=== PATIENT | female | born 1935 | race Caucasian/White ===

== ENCOUNTER 2017-11-05 21:13 | Inpatient (IN) | payer MEDICARE, OTHER, SELFPAY ==
[2017-11-05 21:14] VITALS: BP 149/66; PULSE 103; RESP 16; TEMP 36.7; O2SAT 96; BMI 30.1
--- NOTE | 2017-11-05 21:45 | EKG12_ITS ---
Test Reason : CONFUSION Blood Pressure : / mmHG Vent. Rate : 089 BPM Atrial Rate : 089 BPM P-R Int : 144 ms QRS Dur : 076 ms QT Int : 358 ms P-R-T Axes : 054 014 057 degrees QTc Int : 435 ms Normal sinus rhythm Normal ECG Confirmed by LYNETTE MURRAY, JACQUELINE ([id number]), book editor LISE SHIPLEY ([id number]) on 11/07/2017 3:42:24 PM Referred By: SIVAN Confirmed By:JACQUELINE OJEDA MD
--- NOTE | 2017-11-05 21:45 | CT_ITS ---
STUDY: CT BRAIN WITHOUT CONTRAST REASON FOR EXAM: Female, 81 years old. Confusion RADIATION DOSAGE (If Supplied By Facility): CTDIvol = ( 44.99 ) mGy, DLP = ( 745.49 ) mGycm TECHNIQUE: Transaxial CT imaging of the brain was performed without administration of intravenous contrast material. Individualized dose optimization techniques were used for this CT. COMPARISON: June 15, 2017. FINDINGS: Normal soft tissue structures. Normal calvarium. Normal size ventricles and extra-axial spaces for the patient's age. Bilateral white matter microangiopathic ischemic of the cerebral hemispheres. Normal basal ganglia and thalami. Normal brainstem. Normal cerebellum. There is no intracranial hemorrhage. There are no findings of an acute ischemic infarction. Normal visualized paranasal sinuses. CT/Brain/Head without Contrast IMPRESSION: Stable age-related changes of the brain. Electronically Signed: Narendra Guadalupe DO at 22:42 EDT Tel [phone], Service support ,
--- NOTE | 2017-11-05 21:52 | ED.VISSUMM ---
- ER Visit Summary Date of Service: 11/05/17 Chief Complaint: Nausea, vomiting, diarrhea; confusion History of Present Illness: The patient is a 81 F presenting with nausea, vomiting, diarrhea. Daughter states that she was at a restaurant with her son. She was supposed to go to the bathroom and ended up driving home. When they found her she had soiled herself. She has had nausea, vomiting and diarrhea today. No blood in her stool. Daughter states she has been confused today and has been generally weak. She states when she talked to her on the phone she seemed confused throughout the day. She has had previous urinary tract infections with confusion. She denies chest pain or shortness of breath. Denies abdominal pain. Denies other complaints. Physical Examination: Vitals are stable. Patient is afebrile. Alert no acute distress. HEENT exam is unremarkable. Neck is supple. Lungs are clear and equal bilaterally. Erythema under right breast Heart is regular and tachycardic Abdomen is soft nontender nondistended. No guarding or rebound Extremities are unremarkable. Skin is warm and dry. No focal neurologic deficit. Alert and oriented ?3. NIH 0 Remainder of exam is unremarkable. Emergency Department Course and Treatment: Patient given IV fluids, Zofran. EKG is sinus rate of 89 with no acute ischemic changes. Chest x-ray shows no acute process. CT head shows chronic changes. CBC shows a white count of 15.9. Chemistries show glucose 186, BUN 20. Liver lipase are normal. Urinalysis shows over 100 white blood cells. Troponin is negative. Lactic acid is normal. Urine culture was sent. She is given Rocephin IV. Will discuss the hospitalist for admission. Disposition: Admission Impression: Change in mental status, UTI, nausea, vomiting, diarrhea; generalized weakness This note was generated with [employer] dictation software. It may contain incorrect words, spelling, and punctuation that were not noted in review of the chart prior to signing ED Disposition - Plan for ED Patient: Chief Complaint: Confusion Referrals: Cecy Trivedi MD [Primary Care Provider] -
[2017-11-05 21:54] LABS: Mucous, Urine 0 SEEN /hpf (<or=2+)
--- NOTE | 2017-11-05 22:00 | RAD_ITS ---
STUDY: X-RAY CHEST REASON FOR EXAM: Female, 81 years old. Confusion TECHNIQUE: Single frontal view COMPARISON: None. FINDINGS: The lungs are clear and expanded. There is no demonstrated pleural abnormality. Normal size heart. Normal mediastinum and len. Normal visualized pulmonary arteries. Calcified aortic arch and descending thoracic aorta. Normal visualized thoracic spine. Normal visualized ribs, clavicles, and shoulders. There is no demonstrated abnormality of the visualized soft tissue structures of the upper abdomen. RAD/Chest 1 View (Portable) IMPRESSION: Normal x-ray examination of the chest. Electronically Signed: Narendra Guadalupe DO at 22:50 EDT Tel [phone], Service support ,
[2017-11-05 22:01] LABS: Color, Urine Yellow (Yellow); Glucose, Dipstick 50 mg/dl (Normal); Ketone-Dipstick 5 mg/dl (Negative); Leukocyte Esterase-Dipstick 500 /ul (Negative); Nitrite-Dipstick Positive (Negative); Occult Blood-Urine 250 /ul (Negative); Protein-Dipstick 100 mg/dl (Negative); Urine Bilirubin Dipstick Negative (Negative); Urine Clarity Cloudy (Clear); Urine Urobilinogen Normal (Normal)
[2017-11-05 22:06] LABS: Absolute Lymphocyte Count 1.45 X10^3/ul (0.83-4.51); Absolute Neutrophil Count 12.9 X10^3/uL (2.0-7.7); Basophil# 0.03 X10^3/uL; Basophil% 0.2 % (0-1); Eosinophil# 0.15 X10^3/uL; Eosinophils% 0.9 % (0-5); Hematocrit 38.2 % (37-47); Hemoglobin 12.6 g/dl (12.0-15.0); Lymphocyte # 1.45 X10^3/ul (4.0); Lymphocyte % 9.1 % (19-41); Mean Corpuscular Hgb 29.5 pg (27.0-32.0); Mean Corpuscular Volume 89.5 fL (81-99); Mean Platelet Vol. 10.6 fl (6.2-12.0); Monocyte# 1.33 X10^3/uL; Monocyte% 8.3 % (0-10); Neutrophil # 12.94 X10^3/uL (2.7-7.7); Neutrophil % 81.2 % (47-70); POSITIVE COUNT NO; POSITIVE DIFFERENTIAL NO; POSITIVE MORPHOLOGY NO; Platelet Count 205 K/mm3 (150-450); RBC Distribution Width CV 14.1 % (11.6-14.6); RBC Distribution Width SD 46.1 fl (35.1-43.9); Red Blood Count 4.27 M/mm3 (4.2-5.4); White Blood Count 15.9 K/mm3 (4.4-11.0)
[2017-11-05] MEDS: Ondansetron 4 MG/2 ML Vial IV (22:07)
[2017-11-05 22:12] LABS: Bacteria 1+ /hpf (None Seen); Red Blood Cells-Urine 5-10 SEEN /hpf (0-5); Squamous Epithelial Cells - UA 0-5 SEEN /hpf (5-10); White Blood Cells >100 SEEN /hpf (0-5)
[2017-11-05 22:19] VITALS: BP 137/84; PULSE 103; RESP 18; O2SAT 98
[2017-11-05 22:33] LABS: Lactic Acid 1.2 mmol/L (0.4-2.0)
[2017-11-05 22:35] LABS: ALB/GLOB Ratio 0.9 RATIO (0.9-2.4); AST(SGOT) 12 U/L (15-37); Alanine Aminotransfer ALT/SGPT 17 U/L (13-56); Albumin, Serum 3.4 g/dL (3.2-5.0); Alkaline Phosphatase 63 U/L (45-117); Anion Gap 9 (5-15); BUN 20 mg/dL (7-18); BUN/Creat Ratio 20.3 RATIO (10-20); Calcium,Total 8.6 mg/dL (8.5-10.1); Chloride 108 mmol/L (98-107); Creatinine, Serum 0.98 mg/dL (0.55-1.02); EST Glomerular Filtration Rate 58 mL/min (>60); Est Glom Filt Rate - Afr Amer 70 mL/min (>60); Estimated Creatinine Clearance 40.51 ml/min; Globulin 3.9 g/dL (2.2-4.2); Glucose 186 mg/dL (74-106); Lipase 184 U/L (73-393); Potassium 3.9 mmol/L (3.5-5.1); Protein, Total 7.3 g/dL (6.4-8.2); Sodium Level 141 mmol/L (136-145)
[2017-11-05 23:03] VITALS: BP 140/60; PULSE 83; RESP 16; O2SAT 95
[2017-11-05] MEDS: Ceftriaxone 1 GM/50 ML BAG IV (23:10)
[2017-11-05 23:12] VITALS: BP 140/60; PULSE 83; RESP 16; O2SAT 98
--- NOTE | 2017-11-05 23:25 | PCM.HP.STD ---
Problem List (1) GERD (gastroesophageal reflux disease) Status: Chronic Qualifiers: (2) Hyperlipidemia Status: Chronic Qualifiers: (3) Obstructive sleep apnea Status: Chronic (4) Type II diabetes mellitus Status: Chronic Qualifiers: History of Present Illness Date of Admission: 11/05/17 Chief Complaint: Weakness, confusion, diarrhea. The patient is a 81 year old F with past medical history as mentioned above presented to the emergency room because of confusion, weakness as well as diarrhea. At this time, the patient is alert and oriented ?3. According to her daughter who was at the bedside, the patient was with her son at a restaurant and she is supposed to go to the bathroom and she ended up driving back home. When the found him at home, she soiled herself. She had couple episodes of diarrhea as well as nausea and vomiting. Patient denies any abdominal pain, fever or chills. She denies urinary symptoms. She denies chest pain or shortness of breath. She has history of type 2 diabetes mellitus and she has been on oral hypoglycemic drugs, most recent hemoglobin A1c was 6.8 on June,. She has history of GERD and she has been on PPI. She has a history of recurrent urinary tract infections with previous frequent admissions. She has a history of hyperlipidemia and she has been on statins. In the emergency room, patient was tachycardic, blood pressure was stable, was afebrile and pulse ox maintained on room air. Routine blood work was remarkable for leukocytosis, otherwise normal. Lactic acid was normal. LFT and lipase were normal. Troponin was normal. EKG revealed normal sinus rhythm, normal intervals, no acute ischemic changes. CT scan brain showed no acute findings. Chest x-ray showed no infiltrate, consolidation or effusion. She is being admitted for acute cystitis with sepsis as well as transient metabolic encephalopathy. Past Medical History Past Medical History (Chronic Problems): Chronic Problems GERD (gastroesophageal reflux disease) (Chronic) Hyperlipidemia (Chronic) Obstructive sleep apnea (Chronic) Type II diabetes mellitus (Chronic) Allergies sulfamethoxazole [From Septra] Allergy (Verified 11/05/17 21:19) Hives trimethoprim [From Septra] Allergy (Verified 11/05/17 21:19) Hives adhesive tape Adverse Reaction (Verified 11/05/17 21:19) Rash Home Medications: Ambulatory Orders Medication Instructions Recorded Aspirin [Aspirin, Baby] 81 mg PO DAILY@0800 #30 tab.chew 09/21/15 Atorvastatin Calcium [Lipitor] 20 mg PO QHS #30 tablet 09/21/15 Bimatoprost 0.01% [Lumigan 0.01%] 1 drop EACH EYE QHS #1 bottle 09/21/15 Metformin HCl [Glucophage] 1,000 mg PO QHS #30 tablet 09/21/15 Omeprazole [Prilosec] 40 mg PO DAILY #30 capsule 09/21/15 Glimepiride [Amaryl] 4 mg PO BID 11/05/17 Ramipril [Altace] 2.5 mg PO DAILY 11/05/17 Surgical History: appendectomy, cholecystectomy, hysterectomy, tonsillectomy Psychiatric History: No pertinent psych hx CAN CRIMPER History: No pertinent CAN CRIMPER history Smoking Status: Never smoker Alcohol: None Drugs: None - *Family History Maternal History Items: Diabetes, Heart Disease - age 59 Paternal History Items: Cancer - in 80's, Diabetes Review of Systems Constitutional: Reports: Weakness. Denies: Anorexia, Chills, Fever Eyes: Denies: Blurred vision, Double vision, Drainage, Redness HEENT: Denies: Difficulty Hearing, Ear Pain, Eye Pain, Nasal Congestion, Sore Throat Cardiovascular: Denies: Chest Pain, Chest Pressure, Chest Tightness, Light Headedness, Palpitations, Syncope Respiratory: Denies: Cough, Pleuritic Pain, Shortness of Breath, Sputum production, Wheezing Gastrointestinal: Reports: Diarrhea, Nausea, Vomiting. Denies: Abdominal Pain, Constipation Genitourinary: Denies: Dysuria, Frequency, Hematuria Musculoskeletal: Denies: Arm Pain, Back Pain, Foot Pain Skin: Denies: Dryness, Rash Neurological: Reports: Confusion. Denies: Balance problems, Double vision, Change in Speech, Slurred speech, Headaches, Incoordination, Numbness Psychiatric: Denies: Anxiety, Depression Endocrine: Denies: Change in Body Habitus, Polydipsia VTE Information - Inpt Only VTE Present on Admission: No VTE Mechan Device Prophylaxis: None VTE Pharm Prophylaxis ordered?: Yes - Physical Exam General: Alert, Oriented x3, Cooperative, No apparent distress HEENT: Atraumatic, PERRLA, EOMI Oral: Moist Mucosa, No Gingival or Mucosal Lesions/ Ulcerations Neck: Supple, No JVD, Negative Carotid Bruits, Trachea Midline, Thyroid Normal Size and Texture Lungs: Clear to auscultation, No rhonchi, No wheeze, No rales, Diminished Cardiovascular: Regular rate, Regular Rhythm, Normal S1, Normal S2, No murmurs, PMI Normal Abdomen: Bowel Sounds Present, Soft, Non Tender, Non-Distended, No Hepato-splenomegaly, Obese Extremities: No clubbing, No cyanosis, No edema Skin: No rashes, No breakdown Lymphatic: No Cervical, Supraclavicular, or Inguinal Adenopathy Neurological: Cranial nerves II-XII grossly intact, Motor Exam 5/5 strength throughout Psych/Mental Status: Normal Affect, Appropriate, Alert and oriented to time, place, person, mood and affect Vital Signs Temp Pulse Resp BP Pulse Ox 98.0 F 83 16 140/60 H 98 11/05/17 21:14 11/05/17 23:12 11/05/17 23:12 11/05/17 23:12 11/05/17 23:12 Oxygen Delivery Method Room Air Weight: 181 lb 3.52 oz Body Mass Index (BMI) 30.1 Finger Stick Blood Glucose 166 Laboratory Tests Past 24 Hrs 11/05/17 11/05/17 11/05/17 21:33 22:00 22:00 WBC 15.9 H RBC 4.27 Hgb 12.6 Hct 38.2 MCV 89.5 MCH 29.5 MCHC 33.0 RDW 14.1 RDW Differential 46.1 H Plt Count 205 MPV 10.6 Immature Gran % (Auto) 0.300 Neut % (Auto) 81.2 H Lymph % (Auto) 9.1 L [place] % (Auto) 8.3 Eos % (Auto) 0.9 Baso % (Auto) 0.2 Absolute Neuts (auto) 12.9 H Absolute Lymphs (auto) 1.45 Total Counted Not Reportable Sodium 141 Potassium 3.9 Chloride 108 H Carbon Dioxide 24.0 Anion Gap 9 BUN 20 H Creatinine 0.98 Estim Creat Clear Calc 40.51 Est GFR (MDRD) Af Amer 70 Est GFR (MDRD) Non-Af 58 L BUN/Creatinine Ratio 20.3 H Glucose 186 H Lactic Acid Calcium 8.6 Total Bilirubin 0.80 AST 12 L ALT 17 Alkaline Phosphatase 63 Troponin I < 0.02 Total Protein 7.3 Albumin 3.4 Globulin 3.9 Albumin/Globulin Ratio 0.9 Lipase 184 Urine Color Yellow Urine Clarity Cloudy Urine pH 5.0 Ur Specific [place] 1.020 Urine Protein 100 H Urine Glucose (UA) 50 H Urine Ketones 5 H Urine Occult Blood 250 H Urine Nitrite Positive H Urine Bilirubin Negative Urine Urobilinogen Normal Ur Leukocyte Esterase 500 H Urine RBC 5-10 SEEN Urine WBC >100 SEEN Ur Squamous Epith Cells 0-5 SEEN Urine Bacteria 1+ Urine Mucus 0 SEEN 11/05/17 22:00 WBC RBC Hgb Hct MCV MCH MCHC RDW RDW Differential Plt Count MPV Immature Gran % (Auto) Neut % (Auto) Lymph % (Auto) [place] % (Auto) Eos % (Auto) Baso % (Auto) Absolute Neuts (auto) Absolute Lymphs (auto) Total Counted Sodium Potassium Chloride Carbon Dioxide Anion Gap BUN Creatinine Estim Creat Clear Calc Est GFR (MDRD) Af Amer Est GFR (MDRD) Non-Af BUN/Creatinine Ratio Glucose Lactic Acid 1.2 Calcium Total Bilirubin AST ALT Alkaline Phosphatase Troponin I Total Protein Albumin Globulin Albumin/Globulin Ratio Lipase Urine Color Urine Clarity Urine pH Ur Specific [place] Urine Protein Urine Glucose (UA) Urine Ketones Urine Occult Blood Urine Nitrite Urine Bilirubin Urine Urobilinogen Ur Leukocyte Esterase Urine RBC Urine WBC Ur Squamous Epith Cells Urine Bacteria Urine Mucus Clinical Impression(s) from Imaging Studies Brain CT 11/05/17 21:45 IMPRESSION: Stable age-related changes of the brain. Electronically Signed: Narendra Guadalupe DO at 22:42 EDT Tel [phone], Service support , Chest X-Ray 11/05/17 22:00 IMPRESSION: Normal x-ray examination of the chest. Electronically Signed: Narendra Guadalupe DO at 22:50 EDT Tel [phone], Service support , Assessment/Plan This is an 81 years old female patient presented to emergency department because of confusion, weakness and diarrhea and she was found to have acute cystitis with sepsis as well as transient metabolic encephalopathy. #1 acute cystitis/sepsis: In context of history of recurrent acute cystitis/UTI. She is afebrile, slightly tachycardic, blood pressure stable. Lactic acid is normal. Plan: Admit to [facility] floor, cardiac monitoring, continue IV fluids, IV Rocephin, urine culture, repeat CBC and BMP tomorrow morning, PT OT evaluation and treatment. #2 confusion/delirium: Secondary to metabolic encephalopathy, transient. At this time, patient is alert and oriented ?3. CT scan brain without acute findings. Plan to treat underlying cause which is the acute cystitis. #3 type 2 diabetes mellitus: ADA diet, Accu-Cheks, insulin sliding scale, continue glimepiride and metformin. #4 hyperlipidemia: Continue statins. #5 GERD: Continue PPI. #6 DVT prophylaxis: Subcu Lovenox. This note was generated with [employer] dictation software. It may contain incorrect words, spelling, and punctuation that were not noted in checking the note before signing. Code Visit Inpatient E&M: 89744 Init Hosp L2
--- NOTE | 2017-11-05 23:31 | HP.PCM_ITS ---
Problem List (1) GERD (gastroesophageal reflux disease) Status: Chronic Qualifiers: (2) Hyperlipidemia Status: Chronic Qualifiers: (3) Obstructive sleep apnea Status: Chronic (4) Type II diabetes mellitus Status: Chronic Qualifiers: History of Present Illness Date of Admission: 11/05/17 Chief Complaint: Weakness, confusion, diarrhea. The patient is a 81 year old F with past medical history as mentioned above presented to the emergency room because of confusion, weakness as well as diarrhea. At this time, the patient is alert and oriented ?3. According to her daughter who was at the bedside, the patient was with her son at a restaurant and she is supposed to go to the bathroom and she ended up driving back home. When the found him at home, she soiled herself. She had couple episodes of diarrhea as well as nausea and vomiting. Patient denies any abdominal pain, fever or chills. She denies urinary symptoms. She denies chest pain or shortness of breath. She has history of type 2 diabetes mellitus and she has been on oral hypoglycemic drugs, most recent hemoglobin A1c was 6.8 on June,. She has history of GERD and she has been on PPI. She has a history of recurrent urinary tract infections with previous frequent admissions. She has a history of hyperlipidemia and she has been on statins. In the emergency room, patient was tachycardic, blood pressure was stable, was afebrile and pulse ox maintained on room air. Routine blood work was remarkable for leukocytosis, otherwise normal. Lactic acid was normal. LFT and lipase were normal. Troponin was normal. EKG revealed normal sinus rhythm , normal intervals, no acute ischemic changes. CT scan brain showed no acute findings. Chest x-ray showed no infiltrate, consolidation or effusion. She is being admitted for acute cystitis with sepsis as well as transient metabolic encephalopathy. Past Medical History Past Medical History (Chronic Problems): Chronic Problems GERD (gastroesophageal reflux disease) (Chronic) Hyperlipidemia (Chronic) Obstructive sleep apnea (Chronic) Type II diabetes mellitus (Chronic) Allergies sulfamethoxazole [From Septra] Allergy (Verified 11/05/17 21:19) Hives trimethoprim [From Septra] Allergy (Verified 11/05/17 21:19) Hives adhesive tape Adverse Reaction (Verified 11/05/17 21:19) Rash Home Medications: Ambulatory Orders Medication Instructions Recorded Aspirin [Aspirin, Baby] 81 mg PO DAILY@0800 #30 tab.chew 09/21/15 Atorvastatin Calcium [Lipitor] 20 mg PO QHS #30 tablet 09/21/15 Bimatoprost 0.01% [Lumigan 0.01%] 1 drop EACH EYE QHS #1 bottle 09/21/15 Metformin HCl [Glucophage] 1,000 mg PO QHS #30 tablet 09/21/15 Omeprazole [Prilosec] 40 mg PO DAILY #30 capsule 09/21/15 Glimepiride [Amaryl] 4 mg PO BID 11/05/17 Ramipril [Altace] 2.5 mg PO DAILY 11/05/17 Surgical History: appendectomy, cholecystectomy, hysterectomy, tonsillectomy Psychiatric History: No pertinent psych hx PET SITTER History: No pertinent PET SITTER history Smoking Status: Never smoker Alcohol: None Drugs: None - *Family History Maternal History Items: Diabetes, Heart Disease - age 59 Paternal History Items: Cancer - in 80's, Diabetes Review of Systems Constitutional: Reports: Weakness. Denies: Anorexia, Chills, Fever Eyes: Denies: Blurred vision, Double vision, Drainage, Redness HEENT: Denies: Difficulty Hearing, Ear Pain, Eye Pain, Nasal Congestion, Sore Throat Cardiovascular: Denies: Chest Pain, Chest Pressure, Chest Tightness, Light Headedness, Palpitations, Syncope Respiratory: Denies: Cough, Pleuritic Pain, Shortness of Breath, Sputum production, Wheezing Gastrointestinal: Reports: Diarrhea, Nausea, Vomiting. Denies: Abdominal Pain, Constipation Genitourinary: Denies: Dysuria, Frequency, Hematuria Musculoskeletal: Denies: Arm Pain, Back Pain, Foot Pain Skin: Denies: Dryness, Rash Neurological: Reports: Confusion. Denies: Balance problems, Double vision, Change in Speech, Slurred speech, Headaches, Incoordination, Numbness Psychiatric: Denies: Anxiety, Depression Endocrine: Denies: Change in Body Habitus, Polydipsia VTE Information - Inpt Only VTE Present on Admission: No VTE Mechan Device Prophylaxis: None VTE Pharm Prophylaxis ordered?: Yes - Physical Exam General: Alert, Oriented x3, Cooperative, No apparent distress HEENT: Atraumatic, PERRLA, EOMI Oral: Moist Mucosa, No Gingival or Mucosal Lesions/ Ulcerations Neck: Supple, No JVD, Negative Carotid Bruits, Trachea Midline, Thyroid Normal Size and Texture Lungs: Clear to auscultation, No rhonchi, No wheeze, No rales, Diminished Cardiovascular: Regular rate, Regular Rhythm, Normal S1, Normal S2, No murmurs, PMI Normal Abdomen: Bowel Sounds Present, Soft, Non Tender, Non-Distended, No Hepato- splenomegaly, Obese Extremities: No clubbing, No cyanosis, No edema Skin: No rashes, No breakdown Lymphatic: No Cervical, Supraclavicular, or Inguinal Adenopathy Neurological: Cranial nerves II-XII grossly intact, Motor Exam 5/5 strength throughout Psych/Mental Status: Normal Affect, Appropriate, Alert and oriented to time, place, person, mood and affect Vital Signs Temp Pulse Resp BP Pulse Ox 98.0 F 83 16 140/60 H 98 11/05/17 21:14 11/05/17 23:12 11/05/17 23:12 11/05/17 23:12 11/05/17 23:12 Oxygen Delivery Method Room Air Weight: 181 lb 3.52 oz Body Mass Index (BMI) 30.1 Finger Stick Blood Glucose 166 Laboratory Tests Past 24 Hrs 11/05/17 11/05/17 11/05/17 21:33 22:00 22:00 WBC 15.9 H RBC 4.27 Hgb 12.6 Hct 38.2 MCV 89.5 MCH 29.5 MCHC 33.0 RDW 14.1 RDW Differential 46.1 H Plt Count 205 MPV 10.6 Immature Gran % (Auto) 0.300 Neut % (Auto) 81.2 H Lymph % (Auto) 9.1 L [place] % (Auto) 8.3 Eos % (Auto) 0.9 Baso % (Auto) 0.2 Absolute Neuts (auto) 12.9 H Absolute Lymphs (auto) 1.45 Total Counted Not Reportable Sodium 141 Potassium 3.9 Chloride 108 H Carbon Dioxide 24.0 Anion Gap 9 BUN 20 H Creatinine 0.98 Estim Creat Clear Calc 40.51 Est GFR (MDRD) Af Amer 70 Est GFR (MDRD) Non-Af 58 L BUN/Creatinine Ratio 20.3 H Glucose 186 H Lactic Acid Calcium 8.6 Total Bilirubin 0.80 AST 12 L ALT 17 Alkaline Phosphatase 63 Troponin I < 0.02 Total Protein 7.3 Albumin 3.4 Globulin 3.9 Albumin/Globulin Ratio 0.9 Lipase 184 Urine Color Yellow Urine Clarity Cloudy Urine pH 5.0 Ur Specific [place] 1.020 Urine Protein 100 H Urine Glucose (UA) 50 H Urine Ketones 5 H Urine Occult Blood 250 H Urine Nitrite Positive H Urine Bilirubin Negative Urine Urobilinogen Normal Ur Leukocyte Esterase 500 H Urine RBC 5-10 SEEN Urine WBC >100 SEEN Ur Squamous Epith Cells 0-5 SEEN Urine Bacteria 1+ Urine Mucus 0 SEEN 11/05/17 22:00 WBC RBC Hgb Hct MCV MCH MCHC RDW RDW Differential Plt Count MPV Immature Gran % (Auto) Neut % (Auto) Lymph % (Auto) [place] % (Auto) Eos % (Auto) Baso % (Auto) Absolute Neuts (auto) Absolute Lymphs (auto) Total Counted Sodium Potassium Chloride Carbon Dioxide Anion Gap BUN Creatinine Estim Creat Clear Calc Est GFR (MDRD) Af Amer Est GFR (MDRD) Non-Af BUN/Creatinine Ratio Glucose Lactic Acid 1.2 Calcium Total Bilirubin AST ALT Alkaline Phosphatase Troponin I Total Protein Albumin Globulin Albumin/Globulin Ratio Lipase Urine Color Urine Clarity Urine pH Ur Specific [place] Urine Protein Urine Glucose (UA) Urine Ketones Urine Occult Blood Urine Nitrite Urine Bilirubin Urine Urobilinogen Ur Leukocyte Esterase Urine RBC Urine WBC Ur Squamous Epith Cells Urine Bacteria Urine Mucus Clinical Impression(s) from Imaging Studies Brain CT 11/05/17 21:45 IMPRESSION: Stable age-related changes of the brain. Electronically Signed: Narendra Guadalupe DO at 22:42 EDT Tel [phone], Service support , Chest X-Ray 11/05/17 22:00 IMPRESSION: Normal x-ray examination of the chest. Electronically Signed: Narendra Guadalupe DO at 22:50 EDT Tel [phone], Service support , Assessment/Plan This is an 81 years old female patient presented to emergency department because of confusion, weakness and diarrhea and she was found to have acute cystitis with sepsis as well as transient metabolic encephalopathy. #1 acute cystitis/sepsis: In context of history of recurrent acute cystitis/ UTI. She is afebrile, slightly tachycardic, blood pressure stable. Lactic acid is normal. Plan: Admit to [facility] floor, cardiac monitoring, continue IV fluids, IV Rocephin, urine culture, repeat CBC and BMP tomorrow morning, PT OT evaluation and treatment. #2 confusion/delirium: Secondary to metabolic encephalopathy, transient. At this time, patient is alert and oriented ?3. CT scan brain without acute findings. Plan to treat underlying cause which is the acute cystitis. #3 type 2 diabetes mellitus: ADA diet, Accu-Cheks, insulin sliding scale, continue glimepiride and metformin. #4 hyperlipidemia: Continue statins. #5 GERD: Continue PPI. #6 DVT prophylaxis: Subcu Lovenox. This note was generated with [employer] dictation software. It may contain incorrect words, spelling, and punctuation that were not noted in checking the note before signing. Code Visit Inpatient E&M: 11325 Init Hosp L2
[2017-11-05 23:44] VITALS: BMI 34.0
[2017-11-05 23:59] VITALS: BMI 34.0
[2017-11-06] VITALS (9 sets, daily range): BP systolic 135–143; BP diastolic 51–70; PULSE 66–83; RESP 16–18; TEMP 36.6–37.2; O2SAT 94–100
[2017-11-06 00:31] LABS: Bedside Glucose 145 mg/dL (70-110)
[2017-11-06] MEDS: 0.9% Normal Saline 1,000 ML 100 ML IV ×2 (04:15→12:56)
[2017-11-06 06:36] LABS: Absolute Neutrophil Count 10.2 X10^3/uL (2.0-7.7); Basophil# 0.03 X10^3/uL; Basophil% 0.2 % (0-1); Eosinophil# 0.25 X10^3/uL; Eosinophils% 1.7 % (0-5); Hematocrit 38.4 % (37-47); Hemoglobin 12.3 g/dl (12.0-15.0); Lymphocyte % 17.1 % (19-41); Mean Corpuscular Hgb 28.5 pg (27.0-32.0); Mean Corpuscular Volume 88.9 fL (81-99); Monocyte# 1.64 X10^3/uL; Monocyte% 11.2 % (0-10); Neutrophil % 69.6 % (47-70); Platelet Count 136 K/mm3 (150-450); RBC Distribution Width SD 45.8 fl (35.1-43.9); Red Blood Count 4.32 M/mm3 (4.2-5.4); White Blood Count 14.7 K/mm3 (4.4-11.0)
[2017-11-06 06:37] LABS: Differential Indicated SCAN CRITERIA MET; POSITIVE COUNT NO; POSITIVE DIFFERENTIAL YES; POSITIVE MORPHOLOGY NO
[2017-11-06 06:39] LABS: Anion Gap 10 (5-15); BUN 16 mg/dL (7-18); BUN/Creat Ratio 19.6 RATIO (10-20); Calcium,Total 8.5 mg/dL (8.5-10.1); Chloride 110 mmol/L (98-107); Creatinine, Serum 0.82 mg/dL (0.55-1.02); EST Glomerular Filtration Rate 71 mL/min (>60); Est Glom Filt Rate - Afr Amer 86 mL/min (>60); Estimated Creatinine Clearance 38.65 ml/min; Glucose 108 mg/dL (74-106); Potassium 3.9 mmol/L (3.5-5.1); Sodium Level 143 mmol/L (136-145)
[2017-11-06 06:46] LABS: Bedside Glucose 110 mg/dL (70-110)
[2017-11-06] MEDS: Ramipril 2.5 MG Capsule PO (09:11)
[2017-11-06] MEDS: Aspirin 81 MG TAB.CHEW PO (09:11)
[2017-11-06] MEDS: Enoxaparin 40 MG/0.4 ML Syringe SC (09:11)
[2017-11-06] MEDS: Pantoprazole Sodium 40 MG Tablet PO (09:11)
[2017-11-06] MEDS: Glimepiride 4 MG Tablet PO (09:11)
[2017-11-06] MEDS: Glucerna Shake 120 ML LIQUID PO (09:12)
[2017-11-06] MEDS: Ceftriaxone 1 GM/50 ML BAG IV (09:12)
[2017-11-06] MEDS: metFORMIN HCl 1,000 MG Tablet 1000 MG PO (09:13)
--- NOTE | 2017-11-06 10:29 | PCM.DC ---
You will use the following diet at home:: Regular Discharge Activity: Return to Normal Activity Allergies/Adverse Reactions: Allergies sulfamethoxazole [From ] Allergy (Verified 11/05/17 21:19) Hives trimethoprim [From ] Allergy (Verified 11/05/17 21:19) Hives adhesive tape Adverse Reaction (Verified 11/05/17 21:19) Rash Medications to take at Discharge Aspirin [Aspirin, Baby] 81 mg PO DAILY@0800 #30 tab.chew 09/21/15 Atorvastatin Calcium [Lipitor] 20 mg PO QHS #30 tablet 09/21/15 Bimatoprost 0.01% [Lumigan 0.01%] 1 drop EACH EYE QHS #1 bottle 09/21/15 Metformin HCl [Glucophage] 1,000 mg PO QHS #30 tablet 09/21/15 Omeprazole [Prilosec] 40 mg PO DAILY #30 capsule 09/21/15 Glimepiride [Amaryl] 4 mg PO BID 11/05/17 Ramipril [Altace] 2.5 mg PO DAILY 11/05/17 Acetaminophen [Tylenol Tablet] 650 mg PO Q6H PRN PRN tablet 11/06/17 Ciprofloxacin [Cipro] 250 mg PO BID 3 Days #6 tablet 11/06/17 Nystatin Powder [Mycostatin Powder] 1 applic TOPICAL BID #1 bottle 11/06/17 Ondansetron [Zofran] 4 mg IV Q8H PRN PRN vial 11/06/17 The following prescriptions were given: Ciprofloxacin [Cipro] 250 mg PO BID 3 Days #6 tablet Nystatin Powder [Mycostatin Powder] 1 applic TOPICAL BID #1 bottle Primary Care Physician: Cecy Trivedi MD [Primary Care Provider] - In 1 Week
--- NOTE | 2017-11-06 10:30 | PCM.DC.SUM ---
Discharge Date and Diagnosis Date of Admission: 11/05/17 Date of Discharge: 11/06/17 - Secondary Discharge Diagnosis Chronic Problems GERD (gastroesophageal reflux disease) (Chronic) Hyperlipidemia (Chronic) Obstructive sleep apnea (Chronic) Type II diabetes mellitus (Chronic) Hospital Course and Treatment Operations: None Summary of Care Provided: The patient is a 81 F who presented with nausea, vomiting, diarrhea. She was at a local restaurant with her son, she needed to use the bathroom and ended up driving home. When they found her she had soiled herself. She has had nausea, vomiting and diarrhea. Taken to the emergency room where she had a CT scan of the brain and that was nonacute. She was noted to have pyuria consistent with urinary tract infection but she denied any dysuria. Was treated with IV Rocephin for acute cystitis, urine culture is growing gram-negative rods with final cultures pending. The patient elected to be discharged home as she was alert and oriented to time place and person and feeling much improved. She was discharged on Cipro but recommended to follow-up with her primary care doctor. If final cultures shows sensitivity pattern Cipro is not effective a new prescription will be called in. She was discharged home in stable condition. Physical exam at a time of discharge; vital signs were stable. He was alert and oriented to time place and person. He did not appear to be any form of distress. S1 and S2 heard no murmur or gallop Lung exam was clear to auscultation with no adventitious sounds. Abdomen was soft nontender with normal bowel sounds. extremity exam did not reveal any edema, palpable pulses bilaterally. Neurologic exam was grossly intact. Discharge Diet: No Restrictions Discharge Activity: Return to Normal Activity Home Medications: Medications to take at Discharge Aspirin [Aspirin, Baby] 81 mg PO DAILY@0800 #30 tab.chew 09/21/15 Atorvastatin Calcium [Lipitor] 20 mg PO QHS #30 tablet 09/21/15 Bimatoprost 0.01% [Lumigan 0.01%] 1 drop EACH EYE QHS #1 bottle 09/21/15 Metformin HCl [Glucophage] 1,000 mg PO QHS #30 tablet 09/21/15 Omeprazole [Prilosec] 40 mg PO DAILY #30 capsule 09/21/15 Glimepiride [Amaryl] 4 mg PO BID 11/05/17 Ramipril [Altace] 2.5 mg PO DAILY 11/05/17 Acetaminophen [Tylenol Tablet] 650 mg PO Q6H PRN PRN tablet 11/06/17 Ciprofloxacin [Cipro] 250 mg PO BID 3 Days #6 tab 11/06/17 Nystatin Powder [Mycostatin Powder] 1 applic TOPICAL BID #1 bottle 11/06/17 Ondansetron [Zofran] 4 mg IV Q8H PRN PRN vial 11/06/17 Following Prescrptions Were Given to Patient: Ciprofloxacin [Cipro] 250 mg PO BID 3 Days #6 tab Nystatin Powder [Mycostatin Powder] 1 applic TOPICAL BID #1 bottle Primary Care Physician: Cecy Trivedi MD [Primary Care Provider] - In 1 Week Medical Necessity - Tobacco Use Smoking Status: Never smoker Meaningful Use Info Meaningful Use Diagnoses (Choose all that apply): None applicable Code Visit OBSV E&M: 71263 Observation care discharge
[2017-11-06 12:00] LABS: Bedside Glucose 241 mg/dL (70-110)
[2017-11-07 09:30] LABS: Pathologist Review Reviewed
== END 2017-11-06 14:14 | disposition home or self-care (01) | DRG 689 ==
LOC: ED 22:04 → MS2 23:20
PROVIDERS: Admitting Provider Hospitalist; Emergency Provider Emergency Medicine; Family Provider Family Medicine; PCP Family Medicine; Visit Provider Internal Medicine
DX: N30.00 Acute cystitis without hematuria (principal); G93.41 Metabolic encephalopathy; K21.9 Gastro-esophageal reflux disease without esophagitis; E78.5 Hyperlipidemia, unspecified; G47.33 Obstructive sleep apnea (adult) (pediatric); E11.9 Type 2 diabetes mellitus without complications
CPT/HCPCS: 36415; 70450; 71045; 80048; 80053; 81001; 82962; 83605; 83690; 84484; 85025; 87086; 87088; 87186; 93005; 97162; 97166; 97802; 99285; J7030; J7040; P9612; A4216; J2405

== ENCOUNTER 2017-11-08 06:21 | Observation (INO) | payer MEDICARE, OTHER, SELFPAY ==
[2017-11-08] VITALS (13 sets, daily range): BP systolic 129–210; BP diastolic 46–92; PULSE 67–99; RESP 15–24; TEMP 36.3–36.8; O2SAT 95–100; BMI 34.3; BMI 36.7
--- NOTE | 2017-11-08 06:52 | RAD_ITS ---
STUDY: X-RAY - LEFT RADIUS AND ULNA REASON FOR EXAM: Female, 81 years old. Documentation of closed reduction of acute fracture of the distal radius and ulna. TECHNIQUE: AP and lateral view(s) of the forearm. COMPARISON: Prior comparable comparison studies are not available for review at this time. FINDINGS: Patient has a cast. There is soft tissue swelling. There is diffuse demineralization of the osseous structures. There is a acute fracture of the distal radial diaphysis. There is acute comminuted fracture of the distal ulna. There are degenerative changes of the wrist and elbow. RAD/Forearm 2 Views IMPRESSION: Cast is present apparently secondary to closed reduction of fractures of the distal radius and ulnar Electronically Signed: Sandy Louise MD at 8:17 EDT , Service support ,
--- NOTE | 2017-11-08 06:59 | ED.VIS.GEN ---
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 No other injuries. Right-hand dominant. Quality: ache Location: left forearm Current Severity: Moderate Maximum Severity: Severe Worsened by: moving LUE Relieved by: splint placed by EMS Prior similar symptoms: Yes - Past Medical History (1) GERD (gastroesophageal reflux disease) Status: Chronic (2) Hyperlipidemia Status: Chronic (3) Obstructive sleep apnea Status: Chronic (4) Type II diabetes mellitus Status: Chronic Past Medical History - Allergies and Home Meds Allergies/Adverse Reactions: Allergies sulfamethoxazole [From ] Allergy (Verified 11/08/17 06:24) Hives trimethoprim [From ] Allergy (Verified 11/08/17 06:24) Hives adhesive tape Adverse Reaction (Verified 11/08/17 06:24) Rash Home Medications: Home Medications Medication Instructions Recorded Aspirin [Aspirin, Baby] 81 mg PO DAILY@0800 #30 tab.chew 09/21/15 Atorvastatin Calcium [Lipitor] 20 mg PO QHS #30 tablet 09/21/15 Bimatoprost 0.01% [Lumigan 0.01%] 1 drop EACH EYE QHS #1 bottle 09/21/15 Metformin HCl [Glucophage] 1,000 mg PO QHS #30 tablet 09/21/15 Omeprazole [Prilosec] 40 mg PO DAILY #30 capsule 09/21/15 Glimepiride [Amaryl] 4 mg PO BID 11/05/17 Ramipril [Altace] 2.5 mg PO DAILY 11/05/17 Acetaminophen [Tylenol Tablet] 650 mg PO Q6H PRN PRN tablet 11/06/17 Ciprofloxacin [Cipro] 250 mg PO BID 3 Days #6 tab 11/06/17 Nystatin Powder [Mycostatin Powder] 1 applic TOPICAL BID #1 bottle 11/06/17 Ondansetron [Zofran] 4 mg IV Q8H PRN PRN vial 11/06/17 Primary Care Physician: Cecy Trivedi MD [Primary Care Provider] - Surgical History: appendectomy, cholecystectomy, hysterectomy, tonsillectomy Smoking Status: Former smoker - Family History Maternal Family History: Reports: Diabetes, Heart Disease - age 59 Paternal Family History: Reports: Cancer - in 80's, Diabetes Review of Systems All systems negative except as indicated Musculoskeletal: Reports: Extremity Pain Physical Exam Vital Signs/Narrative: Vital Signs Temp Pulse Resp BP Pulse Ox 11/08/17 06:23 98.3 F 99 24 H 169/79 H 97 Inital Vital Signs reviewed: Yes General: Well nourished, Well developed, Obese Head: Normocephalic, Atraumatic Eyes: Perrl, EOMI ENT: Moist mucous membranes, No rhinorrhea Neck: Supple, Nontender Cardiovascular: Regular rate, Regular rhythm, No murmurs, - - pelvis stable APC Respiratory: No distress, CTA bilaterally, Chest nontender Abdomen: Soft, Nontender, Nondistended, Normal bowel sounds Back: Nontender, Normal Inspection Extremities: No edema, Tenderness - left mid-forearm. obvious unstable deformity. minor superficial abrasions dorsal and volar left forearm. Forearm is very floppy and causes pt to transiently lose radial pulse. Skin: Normal color, No rash Neurological: Alert, Oriented x3, Cranial nerves II-XII grossly intact, Normal Strength - can wiggle left fingers, Normal Sensation Psychological: Normal affect Diagnostic/Tx/Re-eval Clinical Impression(s) from Imaging Studies Forearm X-Ray 11/08/17 06:52 IMPRESSION: Cast is present apparently secondary to closed reduction of fractures of the distal radius and ulnar Electronically Signed: Sandy Louise MD at 8:17 EDT , Service support , - Medical Decision Making Initially upon evaluating the patient's wounds, I had to remove her forearm from the EMS vacuum splint, and the fractures were so unstable that she was intermittently losing a radial pulse. Therefore, I reduced it and held traction, and with nursing assistance, splinted the patient there, she is neurovascularly intact distally after placement. X-rays obtained afterwards show reasonable alignment, with some angulation and mild displacement. Discussed with Dr. Jimenez, on-call for orthopedics, who requests that the patient be maintained n.p.o., for further evaluation and possible open reduction internal fixation today, followed by possible discharge home, which is what the patient wants. Procedures - Upper Extremity Splints Upper Extremity Splint: Orthoglass, Long arm - sugartong forearm/wrist/elbow, Sling Splint Fabrication: Fabricated Location: Left - NVID after placement Procedure(s): Closed reduction left forearm fracture by manual manipulation and traction while splinting. ED Disposition - Plan for ED Patient: Chief Complaint: Fall Diagnosis: Traumatic closed displaced fracture of shafts of left ulna and radius Referrals: William Jimenez MD [STAFF PHYSICIAN] -
[2017-11-08] MEDS: Morphine 2 MG/ML Syringe IV (07:15)
[2017-11-08] MEDS: Ondansetron 4 MG/2 ML Vial IV (07:16)
[2017-11-08 09:40] LABS: Bedside Glucose 131 mg/dL (70-110)
--- NOTE | 2017-11-08 10:24 | ED.RN ---
REPORT CALLED TO MARLON WALSH IN OR. OK TO SEND PT TO SURGERY AT THIS TIME.
--- NOTE | 2017-11-08 11:38 | HP.PCM_ITS ---
History of Present Illness Date of Admission: 11/08/17 Chief Complaint: Left forearm fracture The patient is a 81 year old F with history of diabetes and hypertension presents today with left arm pain. She is right-hand dominant. Patient states she was walking around her house which was dimly lit when she went to sit in her chair she missed the chair and fell onto the table. When she fell on the table she hit her left arm sustaining an injury to her left arm. She was brought in by squad with a vacuum splint which was removed showing an unstable forearm. Per report from the emergency department patient had variable palpable pulses based on position of the fracture. He attempted a reduction and splinted her to stabilize it. Currently patient reports 7 out of 10 pain in the left forearm worse with motion better with immobilization. She denies any numbness and tingling in digits. Patient denies any previous orthopedic injuries. She was in the emergency department a couple days ago and diagnosed with a UTI and urosepsis. She has been on antibiotic over the last 2 days and without symptoms. Medication list was reviewed with the patient. Past Medical History Past Medical History (Chronic Problems): Chronic Problems GERD (gastroesophageal reflux disease) (Chronic) Hyperlipidemia (Chronic) Obstructive sleep apnea (Chronic) Type II diabetes mellitus (Chronic) Allergies sulfamethoxazole [From ] Allergy (Verified 11/08/17 06:24) Hives trimethoprim [From ] Allergy (Verified 11/08/17 06:24) Hives adhesive tape Adverse Reaction (Verified 11/08/17 06:24) Rash Home Medications: Ambulatory Orders Medication Instructions Recorded Aspirin [Aspirin, Baby] 81 mg PO DAILY@0800 #30 tab.chew 09/21/15 Atorvastatin Calcium [Lipitor] 20 mg PO QHS #30 tablet 09/21/15 Bimatoprost 0.01% [Lumigan 0.01%] 1 drop EACH EYE QHS #1 bottle 09/21/15 Metformin HCl [Glucophage] 1,000 mg PO QHS #30 tablet 09/21/15 Omeprazole [Prilosec] 40 mg PO DAILY #30 capsule 09/21/15 Glimepiride [Amaryl] 4 mg PO BID 11/05/17 Ramipril [Altace] 2.5 mg PO DAILY 11/05/17 Acetaminophen [Tylenol Tablet] 650 mg PO Q6H PRN PRN tablet 11/06/17 Ciprofloxacin [Cipro] 250 mg PO BID 3 Days #6 tab 11/06/17 Nystatin Powder [Mycostatin Powder] 1 applic TOPICAL BID #1 bottle 11/06/17 Ondansetron [Zofran] 4 mg IV Q8H PRN PRN vial 11/06/17 Surgical History: appendectomy, cholecystectomy, hysterectomy, tonsillectomy Psychiatric History: No pertinent psych hx [employer] History: No pertinent [employer] history Lives: With Family - Patient son lives downstairs Smoking Status: Former smoker Tobacco Use: Non-smoker Alcohol: None Drugs: None - *Family History Maternal History Items: Diabetes, Heart Disease - age 59 Paternal History Items: Cancer - in 80's, Diabetes Review of Systems Constitutional: Denies: Chills, Fever, Weight Change HEENT: Denies: Head Aches, Sinus Congestion, Sinus Drainage Cardiovascular: Denies: Chest Pain, Palpitations Respiratory: Denies: Cough, Shortness of breath at rest, Sputum production Gastrointestinal: Denies: Abdominal Pain, Nausea, Vomiting Genitourinary: Denies: Dysuria Musculoskeletal: Reports: - - Forearm pain left, see HPI. Denies: Joint Pain, Joint Tenderness Skin: Reports: - - Per ER report patient has abrasions on the forearm early splinted Neurological: Denies: Numbness, Tingling, Focal weakness Psychiatric: Denies: Anxiety, Depression, Homicidal Ideations, Suicidal Ideations Hematologic/ Lymphatic: Denies: Easy Bruising, Easy Bleeding VTE Information - Inpt Only VTE Present on Admission: No VTE Mechan Device Prophylaxis: SCD's VTE Pharm Prophylaxis ordered?: No Reason prophylaxis not ordered:: Treatment Not Indicated Patient Problems: Active and Suspected Problems Traumatic closed displaced fracture of shafts of left ulna and radius (Acute) Objective: Left forearm x-rays were reviewed showing a short oblique midshaft radius fracture and a distal comminuted ulnar shaft fracture - Physical Exam General: Alert, Oriented x3, Cooperative HEENT: Atraumatic, Normocephalic Oral: Moist Mucosa Neck: No JVD Lungs: - - Nonlabored breathing Cardiovascular: - - Regular pulse rate Abdomen: Non-Distended Extremities: - - Left upper extremity is splinted. Patient has brisk cap refill and warm pink digits. She can wiggle all digits. Sensations intact light touch R/M/U. Motor is intact AIN/PIN/ulnar nerve distribution. Based on patient's comfort splint was left intact Skin: - - abrasions Musculoskeletal: No Tenderness to Palpation of Joints or Extremities - Other than left forearm Neurological: Cranial nerves II-XII grossly intact Psych/Mental Status: Normal Affect Vital Signs Temp Pulse Resp BP Pulse Ox 97.3 F L 67 16 210/72 H 98 11/08/17 09:02 11/08/17 10:14 11/08/17 10:14 11/08/17 09:02 11/08/17 10:14 Oxygen Delivery Method Room Air Weight: 176 lb Body Mass Index (BMI) 34.3 Finger Stick Blood Glucose 166 POC Glucose 11/08/17 09:36 POC Glucose 131 H Assessment/Plan Active and Suspected Problems Traumatic closed displaced fracture of shafts of left ulna and radius (Acute) Left grossly unstable both bone forearm fracture. 1. Based on the ER report of gross instability and tenuous radial pulse as well as fracture pattern I recommended open reduction internal fixation in the operating room this afternoon. Risks and benefits of the procedure were discussed the patient including but not limited to blood loss, DVTs, PEs, neurovascular damage, infection, general risk of anesthesia including loss of life, nonunion, malunion and hardware failure. Patient demonstrated understanding wishes to proceed. We did discuss nonoperative treatment and general poor outcomes with this fracture pattern. Patient wishes to proceed with the operative plan. 2. Patient is n.p.o. 3. 2 g Ancef on-call to the operating room 4. We will proceed to the surgical suite today and discharge the patient postoperatively if she fairs well. [facility] Office:
--- NOTE | 2017-11-08 11:44 | PCM.DC.ORTHO ---
Discharge Diet: No Restrictions Discharge Activity: May Not Drive, May Shower - keep splint clean and dry, May Take a Tub Bath - keep splint clean and dry May shower in (days): 1 - keep splint clean and dry May resume sexual activity in: 4-6 weeks Ice area for (Minutes): 20 Weight Bearing Status: No weight bearing - Left arm Lifting Restrictions: no lifting with left arm Keep extremity elevated above heart level: Operative Extremity Call your doctor if your incision/area has: Continuous Slow Oozing, Sudden Increased Bleeding, Increased Pain/ Swelling, Increased Redness, Foul Smelling Discharge Call your doctor if you observe: Fever of 101 or Higher, Coldness, Increased Pain, Numbness or Tingling, Change in Color Remove Dressing in (days):: 14 - in office at first post op visit Allergies/Adverse Reactions: Allergies sulfamethoxazole [From ] Allergy (Verified 11/08/17 06:24) Hives trimethoprim [From ] Allergy (Verified 11/08/17 06:24) Hives adhesive tape Adverse Reaction (Verified 11/08/17 06:24) Rash Medications to take at Discharge Aspirin [Aspirin, Baby] 81 mg PO DAILY@0800 #30 tab.chew 09/21/15 Atorvastatin Calcium [Lipitor] 20 mg PO QHS #30 tablet 09/21/15 Bimatoprost 0.01% [Lumigan 0.01%] 1 drop EACH EYE QHS #1 bottle 09/21/15 Metformin HCl [Glucophage] 1,000 mg PO QHS #30 tablet 09/21/15 Omeprazole [Prilosec] 40 mg PO DAILY #30 capsule 09/21/15 Glimepiride [Amaryl] 4 mg PO BID 11/05/17 Ramipril [Altace] 2.5 mg PO DAILY 11/05/17 Ciprofloxacin [Cipro] 250 mg PO BID 3 Days #6 tab 11/06/17 Nystatin Powder [Mycostatin Powder] 1 applic TOPICAL BID #1 bottle 11/06/17 Ondansetron [Zofran] 4 mg IV Q8H PRN PRN vial 11/06/17 Acetaminophen [Tylenol] 1,000 mg PO Q8 tablet 11/08/17 Glucerna Shake 120 ml PO BID liquid 11/08/17 Oxycodone [Oxyir] 5 - 10 mg PO Q4H PRN PRN 5 Days #45 tablet 11/08/17 The following prescriptions were given: Oxycodone [Oxyir] 5 - 10 mg PO Q4H PRN PRN 5 Days #45 tablet PRN Reason: Pain Primary Care Physician: William Jimenez MD [STAFF PHYSICIAN] - Please Follow Up With: William Jimenez MD - [phone] When: 2 weeks post op
--- NOTE | 2017-11-08 12:25 | RAD_ITS ---
STUDY: X-RAY - LEFT RADIUS AND ULNA REASON FOR EXAM: Female, 81 years old. Documentation of fluoroscopic radiation use during open reduction internal fixation of fractures of the radius and ulna. TECHNIQUE: 7 view(s) of the forearm. COMPARISON: Preoperative radiographs of left forearm dated November 08, 2017. FINDINGS: 12.4 seconds fluoroscopic radiation was used during the procedure. Normal visualized radius. Multiple images document plate and screws traversing the fractures of distal ulna and radius. Please see operative report for additional details. RAD/Forearm 2 Views IMPRESSION: Documentation of fluoroscopic radiation use during orthopedic surgery. Electronically Signed: Sandy Louise MD at 15:32 EDT , Service support ,
--- NOTE | 2017-11-08 14:20 | OP.PCM_ITS ---
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 She had significant instability there were concerns for her pulse in the emergency department. She also had superficial abrasions. Based on this we elected to proceed with open reduction internal fixation today. Risks and benefits of the procedure were discussed with patient including but not limited to blood loss, DVTs, PEs, neurovascular damage section, general risk of anesthesia including loss of life. We also discussed nonunion, malunion and hardware failure. Patient demonstrated understanding was able to sign informed consent. Patient and family were worried about her falls at home and her instability. I talked to the medicine service she will be admitted for admission to transitional care unit for a short period of time after the surgery. Procedure: On the date of the procedure patient's left arm was marked in the preoperative area. Patient was brought back to the operating room where there transferred to the table in the supine position. In the preoperative area they did receive there block for postoperative pain control. The operating room all bony prominences were identified and well-padded tourniquet was placed in left upper extremity and the left upper extremity was placed on a radial lucent or more. Anesthesia assumed control the C-spine airway and administered the anesthetic. They remained controlled C-spine airway throughout the remainder the procedure. Left upper extremity was prepped in a sterile fashion while the surgeon scrubbed. Upon reentering the room left upper extremity was draped in a standard orthopedic fashion and both incisions were marked out 1 along the volar wrist, and one along the ulnar border. Esmarch bandage was used to exsanguinate the extremity after timeout was called. During the time when agreed upon the side, the site, and the procedure to be performed, patient identity and antibiotics given. After the tourniquet was placed up to 250 mmHg the volar incision was taken at the skin subtenons tissue fat down to fascia. Once we identified the fascia on the volar wrist over the FCR the superficial fascia was incised and the FCR was retracted ulnarly. Deep fascia was retracted. We then retracted the FPL ulnarly the brachial radialis radially with the neurovascular bundle. Upon doing so we were able to identify the fracture. There was a small butterfly fragment that was provisionally fixed. In order to fix this we used a point reduction clamp to reduce the fracture and provisionally fixed it with a 2.7 mm lag screw. This was a tenuous piece of bone we do not feel he can of the lag screw through this. Fracture was then reduced and a 3.5 mm LCDCP plate was placed on the volar aspect of the wrist. This was provisionally fixed into place with a clamp and live x-ray was used to verify the fracture reduction. Once we were happy with the fracture reduction and the plate placement to initial screws were placed one proximally in a compression screw distally. After compressing through the plate live x-ray was again used to verify fracture reduction and plate placement. Once we are happy with this we turned our attention to the ulna. Elbow was flexed up and the incision was previously marked out over the ulnar border was incised. Skin was incised blunt action was taken down through subcutaneous tissues so as to protect the cutaneous branch of the ulnar nerve. Once we identified the fracture it was significantly comminuted. Fortunately was out the length based on our previous reduction of the radius. We provisionally fixed things into place using K wires and bone clamps and verified her fracture reduction under live fluoroscopy. Once we are happy with our reduction a T plate was chosen to allow adequate fixation distally where most of the comminution was. Unfortunately this only left us with 2 screws in the proximal bone when using her longest T plate. The arms of the T plate were then bent to wrap around the distal ulna and K wires were used to fix the ulna and placed distally and live fluoroscopy was used to verify appropriate distal fixation. Once we are happy with the positioning of the plate and the fracture reduction the plate was fixed into place proximally and distally and fracture reduction was verified under live fluoroscopy. At this point we had adequate scientology of the radial bow scientology of the ulnar length and rotation. An appropriate placement of the plate with good fixation proximally and distally. Attention was then turned back towards the radial plate where additional screws were placed proximally and distally for a total of 6 cortices proximally and distally. Laparoscopy was once again taken to verify position of the screws and fracture reduction as well as plate placement. Once we were happy with all this wound was copiously reviewed out normal saline. Skin was closed using 2-0 Vicryl followed by 4-0 Monocryl and Steri-Strips. After both incisions were closed Xeroform dressing was placed, compressive dressing was placed in a volar splint was placed. Tourniquet was let down the patient was awakened by anesthesia and transferred to PACU for recovery in her sling. Operative plan for this patient: Patient will be nonweightbearing for a total of 6 weeks. She will follow-up in the office in 2 weeks for suture removal and removal of the splint. We will begin range of motion therapy at 2 weeks postop. Per preoperative discussions there is some concern for the patient's safety at home she will be admitted to the hospital to the medicine service to be transitioned to a appropriate rehabilitation facility. Grafts/Implants Used: synthes 7 hole 3.5 mm, and 2.7 mm t-plate - Complications none - Admit VTE Documentation VTE Present on Admission: No VTE Mechan Device Prophylaxis: SCD's VTE Pharm Prophylaxis ordered?: No Reason prophylaxis not ordered:: Treatment Not Indicated
[2017-11-08 14:56] LABS: Bedside Glucose 74 mg/dL (70-110)
[2017-11-08] MEDS: Lactated Ringers 1,000 ML 90 ML IV (15:11)
--- NOTE | 2017-11-08 15:13 | US_ITS ---
STUDY: RENAL ULTRASOUND - COMPLETE REASON FOR EXAM: Female, 81 years old. Recurrent urinary tract infection. TECHNIQUE: Ultrasound evaluation of the kidneys was performed with real-time and static dye-scale imaging. Study is technically limited by obesity, bowel gas and patient condition. COMPARISON: Prior comparable comparison studies are not available for review at this time. FINDINGS: RIGHT KIDNEY: Normal location of the right kidney, which is small in size. The right kidney measures 8.8 x 5.2 x 4.4 cm. There is diffuse thinning of the renal cortex. The renal cortex measures 1.3 cm. There is no right renal mass or cyst. There are no right renal calculi. There is no right hydronephrosis. DISTAL RIGHT URETER: There is non-visualization of the distal right ureter. There is no demonstrated right ureterovesical junction calculus. There is a visualized right ureteral jet. LEFT KIDNEY: Normal location of the left kidney, which is normal in size. The left kidney measures 9.8 x 5.9 x 4.7 cm. There is diffuse thinning of the renal cortex. The renal cortex measures 1.3 cm. There is a hypoechoic lesion within the upper pole of the left kidney measuring 1.9 x 1.4 x 2.7 cm There are no left renal calculi. There is no left hydronephrosis. DISTAL LEFT URETER: There is non-visualization of the distal left ureter. There is no demonstrated left ureterovesical junction calculus. There is a visualized left ureteral jet. AORTA: There is obscuration of the abdominal aorta by overlying bowel gas I.V.C.: The IVC is obscured. BLADDER: The distended urinary bladder has a volume of 137.2 ml. The empty urinary bladder has a volume of 136 ml. There is a normal wall thickness of the distended urinary bladder. There is no demonstrated mass within the urinary bladder. There are no demonstrated bladder calculi. US/Kidney and Bladder IMPRESSION: 1. Sequela of chronic renal insufficiency. 2. Small left-sided renal cystic lesion. Electronically Signed: Sandy Louise MD at 20:00 EDT , Service support ,
--- NOTE | 2017-11-08 15:34 | HP.PCM_ITS ---
<Freddie Lehman - Last Filed: 11/08/17 16:15> Problem List (1) Traumatic closed displaced fracture of shafts of left ulna and radius Status: Acute (2) UTI (urinary tract infection) Status: Acute (3) GERD (gastroesophageal reflux disease) Status: Chronic (4) Hyperlipidemia Status: Chronic (5) Obstructive sleep apnea Status: Chronic (6) Type II diabetes mellitus Status: Chronic History of Present Illness Date of Admission: 11/08/17 Chief Complaint: fall, arm fracture The patient is a 81 year old F with a history of GERD, hyperlipidemia, obstructive sleep apnea, type 2 diabetes, recurrent UTIs, who was just admitted to the hospital last week and discharged 2 days ago after being treated for UTI , who was at home and had experienced a fall and an arm fracture. She reported that she went to sit down and missed the chair falling onto her left forearm. In the ER x-rays were done demonstrating fractures of the distal radius and ulna. She was taken to surgery by Dr. Jimenez on the same day. She is being admitted to the hospital after the surgery to have PT OT evaluations as she is functioning poorly at home and falling and will likely need outpatient physical therapy in order to be safely discharged home eventually. She also has increased leukocytosis again. It was noted on her discharge summary on 2017 that she would need follow-up with her final cultures possibly need to change her antibiotics depending on what the resistances were to the E. coli that was growing. Unfortunately the cultures demonstrated that the Rocephin and Cipro that she was treated with are both ineffective against the E. coli that she is growing. She did have significant leukocytosis on her prior admission, confusion, was found incontinent of stool. The culture that was taken was from a catheter so is likely quality sample, she is likely self inoculated from the diarrhea. It is susceptible to Zosyn, tobramycin, Bactrim, nitrofurantoin. She is allergic to bactrim. Her primary symptoms at that time were confusion and weakness, and she admits she may have gone home with some continued confusion and weakness, and also reports urgency but without being able to void, but no bi dysuria. At this point she is still groggy from surgery. She has no SOB, nausea, vomiting, cough, and no pain in her left arm. She is resting comfortably in bed recovering from surgery. [] Past Medical History Past Medical History (Chronic Problems): Chronic Problems GERD (gastroesophageal reflux disease) (Chronic) Hyperlipidemia (Chronic) Obstructive sleep apnea (Chronic) Type II diabetes mellitus (Chronic) Allergies sulfamethoxazole [From ] Allergy (Verified 11/08/17 06:24) Hives trimethoprim [From ] Allergy (Verified 11/08/17 06:24) Hives adhesive tape Adverse Reaction (Verified 11/08/17 06:24) Rash Home Medications: Ambulatory Orders Medication Instructions Recorded Aspirin [Aspirin, Baby] 81 mg PO DAILY@0800 #30 tab.chew 09/21/15 Atorvastatin Calcium [Lipitor] 20 mg PO QHS #30 tablet 09/21/15 Bimatoprost 0.01% [Lumigan 0.01%] 1 drop EACH EYE QHS #1 bottle 09/21/15 Metformin HCl [Glucophage] 1,000 mg PO QHS #30 tablet 09/21/15 Omeprazole [Prilosec] 40 mg PO DAILY #30 capsule 09/21/15 Glimepiride [Amaryl] 4 mg PO BID 11/05/17 Ramipril [Altace] 2.5 mg PO DAILY 11/05/17 Ciprofloxacin [Cipro] 250 mg PO BID 3 Days #6 tab 11/06/17 Nystatin Powder [Mycostatin Powder] 1 applic TOPICAL BID #1 bottle 11/06/17 Ondansetron [Zofran] 4 mg IV Q8H PRN PRN vial 11/06/17 Acetaminophen [Tylenol] 1,000 mg PO Q8 tablet 11/08/17 Glucerna Shake 120 ml PO BID liquid 11/08/17 Oxycodone [Oxyir] 5 - 10 mg PO Q4H PRN PRN 5 Days 11/08/17 #45 tablet Surgical History: appendectomy, cholecystectomy, hysterectomy, tonsillectomy Psychiatric History: No pertinent psych hx 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 pertinent 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 Lives: With Family - Patient son lives downstairs Smoking Status: Former smoker Tobacco Use: Non-smoker Alcohol: None Drugs: None - *Family History Maternal History Items: Diabetes, Heart Disease - age 59 Paternal History Items: Cancer - in 80's, Diabetes Review of Systems Constitutional: Denies: Chills, Fever, Weight Change HEENT: Denies: Head Aches, Sinus Congestion, Sinus Drainage Cardiovascular: Denies: Chest Pain, Palpitations Respiratory: Denies: Cough, Shortness of breath at rest, Sputum production Gastrointestinal: Denies: Abdominal Pain, Nausea, Vomiting Genitourinary: Denies: Dysuria Musculoskeletal: Denies: Joint Pain, Joint Tenderness Skin: Denies: Rash, Wounds Neurological: Denies: Numbness, Tingling, Focal weakness Psychiatric: Denies: Anxiety, Depression, Homicidal Ideations, Suicidal Ideations Hematologic/ Lymphatic: Denies: Easy Bruising, Easy Bleeding VTE Information - Inpt Only VTE Present on Admission: No VTE Mechan Device Prophylaxis: SCD's VTE Pharm Prophylaxis ordered?: No Patient Problems: Active and Suspected Problems Traumatic closed displaced fracture of shafts of left ulna and radius (Acute) UTI (urinary tract infection) (Acute) - Physical Exam General: Alert, Oriented x3, Cooperative HEENT: Atraumatic, PERRLA, EOMI, Normocephalic Neck: Supple, No JVD, Negative Carotid Bruits Lungs: Clear to auscultation, Normal air movement Cardiovascular: Regular rate, No murmurs Abdomen: Bowel Sounds Present, Soft, Non Tender Extremities: No edema, Capillary Refill Less than 3 Seconds, Edema - 1+ pitting edema BLE. Skin: No rashes, No breakdown Musculoskeletal: No Tenderness to Palpation of Joints or Extremities, - - post op left upper extremity. sensation intact. Neurological: Cranial nerves II-XII grossly intact Psych/Mental Status: Normal Affect, Appropriate Vital Signs Temp Pulse Resp BP Pulse Ox 97.9 F 96 16 175/72 H 96 11/08/17 14:32 11/08/17 15:05 11/08/17 15:05 11/08/17 15:05 11/08/17 15:05 Oxygen Flow Rate (L/min) 2 Oxygen Delivery Method Nasal Cannula Weight: 79.832 kg Body Mass Index (BMI) 34.3 Finger Stick Blood Glucose 74 Intake and Output for Last 24 Hours 11/06/17 11/07/17 11/08/17 23:59 23:59 23:59 Intake Total 1000 / 1000 Balance 1000 / 1000 POC Glucose 11/08/17 11/08/17 14:50 09:36 POC Glucose 74 131 H Assessment/Plan Active and Suspected Problems Traumatic closed displaced fracture of shafts of left ulna and radius (Acute) UTI (urinary tract infection) (Acute) 1. Acute left ulna/radium fracture post op D#0 - per Dr. Jimenez. S/p mechanical fall at home. 2. Acute cytitis on Recurrent UTIs - leukocytosis, weakness, confusion, urgency. Obtain AM labs. Afebrile. Pt was just admitted here for this and discharged on cipro with plans to call in Abx for her depending on final C&S. Her cultures now show E coli Resistant to what she was just treated with as an inpatient : rocephin and cipro, as well as multiple other agents, and she is allergic to bactrim which it is susceptible to. D/w pharmacist [place]. Will treat with PO fosfomycin 3g q2 days x 3 doses to ensure eradication. Repeat UA. Renal/ Bladder US today with post void to look for anatomical variation contributing to recurrent UTIs. This recent episode and admission occurred after she was found incontinent of stool likely contaminating her bladder. The culture was from a cath, so it is likely valid. 3. Debility with mechanical fall and fracture as above - PTOT, may need placed. 4. HTN - still elevated post op. Continue home meds. Add prn hydralazine. Adjust home meds if needed after acute phase. 5. WILLIAM - does not use CPAP at home. too expensive. NC at night while here. Encourage IS. 6. GERD - protonix 7. T2DM with obesity - resume home meds with SSI coverage. Dietary consult. 8. HLD - statin DVT ppx: SCDs, begin chemoppx tomorrow. DC planning: placement for debility This patient was seen by Freddie Lehman PA-C under the supervision of Dr. De. <Deepa De - Last Filed: 11/08/17 16:57> History of Present Illness The patient is a 81 year old F [] Past Medical History Allergies sulfamethoxazole [From Septra] Allergy (Verified 11/08/17 06:24) Hives trimethoprim [From Marra] Allergy (Verified 11/08/17 06:24) Hives adhesive tape Adverse Reaction (Verified 11/08/17 06:24) Rash - Physical Exam Vital Signs Temp Pulse Resp BP Pulse Ox 97.4 F L 88 20 H 161/64 H 100 05/05/18 15:34 11/08/17 15:34 11/08/17 15:34 11/08/17 15:34 11/08/17 15:34 Oxygen Flow Rate (L/min) 2 Oxygen Delivery Method Nasal Cannula Weight: 85.275 kg Body Mass Index (BMI) 36.7 Finger Stick Blood Glucose 74 Intake and Output for Last 24 Hours 11/06/17 11/07/17 11/08/17 23:59 23:59 23:59 Intake Total 1000 / 1000 Balance 1000 / 1000 Laboratory Tests Past 24 Hrs 11/08/17 16:30 Hemoglobin A1c Pending POC Glucose 11/08/17 11/08/17 16:11 14:50 POC Glucose 99 74 Assessment/Plan Patient was seen and examined independently of PAFreddie. I agree with his above history and physical. Patient was seen and examined. Groggy after surgery. Vitals were noted - stable. History of fall in her kitchen. Recently admitted with UTI, ESBL, resistant to rocephin and ciprofloxacin. Patient is lethargic from pain meds, does not answer questions appropriately. Physical exam: GEN: Lethargic, obese, not pale or jaundiced EXT: Left UE on pillows, Dressing over forearm, swelling of arm, good capillary refill CVS: HS I +II, Regular, no murmurs heard RESP: Adequate AE bilaterally, Decreased at lung bases, no wheezes or rales heard ABD: Full abdomen, soft,nontender, BS present and normal. A/P: 1. POD #0, s/p repair left radius and ulnar, pain is fairly controlled, adjustments made to pain meds 2. Debility, recurrent falls, will check orthostatics, PT/OT, family requesting TCU rehab 3. HTN, controlled, continue home meds 4. WILLIAM not on CPAP 5. GERD 6. Type 2 DM, last HbA1c 6.8, recheck HgbA1c, continue on metformin and glipizide, may need to dc glipizide if HgbA1c remain controlled 7. Hyperlipidemia, on statin. Code Visit Inpatient E&M: 76197 Init Hosp L3
[2017-11-08 16:30] LABS: Bedside Glucose 99 mg/dL (70-110)
[2017-11-08] MEDS: Glucerna Shake 120 ML LIQUID PO (17:05)
[2017-11-08] MEDS: Nystatin Powder 15gm Bottle 1 APPLIC TOPICAL (17:06)
[2017-11-08] MEDS: Acetaminophen 500 MG Tablet 1000 MG PO ×2 (17:06→22:35)
[2017-11-08] MEDS: hydrALAZINE 20 MG/ML Vial 5 MG IV (17:21)
[2017-11-08] MEDS: 0.9% NaCl Peripheral Flush Adult/Peds IV (17:22)
--- NOTE | 2017-11-08 17:37 | NURSING ---
Up to BSC and voided 200ml and then this nurse bladder scanned her for 99ml. Maria Ines RN aware of this. She will be taking over care for this patient for me.
[2017-11-08] MEDS: Glimepiride 4 MG Tablet PO (18:13)
[2017-11-08] MEDS: Piperacil/Tazobactam 3.375 GM/50 ML ML IV (19:30)
[2017-11-08 20:21] LABS: Hemoglobin A1c 6.7 % (4.2-6.3)
[2017-11-08] MEDS: metFORMIN HCl 1,000 MG Tablet 1000 MG PO (22:35)
[2017-11-08] MEDS: Atorvastatin Calcium 20 MG Tablet PO (22:35)
[2017-11-08] MEDS: Latanoprost 0.005% 1 Bottle 1 DRP EACH EYE (22:36)
[2017-11-08 22:45] LABS: Bedside Glucose 160 mg/dL (70-110)
[2017-11-09 02:24] VITALS: BP 159/39; PULSE 81; RESP 16; TEMP 37.2; O2SAT 95
[2017-11-09] MEDS: Lactated Ringers 1,000 ML 90 ML IV (03:46)
[2017-11-09] MEDS: Acetaminophen 500 MG Tablet 1000 MG PO ×2 (05:09→23:12)
[2017-11-09] MEDS: Piperacil/Tazobactam 3.375 GM/50 ML ML IV ×3 (05:09→23:11)
--- NOTE | 2017-11-09 06:23 | PCM.PN.ORT ---
Patient Problems: Active and Suspected Problems Traumatic closed displaced fracture of shafts of left ulna and radius (Acute) UTI (urinary tract infection) (Acute) Subjective: Patient is doing well this morning. Some mild confusion. No acute events overnight. Pain appears well-controlled. Has some continued swelling of the hand and left upper extremity. Denies any numbness and tingling. No chest pain or shortness of breath. - Physical Exam General: Alert, Cooperative, No apparent distress Extremities: - - Left upper extremity: Splint in place, dressing clean dry and intact. Moderate swelling of the hand. Patient demonstrates active motor thumbs up, okay sign, crossing fingers. Sensations intact light touch R/M/U. Digits have brisk cap refill. Vital Signs Temp Pulse Resp BP Pulse Ox 98.9 F 81 16 159/39 H 95 11/09/17 02:24 11/09/17 02:24 11/09/17 02:24 11/09/17 02:24 11/09/17 02:24 Oxygen Flow Rate (L/min) 2 Oxygen Delivery Method Room Air Weight: 188 lb Body Mass Index (BMI) 36.7 Finger Stick Blood Glucose 74 Intake and Output for Last 24 Hours 11/07/17 11/08/17 11/09/17 23:59 23:59 23:59 Intake Total 1000 / 1000 1938 / 1938 Output Total 400 / 400 Balance 1000 / 1000 1538 / 1538 Laboratory Tests Past 24 Hrs 11/08/17 11/08/17 16:30 19:50 Hemoglobin A1c Cancelled 6.7 H POC Glucose 11/08/17 11/08/17 11/08/17 22:31 16:11 14:50 POC Glucose 160 H 99 74 Medical Necessity - Tobacco Use Smoking Status: Former smoker Tobacco Use: Non-smoker Assessment/Plan Active and Suspected Problems Traumatic closed displaced fracture of shafts of left ulna and radius (Acute) UTI (urinary tract infection) (Acute) Postop day 1 open reduction internal fixation left both bone forearm fracture 1. Pain control: Pain currently controlled continue current regimen 2. Swelling of left upper extremity: Continue with elevation above level of heart, additional pillows were placed today. We discussed continued icing patient feels ice increases her pain due to the weight will use it as tolerated. 3. Physical therapy: Nonweightbearing left upper extremity. Patient should continue with digit range of motion to help with swelling. 4. Disposition: From an orthopedic standpoint patient stable for discharge when medically appropriate. [facility] Office:
[2017-11-09 07:01] LABS: Bedside Glucose 113 mg/dL (70-110)
[2017-11-09 07:19] LABS: Anion Gap 6 (5-15); BUN 11 mg/dL (7-18); BUN/Creat Ratio 13.4 RATIO (10-20); Calcium,Total 8.5 mg/dL (8.5-10.1); Chloride 110 mmol/L (98-107); Creatinine, Serum 0.82 mg/dL (0.55-1.02); EST Glomerular Filtration Rate 71 mL/min (>60); Est Glom Filt Rate - Afr Amer 86 mL/min (>60); Estimated Creatinine Clearance 38.65 ml/min; Glucose 109 mg/dL (74-106); Sodium Level 143 mmol/L (136-145)
[2017-11-09 07:23] LABS: Absolute Lymphocyte Count 1.19 X10^3/ul (0.83-4.51); Absolute Neutrophil Count 7.2 X10^3/uL (2.0-7.7); Basophil# 0.04 X10^3/uL; Basophil% 0.4 % (0-1); Eosinophil# 0.29 X10^3/uL; Eosinophils% 2.9 % (0-5); Hematocrit 35.5 % (37-47); Hemoglobin 11.5 g/dl (12.0-15.0); Lymphocyte # 1.19 X10^3/ul (4.0); Lymphocyte % 12.1 % (19-41); Mean Corp Hgb Conc 32.4 g/gl (32-36); Mean Corpuscular Hgb 28.7 pg (27.0-32.0); Mean Corpuscular Volume 88.5 fL (81-99); Mean Platelet Vol. 12.1 fl (6.2-12.0); Monocyte# 1.12 X10^3/uL; Monocyte% 11.3 % (0-10); Platelet Count 127 K/mm3 (150-450); RBC Distribution Width CV 13.7 % (11.6-14.6); RBC Distribution Width SD 44.6 fl (35.1-43.9); Red Blood Count 4.01 M/mm3 (4.2-5.4); White Blood Count 9.9 K/mm3 (4.4-11.0)
[2017-11-09 07:49] LABS: Differential Indicated SCAN CRITERIA MET; POSITIVE COUNT YES; POSITIVE DIFFERENTIAL NO; POSITIVE MORPHOLOGY NO
[2017-11-09] MEDS: Glimepiride 4 MG Tablet PO (08:02)
[2017-11-09] MEDS: Pantoprazole Sodium 40 MG Tablet PO (08:03)
[2017-11-09] MEDS: Nystatin Powder 15gm Bottle 1 APPLIC TOPICAL ×2 (08:03→23:12)
[2017-11-09] MEDS: Aspirin 81 MG TAB.CHEW PO (08:04)
[2017-11-09] MEDS: Ramipril 2.5 MG Capsule PO (08:04)
[2017-11-09] MEDS: Glucerna Shake 120 ML LIQUID PO (08:08)
[2017-11-09 08:23] VITALS: BP 152/96; PULSE 88; RESP 18; TEMP 36.4; O2SAT 98
--- NOTE | 2017-11-09 10:11 | PCM.PN.HOSP ---
Patient Problems: Active and Suspected Problems Traumatic closed displaced fracture of shafts of left ulna and radius (Acute) UTI (urinary tract infection) (Acute) Subjective: Patient was seen and examined. Reportedly confused last night he did not sleep much. Complains of pain in the left upper extremity. Denies any fever or chills or shortness of breath. She was seen sitting up in her chair. Objective: Physical Exam General: Alert, Oriented x3, Cooperative HEENT: Atraumatic, PERRLA, EOMI, Normocephalic Neck: Supple, No JVD, Negative Carotid Bruits Lungs: Clear to auscultation, Normal air movement Cardiovascular: Regular rate, No murmurs Abdomen: Bowel Sounds Present, Soft, Non Tender Extremities: Left upper extremity in LOLI wrap dressings, swollen, tender, good capillary refill, in a sling Skin: No rashes, No breakdown Musculoskeletal: No Tenderness to Palpation of Joints or Extremities, - - post op left upper extremity. sensation intact. Neurological: Cranial nerves II-XII grossly intact Psych/Mental Status: Normal Affect, Appropriate Vitals/I&O's: Vital Signs Temp Pulse Resp BP Pulse Ox 97.5 F L 88 18 152/96 H 98 11/09/17 08:23 11/09/17 08:23 11/09/17 08:23 11/09/17 08:23 11/09/17 08:23 Oxygen Flow Rate (L/min) 2 Oxygen Delivery Method Room Air Weight: 85.275 kg Body Mass Index (BMI) 36.7 Finger Stick Blood Glucose 74 Intake and Output for Last 24 Hours 11/07/17 11/08/17 11/09/17 23:59 23:59 23:59 Intake Total 1000 / 1000 1938 / 1938 Output Total 400 / 400 Balance 1000 / 1000 1538 / 1538 Laboratory Results 11/08/17 14:50: POC Glucose 74 11/08/17 16:11: POC Glucose 99 11/08/17 16:30: Hemoglobin A1c Cancelled 11/08/17 19:50: Hemoglobin A1c 6.7 H 11/08/17 22:31: POC Glucose 160 H 11/09/17 06:06: WBC 9.9, RBC 4.01 L, Hgb 11.5 L, Hct 35.5 L, MCV 88.5, MCH 28.7, MCHC 32.4, RDW 13.7, RDW Differential 44.6 H, Plt Count 127 L, MPV 12.1 H, Immature Gran % (Auto) 0.300, Neut % (Auto) 73.0 H, Lymph % (Auto) 12.1 L, [place] % (Auto) 11.3 H, Eos % (Auto) 2.9, Baso % (Auto) 0.4, Absolute Neuts (auto) 7.2, Absolute Lymphs (auto) 1.19, Total Counted Not Reportable, Differential Comment 11/09/17 06:06: Sodium 143, Potassium 4.0, Chloride 110 H, Carbon Dioxide 27.0, Anion Gap 6, BUN 11, Creatinine 0.82, Estim Creat Clear Calc 38.65, Est GFR (MDRD) Af Amer 86, Est GFR (MDRD) Non-Af 71, BUN/Creatinine Ratio 13.4, Glucose 109 H, Calcium 8.5 11/09/17 06:54: POC Glucose 113 H Current Medications Acetaminophen (Tylenol) 1,000 mg PO Q8 [facility] Last Admin: 11/09/17 05:09 Dose: 1,000 mg Aspirin (Aspirin, Baby) 81 mg PO DAILY@0800 [facility] Last Admin: 11/09/17 08:04 Dose: 81 mg Atorvastatin Calcium (Lipitor) 20 mg PO QHS [facility] Last Admin: 11/08/17 22:35 Dose: 20 mg Dextrose (D50w Syringe) 0 gm IV X1 PRN; Protocol PRN Reason: Hypoglycemia Glimepiride (Amaryl) 4 mg PO BIDCM [facility] Last Admin: 11/09/17 08:02 Dose: 4 mg Glucagon () 1 mg IM .X1 PRN PRN Reason: Hypoglycemia Hydralazine HCl (Apresoline Iv) 5 mg IV Q4H PRN PRN PRN Reason: BLOOD PRESSURE Last Admin: 11/08/17 17:21 Dose: 5 mg Piperacillin Sod/Tazobactam Sod (Zosyn) 3.375 gm in 50 mls @ 12.5 mls/hr IV Q8 [facility] Last Admin: 11/09/17 05:09 Dose: 12.5 mls/hr Lactated Ringer's () 1,000 mls @ 50 mls/hr IV .Q20H [facility] Insulin Aspart (Novolog Flexpen (Bkc)) 0 units SC ACHS [facility] PRN Reason: Protocol Last Admin: 11/09/17 06:57 Dose: Not Given Latanoprost (Xalatan Opthalmic) 1 drop EACH EYE QHS [facility] Last Admin: 11/08/17 22:36 Dose: 1 drop Melatonin (Melatonin) 3 mg PO QHS PRN PRN Reason: INSOMNIA Metformin HCl (Glucophage) 1,000 mg PO QHS [facility] Last Admin: 11/08/17 22:35 Dose: 1,000 mg Morphine Sulfate () 1 mg IV Q4H PRN PRN PRN Reason: Severe pain (6-10) Nutritional Formula (Lactose Free) (Glucerna Shake) [facility] Last Admin: 11/09/17 08:08 Dose: 120 ml Nystatin (Mycostatin Powder) 1 applic TOPICAL BID [facility] PRN Reason: Protocol Last Admin: 11/09/17 08:03 Dose: 1 applicatio Ondansetron HCl (Zofran) 4 mg IV Q8H PRN PRN PRN Reason: NAUSEA/VOMITING Oxycodone HCl (Oxyir) 5 - 10 mg PO Q4H PRN PRN PRN Reason: PAIN Pantoprazole Sodium (Protonix) 40 mg PO DAILY [facility] Last Admin: 11/09/17 08:03 Dose: 40 mg Ramipril (Altace) 2.5 mg PO DAILY [facility] Last Admin: 11/09/17 08:04 Dose: 2.5 mg Sodium Chloride () 5 - 30 ml IV UD PRN PRN Reason: SALINE FLUSH Last Admin: 11/08/17 17:22 Dose: 10 ml Medical Necessity - Tobacco Use Smoking Status: Former smoker Tobacco Use: Non-smoker Assessment/Plan Active and Suspected Problems Traumatic closed displaced fracture of shafts of left ulna and radius (Acute) UTI (urinary tract infection) (Acute) 81-year-old female with past medical history of hypertension and diabetes, recently admitted with UTI in after a fall. 1. POD#1, S/P ORIF left ulnar and radial fracture repair, pain is fairly controlled, left upper extremity is in a sling, will continue on pain regimen. 2. Acute ESBL cystitis on Recurrent UTIs, recent urine cultures show ESBL, susceptible to Zosyn, started on Zosyn yesterday, renal ultrasound does not show any structural abnormalities except for evidence of chronic disease. Would get repeat cultures. 3. Debility with mechanical fall/fracture as above in #1, patient is reported to be very unsteady at home, history of recurrent falls, will get PT and OT involved, will check orthostatic vitals, her family is looking into short-term rehab. 4. Hypertension, elevated secondary to pain, will continue to monitor, continue home medications with as needed hydralazine 5. WILLIAM, not on CPAP, on nocturnal oxygen 6. GERD, on PPI 7. Type II DM, HbA1c 6.7, on metformin and glimepiride, blood sugars are stable, continue to monitor 8. Hyperlipidemia on statin 9. DVT ppx -aspirin 81 mg p.o. twice daily per Orthopedic recommendation 10. Disposition: Possible SNF; awaiting on social science analyst/case management to assist with discharge planning. Code Visit Inpatient E&M: 54921 Subs Hosp L2
--- NOTE | 2017-11-09 10:14 | PN_ITS ---
Patient Problems: Active and Suspected Problems Traumatic closed displaced fracture of shafts of left ulna and radius (Acute) UTI (urinary tract infection) (Acute) Subjective: Patient was seen and examined. Reportedly confused last night he did not sleep much. Complains of pain in the left upper extremity. Denies any fever or chills or shortness of breath. She was seen sitting up in her chair. Objective: Physical Exam General: Alert, Oriented x3, Cooperative HEENT: Atraumatic, PERRLA, EOMI, Normocephalic Neck: Supple, No JVD, Negative Carotid Bruits Lungs: Clear to auscultation, Normal air movement Cardiovascular: Regular rate, No murmurs Abdomen: Bowel Sounds Present, Soft, Non Tender Extremities: Left upper extremity in LOLI wrap dressings, swollen, tender, good capillary refill, in a sling Skin: No rashes, No breakdown Musculoskeletal: No Tenderness to Palpation of Joints or Extremities, - - post op left upper extremity. sensation intact. Neurological: Cranial nerves II-XII grossly intact Psych/Mental Status: Normal Affect, Appropriate Vitals/I&O's: Vital Signs Temp Pulse Resp BP Pulse Ox 97.5 F L 88 18 152/96 H 98 11/09/17 08:23 11/09/17 08:23 11/09/17 08:23 11/09/17 08:23 11/09/17 08:23 Oxygen Flow Rate (L/min) 2 Oxygen Delivery Method Room Air Weight: 85.275 kg Body Mass Index (BMI) 36.7 Finger Stick Blood Glucose 74 Intake and Output for Last 24 Hours 11/07/17 11/08/17 11/09/17 23:59 23:59 23:59 Intake Total 1000 / 1000 1938 / 1938 Output Total 400 / 400 Balance 1000 / 1000 1538 / 1538 Laboratory Results 11/08/17 14:50: POC Glucose 74 11/08/17 16:11: POC Glucose 99 11/08/17 16:30: Hemoglobin A1c Cancelled 11/08/17 19:50: Hemoglobin A1c 6.7 H 11/08/17 22:31: POC Glucose 160 H 11/09/17 06:06: WBC 9.9, RBC 4.01 L, Hgb 11.5 L, Hct 35.5 L, MCV 88.5, MCH 28.7 , MCHC 32.4, RDW 13.7, RDW Differential 44.6 H, Plt Count 127 L, MPV 12.1 H, Immature Gran % (Auto) 0.300, Neut % (Auto) 73.0 H, Lymph % (Auto) 12.1 L, [place] % (Auto) 11.3 H, Eos % (Auto) 2.9, Baso % (Auto) 0.4, Absolute Neuts (auto) 7.2 , Absolute Lymphs (auto) 1.19, Total Counted Not Reportable, Differential Comment 11/09/17 06:06: Sodium 143, Potassium 4.0, Chloride 110 H, Carbon Dioxide 27.0, Anion Gap 6, BUN 11, Creatinine 0.82, Estim Creat Clear Calc 38.65, Est GFR ( MDRD) Af Amer 86, Est GFR (MDRD) Non-Af 71, BUN/Creatinine Ratio 13.4, Glucose 109 H, Calcium 8.5 11/09/17 06:54: POC Glucose 113 H Current Medications Acetaminophen (Tylenol) 1,000 mg PO Q8 [facility] Last Admin: 11/09/17 05:09 Dose: 1,000 mg Aspirin (Aspirin, Baby) 81 mg PO DAILY@0800 [facility] Last Admin: 11/09/17 08:04 Dose: 81 mg Atorvastatin Calcium (Lipitor) 20 mg PO QHS [facility] Last Admin: 11/08/17 22:35 Dose: 20 mg Dextrose (D50w Syringe) 0 gm IV X1 PRN; Protocol PRN Reason: Hypoglycemia Glimepiride (Amaryl) 4 mg PO BIDCM [facility] Last Admin: 11/09/17 08:02 Dose: 4 mg Glucagon () 1 mg IM .X1 PRN PRN Reason: Hypoglycemia Hydralazine HCl (Apresoline Iv) 5 mg IV Q4H PRN PRN PRN Reason: BLOOD PRESSURE Last Admin: 11/08/17 17:21 Dose: 5 mg Piperacillin Sod/Tazobactam Sod (Zosyn) 3.375 gm in 50 mls @ 12.5 mls/hr IV Q8 [facility] Last Admin: 11/09/17 05:09 Dose: 12.5 mls/hr Lactated Ringer's () 1,000 mls @ 50 mls/hr IV .Q20H [facility] Insulin Aspart (Novolog Flexpen (Bkc)) 0 units SC ACHS [facility] PRN Reason: Protocol Last Admin: 11/09/17 06:57 Dose: Not Given Latanoprost (Xalatan Opthalmic) 1 drop EACH EYE QHS [facility] Last Admin: 11/08/17 22:36 Dose: 1 drop Melatonin (Melatonin) 3 mg PO QHS PRN PRN Reason: INSOMNIA Metformin HCl (Glucophage) 1,000 mg PO QHS [facility] Last Admin: 11/08/17 22:35 Dose: 1,000 mg Morphine Sulfate () 1 mg IV Q4H PRN PRN PRN Reason: Severe pain (6-10) Nutritional Formula (Lactose Free) ([facility] Shake) [facility] Last Admin: 11/09/17 08:08 Dose: 120 ml Nystatin (Mycostatin Powder) 1 applic TOPICAL BID [facility] PRN Reason: Protocol Last Admin: 11/09/17 08:03 Dose: 1 applicatio Ondansetron HCl (Zofran) 4 mg IV Q8H PRN PRN PRN Reason: NAUSEA/VOMITING Oxycodone HCl (Oxyir) 5 - 10 mg PO Q4H PRN PRN PRN Reason: PAIN Pantoprazole Sodium (Protonix) 40 mg PO DAILY [facility] Last Admin: 11/09/17 08:03 Dose: 40 mg Ramipril (Altace) 2.5 mg PO DAILY [facility] Last Admin: 11/09/17 08:04 Dose: 2.5 mg Sodium Chloride () 5 - 30 ml IV UD PRN PRN Reason: SALINE FLUSH Last Admin: 11/08/17 17:22 Dose: 10 ml Medical Necessity - Tobacco Use Smoking Status: Former smoker Tobacco Use: Non-smoker Assessment/Plan Active and Suspected Problems Traumatic closed displaced fracture of shafts of left ulna and radius (Acute) UTI (urinary tract infection) (Acute) 81-year-old female with past medical history of hypertension and diabetes, recently admitted with UTI in after a fall. 1. POD#1, S/P ORIF left ulnar and radial fracture repair, pain is fairly controlled, left upper extremity is in a sling, will continue on pain regimen. 2. Acute ESBL cystitis on Recurrent UTIs, recent urine cultures show ESBL, susceptible to Zosyn, started on Zosyn yesterday, renal ultrasound does not show any structural abnormalities except for evidence of chronic disease. Would get repeat cultures. 3. Debility with mechanical fall/fracture as above in #1, patient is reported to be very unsteady at home, history of recurrent falls, will get PT and OT involved, will check orthostatic vitals, her family is looking into short-term rehab. 4. Hypertension, elevated secondary to pain, will continue to monitor, continue home medications with as needed hydralazine 5. WILLIAM, not on CPAP, on nocturnal oxygen 6. GERD, on PPI 7. Type II DM, HbA1c 6.7, on metformin and glimepiride, blood sugars are stable , continue to monitor 8. Hyperlipidemia on statin 9. DVT ppx -aspirin 81 mg p.o. twice daily per Orthopedic recommendation 10. Disposition: Possible SNF; awaiting on social media sr strategy manager/case management to assist with discharge planning. Code Visit Inpatient E&M: 07326 Subs Hosp L2
[2017-11-09 11:50] VITALS: O2SAT 93
[2017-11-09 12:25] LABS: Bedside Glucose 146 mg/dL (70-110)
[2017-11-09] MEDS: Lactated Ringers 1,000 ML 50 ML IV (12:25)
--- NOTE | 2017-11-09 16:16 | NURSING ---
Pt been acting in-appropriate all day. Daughter here and states she gets like this when she has a UTI. was here recently for uti.
[2017-11-09 16:45] LABS: Bedside Glucose 177 mg/dL (70-110)
[2017-11-09 23:00] VITALS: BP 154/75; PULSE 103; RESP 16; TEMP 37.2; O2SAT 93
[2017-11-09] MEDS: metFORMIN HCl 1,000 MG Tablet 1000 MG PO (23:12)
[2017-11-09] MEDS: Atorvastatin Calcium 20 MG Tablet PO (23:12)
[2017-11-09] MEDS: Latanoprost 0.005% 1 Bottle 1 DRP EACH EYE (23:12)
[2017-11-09 23:25] LABS: Bedside Glucose 111 mg/dL (70-110)
--- NOTE | 2017-11-10 01:21 | NURSING ---
at 2300 11/09/17 attempted to obtain orthostatic vital signs per order. Pt. drowsy and not following directions very well. This nurse did not feel comfortable standing pt. at bedside even with the assist of another staff member. Pt. had recent fall at home. This nurse will reevalute patient's physical abilities and attempted to obtain orthostatic vitals again before this shift is over.
[2017-11-10 03:30] VITALS: BP 147/72; PULSE 90; RESP 16; TEMP 36.8; O2SAT 96
[2017-11-10] MEDS: Piperacil/Tazobactam 3.375 GM/50 ML ML IV (06:49)
[2017-11-10] MEDS: Acetaminophen 500 MG Tablet 1000 MG PO ×2 (06:55→15:10)
[2017-11-10 06:56] LABS: Bedside Glucose 55 mg/dL (70-110)
[2017-11-10 07:26] LABS: Bedside Glucose 90 mg/dL (70-110)
[2017-11-10] MEDS: Lactated Ringers 1,000 ML 50 ML IV (10:07)
[2017-11-10 10:14] VITALS: BP 149/68; PULSE 78; RESP 16; TEMP 36.9; O2SAT 96
[2017-11-10] MEDS: Ramipril 2.5 MG Capsule PO (10:24)
[2017-11-10] MEDS: Pantoprazole Sodium 40 MG Tablet PO (10:24)
[2017-11-10] MEDS: Glimepiride 4 MG Tablet PO ×2 (10:25→16:22)
[2017-11-10] MEDS: Aspirin 81 MG TAB.CHEW PO (10:25)
--- NOTE | 2017-11-10 10:30 | CASEMGMT ---
RN ARLENE Face to Face with patient for initial transition planning/care coordination assessment. RN CM introduced self and role at [facility]. Patient sitting in chair, alert and oriented, daughter at bedside. Patient willing to participate in assessment and is able to answer all questions appropriately. Care providers, pharmacy, and demographics verified. Patient lives in home with son. Patient has a cane, walker, and shower chair at home. Pt wishes to discharge home denies need for SNF. Patient states she is agreeable to C. Patient agreeable to [facility] and referral sent. [facility] is able to accept the patient. Patient and daughter updated regarding [facility]. Patient states she has no further needs or concerns at this time. CM to follow for discharge planning needs that may arise. Disposition Plan: Patient to discharge home with HHC, family support, and follow-up needs in place.
[2017-11-10 12:10] LABS: Bedside Glucose 57 mg/dL (70-110)
[2017-11-10 12:10] LABS: Bedside Glucose 146 mg/dL (70-110)
--- NOTE | 2017-11-10 12:23 | PCM.PN.BLA ---
Progress Note Patient is doing well today. Mental status is improved. Daughter is at bedside and states she feels her mental status is improved as well. Plan is to go home with home health care. I agree home health care will be very beneficial for this patient including occupational therapy, physical therapy and some nursing home. She does live at home with her son who is concerned about care for his mother. She seems to be more appropriate for discharge today than she was yesterday. She has some continued swelling she was instructed to continue icing and elevating. She will follow-up in the office in 2 weeks for wound check and x-rays.
--- NOTE | 2017-11-10 13:30 | CASEMGMT ---
Medicare Outpatient Observation Notice completed with patient. Patient voiced understanding and no questions at this time. Patient signed notice and original filed in chart. RN ARLENE provided patient with copy of signed notice.
--- NOTE | 2017-11-10 14:12 | PCM.PN.HOSP ---
Patient Problems: Active and Suspected Problems Traumatic closed displaced fracture of shafts of left ulna and radius (Acute) UTI (urinary tract infection) (Acute) Subjective: Seen and examined. Patient is awake but is slow to respond. Left forearm and wrist is on crib bandage. Swelling of dorsum of left hand and fingers. Patient has chronic urinary incontinence but denies burning micturition or acute change in lower urinary tract symptoms Urine culture shows 1000-10,000 gram-negative rods. Last urine culture on 11/05/2017 shows ESBL E. coli. Vitals/I&O's: Vital Signs Temp Pulse Resp BP Pulse Ox 98.4 F 78 16 149/68 H 96 11/10/17 10:14 11/10/17 10:14 11/10/17 10:14 11/10/17 10:14 11/10/17 10:14 Oxygen Flow Rate (L/min) 2 Oxygen Delivery Method Room Air Weight: 188 lb 0.869 oz Body Mass Index (BMI) 36.7 Finger Stick Blood Glucose 74 Intake and Output for Last 24 Hours 11/08/17 11/09/17 11/10/17 23:59 23:59 23:59 Intake Total 1000 / 1000 2306 / 2306 1089 / 1089 Output Total 400 / 400 Balance 1000 / 1000 1906 / 1906 1089 / 1089 General: Lethargic HEENT: Atraumatic, PERRLA, EOMI, Normocephalic Neck: Supple, No JVD, Negative Carotid Bruits Lungs: Clear to auscultation, No rhonchi, No wheeze, No rales, Diminished Cardiovascular: Regular rate, Regular Rhythm, Normal S1, Normal S2, No murmurs Abdomen: Bowel Sounds Present, Soft, Non Tender, Non-Distended Extremities: Capillary Refill Less than 3 Seconds, Edema - Left hand and finger Skin: No rashes, No breakdown Musculoskeletal: Arthritic Changes, Tenderness Neurological: Cranial nerves II-XII grossly intact Psych/Mental Status: Normal Affect, Appropriate Microbiology Past 72 Hours 11/08/17 20:30 Urine, Clean Catch Urine Culture - Final Presumptive E. coli Laboratory Results 11/09/17 16:27: POC Glucose 177 H 11/09/17 23:10: POC Glucose 111 H 11/10/17 06:51: POC Glucose 55 L 11/10/17 07:19: POC Glucose 90 11/10/17 10:58: POC Glucose 57 L 11/10/17 12:01: POC Glucose 146 H Current Medications Acetaminophen (Tylenol) 1,000 mg PO Q8 [facility] Last Admin: 11/10/17 06:55 Dose: 1,000 mg Aspirin (Aspirin, Baby) 81 mg PO DAILY@0800 [facility] Last Admin: 11/10/17 10:25 Dose: 81 mg Atorvastatin Calcium (Lipitor) 20 mg PO QHS [facility] Last Admin: 11/09/17 23:12 Dose: 20 mg Dextrose (D50w Syringe) 0 gm IV X1 PRN; Protocol PRN Reason: Hypoglycemia Glimepiride (Amaryl) 4 mg PO BIDCM [facility] Last Admin: 11/10/17 10:25 Dose: 4 mg Glucagon () 1 mg IM .X1 PRN PRN Reason: Hypoglycemia Hydralazine HCl (Apresoline Iv) 5 mg IV Q4H PRN PRN PRN Reason: BLOOD PRESSURE Last Admin: 11/08/17 17:21 Dose: 5 mg Piperacillin Sod/Tazobactam Sod (Zosyn) 3.375 gm in 50 mls @ 12.5 mls/hr IV Q8 [facility] Last Admin: 11/10/17 06:49 Dose: 12.5 mls/hr Lactated Ringer's () 1,000 mls @ 50 mls/hr IV .Q20H [facility] Last Admin: 11/10/17 10:07 Dose: 50 mls/hr Insulin Aspart (Novolog Flexpen (Bkc)) 0 units SC ACHS [facility] PRN Reason: Protocol Last Admin: 11/10/17 11:00 Dose: Not Given Latanoprost (Xalatan Opthalmic) 1 drop EACH EYE QHS [facility] Last Admin: 11/09/17 23:12 Dose: 1 drop Melatonin (Melatonin) 3 mg PO QHS PRN PRN Reason: INSOMNIA Metformin HCl (Glucophage) 1,000 mg PO QHS [facility] Last Admin: 11/09/17 23:12 Dose: 1,000 mg Morphine Sulfate () 1 mg IV Q4H PRN PRN PRN Reason: Severe pain (6-10) Nutritional Formula (Lactose Free) (Glucerna Shake) 120 ml PO BIDCM [facility] Last Admin: 11/10/17 10:23 Dose: Not Given Nystatin (Mycostatin Powder) 1 applic TOPICAL BID [facility] PRN Reason: Protocol Last Admin: 11/10/17 10:25 Dose: Not Given Ondansetron HCl (Zofran) 4 mg IV Q8H PRN PRN PRN Reason: NAUSEA/VOMITING Oxycodone HCl (Oxyir) 5 - 10 mg PO Q4H PRN PRN PRN Reason: PAIN Pantoprazole Sodium (Protonix) 40 mg PO DAILY [facility] Last Admin: 11/10/17 10:24 Dose: 40 mg Ramipril (Altace) 2.5 mg PO DAILY [facility] Last Admin: 11/10/17 10:24 Dose: 2.5 mg Sodium Chloride () 5 - 30 ml IV UD PRN PRN Reason: SALINE FLUSH Last Admin: 11/08/17 17:22 Dose: 10 ml Medical Necessity - Tobacco Use Smoking Status: Former smoker Tobacco Use: Non-smoker Assessment/Plan Active and Suspected Problems Traumatic closed displaced fracture of shafts of left ulna and radius (Acute) UTI (urinary tract infection) (Acute) 81-year-old female with past medical history of hypertension and diabetes, recently admitted with UTI in after a fall. 1. POD#2, S/P ORIF left ulnar and radial fracture repair, pain is fairly controlled, left upper extremity is in a sling, on pain regimen. The patient is stable to be discharged on pain medication as per orthopedic surgeon. 2. Acute ESBL cystitis on Recurrent UTIs, recent urine cultures show ESBL, susceptible to Zosyn, started on Zosyn yesterday, renal ultrasound does not show any structural abnormalities except for evidence of chronic disease. Repeat urine culture shows 1000-10,000 gram-negative rods most rapidly ESBL E. coli. Discussed with the pharmacist. One dose of Invanz 1 g ordered. Currently we do not have fosfomycin but patient agreed that her son will come and collect fosfomycin tomorrow from [facility] pharmacy. 3. Debility with mechanical fall/fracture as above in #1, patient is reported to be very unsteady at home, history of recurrent falls, PT and OT assessment were done. PT recommended home health therapy. OT recommended ADL training. 4. Hypertension, elevated secondary to pain, will continue to monitor, continue home medications with as needed hydralazine 5. WILLIAM, not on CPAP, on nocturnal oxygen 6. GERD, on PPI 7. Type II DM, HbA1c 6.7, on metformin and glimepiride, blood sugars are stable, continue to monitor 8. Hyperlipidemia on statin 9. DVT ppx -aspirin 81 mg p.o. twice daily per Orthopedic recommendation 10. The patient is being discharged with home health therapy. Follow-up with Dr. Jimenez in 2 weeks. Code Visit Inpatient E&M: 20585 Subs Hosp L2
--- NOTE | 2017-11-10 14:20 | PN_ITS ---
Patient Problems: Active and Suspected Problems Traumatic closed displaced fracture of shafts of left ulna and radius (Acute) UTI (urinary tract infection) (Acute) Subjective: Seen and examined. Patient is awake but is slow to respond. Left forearm and wrist is on crib bandage. Swelling of dorsum of left hand and fingers. Patient has chronic urinary incontinence but denies burning micturition or acute change in lower urinary tract symptoms Urine culture shows 1000-10,000 gram-negative rods. Last urine culture on 2017 shows ESBL E. coli. Vitals/I&O's: Vital Signs Temp Pulse Resp BP Pulse Ox 98.4 F 78 16 149/68 H 96 11/10/17 10:14 11/10/17 10:14 11/10/17 10:14 11/10/17 10:14 11/10/17 10:14 Oxygen Flow Rate (L/min) 2 Oxygen Delivery Method Room Air Weight: 188 lb 0.869 oz Body Mass Index (BMI) 36.7 Finger Stick Blood Glucose 74 Intake and Output for Last 24 Hours 11/08/17 11/09/17 11/10/17 23:59 23:59 23:59 Intake Total 1000 / 1000 2306 / 2306 1089 / 1089 Output Total 400 / 400 Balance 1000 / 1000 1906 / 1906 1089 / 1089 General: Lethargic HEENT: Atraumatic, PERRLA, EOMI, Normocephalic Neck: Supple, No JVD, Negative Carotid Bruits Lungs: Clear to auscultation, No rhonchi, No wheeze, No rales, Diminished Cardiovascular: Regular rate, Regular Rhythm, Normal S1, Normal S2, No murmurs Abdomen: Bowel Sounds Present, Soft, Non Tender, Non-Distended Extremities: Capillary Refill Less than 3 Seconds, Edema - Left hand and finger Skin: No rashes, No breakdown Musculoskeletal: Arthritic Changes, Tenderness Neurological: Cranial nerves II-XII grossly intact Psych/Mental Status: Normal Affect, Appropriate Microbiology Past 72 Hours 11/08/17 20:30 Urine, Clean Catch Urine Culture - Final Presumptive E. coli Laboratory Results 11/09/17 16:27: POC Glucose 177 H 11/09/17 23:10: POC Glucose 111 H 11/10/17 06:51: POC Glucose 55 L 11/10/17 07:19: POC Glucose 90 11/10/17 10:58: POC Glucose 57 L 11/10/17 12:01: POC Glucose 146 H Current Medications Acetaminophen (Tylenol) 1,000 mg PO Q8 [facility] Last Admin: 11/10/17 06:55 Dose: 1,000 mg Aspirin (Aspirin, Baby) 81 mg PO DAILY@0800 [facility] Last Admin: 11/10/17 10:25 Dose: 81 mg Atorvastatin Calcium (Lipitor) 20 mg PO QHS [facility] Last Admin: 11/09/17 23:12 Dose: 20 mg Dextrose (D50w Syringe) 0 gm IV X1 PRN; Protocol PRN Reason: Hypoglycemia Glimepiride (Amaryl) 4 mg PO BIDCM [facility] Last Admin: 11/10/17 10:25 Dose: 4 mg Glucagon () 1 mg IM .X1 PRN PRN Reason: Hypoglycemia Hydralazine HCl (Apresoline Iv) 5 mg IV Q4H PRN PRN PRN Reason: BLOOD PRESSURE Last Admin: 11/08/17 17:21 Dose: 5 mg Piperacillin Sod/Tazobactam Sod (Zosyn) 3.375 gm in 50 mls @ 12.5 mls/hr IV Q8 [facility] Last Admin: 11/10/17 06:49 Dose: 12.5 mls/hr Lactated Ringer's () 1,000 mls @ 50 mls/hr IV .Q20H [facility] Last Admin: 11/10/17 10:07 Dose: 50 mls/hr Insulin Aspart (Novolog Flexpen (Bkc)) 0 units SC ACHS [facility] PRN Reason: Protocol Last Admin: 11/10/17 11:00 Dose: Not Given Latanoprost (Xalatan Opthalmic) 1 drop EACH EYE QHS [facility] Last Admin: 11/09/17 23:12 Dose: 1 drop Melatonin (Melatonin) 3 mg PO QHS PRN PRN Reason: INSOMNIA Metformin HCl (Glucophage) 1,000 mg PO QHS [facility] Last Admin: 11/09/17 23:12 Dose: 1,000 mg Morphine Sulfate () 1 mg IV Q4H PRN PRN PRN Reason: Severe pain (6-10) Nutritional Formula (Lactose Free) (Glucerna Shake) 120 ml PO BIDCM [facility] Last Admin: 11/10/17 10:23 Dose: Not Given Nystatin (Mycostatin Powder) 1 applic TOPICAL BID [facility] PRN Reason: Protocol Last Admin: 11/10/17 10:25 Dose: Not Given Ondansetron HCl (Zofran) 4 mg IV Q8H PRN PRN PRN Reason: NAUSEA/VOMITING Oxycodone HCl (Oxyir) 5 - 10 mg PO Q4H PRN PRN PRN Reason: PAIN Pantoprazole Sodium (Protonix) 40 mg PO DAILY [facility] Last Admin: 11/10/17 10:24 Dose: 40 mg Ramipril (Altace) 2.5 mg PO DAILY [facility] Last Admin: 11/10/17 10:24 Dose: 2.5 mg Sodium Chloride () 5 - 30 ml IV UD PRN PRN Reason: SALINE FLUSH Last Admin: 11/08/17 17:22 Dose: 10 ml Medical Necessity - Tobacco Use Smoking Status: Former smoker Tobacco Use: Non-smoker Assessment/Plan Active and Suspected Problems Traumatic closed displaced fracture of shafts of left ulna and radius (Acute) UTI (urinary tract infection) (Acute) 81-year-old female with past medical history of hypertension and diabetes, recently admitted with UTI in after a fall. 1. POD#2, S/P ORIF left ulnar and radial fracture repair, pain is fairly controlled, left upper extremity is in a sling, on pain regimen. The patient is stable to be discharged on pain medication as per orthopedic surgeon. 2. Acute ESBL cystitis on Recurrent UTIs, recent urine cultures show ESBL, susceptible to Zosyn, started on Zosyn yesterday, renal ultrasound does not show any structural abnormalities except for evidence of chronic disease. Repeat urine culture shows 1000-10,000 gram-negative rods most rapidly ESBL E. coli. Discussed with the pharmacist. One dose of Invanz 1 g ordered. Currently we do not have fosfomycin but patient agreed that her son will come and collect fosfomycin tomorrow from [facility] pharmacy. 3. Debility with mechanical fall/fracture as above in #1, patient is reported to be very unsteady at home, history of recurrent falls, PT and OT assessment were done. PT recommended home health therapy. OT recommended ADL training. 4. Hypertension, elevated secondary to pain, will continue to monitor, continue home medications with as needed hydralazine 5. WILLIAM, not on CPAP, on nocturnal oxygen 6. GERD, on PPI 7. Type II DM, HbA1c 6.7, on metformin and glimepiride, blood sugars are stable , continue to monitor 8. Hyperlipidemia on statin 9. DVT ppx -aspirin 81 mg p.o. twice daily per Orthopedic recommendation 10. The patient is being discharged with home health therapy. Follow-up with Dr. Jimenez in 2 weeks. Code Visit Inpatient E&M: 41590 Subs Hosp L2
[2017-11-10 15:17] VITALS: BP 165/63; PULSE 74; RESP 16; TEMP 37.2; O2SAT 97
[2017-11-10] MEDS: Glucerna Shake 120 ML LIQUID PO (16:22)
[2017-11-10 16:45] LABS: Bedside Glucose 109 mg/dL (70-110)
== END 2017-11-10 18:06 | disposition home health service (06) ==
LOC: ED 07:09 → SDC 10:21 → MS3 15:21 → SDC 11-10 15:04
PROVIDERS: Physician Assistant; Admitting Provider Specialist; Emergency Provider Emergency Medicine; Family Provider Family Medicine; PCP Family Medicine; Visit Provider Specialist
PROC: (CPT 25575; principal; 2017-11-08 12:00)
DX: S52.202A Unspecified fracture of shaft of left ulna, initial encounter for closed fracture (principal); S52.302A Unspecified fracture of shaft of left radius, initial encounter for closed fracture; W07.XXXA Fall from chair, initial encounter; Y93.89 Activity, other specified; Y92.009 Unspecified place in unspecified non-institutional (private) residence as the place of occurrence of the external cause; K21.9 Gastro-esophageal reflux disease without esophagitis; E78.5 Hyperlipidemia, unspecified; G47.33 Obstructive sleep apnea (adult) (pediatric); S50.812A Abrasion of left forearm, initial encounter; E11.9 Type 2 diabetes mellitus without complications; Z87.891 Personal history of nicotine dependence; Z79.899 Other long term (current) drug therapy; Z79.84 Long term (current) use of oral hypoglycemic drugs; Z79.82 Long term (current) use of aspirin; I10 Essential (primary) hypertension; R32 Unspecified urinary incontinence; N30.00 Acute cystitis without hematuria; Z16.12 Extended spectrum beta lactamase (ESBL) resistance; F03.90 Unspecified dementia, unspecified severity, without behavioral disturbance, psychotic disturbance, mood disturbance, and anxiety
CPT/HCPCS: 25565; 25575; 64417; 73090; 76000; 76770; 80048; 82962; 83036; 85025; 87086; 87088; 96361; 96365; 96366; 96367; 96375; 97116; 97162; 97166; 97530; 97535; 97802; 99218; 99285; C1713; J7030; J7120; A4216; G0378; J2405

== ENCOUNTER 2018-04-15 09:03 | Emergency (ER) | payer MEDICARE, OTHER, SELFPAY ==
[2018-04-15 09:06] VITALS: BP 144/70; PULSE 93; RESP 21; TEMP 36.2; O2SAT 100; BMI 28.2
[2018-04-15 09:16] LABS: Bedside Glucose 66 mg/dL (70-110)
[2018-04-15 09:53] VITALS: BP 146/61; PULSE 78; RESP 21; O2SAT 98
[2018-04-15 09:59] LABS: Absolute Lymphocyte Count 1.72 X10^3/ul (0.83-4.51); Basophil# 0.05 X10^3/uL; Basophil% 0.6 % (0-1); Eosinophil# 0.32 X10^3/uL; Eosinophils% 3.7 % (0-5); Hematocrit 40.6 % (37-47); Hemoglobin 12.9 g/dl (12.0-15.0); Lymphocyte # 1.72 X10^3/ul (4.0); Lymphocyte % 19.6 % (19-41); Mean Corp Hgb Conc 31.8 g/gl (32-36); Mean Corpuscular Hgb 28.9 pg (27.0-32.0); Mean Corpuscular Volume 90.8 fL (81-99); Mean Platelet Vol. 11.2 fl (6.2-12.0); Monocyte# 0.68 X10^3/uL; Monocyte% 7.8 % (0-10); Neutrophil # 5.97 X10^3/uL (2.7-7.7); Neutrophil % 68.1 % (47-70); Platelet Count 227 K/mm3 (150-450); RBC Distribution Width CV 14.3 % (11.6-14.6); RBC Distribution Width SD 46.9 fl (35.1-43.9); Red Blood Count 4.47 M/mm3 (4.2-5.4); White Blood Count 8.8 K/mm3 (4.4-11.0)
[2018-04-15 10:00] LABS: POSITIVE COUNT NO; POSITIVE DIFFERENTIAL NO; POSITIVE MORPHOLOGY NO
[2018-04-15 10:17] LABS: AST(SGOT) 14 U/L (15-37); Alanine Aminotransfer ALT/SGPT 18 U/L (13-56); Albumin, Serum 3.7 g/dL (3.2-5.0); Alkaline Phosphatase 69 U/L (45-117); Anion Gap 8 (5-15); BUN 19 mg/dL (7-18); Calcium,Total 9.1 mg/dL (8.5-10.1); Chloride 105 mmol/L (98-107); EST Glomerular Filtration Rate 63 mL/min (>60); Est Glom Filt Rate - Afr Amer 77 mL/min (>60); Estimated Creatinine Clearance 43.37 ml/min; Globulin 3.6 g/dL (2.2-4.2); Glucose 110 mg/dL (74-106); Potassium 4.5 mmol/L (3.5-5.1); Protein, Total 7.3 g/dL (6.4-8.2); Sodium Level 138 mmol/L (136-145)
[2018-04-15 10:35] LABS: Bedside Glucose 172 mg/dL (70-110)
[2018-04-15 10:35] LABS: Bedside Glucose 177 mg/dL (70-110)
[2018-04-15 10:41] LABS: Mucous, Urine 0 SEEN /hpf (<or=2+); Red Blood Cells-Urine 0 SEEN /hpf (0-5)
[2018-04-15 10:50] LABS: Color, Urine Yellow (Yellow); Glucose, Dipstick Normal (Normal); Ketone-Dipstick Negative (Negative); Leukocyte Esterase-Dipstick 500 /ul (Negative); Nitrite-Dipstick Positive (Negative); Occult Blood-Urine 25 /ul (Negative); Protein-Dipstick 15 mg/dl (Negative); Specific Gravity, Urine 1.015 (1.002-1.030); Urine Bilirubin Dipstick Negative (Negative); Urine Clarity Sl. Cloudy (Clear); Urine Urobilinogen Normal (Normal)
[2018-04-15 10:57] LABS: Bacteria 2+ /hpf (None Seen); Squamous Epithelial Cells - UA 0-5 SEEN /hpf (5-10); White Blood Cells 25-50 SEEN /hpf (0-5)
[2018-04-15 11:20] LABS: Bedside Glucose 232 mg/dL (70-110)
--- NOTE | 2018-04-15 11:42 | ED.DCSUM_ITS ---
- ER Visit Summary Date of Service: 04/15/18 Chief Complaint: Hypoglycemia History of Present Illness: The patient is a 82 F who states that she got up around 130 last night to urinate and was feeling okay. By this morning she felt sweaty and weak and was unable to get out of bed. Eventually her son came down the stairs to let the dogs out and she called out to him and he called EMS. EMS notes her blood sugar was low and she received oral glucose in route to the hospital. Patient upon initial evaluation by this physician is sitting in bed drinking milk and eat cookies and states that she feels pretty good. She does not have any current complaints other than she is sad that she may have ruined h er daughter's vacation. Physical Examination: Afebrile vital signs are stable Gen: Well-nourished well-developed obese Head: Normocephalic atraumatic Eyes: Perrl EOMI ENT: TMs clear no rhinorrhea moist mucous membranes Neck: Supple no lymphadenopathy no JVD nontender CVS: Regular rate rhythm no murmurs normal S1-S2 Respiratory: No distress clear to auscultation bilaterally chest nontender Abdomen: Soft nontender nondistended normal bowel sounds no masses Back: Nontender Extremity: Nontender no edema Skin: Normal color no rash Neuro: alert orientated ?3 CN II-XII intact normal strength sensation reflexes gait cerebellar Psych: Normal affect normal mood Test Results: CBC BMP essentially normal. Urinalysis 25-50 white cells 2+ bacteria. Urine culture was ordered. Blood sugars have been monitored and have stayed elevated for a couple hours. Emergency Department Course and Treatment: Patient will be discharged home to monitor her blood sugars and continue eating. I will place her on Macrobid based on prior E. coli sensitivities of her urine cultures this year. Impression: 1. Diabetic hypoglycemia 2. Acute cystitis This note was generated with [employer] dictation software. It may contain incorrect words, spelling, and punctuation that were not noted in review of the chart prior to signing ED Disposition - Plan for ED Patient: Disposition: Home or Assisted Living Chief Complaint: Hypoglycemia Instructions: ED Diabetes Hypoglycemia Oral Agent, ED UTI Cystitis Female Prescriptions: Nitrofurantoin Macrocrystals [Macrobid] 100 mg PO Q12 #14 cap Referrals: Cecy Trivedi MD [Primary Care Provider] - 5-7 Days
[2018-04-15 12:03] VITALS: BP 134/77; PULSE 81; RESP 16; O2SAT 96
[2018-04-15 12:06] LABS: Bedside Glucose 226 mg/dL (70-110)
== END 2018-04-15 12:04 | disposition home or self-care (01) ==
PROVIDERS: Emergency Provider Emergency Medicine; Family Provider Family Medicine; PCP Family Medicine
DX: E11.649 Type 2 diabetes mellitus with hypoglycemia without coma (principal); N30.00 Acute cystitis without hematuria; I10 Essential (primary) hypertension; K21.9 Gastro-esophageal reflux disease without esophagitis; E78.00 Pure hypercholesterolemia, unspecified; Z87.891 Personal history of nicotine dependence; E66.9 Obesity, unspecified
CPT/HCPCS: 80053; 81001; 82962; 85025; 87086; 87088; 87186; 99285; A4216

== ENCOUNTER → 2018-06-09 15:08 | Outpatient (CLI) | payer MEDICARE, OTHER, SELFPAY ==
[2018-06-09 18:04] LABS: AST(SGOT) 10 U/L (15-37); Alanine Aminotransfer ALT/SGPT 18 U/L (13-56); Albumin, Serum 3.6 g/dL (3.2-5.0); Alkaline Phosphatase 74 U/L (45-117); Bilirubin, Direct 0.09 mg/dL (0.00-0.30); Cholesterol 129 mg/dL (200); Globulin 3.3 g/dL (2.2-4.2); High Density Lipoprotein 41 mg/dL; Protein, Total 6.9 g/dL (6.4-8.2); Triglycerides 234 mg/dL; Very Low Density Lipoprotein 47 mg/dL (5-40)
[2018-06-09 18:19] LABS: Microalbumin:Creatinine Ratio 77.6 mg/g CRE (<30 mg/g CRE)
== END ==
PROVIDERS: Family Provider Family Medicine; PCP Family Medicine; Visit Provider Family Medicine
DX: E11.9 Type 2 diabetes mellitus without complications (principal)
CPT/HCPCS: 36415; 80061; 80076; 82043; 82570

== ENCOUNTER → 2018-10-29 | Outpatient (CLI) | payer MEDICARE, OTHER, SELFPAY ==
--- NOTE | 2018-10-29 14:37 | RAD_ITS ---
STUDY: X-RAY - RIGHT SHOULDER REASON FOR EXAM: Female, 82 years old. Injury several weeks ago TECHNIQUE: 4 view(s) of the shoulder. COMPARISON: None. FINDINGS: Normal glenohumeral articulation. There is degenerative arthrosis of the acromioclavicular joint without inferior osseous spur formation. Normal acromion. Normal humeral head and visualized proximal humerus. The soft tissue structures are unremarkable. Normal visualized pulmonary apex. RAD/Shoulder min 2 Views IMPRESSION: Mild degenerative changes of the right AC joint. There is no evidence of fracture or dislocation. Electronically Signed: Nitin Ford MD at 19:56 EDT , Service support ,
--- NOTE | 2018-10-29 14:37 | RAD_ITS ---
STUDY: X-RAY - RIGHT ELBOW REASON FOR EXAM: Female, 82 years old. Injury several weeks ago TECHNIQUE: 3 view(s) of the elbow. COMPARISON: None. FINDINGS: Normal visualized humerus, radius and ulna. Normal radiocapitellar and ulnotrochlear articulations. Phleboliths are seen in the soft tissues of the dorsum of the forearm. RAD/Elbow min 3 Views IMPRESSION: Normal x-ray examination of the elbow. Electronically Signed: Nitin Ford MD at 19:59 EDT , Service support ,
--- NOTE | 2018-10-29 14:37 | RAD_ITS ---
STUDY: X-RAY - RIGHT HUMERUS REASON FOR EXAM: Female, 82 years old. Fall several weeks ago TECHNIQUE: 2 view(s) of the humerus. COMPARISON: None. FINDINGS: Normal visualized humerus. There is no demonstrated fracture or osseous destructive process. There is no demonstrated soft tissue abnormality. RAD/Humerus min 2 Views IMPRESSION: Normal x-ray examination of the humerus. Electronically Signed: Nitin Ford MD at 19:53 EDT , Service support ,
== END | disposition home or self-care (01) ==
LOC: MTRAD 14:35
PROVIDERS: Family Provider Family Medicine; PCP Family Medicine; Referring Provider Nurse Practitioner Family; Visit Provider Nurse Practitioner Family
DX: S49.91XA Unspecified injury of right shoulder and upper arm, initial encounter (principal); M79.601 Pain in right arm
CPT/HCPCS: 73030; 73060; 73080

== ENCOUNTER → 2019-01-22 | Outpatient (CLI) | payer MEDICARE, OTHER, SELFPAY ==
[2019-01-22 17:26] LABS: Anion Gap 9 (5-15); BUN 22 mg/dL (7-18); BUN/Creat Ratio 22.4 RATIO (10-20); Calcium,Total 8.7 mg/dL (8.5-10.1); Chloride 113 mmol/L (98-107); Creatinine, Serum 0.98 mg/dL (0.55-1.02); EST Glomerular Filtration Rate 58 mL/min (>60); Est Glom Filt Rate - Afr Amer 70 mL/min (>60); Glucose 155 mg/dL (74-106); Potassium 4.2 mmol/L (3.5-5.1); Sodium Level 146 mmol/L (136-145)
== END | disposition home or self-care (01) ==
LOC: MFPLAB 15:02
PROVIDERS: Family Provider Family Medicine; PCP Family Medicine; Referring Provider Family Medicine; Visit Provider Family Medicine
DX: E11.9 Type 2 diabetes mellitus without complications (principal)
CPT/HCPCS: 36415; 80048

== ENCOUNTER 2019-02-01 21:17 | Inpatient (IN) | payer MEDICARE, OTHER, SELFPAY ==
[2019-02-01 21:20] VITALS: BMI 32.3
[2019-02-01 21:23] VITALS: BP 149/50; PULSE 67; RESP 18; TEMP 36.7; O2SAT 100
[2019-02-01 21:40] VITALS: BMI 32.3
[2019-02-01 21:41] LABS: Bedside Glucose 125 mg/dL (70-110)
--- NOTE | 2019-02-01 21:57 | HP.PCM_ITS ---
Problem List (1) Hypoglycemia associated with diabetes Status: Acute (2) GERD (gastroesophageal reflux disease) Status: Chronic Qualifiers: (3) Hyperlipidemia Status: Chronic Qualifiers: (4) Obstructive sleep apnea Status: Chronic (5) Type II diabetes mellitus Status: Chronic History of Present Illness Date of Admission: 02/01/19 Chief Complaint: hypoglycemia The patient is a 83 year old female patient with a past medical history of type 2 diabetes who presented to the [place] emergency room after having taking glimepiride of unknown dose and had a blood sugar of 57. The emergency room physician from [place] stated she had an altered sensorium and she received D50 and subsequently had a blood sugar in the 170s. Since the emergency room physician was unclear as to how much of the sulfonylurea drugs she took he requested her to be transferred to [facility] for admission and observation. The patient arrived in good health with no new complaints no chest pain shortness of breath or fevers or chills. She will be placed on observation and Accu-Cheks will be done every 6 hours. Routine lab work including A1c will be ordered for the morning. Case management will be consulted for discharge planning.] Past Medical History Past Medical History (Chronic Problems): Chronic Problems GERD (gastroesophageal reflux disease) (Chronic) Hyperlipidemia (Chronic) Obstructive sleep apnea (Chronic) Type II diabetes mellitus (Chronic) Allergies sulfamethoxazole [From Marra] Allergy (Verified 02/01/19 21:27) Hives trimethoprim [From Marra] Allergy (Verified 02/01/19 21:27) Hives adhesive tape Adverse Reaction (Verified 02/01/19 21:27) Rash Home Medications: Ambulatory Orders Medication Instructions Recorded Glimepiride [Amaryl] 4 mg PO BREAKFAST 11/05/17 Ramipril [Altace] 5 mg PO DAILY 11/05/17 Aspirin [Aspirin, Baby] 81 mg PO DAILY@0800 02/01/19 Atorvastatin Calcium [Lipitor] 20 mg PO QHS 02/01/19 Bimatoprost 0.01% [Lumigan 0.01%] 1 drp EACH EYE QHS 02/01/19 Exenatide Microspheres [Bydureon 2 mg SQ TU 02/01/19 Pen] Omeprazole [Prilosec] 40 mg PO DAILY 02/01/19 Surgical History: appendectomy, cholecystectomy, hysterectomy, tonsillectomy Psychiatric History: No pertinent psych hx 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 Denies: Chills, Fever, Weight Change HEENT: Denies: Head Aches, Sinus Congestion, Sinus Drainage Cardiovascular: Denies: Chest Pain, Palpitations Respiratory: Denies: Cough, Shortness of breath at rest, Sputum production Gastrointestinal: Denies: Abdominal Pain, Nausea, Vomiting Genitourinary: Denies: Dysuria Musculoskeletal: Denies: Joint Pain, Joint Tenderness Skin: Denies: Rash, Wounds Neurological: Reports: Confusion. Denies: Focal weakness, Numbness, Tingling Psychiatric: Reports: Anxiety. Denies: Depression, Homicidal Ideations, Suicidal Ideations Hematologic/ Lymphatic: Denies: Easy Bruising, Easy Bleeding VTE Information - Inpt Only VTE Present on Admission: No VTE Mechan Device Prophylaxis: None VTE Pharm Prophylaxis ordered?: Yes Patient Problems: Active and Suspected Problems Hypoglycemia associated with diabetes (Acute) - Physical Exam General: Alert, Oriented x3, Cooperative HEENT: Atraumatic, Normocephalic Neck: Supple Lungs: Clear to auscultation, Normal air movement Cardiovascular: Regular rate, Normal S1, Normal S2, No murmurs Abdomen: Bowel Sounds Present, Soft, Non Tender Extremities: No edema Skin: No rashes Musculoskeletal: No Tenderness to Palpation of Joints or Extremities Neurological: Neuro grossly intact, - Psych/Mental Status: Anxious, - - odd affect but not depressed Vital Signs Temp Pulse Resp BP Pulse Ox 98.0 F 67 18 149/50 H 100 02/01/19 21:23 02/01/19 21:23 02/01/19 21:23 02/01/19 21:23 02/01/19 21:23 Oxygen Delivery Method Room Air Weight: 165 lb 5.547 oz Body Mass Index (BMI) 32.3 Finger Stick Blood Glucose 226 POC Glucose 02/01/19 21:34 POC Glucose 125 H Assessment/Plan All Active Problems Traumatic closed displaced fracture of shafts of left ulna and radius (Acute) UTI (urinary tract infection) (Acute) Hypoglycemia associated with diabetes (Acute) Chronic Problems GERD (gastroesophageal reflux disease) (Chronic) Hyperlipidemia (Chronic) Obstructive sleep apnea (Chronic) Type II diabetes mellitus (Chronic) Plan 1. Hypoglycemia?Accu-Chek every 6 hours, hold diabetic medication. Regular diet, CBC BMP in the a.m. 2. GERD?continue routine medication 3. Hyperlipidemia?continue statin 4. Diabetes?hold medication 5. DVT prophylaxis?low molecular weight heparin Code Visit OBSV E&M: 50414 Initial observation care L2
[2019-02-02 03:50] VITALS: BP 152/63; PULSE 61; RESP 16; TEMP 36.5; O2SAT 99
[2019-02-02 04:06] LABS: Bedside Glucose 75 mg/dL (70-110)
[2019-02-02 05:50] LABS: Absolute Lymphocyte Count 2.39 X10^3/uL (0.83-4.51); Absolute Neutrophil Count 4.7 X10^3/uL (2.0-7.7); Basophil# 0.06 X10^3/uL; Basophil% 0.7 % (0-1); Eosinophil# 0.66 X10^3/uL; Eosinophils% 7.6 % (0-5); Hematocrit 38.5 % (37-47); Hemoglobin 12.4 g/dL (12.0-15.0); Lymphocyte # 2.39 X10^3/ul (4.0); Lymphocyte % 27.7 % (19-41); Mean Corp Hgb Conc 32.2 g/dL (32-36); Mean Corpuscular Hgb 29.7 pg (27.0-32.0); Mean Corpuscular Volume 92.1 fL (81-99); Mean Platelet Vol. 11.2 fl (6.2-12.0); Monocyte# 0.83 X10^3/uL; Monocyte% 9.6 % (0-10); NRBC Flagged by Analyzer 0 % (0-5); Neutrophil # 4.68 X10^3/uL (2.7-7.7); Neutrophil % 54.2 % (47-70); Platelet Count 191 K/mm3 (150-450); RBC Distribution Width CV 13.4 % (11.6-14.6); RBC Distribution Width SD 45.5 fl (35.1-43.9); Red Blood Count 4.18 M/mm3 (4.2-5.4); White Blood Count 8.6 K/mm3 (4.4-11.0)
[2019-02-02 06:00] LABS: Anion Gap 8 (5-15); BUN 17 mg/dL (7-18); BUN/Creat Ratio 20.7 RATIO (10-20); Calcium,Total 8.6 mg/dL (8.5-10.1); Chloride 112 mmol/L (98-107); Creatinine, Serum 0.82 mg/dL (0.55-1.02); EST Glomerular Filtration Rate 71 mL/min (>60); Est Glom Filt Rate - Afr Amer 85 mL/min (>60); Estimated Creatinine Clearance 37.34 ml/min; Glucose 101 mg/dL (74-106); Potassium 3.8 mmol/L (3.5-5.1); Sodium Level 143 mmol/L (136-145)
[2019-02-02 07:00] LABS: Bedside Glucose 87 mg/dL (70-110)
--- NOTE | 2019-02-02 07:09 | PN_ITS ---
Patient Problems: Active and Suspected Problems Hypoglycemia associated with diabetes (Acute) Subjective: Patient is an 83-year-old lady with history of diabetes mellitus type 2 on glimepiride admitted with hypoglycemia Objective: GENERAL: No apparent distress however appears confused HEENT: Atraumatic; EYES; Anicteric, Normal Conjunctiva NECK; supple, normal thyroid, RESPIRATORY: Diminished to auscultation bilaterally, CARDIOVASCULAR: Regular S1 S2, GI: soft, non-tender, normoactive bowel sounds, : No Renal angle tenderness; EXTREMITIES: No edema, no clubbing, MUSCULOSKELETAL: No Joint Tenderness; NEURO: Awake; no lateralizing signs. SKIN: No Rash PSYCH; Inappropriate affect Vitals/I&O's: Vital Signs Temp Pulse Resp BP Pulse Ox 97.7 F L 61 16 152/63 H 99 02/02/19 03:50 02/02/19 03:50 02/02/19 03:50 02/02/19 03:50 02/02/19 03:50 Oxygen Delivery Method Room Air Weight: 75 kg Body Mass Index (BMI) 32.3 Finger Stick Blood Glucose 226 Intake and Output for Last 24 Hours 01/31/19 02/01/19 02/02/19 23:59 23:59 23:59 Intake Total 120 / 120 Balance 120 / 120 Laboratory Results 02/01/19 21:34: POC Glucose 125 H 02/02/19 03:50: POC Glucose 75 02/02/19 05:16: WBC 8.6, RBC 4.18 L, Hgb 12.4, Hct 38.5, MCV 92.1, MCH 29.7, MCHC 32.2, RDW Std Deviation 45.5 H, RDW Coeff of Wesley 13.4, Plt Count 191, MPV 11.2, Immature Gran % (Auto) 0.200, Neut % (Auto) 54.2, Lymph % (Auto) 27.7, Traill % (Auto) 9.6, Eos % (Auto) 7.6 H, Baso % (Auto) 0.7, Absolute Neuts (auto) 4.7, Absolute Lymphs (auto) 2.39, Nucleated RBC % 0 02/02/19 05:16: Sodium 143, Potassium 3.8, Chloride 112 H, Carbon Dioxide 23.0, Anion Gap 8, BUN 17, Creatinine 0.82, Estim Creat Clear Calc 37.34, Est GFR (MDRD) Af Amer 85, Est GFR (MDRD) Non-Af 71, BUN/Creatinine Ratio 20.7 H, Glucose 101, Calcium 8.6 02/02/19 06:38: POC Glucose 87 Current Medications Aspirin (Aspirin, Baby) 81 mg PO DAILY@0800 [facility] Atorvastatin Calcium (Lipitor) 20 mg PO QHS [facility] Dextrose (D50w Syringe) 0 gm IV X1 PRN; Protocol PRN Reason: Hypoglycemia Enoxaparin Sodium (Lovenox) 40 mg SC DAILY@1000 [facility] Glucagon () 1 mg IM .X1 PRN PRN Reason: Hypoglycemia Latanoprost (Xalatan Opthalmic) 1 drop EACH EYE QHS [facility] Nutritional Formula (Lactose Free) (Glucerna Shake) 120 ml PO 4X/DAY [facility] Last Admin: 02/01/19 23:06 Dose: Not Given Documented by: Pantoprazole Sodium (Protonix) 40 mg PO DAILY [facility] Ramipril (Altace) 5 mg PO DAILY [facility] Sodium Chloride () 10 - 40 ml IV UD PRN PRN Reason: SALINE FLUSH Medical Necessity - Tobacco Use Smoking Status: Never smoker Assessment/Plan All Active Problems Traumatic closed displaced fracture of shafts of left ulna and radius (Acute) UTI (urinary tract infection) (Acute) Hypoglycemia associated with diabetes (Acute) Patient is an 83-year-old lady with history of diabetes mellitus type 2 on glimepiride admitted with hypoglycemia 1. Hypoglycemia secondary to sulfonylurea use: Suspecting offending medication held admitted to regular nursing floor where patient blood glucose is being monitored 2. Diabetes mellitus type 2 cases including hypoglycemia as stated above patient sulfonylurea held currently monitoring glucose levels 3. Dyslipidemia-patient is on statin therapy, continued at home dose 4. Hypertension-blood pressure controlled, home medications continued with dose adjustment as needed 5. GERD on PPI 6. Suspected dementia consult placed to healthcare social worker regarding disposition 7. DVT prophylaxis on Lovenox Active Medications Aspirin (Aspirin, Baby) 81 mg PO DAILY@0800 [facility] Atorvastatin Calcium (Lipitor) 20 mg PO QHS [facility] Dextrose (D50w Syringe) 0 gm IV X1 PRN; Protocol PRN Reason: Hypoglycemia Enoxaparin Sodium (Lovenox) 40 mg SC DAILY@1000 [facility] Glucagon () 1 mg IM .X1 PRN PRN Reason: Hypoglycemia Latanoprost (Xalatan Opthalmic) 1 drop EACH EYE QHS [facility] Nutritional Formula (Lactose Free) (Glucerna Shake) 120 ml PO 4X/DAY [facility] Last Admin: 02/01/19 23:06 Dose: Not Given Documented by: Pantoprazole Sodium (Protonix) 40 mg PO DAILY [facility] Ramipril (Altace) 5 mg PO DAILY [facility] Sodium Chloride () 10 - 40 ml IV UD PRN PRN Reason: SALINE FLUSH Code Visit OBSV E&M: 40898 Subsequent observation care L3
[2019-02-02 08:46] VITALS: BP 149/59; PULSE 67; RESP 16; TEMP 36.4; O2SAT 98
[2019-02-02 08:50] VITALS: PULSE 70
[2019-02-02] MEDS: Glucerna Shake 120 ML LIQUID PO (09:05)
[2019-02-02] MEDS: Ramipril 5 MG Capsule PO (09:06)
[2019-02-02] MEDS: Pantoprazole Sodium 40 MG Tablet PO (09:06)
[2019-02-02] MEDS: Aspirin 81 MG TAB.CHEW PO (09:07)
[2019-02-02] MEDS: Enoxaparin 40 MG/0.4 ML Syringe SC (09:08)
--- NOTE | 2019-02-02 11:10 | CASEMGMT ---
MARLON JACOBS Face to Face with patient for initial transition planning/care coordination assessment. MARLON JACOBS introduced self and role at [facility]. Patient lying in bed, alert and oriented. Patient willing to participate in assessment and is able to answer all questions appropriately. Care providers, pharmacy, and demographics verified. [facility] Patient states she has no further needs or concerns at this time. CM to follow for discharge planning needs that may arise. PCP: Farooq Specialists: None Preferred Pharmacy: [facility] Insurance: [facility], [facility] Prescription Benefit: yes Living Will/HPOA: yes, daughter Kriss Mireles LNOK: daughter, sons Living Arrangements: Patient lives in single story home, son lives in the basement, but is not much help around the house per patient and daughter. Patient states she is independent at home. Daughter states that the patient hasn't been checking blood sugar at home and cannot find glucometer. Transportation: Daughter DME/HHC: Patient states she has shower chair, raised toilet, grab bars, walker, medical alert. Patient has had [facility] HHC in the past. Patient is agreeable to HHC with [facility] for nursing only. Patient has aide services through [facility] 3x/week. MARLON JACOBS called Gabby at [facility] and asked if aides could encourage patient to check blood sugar while there, Gabby stated they could and help keep a log. Gabby would also talk to patient and family about increasing to 5x/week. MARLON JACOBS requested nursing obtain script for glucometer. Disposition Plan: Patient to discharge home with family support, HHC, aide services, and follow-up plans inplace. Tiffanie GALLEGOS, RN, CM
[2019-02-02] MEDS: Nystatin Powder 15gm Bottle 1 APPLIC TOPICAL ×2 (11:28→21:58)
[2019-02-02 12:35] LABS: Bedside Glucose 191 mg/dL (70-110)
[2019-02-02 13:49] VITALS: BP 124/56; PULSE 64; RESP 18; TEMP 37.1; O2SAT 98
[2019-02-02 13:51] VITALS: PULSE 70
[2019-02-02 16:41] LABS: Bedside Glucose 170 mg/dL (70-110)
[2019-02-02 19:55] VITALS: BP 141/51; PULSE 86; RESP 18; TEMP 36.4; O2SAT 96
[2019-02-02] MEDS: Atorvastatin Calcium 20 MG Tablet PO (21:59)
[2019-02-02 22:11] LABS: Bedside Glucose 130 mg/dL (70-110)
[2019-02-02] MEDS: Latanoprost 0.005% 1 Bottle 1 DRP EACH EYE (22:26)
[2019-02-03 02:27] VITALS: BP 151/59; PULSE 70; RESP 18; TEMP 36.4; O2SAT 96
[2019-02-03 05:38] LABS: Absolute Lymphocyte Count 2.52 X10^3/uL (0.83-4.51); Absolute Neutrophil Count 4.3 X10^3/uL (2.0-7.7); Basophil# 0.05 X10^3/uL; Basophil% 0.6 % (0-1); Eosinophil# 0.59 X10^3/uL; Eosinophils% 7.2 % (0-5); Hematocrit 35.8 % (37-47); Hemoglobin 11.8 g/dL (12.0-15.0); Lymphocyte # 2.52 X10^3/ul (4.0); Lymphocyte % 30.8 % (19-41); Mean Corpuscular Volume 91.1 fL (81-99); Mean Platelet Vol. 11.1 fl (6.2-12.0); Monocyte# 0.74 X10^3/uL; NRBC Flagged by Analyzer 0 % (0-5); Neutrophil # 4.26 X10^3/uL (2.7-7.7); Platelet Count 187 K/mm3 (150-450); RBC Distribution Width CV 13.2 % (11.6-14.6); RBC Distribution Width SD 44.4 fl (35.1-43.9); Red Blood Count 3.93 M/mm3 (4.2-5.4); White Blood Count 8.2 K/mm3 (4.4-11.0)
[2019-02-03 05:49] LABS: Anion Gap 6 (5-15); BUN 22 mg/dL (7-18); BUN/Creat Ratio 22.2 RATIO (10-20); Calcium,Total 8.4 mg/dL (8.5-10.1); Chloride 112 mmol/L (98-107); Creatinine, Serum 0.99 mg/dL (0.55-1.02); EST Glomerular Filtration Rate 57 mL/min (>60); Est Glom Filt Rate - Afr Amer 69 mL/min (>60); Estimated Creatinine Clearance 30.93 ml/min; Glucose 127 mg/dL (74-106); Magnesium 1.5 mg/dL (1.6-2.6); Potassium 3.9 mmol/L (3.5-5.1); Sodium Level 144 mmol/L (136-145)
[2019-02-03 06:40] LABS: Bedside Glucose 120 mg/dL (70-110)
--- NOTE | 2019-02-03 08:24 | PCM.DC ---
- Discharge Diagnoses Current Active Problems: Current Active and Chronic Problems Hypoglycemia associated with diabetes (Acute) You will use the following diet at home:: Calorie/Carbohydrate Controlled (specify 1200, 1400, etc) - 1800 Your food should be the consistency of: Regular Discharge Activity: Return to Normal Activity Allergies/Adverse Reactions: Allergies sulfamethoxazole [From ] Allergy (Verified 02/01/19 21:27) Hives trimethoprim [From ] Allergy (Verified 02/01/19 21:27) Hives adhesive tape Adverse Reaction (Verified 02/01/19 21:27) Rash Medications to take at Discharge Ramipril [Altace] 5 mg PO DAILY 11/05/17 Aspirin [Aspirin, Baby] 81 mg PO DAILY@0800 02/01/19 Atorvastatin Calcium [Lipitor] 20 mg PO QHS 02/01/19 Bimatoprost 0.01% [Lumigan 0.01%] 1 drp EACH EYE QHS 02/01/19 Exenatide Microspheres [Bydureon Pen] 2 mg SQ TU 02/01/19 Omeprazole [Prilosec] 40 mg PO DAILY 02/01/19 Glimepiride [Amaryl] 1 mg PO BREAKFAST #0 02/03/19 Magnesium Oxide [Mag-Ox 400] 400 mg PO BIDCM #20 tab 02/03/19 The following prescriptions were given: Magnesium Oxide [Mag-Ox 400] 400 mg PO BIDCM #20 tab Transmission Status: Pending to [facility] Primary Care Physician: Cecy Trivedi MD [Primary Care Provider] - Please follow up with your Primary Care Physician in: in 5-7 days Test Results: Test results from this visit will be discussed in further detail at your follow-up appointment, if applicable. Proposed Discharge Date: 02/03/19
--- NOTE | 2019-02-03 08:27 | DS.PCM_ITS ---
Discharge Date and Diagnosis - Problem List Patient Problems: Active and Suspected Problems Hypoglycemia associated with diabetes (Acute) Date of Admission: 02/01/19 Date of Discharge: 02/03/19 - Primary Discharge Diagnosis Active and Suspected Problems Hypoglycemia associated with diabetes (Acute) - Secondary Discharge Diagnosis Chronic Problems GERD (gastroesophageal reflux disease) (Chronic) Hyperlipidemia (Chronic) Obstructive sleep apnea (Chronic) Type II diabetes mellitus (Chronic) Hospital Course and Treatment Operations: None Summary of Care Provided: Patient is an 83-year-old lady with history of diabetes mellitus type 2 on glimepiride admitted with hypoglycemia 1. Hypoglycemia secondary to sulfonylurea use: Suspecting offending medication held admitted to regular nursing floor where patient blood glucose is being monitored 2. Diabetes mellitus type 2 cases including hypoglycemia as stated above patient sulfonylurea held currently monitoring glucose levels patient was on Amaryl 4 mg p.o. daily this was decreased to 1 mg daily on discharge. 3. Dyslipidemia-patient is on statin therapy, continued at home dose 4. Hypertension-blood pressure controlled, home medications continued with dose adjustment as needed 5. GERD on PPI 6. Suspected dementia consult placed to marriage and family social worker regarding disposition plan is for patient to be discharged home with home health 7. DVT prophylaxis on Lovenox Patient Problems: Active and Suspected Problems Hypoglycemia associated with diabetes (Acute) Objective: GENERAL: No apparent distress HEENT: Atraumatic; EYES; Anicteric, Normal Conjunctiva NECK; supple, normal thyroid, RESPIRATORY: Diminished to auscultation CARDIOVASCULAR: Regular S1 S2, GI: soft, non-tender, normoactive bowel sounds, : No Renal angle tenderness; EXTREMITIES: No edema, no clubbing, MUSCULOSKELETAL: No Joint Tenderness; NEURO: Awake; no lateralizing signs. SKIN: No Rash - Physical Exam Vital Signs Temp Pulse Resp BP Pulse Ox 97.5 F L 70 18 151/59 H 96 02/03/19 02:27 02/03/19 02:27 02/03/19 02:27 02/03/19 02:27 02/03/19 02:27 Oxygen Delivery Method Room Air Weight: 75 kg Body Mass Index (BMI) 32.3 Finger Stick Blood Glucose 226 Intake and Output for Last 24 Hours 02/01/19 02/02/19 02/03/19 23:59 23:59 23:59 Intake Total 120 / 120 Balance 120 / 120 Laboratory Tests Past 24 Hrs 02/03/19 02/03/19 05:08 05:08 WBC 8.2 RBC 3.93 L Hgb 11.8 L Hct 35.8 L MCV 91.1 MCH 30.0 MCHC 33.0 RDW Std Deviation 44.4 H RDW Coeff of Wesley 13.2 Plt Count 187 MPV 11.1 Immature Gran % (Auto) 0.400 Neut % (Auto) 52.0 Lymph % (Auto) 30.8 [place] % (Auto) 9.0 Eos % (Auto) 7.2 H Baso % (Auto) 0.6 Absolute Neuts (auto) 4.3 Absolute Lymphs (auto) 2.52 Nucleated RBC % 0 Sodium 144 Potassium 3.9 Chloride 112 H Carbon Dioxide 26.0 Anion Gap 6 BUN 22 H Creatinine 0.99 Estim Creat Clear Calc 30.93 Est GFR (MDRD) Af Amer 69 Est GFR (MDRD) Non-Af 57 L BUN/Creatinine Ratio 22.2 H Glucose 127 H Calcium 8.4 L Magnesium 1.5 L POC Glucose 02/03/19 02/02/19 02/02/19 06:33 21:55 16:32 POC Glucose 120 H 130 H 170 H 02/02/19 12:31 POC Glucose 191 H Discharge Diet: 1800 Calorie Control Diet Discharge Activity: Return to Normal Activity Home Medications: Medications to take at Discharge Ramipril [Altace] 5 mg PO DAILY 11/05/17 Aspirin [Aspirin, Baby] 81 mg PO DAILY@0800 02/01/19 Atorvastatin Calcium [Lipitor] 20 mg PO QHS 02/01/19 Bimatoprost 0.01% [Lumigan 0.01%] 1 drp EACH EYE QHS 02/01/19 Exenatide Microspheres [Bydureon Pen] 2 mg SQ TU 02/01/19 Omeprazole [Prilosec] 40 mg PO DAILY 02/01/19 Glimepiride [Amaryl] 1 mg PO BREAKFAST #0 02/03/19 Magnesium Oxide [Mag-Ox 400] 400 mg PO BIDCM #20 tab 02/03/19 Following Prescrptions Were Given to Patient: Magnesium Oxide [Mag-Ox 400] 400 mg PO BIDCM #20 tab Transmission Status: Received by [facility] Primary Care Physician: Cecy Trivedi MD [Primary Care Provider] - Please follow up with your Primary Care Physician in: in 5-7 days Disposition: Home with Home Health Minutes spent on discharge:: 35 Patient Condition:: Stable Medical Necessity - Tobacco Use Smoking Status: Never smoker Meaningful Use Info Meaningful Use Diagnoses (Choose all that apply): None applicable Code Visit OBSV E&M: 42722 Observation care discharge
[2019-02-03] MEDS: Nystatin Powder 15gm Bottle 1 APPLIC TOPICAL (08:30)
[2019-02-03] MEDS: Ramipril 5 MG Capsule PO (08:30)
[2019-02-03] MEDS: Pantoprazole Sodium 40 MG Tablet PO (08:30)
[2019-02-03] MEDS: Aspirin 81 MG TAB.CHEW PO (08:30)
[2019-02-03] MEDS: Enoxaparin 40 MG/0.4 ML Syringe SC (08:35)
[2019-02-03 08:42] VITALS: BP 150/48; PULSE 65; RESP 16; TEMP 36.6; O2SAT 100
[2019-02-03] MEDS: 0.9% NaCl Peripheral Flush Adult/Peds IV (09:09)
[2019-02-03 11:15] LABS: Bedside Glucose 117 mg/dL (70-110)
[2019-02-03 11:18] VITALS: BP 129/43; PULSE 60; RESP 16; TEMP 36.5; O2SAT 100
--- NOTE | 2019-02-03 12:54 | NURSING ---
notified daughter that pt has been discharged.
== END 2019-02-03 13:46 | disposition home or self-care (01) | DRG 639 ==
PROVIDERS: Admitting Provider Family Medicine; Family Provider Family Medicine; PCP Family Medicine; Visit Provider Internal Medicine
DX: E11.649 Type 2 diabetes mellitus with hypoglycemia without coma (principal); Z79.84 Long term (current) use of oral hypoglycemic drugs; K21.9 Gastro-esophageal reflux disease without esophagitis; E78.5 Hyperlipidemia, unspecified; G47.33 Obstructive sleep apnea (adult) (pediatric); I10 Essential (primary) hypertension
CPT/HCPCS: 36415; 80048; 82962; 83735; 85025; 97802; A4216

== ENCOUNTER → 2019-05-12 16:36 | Outpatient (CLI) | payer MEDICARE, OTHER, SELFPAY | PROVIDERS: Family Provider Family Medicine; PCP Family Medicine; Referring Provider Family Medicine; Visit Provider Nurse Practitioner Adult Health | DX: R30.0 Dysuria (principal) | CPT/HCPCS: 87086; 87088; 87186 ==

== ENCOUNTER → 2019-07-30 11:13 | Outpatient (CLI) | payer MEDICARE, OTHER, SELFPAY ==
[2019-07-30 12:56] LABS: Hemoglobin A1c 8.3 % (4.2-6.3)
[2019-07-30 13:16] LABS: AST(SGOT) 7 U/L (15-37); Alanine Aminotransfer ALT/SGPT 20 U/L (13-56); Albumin, Serum 3.1 g/dL (3.2-5.0); Alkaline Phosphatase 74 U/L (45-117); Anion Gap 6 (5-15); BUN 28 mg/dL (7-18); Bilirubin, Direct 0.11 mg/dL (0.00-0.30); Calcium,Total 9.9 mg/dL (8.5-10.1); Chloride 109 mmol/L (98-107); Cholesterol 165 mg/dL (200); Creatinine, Serum 0.93 mg/dL (0.55-1.02); EST Glomerular Filtration Rate 61 mL/min (>60); Est Glom Filt Rate - Afr Amer 74 mL/min (>60); Globulin 3.8 g/dL (2.2-4.2); Glucose 245 mg/dL (74-106); High Density Lipoprotein 41 mg/dL; Potassium 4.6 mmol/L (3.5-5.1); Protein, Total 6.9 g/dL (6.4-8.2); Sodium Level 142 mmol/L (136-145); Triglycerides 290 mg/dL; Very Low Density Lipoprotein 58 mg/dL (5-40)
== END ==
PROVIDERS: PCP Family Medicine; Referring Provider Family Medicine; Visit Provider Family Medicine
DX: E11.8 Type 2 diabetes mellitus with unspecified complications (principal); E11.65 Type 2 diabetes mellitus with hyperglycemia
CPT/HCPCS: 36415; 80048; 80061; 80076; 83036

== ENCOUNTER 2019-08-16 15:03 | Inpatient (IN) | payer MEDICARE, OTHER, SELFPAY ==
[2019-08-16] VITALS (9 sets, daily range): BP systolic 109–161; BP diastolic 40–100; PULSE 88–116; RESP 16–24; TEMP 36.7–38.5; O2SAT 94–100; BMI 32.3; BMI 32.8
--- NOTE | 2019-08-16 15:49 | CT_ITS ---
STUDY: CT BRAIN WITHOUT CONTRAST REASON FOR EXAM: Female, 83 years old. Back pain. Constipation and confusion. RADIATION DOSAGE (If Supplied By Facility): CTDIvol = ( 60.81 ) mGy, DLP = ( 1044.28 ) mGycm TECHNIQUE: Transaxial CT imaging of the brain was performed without administration of intravenous contrast material. Individualized dose optimization techniques were used for this CT. COMPARISON: November 05, 2017. FINDINGS: Normal soft tissue structures. Normal calvarium. There is mild cerebral atrophy with widening of the extra-axial spaces and ventricular dilatation. There are areas of decreased attenuation within the white matter tracts of the supratentorial brain, consistent with microvascular disease changes. Remote lacunar infarct left basal ganglia. Normal right basal ganglia and bilateral thalami. Normal brainstem. Normal cerebellum. There is no intracranial hemorrhage. There are no findings of an acute ischemic infarction. Normal visualized paranasal sinuses. CT/Brain/Head without Contrast IMPRESSION: Chronic involutional changes without evidence of acute intracranial or calvarial abnormality. There is no major interval change. Electronically Signed: Sami Hyatt DO at 18:36 EST Tel [phone], Service support ,
--- NOTE | 2019-08-16 15:49 | EKG12_ITS ---
Test Reason : BACK PAIN Blood Pressure : / mmHG Vent. Rate : 087 BPM Atrial Rate : 087 BPM P-R Int : 104 ms QRS Dur : 068 ms QT Int : 360 ms P-R-T Axes : 021 016 041 degrees QTc Int : 433 ms Sinus rhythm with short WA Otherwise normal ECG Confirmed by LYNETTE MURRAY, JACQUELINE ([id number]), image editor MARJ WU ([id number]) on 08/18/2019 9:52:21 AM Referred By: ADRIENNE Confirmed By:JACQUELINE OJEDA MD
--- NOTE | 2019-08-16 15:49 | RAD_ITS ---
STUDY: X-RAY CHEST REASON FOR EXAM: Female, 83 years old. Shortness of breath, low back pain. TECHNIQUE: AP COMPARISON: November 05, 2017 FINDINGS: Less than optimal inspiratory effort is seen however the lungs are clear.. There is no demonstrated pleural abnormality. Normal size heart. Normal mediastinum and len. Normal visualized pulmonary arteries. Mildly calcified aortic arch and descending thoracic aorta. Dorsal spine demonstrates degenerative changes Normal visualized ribs, clavicles, and shoulders. There is no demonstrated abnormality of the visualized soft tissue structures of the upper abdomen. RAD/Chest 1 View (Portable) IMPRESSION: No acute cardiopulmonary pathology Electronically Signed: Carloz Dodd MD at 16:12 EST , Service support ,
--- NOTE | 2019-08-16 15:50 | CT_ITS ---
STUDY: CT ABDOMEN AND PELVIS WITHOUT CONTRAST REASON FOR EXAM: Female, 83 years old. BACK PAIN, CONSTIPATION, CONFUSION-PT WOULD NOT FOLLOW BREATHING COMMANDS, HTN, DB, APPY, LEOBARDO RADIATION DOSAGE (If Supplied By Facility): CTDIvol = ( 14.8 ) mGy, DLP = ( 681.64 ) mGycm TECHNIQUE: Transaxial images were obtained from the dome of the diaphragm to the symphysis pubis without oral contrast, and without intravenous contrast. Sagittal and coronal images were reconstructed. Individualized dose optimization techniques were used for this CT. COMPARISON: None. FINDINGS: There is mild interstitial thickening at both lung bases.. The visualized portions of the heart are within normal limits. Small hiatal hernia is present. Normal liver. Gallbladder not visualized consistent with cholecystectomy.. Multiple calcifications within normal size spleen. Normal pancreas. Normal bilateral adrenal glands. There is a tiny nonobstructing right renal calculus. There appears to be very mild pelvocaliectasis and hydroureter in association with a calculus in the bladder possibly within the intramural portion of the right ureter or due to recently passed stone.. There is a small right renal cyst. There is mild prominence of the renal collecting system on the left possibly representing parapelvic cysts. There is no gross hydronephrosis or ureteral dilatation. Normal visualized stomach. Normal small intestine. Minor diverticular disease of colon without evidence for acute diverticulitis. Appendix not visualized consistent with appendectomy. Atherosclerotic changes of the aorta without evidence for aneurysm. Normal inferior vena cava. Normal retroperitoneum. Incompletely distended thick-walled bladder likely of no significance Tiny fat-containing umbilical hernia and small fat-containing right inguinal hernia. Lumbar spine demonstrates mild spondylosis. CT/Abdomen/Pelvis without Cont IMPRESSION: Mild right hydroureteronephrosis association with tiny calculus possibly within the distal intramural portion of the ureter in the bladder or recently passed stone. 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 Electronically Signed: Carloz Dodd MD at 18:23 EST , Service support ,
--- NOTE | 2019-08-16 15:53 | ED.VIS.GEN ---
History of Present Illness Chief Complaint: Back Informant: Patient Narrative: Presents from PCPs office with primary complaint of back pain that she states started yesterday. It is worse with movement. She describes having difficulty with bowel movements over the past week, but nursing staff notes that she had incontinence of soft stool in her pants when they changed her on arrival to the ED. Daughter states the patient is more confused than baseline. Patient states she did not go to [employer] yesterday or even get up to make her meals. Blood sugar was reportedly 303 at the PCPs office. - Past Medical History (1) GERD (gastroesophageal reflux disease) Status: Chronic (2) Hyperlipidemia Status: Chronic (3) Obstructive sleep apnea Status: Chronic (4) Type II diabetes mellitus Status: Chronic Past Medical History - Allergies and Home Meds Allergies/Adverse Reactions: Allergies sulfamethoxazole [From Marra] Allergy (Verified 08/16/19 15:09) Hives trimethoprim [From [facility]] Allergy (Verified 08/16/19 15:09) Hives adhesive tape Adverse Reaction (Verified 08/16/19 15:09) Rash Primary Care Physician: Cecy Trivedi MD [Primary Care Provider] - Prior records reviewed: Yes Surgical History: appendectomy, cholecystectomy, hysterectomy, tonsillectomy Lives: Alone Smoking Status: Never smoker - Family History Maternal Family History: Reports: Diabetes, Heart Disease - age 59 Paternal Family History: Reports: Cancer - in 80's, Diabetes Review of Systems General: Denies: Chills, Fever Eyes: Denies: Visual changes - bilaterally ENT: Denies: Bilateral ear pain Cardiovascular: Denies: Chest pain, Palpitations Respiratory: Denies: Dyspnea, Cough Gastrointestinal: Reports: Constipation. Denies: Abdominal pain Genitourinary: Denies: Dysuria Musculoskeletal: Reports: Back pain Skin: Denies: Rash Neurological: Denies: Headache Allergy: Denies: Uticaria Physical Exam Vital Signs/Narrative: Vital Signs Temp Pulse Resp BP Pulse Ox 08/16/19 15:04 98.7 F 96 17 109/49 L 100 Inital Vital Signs reviewed: Yes General: Well nourished, Well developed Head: Normocephalic ENT: Moist mucous membranes Neck: Supple Cardiovascular: Regular rate, Regular rhythm Respiratory: No distress, CTA bilaterally Abdomen: Soft, Nontender, Hypoactive bowel sounds Skin: - - Skin excoriation in the skin folds. Neurological: Alert Psychological: - - Pleasantly confused Diagnostic/Tx/Re-eval Impressions Brain CT 08/16/19 15:49 IMPRESSION: Chronic involutional changes without evidence of acute intracranial or calvarial abnormality. There is no major interval change. Electronically Signed: Sami HoltonDO at 18:36 EST Tel [phone], Service support , Chest X-Ray 08/16/19 15:49 IMPRESSION: No acute cardiopulmonary pathology Electronically Signed: Carloz Dodd MD at 16:12 EST , Service support , Abdomen/Pelvis CT 08/16/19 15:50 IMPRESSION: Mild right hydroureteronephrosis association with tiny calculus possibly within the distal intramural portion of the ureter in the bladder or recently passed stone. 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 Electronically Signed: Carloz Dodd MD at 18:23 EST , Service support , 08/16/19 15:49 Brain/Head without Contrast [CT] Stat Chest 1 View (Portable) [RAD] Stat 08/16/19 15:50 Abdomen/Pelvis without Cont [CT] Stat Laboratory Results 08/16/19 08/16/19 08/16/19 17:15 17:15 17:15 WBC 21.7 H RBC 4.42 Hgb 13.1 Hct 40.2 MCV 91.0 MCH 29.6 MCHC 32.6 RDW Std Deviation 46.9 H RDW Coeff of Wesley 14.2 Plt Count 180 MPV 10.8 Immature Gran % (Auto) 1.000 H Neut % (Auto) 86.8 H Lymph % (Auto) 4.0 L [place] % (Auto) 7.6 Eos % (Auto) 0.4 Baso % (Auto) 0.2 Absolute Neuts (auto) 18.9 H Absolute Lymphs (auto) 0.86 Nucleated RBC % 0 Differential Comment SCANNED Diff Path Review May foll Sodium 139 Potassium 5.5 H Chloride 107 Carbon Dioxide 27.0 Anion Gap 5 BUN 28 H Creatinine 1.29 H Estim Creat Clear Calc 26.13 Est GFR (MDRD) Af Amer 51 L Est GFR (MDRD) Non-Af 42 L BUN/Creatinine Ratio 21.7 H Glucose 299 H Lactic Acid 2.7 H* Calcium 9.5 Urine Color Urine Clarity Urine pH Ur Specific [place] Urine Protein Urine Glucose (UA) Urine Ketones Urine Occult Blood Urine Nitrite Urine Bilirubin Urine Urobilinogen Ur Leukocyte Esterase Urine RBC Urine WBC Ur Squamous Epith Cells Urine Bacteria Urine Mucus POC Glucose 08/16/19 08/16/19 17:20 17:24 WBC RBC Hgb Hct MCV MCH MCHC RDW Std Deviation RDW Coeff of Wesley Plt Count MPV Immature Gran % (Auto) Neut % (Auto) Lymph % (Auto) [place] % (Auto) Eos % (Auto) Baso % (Auto) Absolute Neuts (auto) Absolute Lymphs (auto) Nucleated RBC % Differential Comment Diff Path Review Sodium Potassium Chloride Carbon Dioxide Anion Gap BUN Creatinine Estim Creat Clear Calc Est GFR (MDRD) Af Amer Est GFR (MDRD) Non-Af BUN/Creatinine Ratio Glucose Lactic Acid Calcium Urine Color Yellow Urine Clarity Cloudy Urine pH 8.0 Ur Specific [place] 1.010 Urine Protein 30 H Urine Glucose (UA) 1000 H Urine Ketones 5 H Urine Occult Blood 250 H Urine Nitrite Positive H Urine Bilirubin Negative Urine Urobilinogen Normal Ur Leukocyte Esterase 500 H Urine RBC 0-5 SEEN Urine WBC >100 SEEN Ur Squamous Epith Cells 0 SEEN Urine Bacteria 2+ Urine Mucus 0 SEEN POC Glucose 274 H - EKG Initial EKG Interpretation: Sinus Rhythm - Sinus 87 with no acute ischemia. - Medical Decision Making Patient had delay in blood work secondary to her being difficult IV access. IV fluids were started. Patient's blood pressure has remained stable and on last check was in the 130s systolic. She is remained afebrile. Test results are discussed with patient and family at bedside. I believe the renal changes noted on her CT scan are likely secondary to pyelonephritis as she does have significant UTI on her urinalysis. On review of patient's prior urine cultures she has had E. coli that is resistant to Rocephin. She will be given a dose of Zosyn and urine culture is sent. Patient be admitted for further treatment. ED Disposition - Plan for ED Patient: Disposition: Acute Care Hospital [facility] Diagnosis: Pyelonephritis, Severe sepsis Referrals: Cecy Trivedi MD [Primary Care Provider] -
[2019-08-16 17:24] LABS: Absolute Lymphocyte Count 0.86 X10^3/uL (0.83-4.51); Absolute Neutrophil Count 18.9 X10^3/uL (2.0-7.7); Basophil# 0.05 X10^3/uL; Basophil% 0.2 % (0-1); Eosinophil# 0.08 X10^3/uL; Eosinophils% 0.4 % (0-5); Hematocrit 40.2 % (37-47); Hemoglobin 13.1 g/dL (12.0-15.0); Lymphocyte # 0.86 X10^3/ul (4.0); Mean Corp Hgb Conc 32.6 g/dL (32-36); Mean Corpuscular Hgb 29.6 pg (27.0-32.0); Mean Platelet Vol. 10.8 fl (6.2-12.0); Monocyte# 1.66 X10^3/uL; Monocyte% 7.6 % (0-10); NRBC Flagged by Analyzer 0 % (0-5); Neutrophil # 18.85 X10^3/uL (2.7-7.7); Neutrophil % 86.8 % (47-70); POSITIVE DIFFERENTIAL YES; POSITIVE MORPHOLOGY YES; Platelet Count 180 K/mm3 (150-450); RBC Distribution Width CV 14.2 % (11.6-14.6); RBC Distribution Width SD 46.9 fl (35.1-43.9); Red Blood Count 4.42 M/mm3 (4.2-5.4); White Blood Count 21.7 K/mm3 (4.4-11.0)
[2019-08-16 17:25] LABS: Differential Indicated SCAN CRITERIA MET
[2019-08-16 17:27] LABS: Mucous, Urine 0 SEEN /hpf (<or=2+); Squamous Epithelial Cells - UA 0 SEEN /hpf (5-10)
[2019-08-16 17:30] LABS: Bedside Glucose 274 mg/dL (70-110)
[2019-08-16 17:43] LABS: Anion Gap 5 (5-15); BUN 28 mg/dL (7-18); BUN/Creat Ratio 21.7 RATIO (10-20); Calcium,Total 9.5 mg/dL (8.5-10.1); Chloride 107 mmol/L (98-107); Creatinine, Serum 1.29 mg/dL (0.55-1.02); EST Glomerular Filtration Rate 42 mL/min (>60); Est Glom Filt Rate - Afr Amer 51 mL/min (>60); Estimated Creatinine Clearance 26.13 ml/min; Glucose 299 mg/dL (74-106); Potassium 5.5 mmol/L (3.5-5.1); Sodium Level 139 mmol/L (136-145)
[2019-08-16 17:45] LABS: Color, Urine Yellow (Yellow); Glucose, Dipstick 1000 mg/dl (Normal); Ketone-Dipstick 5 mg/dl (Negative); Leukocyte Esterase-Dipstick 500 /ul (Negative); Nitrite-Dipstick Positive (Negative); Occult Blood-Urine 250 /ul (Negative); Protein-Dipstick 30 mg/dl (Negative); Urine Bilirubin Dipstick Negative (Negative); Urine Clarity Cloudy (Clear); Urine Urobilinogen Normal (Normal)
[2019-08-16 17:49] LABS: Differential Comment SCANNED
[2019-08-16 18:04] LABS: Bacteria 2+ /hpf (None Seen); Red Blood Cells-Urine 0-5 SEEN /hpf (0-5); White Blood Cells >100 SEEN /hpf (0-5)
[2019-08-16 18:11] LABS: Lactic Acid 2.7 mmol/L (0.4-1.9)
[2019-08-16] MEDS: 0.9% Normal Saline 1,000 ML 150 ML IV ×2 (19:10→23:07)
--- NOTE | 2019-08-16 19:15 | ED.RN ---
called lab at 1830 to draw 2nd blood cultures, another call placed to lab at this time
--- NOTE | 2019-08-16 19:43 | HP.PCM_ITS ---
History of Present Illness Date of Admission: 08/16/19 Chief Complaint: altered mental status The patient is a 83 year old F with a past medical history as outlined. She was admitted through the ED on 08/16/2019 with a complaint of altered mental status. History was mainly taken from her daughter as patient was very confused. Daughter states that her mother has been getting more confused and had not been eating and drinking well. She also stated that her mother had been complaining of right flank pain which started 1 day ago and was worse with movement. She did not notice any fever and did not notice any shortness of breath, nausea vomiting or diarrhea. Per ED note, patient did not go to jain yesterday and didnt even get up to make her meals. On admission in the ED, vitals were significant for pulse rate of 111 and respiratory rate of 22 with blood pressure of 132/1 170/98.1. She was saturating 95% on room air. Chemistry was significant for potassium of 5.5 and creatinine of 1.29. Lactic acid was 2.7 and WBC was 21.7. EKG showed sinus tachycardia and CT of the abdomen and pelvis showed tiny nonobstructing right renal calculus with very mild hydroureter in association with a calculus in the bladder, and possible tiny calculus in the distal intramural portion of the ureter as well as diverticular disease. CT of the brain showed chronic involutional changes without evidence of acute intracranial calvarial abnormality. Chest x-ray showed no acute cardiopulmonary process. UA showed 2+ bacteria with more than 500 leukocyte esterase and positive nitrites. He has been admitted to be managed for severe sepsis due to UTI and infected kidney stone. [] Past Medical History Past Medical History (Chronic Problems): Chronic Problems GERD (gastroesophageal reflux disease) (Chronic) Hyperlipidemia (Chronic) Obstructive sleep apnea (Chronic) Type II diabetes mellitus (Chronic) Allergies sulfamethoxazole [From Marra] Allergy (Verified 08/16/19 15:09) Hives trimethoprim [From Marra] Allergy (Verified 08/16/19 15:09) Hives adhesive tape Adverse Reaction (Verified 08/16/19 15:09) Rash Home Medications: Ambulatory Orders Medication Instructions Recorded Ramipril [Altace] 5 mg PO DAILY 11/05/17 Aspirin [Aspirin, Baby] 81 mg PO DAILY@0800 02/01/19 Atorvastatin Calcium [Lipitor] 20 mg PO QHS 02/01/19 Bimatoprost 0.01% [Lumigan 0.01%] 1 drp EACH EYE QHS 02/01/19 Exenatide Microspheres [Bydureon 2 mg SQ TU 02/01/19 Pen] Omeprazole [Prilosec] 40 mg PO DAILY 02/01/19 Magnesium Oxide [Mag-Ox 400] 400 mg PO BIDCM #20 tab 02/03/19 Glipizide [Glipizide ER] 2.5 mg PO DAILY 08/16/19 Lecithin, Soy [Lecithin] 400 mg PO BID 08/16/19 Surgical History: appendectomy, cholecystectomy, hysterectomy, tonsillectomy Psychiatric History: No pertinent psych hx FLEET ADMINISTRATIVE ASSISTANT History: No pertinent FLEET ADMINISTRATIVE ASSISTANT history Lives: Alone Smoking Status: Never smoker - *Family History Maternal History Items: Diabetes, Heart Disease - age 59 Paternal History Items: Cancer - in 80's, Diabetes Review of Systems Constitutional: Reports: Anorexia, Malaise, Weakness, Fatigue. Denies: Chills, Fever Eyes: Denies: Blurred vision HEENT: Denies: Head Aches, Sinus Congestion, Sinus Drainage Cardiovascular: Denies: Chest Pain, Palpitations Respiratory: Denies: Cough, Shortness of Breath, Shortness of breath at rest, Shortness of breath upon exertion, Sputum production Gastrointestinal: Denies: Abdominal Pain, Nausea, Vomiting Genitourinary: Denies: Dysuria, Frequency, Hesitancy, Incontinence Musculoskeletal: Denies: Joint Pain, Joint Tenderness Skin: Denies: Rash, Wounds Neurological: Reports: Confusion. Denies: Focal weakness, Numbness, Tingling Psychiatric: Denies: Anxiety, Depression, Homicidal Ideations, Suicidal Ideations Hematologic/ Lymphatic: Denies: Easy Bruising, Easy Bleeding VTE Information - Inpt Only VTE Present on Admission: No VTE Pharm Prophylaxis ordered?: Yes Patient Problems: Active and Suspected Problems Pyelonephritis (Acute) Severe sepsis (Acute) - Physical Exam Vitals/I&O's: Vital Signs Temp Pulse Resp BP Pulse Ox 98.1 F 111 H 22 H 132/100 H 95 08/16/19 18:29 08/16/19 19:29 08/16/19 19:29 08/16/19 19:29 08/16/19 19:29 Oxygen Delivery Method Room Air Weight: 177 lb Body Mass Index (BMI) 32.3 Finger Stick Blood Glucose 274 Intake and Output for Last 24 Hours 08/14/19 08/15/19 08/16/19 23:59 23:59 23:59 Intake Total 500 / 500 Balance 500 / 500 General: Confused, Disoriented, Lethargic HEENT: Atraumatic, PERRLA, EOMI, Normocephalic Oral: Dry Mucosa Neck: Supple, No JVD, Negative Carotid Bruits Lungs: Clear to auscultation, Normal air movement Cardiovascular: Regular rate, Regular Rhythm, Normal S1, Normal S2, No murmurs Abdomen: Bowel Sounds Present, Soft, Non Tender, Non-Distended, No Hepato- splenomegaly, - - no costovertebral angle tenderness Extremities: No clubbing, No cyanosis, No edema, Capillary Refill Less than 3 Seconds Skin: No rashes, No breakdown Musculoskeletal: No Tenderness to Palpation of Joints or Extremities Lymphatic: No Cervical, Supraclavicular, or Inguinal Adenopathy Neurological: - - confused, lethargic, moving all limbs spontaneously Laboratory Results 08/16/19 17:15: WBC 21.7 H, RBC 4.42, Hgb 13.1, Hct 40.2, MCV 91.0, MCH 29.6, MCHC 32.6, RDW Std Deviation 46.9 H, RDW Coeff of [place] 14.2, Plt Count 180, MPV 10.8, Immature Gran % (Auto) 1.000 H, Neut % (Auto) 86.8 H, Lymph % (Auto) 4.0 L , [place] % (Auto) 7.6, Eos % (Auto) 0.4, Baso % (Auto) 0.2, Absolute Neuts (auto) 18.9 H, Absolute Lymphs (auto) 0.86, Nucleated RBC % 0, Differential Comment SCANNED, Diff Path Review November foll 08/16/19 17:15: Sodium 139, Potassium 5.5 H, Chloride 107, Carbon Dioxide 27.0, Anion Gap 5, BUN 28 H, Creatinine 1.29 H, Estim Creat Clear Calc 26.13, Est GFR (MDRD) Af Amer 51 L, Est GFR (MDRD) Non-Af 42 L, BUN/Creatinine Ratio 21.7 H, Gl ucose 299 H, Calcium 9.5 08/16/19 17:15: Lactic Acid 2.7 H* 08/16/19 17:20: Urine Color Yellow, Urine Clarity Cloudy, Urine pH 8.0, Ur Specific [place] 1.010, Urine Protein 30 H, Urine Glucose (UA) 1000 H, Urine Ketones 5 H, Urine Occult Blood 250 H, Urine Nitrite Positive H, Urine Bilirubin Negative, Urine Urobilinogen Normal, Ur Leukocyte Esterase 500 H, Urine RBC 0-5 SEEN, Urine WBC >100 SEEN, Ur Squamous Epith Cells 0 SEEN, Urine Bacteria 2+, Urine Mucus 0 SEEN 08/16/19 17:24: POC Glucose 274 H Diagnostic Data Brain CT 08/16/19 15:49 IMPRESSION: Chronic involutional changes without evidence of acute intracranial or calvarial abnormality. There is no major interval change. Electronically Signed: Sami Hyatt DO at 18:36 EST Tel [phone], Service support , Chest X-Ray 08/16/19 15:49 IMPRESSION: No acute cardiopulmonary pathology Electronically Signed: Carloz Dodd MD at 16:12 EST , Service support , Abdomen/Pelvis CT 08/16/19 15:50 IMPRESSION: Mild right hydroureteronephrosis association with tiny calculus possibly within the distal intramural portion of the ureter in the bladder or recently passed stone. 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 Electronically Signed: Carloz Dodd MD at 18:23 EST , Service support , Current Medications Sodium Chloride () 1,000 mls @ 150 mls/hr IV .[id number] DIANA Last Admin: 08/16/19 19:10 Dose: 150 mls/hr Documented by: Assessment/Plan All Active Problems Traumatic closed displaced fracture of shafts of left ulna and radius (Acute) UTI (urinary tract infection) (Acute) Hypoglycemia associated with diabetes (Acute) Pyelonephritis (Acute) Severe sepsis (Acute) 83-year-old female admitted with a complaint of altered mental status 1. Severe sepsis due to UTI and infected kidney stone * Mid to PCU with telemetry * SIRS criteria is 3/4-tachypnea, tachycardia and leukocytosis * CT of the abdomen and pelvis showed mild right hydroureteronephrosis associated with tiny calculus possibly within the distal intramural portion of the ureter in the bladder or recently passed stone. * Lactic acid is 2.7. * Hydrate with IV fluid normal saline at 150 cc/h. Start on IV Zosyn-previous urine cultures grew E. coli which was resistant to ceftriaxone and fluoroquinolones * Get blood cultures and urine cultures. * Tylenol as needed for pain and fever. * Consider urology consult if patient's symptoms do not improve with antibiotics. * Repeat lactic acid per sepsis protocol. * 2. Acute metabolic encephalopathy due to UTI and infected kidney stone: As under 1 3. Hyperkalemia: Potassium is 5.5. We will give sodium Kayexalate and trend creatinine. 4. JANIE: Creatinine is 1.29 with a baseline of 0.93. Will hydrate with IV fluids and monitor. 5. Type 2 diabetes mellitus: Patient has not been eating and drinking well. Hold glipizide. Insulin sliding scale. Accu-Cheks AC at bedtime. 6. Hypertension: Hold ramipril on account of hyperkalemia. IV hydralazine PRN for now. 7. Hyperlipidemia: On statin DVT prophylaxis: Lovenox CODE STATUS: Undecided * Discussed CODE STATUS with patient's daughter as patient is confused and cannot partake in the decision making. Daughter stated that she had asked her mother several times about DNR and her mother would initially say that she did not want to be resuscitated but would subsequently state that she wanted everything done. She knows that her mother has a living will signed at home but she is not sure what it says. Daughter does not feel that she can make a decision right now and would want to go home and come back tomorrow and see how her mother is doing and bring along her copy of the living will and also speak to her siblings to see what decision they would make. Daughter counseled that if no CODE STATUS put in the system, her mother would be considered full code in the event anything happened and daughter is agreeable to that. * Total dxgr-cf-spxg time 18 minutes. Code Visit Inpatient E&M: 34345 Init Hosp L3 Procedures: 69293 Advncd Care Plan 30 Min
[2019-08-16 21:20] LABS: Reflex Lactate? Y
[2019-08-16] MEDS: 0.9% Saline Lock 10 ML Syringe IV (21:28)
[2019-08-16] MEDS: Acetaminophen 325 MG Tablet 650 MG PO (21:28)
[2019-08-16] MEDS: Sodium Polystyrene Sulfonate 15 GM/60 ML UDC 30 GM PO (21:30)
[2019-08-16] MEDS: Atorvastatin Calcium 20 MG Tablet PO (21:30)
[2019-08-16] MEDS: Nystatin Powder 15gm Bottle 1 APPLIC TOPICAL (21:31)
[2019-08-16] MEDS: Heparin Injection (Vial) 5,000 UNIT/ML VIAL 5000 UNIT SC (21:31)
[2019-08-16] MEDS: Insulin Lispro 100 UNIT/ML INSULN.PEN SC (21:36)
[2019-08-16 22:55] LABS: Lactic Acid 2.4 mmol/L (0.4-1.9)
[2019-08-16 23:11] LABS: Bedside Glucose 270 mg/dL (70-110)
[2019-08-17] VITALS (10 sets, daily range): BP systolic 114–125; BP diastolic 49–88; PULSE 96–101; RESP 16–20; TEMP 36.4–37.5; O2SAT 94–99
[2019-08-17] MEDS: 0.9% Normal Saline 1,000 ML 150 ML IV ×3 (05:13→18:25)
[2019-08-17] MEDS: Insulin Lispro 100 UNIT/ML INSULN.PEN SC ×2 (06:33→11:51)
[2019-08-17 06:50] LABS: Bedside Glucose 232 mg/dL (70-110)
[2019-08-17 06:58] LABS: Absolute Lymphocyte Count 0.95 X10^3/uL (0.83-4.51); Absolute Neutrophil Count 16.2 X10^3/uL (2.0-7.7); Basophil# 0.06 X10^3/uL; Basophil% 0.3 % (0-1); Eosinophil# 0.04 X10^3/uL; Eosinophils% 0.2 % (0-5); Hematocrit 34.6 % (37-47); Hemoglobin 11.3 g/dL (12.0-15.0); Lymphocyte # 0.95 X10^3/ul (4.0); Mean Corp Hgb Conc 32.7 g/dL (32-36); Mean Corpuscular Hgb 29.3 pg (27.0-32.0); Mean Corpuscular Volume 89.6 fL (81-99); Mean Platelet Vol. 10.8 fl (6.2-12.0); Monocyte# 1.69 X10^3/uL; Monocyte% 8.8 % (0-10); NRBC Flagged by Analyzer 0 % (0-5); Neutrophil # 16.23 X10^3/uL (2.7-7.7); Neutrophil % 84.8 % (47-70); POSITIVE DIFFERENTIAL YES; POSITIVE MORPHOLOGY YES; Platelet Count 147 K/mm3 (150-450); RBC Distribution Width CV 14.3 % (11.6-14.6); RBC Distribution Width SD 46.8 fl (35.1-43.9); Red Blood Count 3.86 M/mm3 (4.2-5.4); White Blood Count 19.2 K/mm3 (4.4-11.0)
[2019-08-17 07:00] LABS: Differential Indicated SCAN CRITERIA MET
[2019-08-17 07:17] LABS: Platelet Estimate ADEQUATE (ADEQ); Red Cell Morphology NORM C+C NORMAL (NORM C&C)
[2019-08-17 07:22] LABS: BUN 23 mg/dL (7-18); BUN/Creat Ratio 21.5 RATIO (10-20); Calcium,Total 8.1 mg/dL (8.5-10.1); Chloride 112 mmol/L (98-107); Creatinine, Serum 1.07 mg/dL (0.55-1.02); EST Glomerular Filtration Rate 52 mL/min (>60); Est Glom Filt Rate - Afr Amer 63 mL/min (>60); Estimated Creatinine Clearance 30.06 ml/min; Glucose 263 mg/dL (74-106); Potassium 3.6 mmol/L (3.5-5.1); Sodium Level 144 mmol/L (136-145)
[2019-08-17 07:23] LABS: Anion Gap 6 (5-15)
[2019-08-17] MEDS: Heparin Injection (Vial) 5,000 UNIT/ML VIAL 5000 UNIT SC ×2 (09:09→21:20)
[2019-08-17] MEDS: Magnesium Oxide 400 MG Tablet PO (09:10)
[2019-08-17] MEDS: Nystatin Powder 15gm Bottle 1 APPLIC TOPICAL ×2 (09:10→21:25)
[2019-08-17] MEDS: Aspirin 81 MG TAB.CHEW PO (09:10)
[2019-08-17] MEDS: Pantoprazole Sodium 40 MG Tablet PO (09:10)
--- NOTE | 2019-08-17 11:46 | CASEMGMT ---
Addendum entered by Thai Fernandez 08/17/19 13:32: Per daughter, pt has Blood Glucose monitoring machine and supplies at home, however does not check her blood sugars regularly. Daughter has requested HH aides assist with this, but they are not permitted to. Original Note: RN CM Assessment Note Presentation: UTI, infected kidney stone, altered mental status Intro role of CM and purpose of RN CM assessment to patient's daughter via phone. Pt is asleep in room, disoriented when awake. Called to daughter who was able to assist with assessment. Pt lives independently, has aide through [facility] 3x week to assist. Per daughter, pt is managing at home, with current assist. Daughter helps pt with medications and dr appointments, but pt drives self short distances around town. PCP: Dr. Cecy Clarke Preferred Pharmacy: [facility] Retail Insurance: [employer] Prescription Benefit: yes LNOK: DaughterKriss Living Arrangements: Lives in one story home independently. Able to complete ADL's. Has assist during week with homecare, personal needs. Transportation: pt drives, or daughter helps with transportation DME: grab bars, bathroom, raised toilet seat, rollator, medical alert HHC/SNF: [facility] HHS past, TCU in 2016 Patient DC goals: Per daughter, goal is for pt to return home DC PLAN: anticipate return home on dc. PT/OT evaluations pending. RN CM let daughter know if dc needs arise, will speak with her and pt prior to discharge. Sondra GALLEGOS RN ACM
[2019-08-17 12:06] LABS: Bedside Glucose 293 mg/dL (70-110)
--- NOTE | 2019-08-17 12:56 | PN_ITS ---
Patient Problems: Active and Suspected Problems Pyelonephritis (Acute) Severe sepsis (Acute) Reason for Visit: pyelo Subjective: confused, unable to provide any history. Vitals/I&O's: Vital Signs Temp Pulse Resp BP Pulse Ox 36.4 C L 100 20 H 115/49 L 96 08/17/19 09:00 08/17/19 09:00 08/17/19 09:00 08/17/19 09:00 08/17/19 09:00 Oxygen Delivery Method Room Air Weight: 80.9 kg Body Mass Index (BMI) 32.8 Finger Stick Blood Glucose 274 Intake and Output for Last 24 Hours 08/15/19 08/16/19 08/17/19 23:59 23:59 23:59 Intake Total 1252.5 / 1252.5 2437.75 / 2437.75 Balance 1252.5 / 1252.5 2437.75 / 2437.75 General: Confused, - - speaking incohernently. HEENT: Atraumatic, Normocephalic Oral: Moist Mucosa, No Gingival or Mucosal Lesions/ Ulcerations Neck: No Nodes, Trachea Midline Lungs: Clear to auscultation, Normal air movement, No rhonchi, No wheeze, No rales Cardiovascular: Regular rate, Regular Rhythm, Normal S1, Normal S2, No murmurs Abdomen: Bowel Sounds Present, Soft, Non Tender, Non-Distended Extremities: No edema, No Calf Tenderness Skin: No rashes, No breakdown Musculoskeletal: No Tenderness to Palpation of Joints or Extremities, Muscle Wasting Neurological: Muscle tone normal, - - no clonus Psych/Mental Status: Agitated, Anxious Microbiology Past 72 Hours 08/16/19 17:20 Urine Catheter - Catheter Urine Culture - Preliminary Presumptive E. coli 08/16/19 17:15 Blood Culture (Wb) - Anticubital Right Blood Culture - Preliminary 08/16/19 19:48 Blood Culture (Wb) - Left Forearm Blood Culture - Preliminary Laboratory Results 08/16/19 17:15: WBC 21.7 H, RBC 4.42, Hgb 13.1, Hct 40.2, MCV 91.0, MCH 29.6, MCHC 32.6, RDW Std Deviation 46.9 H, RDW Coeff of [place] 14.2, Plt Count 180, MPV 10.8, Immature Gran % (Auto) 1.000 H, Neut % (Auto) 86.8 H, Lymph % (Auto) 4.0 L , [place] % (Auto) 7.6, Eos % (Auto) 0.4, Baso % (Auto) 0.2, Absolute Neuts (auto) 18.9 H, Absolute Lymphs (auto) 0.86, Nucleated RBC % 0, Differential Comment SCANNED, Diff Path Review November08/16/19 17:15: Sodium 139, Potassium 5.5 H, Chloride 107, Carbon Dioxide 27.0, Anion Gap 5, BUN 28 H, Creatinine 1.29 H, Estim Creat Clear Calc 26.13, Est GFR (MDRD) Af Amer 51 L, Est GFR (MDRD) Non-Af 42 L, BUN/Creatinine Ratio 21.7 H, Glucose 299 H, Calcium 9.5 08/16/19 17:15: Lactic Acid 2.7 H* 08/16/19 17:20: Urine Color Yellow, Urine Clarity Cloudy, Urine pH 8.0, Ur Specific [place] 1.010, Urine Protein 30 H, Urine Glucose (UA) 1000 H, Urine Ketones 5 H, Urine Occult Blood 250 H, Urine Nitrite Positive H, Urine Bilirubin Negative, Urine Urobilinogen Normal, Ur Leukocyte Esterase 500 H, Urine RBC 0-5 SEEN, Urine WBC >100 SEEN, Ur Squamous Epith Cells 0 SEEN, Urine Bacteria 2+, Urine Mucus 0 SEEN 08/16/19 17:24: POC Glucose 274 H 08/16/19 21:02: POC Glucose 270 H 08/16/19 22:13: Lactic Acid 2.4 H* 08/17/19 06:30: POC Glucose 232 H 08/17/19 06:45: WBC 19.2 H, RBC 3.86 L, Hgb 11.3 L, Hct 34.6 L, MCV 89.6, MCH 29.3, MCHC 32.7, RDW Std Deviation 46.8 H, RDW Coeff of [place] 14.3, Plt Count 147 L, MPV 10.8, Immature Gran % (Auto) 0.900, Neut % (Auto) 84.8 H, Lymph % (Auto) 5.0 L, [place] % (Auto) 8.8, Eos % (Auto) 0.2, Baso % (Auto) 0.3, Absolute Neuts (auto) 16.2 H, Absolute Lymphs (auto) 0.95, Nucleated RBC % 0, Differential Comment COMMENT, Diff Path Review May foll, Platelet Estimate ADEQUATE, RBC Morphology NORM C+C 08/17/19 06:45: Sodium 144, Potassium 3.6, Chloride 112 H, Carbon Dioxide 26.0, Anion Gap 6, BUN 23 H, Creatinine 1.07 H, Estim Creat Clear Calc 30.06, Est GFR (MDRD) Af Amer 63, Est GFR (MDRD) Non-Af 52 L, BUN/Creatinine Ratio 21.5 H, Glucose 263 H, Calcium 8.1 L 08/17/19 11:49: POC Glucose 293 H Current Medications Acetaminophen (Tylenol) 650 mg PO Q6H PRN PRN PRN Reason: FEVER Last Admin: 08/16/19 21:28 Dose: 650 mg Documented by: Aspirin (Aspirin, Baby) 81 mg PO DAILY@0800 [facility] Last Admin: 08/17/19 09:10 Dose: 81 mg Documented by: Atorvastatin Calcium (Lipitor) 20 mg PO QHS [facility] Last Admin: 08/16/19 21:30 Dose: 20 mg Documented by: Dextrose (D50w Syringe) 0 gm IV X1 PRN; Protocol PRN Reason: Hypoglycemia Glucagon () 1 mg IM .X1 PRN PRN Reason: Hypoglycemia Heparin Sodium (Porcine) (Heparin Na) 5,000 unit SC Q12 [facility] Last Admin: 08/17/19 09:09 Dose: 5,000 unit Documented by: Sodium Chloride () 1,000 mls @ 150 mls/hr IV .Q6H40M [facility] Last Admin: 08/17/19 11:50 Dose: 150 mls/hr Documented by: Piperacillin Sod/Tazobactam (Sod 3.375 gm/ Sodium Chloride) 50 mls @ 12.5 mls/hr IV Q8 [facility] Last Infusion: 08/17/19 09:12 Dose: Infused Documented by: Sodium Chloride () 250 mls @ 15 mls/hr IV .[id number] PRN PRN Reason: Saline Flush Last Infusion: 08/17/19 09:12 Dose: 15 mls/hr Documented by: Sodium Chloride () 250 mls @ 15 mls/hr IV .[id number] PRN PRN Reason: Additional IVPB Infusion Insulin Human Lispro (Humalog Kwikpen (Bkc)) 0 unit SC ACHS [facility]; Protocol Last Admin: 08/17/19 11:51 Dose: 4 u Documented by: Latanoprost (Xalatan Opthalmic) 1 drop OPHTHALMIC QHS [facility] Magnesium Oxide (Mag-Ox 400) 400 mg PO BIDCM [facility] Last Admin: 08/17/19 09:10 Dose: 400 mg Documented by: Nystatin (Mycostatin Powder) 1 applic TOPICAL BID [facility]; Protocol Last Admin: 08/17/19 09:10 Dose: 1 applicatio Documented by: Ondansetron HCl (Zofran) 4 mg IV Q8H PRN PRN PRN Reason: NAUSEA/VOMITING Pantoprazole Sodium (Protonix) 40 mg PO DAILY [facility] Last Admin: 08/17/19 09:10 Dose: 40 mg Documented by: Sodium Chloride () 10 - 40 ml IV UD PRN PRN Reason: SALINE FLUSH Last Admin: 08/16/19 21:28 Dose: 10 ml Documented by: STROKE Vital Signs/Narrative: Vital Signs Temp Pulse Resp BP Pulse Ox 08/17/19 09:00 36.4 C L 100 20 H 115/49 L 96 Medical Necessity - Tobacco Use Smoking Status: Never smoker Assessment/Plan All Active Problems Traumatic closed displaced fracture of shafts of left ulna and radius (Acute) UTI (urinary tract infection) (Acute) Hypoglycemia associated with diabetes (Acute) Pyelonephritis (Acute) Severe sepsis (Acute) 1. Severe sepsis * 2/2 UTI +/- infected right renal calculus * supportive mgmt * follow up cultures 2. UTI * +/- right renal calculus * on pip/tazo * Cx >100k E. coli * adjust abx accordingly 3. right hydroureteronephrosis * non-obstructive right calculus * check US, if still present , consider consult 4. Acute metabolic encephalopathy * patient profoundly confused at this time. * likely 2/2 above. * head CT negative * avoid sedating medications and narcotics at this time. * anecdotally, when I cared for her son, Roshan Milligan, she was lucid at that time. She would openly chastise him about his dementia. 5. DM2 * high and uncontrolled * likely aggravated by above * A1c 8.3 07/30/2019 * glipizide held * start Basal * continue SSI 6. JANIE * likely prerenal * improving * continue IVF 7. VTE prophylaxis: SQ heparin. Code Visit Inpatient E&M: 35141 Subs Hosp L3
--- NOTE | 2019-08-17 13:20 | US_ITS ---
STUDY: RENAL ULTRASOUND - COMPLETE REASON FOR EXAM: Female, 83 years old. Right hydronephrosis/ureterectasis. TECHNIQUE: Ultrasound evaluation of the kidneys was performed with real-time and static dye-scale imaging. COMPARISON: CT of the abdomen and pelvis, August 16, 2019. FINDINGS: RIGHT KIDNEY: Normal location of the right kidney, which is normal in size. The right kidney measures 10.5 cm. There is a normal cortex of the right kidney. The renal cortex measures 1.2 cm. There is no right renal mass or cyst. There are no right renal calculi. There is no right hydronephrosis. DISTAL RIGHT URETER: There is non-visualization of the distal right ureter. There is no demonstrated right ureterovesical junction calculus. There is no demonstrated right ureteral jet. LEFT KIDNEY: Normal location of the left kidney, which is normal in size. The left kidney measures 11.3 cm. There is a normal cortex of the left kidney. The renal cortex measures 0.9 cm. There is no left renal mass or cyst. There are no left renal calculi. There is no left hydronephrosis. DISTAL LEFT URETER: There is non-visualization of the distal left ureter. There is no demonstrated left ureterovesical junction calculus. There is no demonstrated left ureteral jet. AORTA: There is no elongation or tortuosity of the abdominal aorta. BLADDER: The distended urinary bladder has a volume of 43 ml. . There is a normal wall thickness of the distended urinary bladder. There is no demonstrated mass within the urinary bladder. There are no demonstrated bladder calculi. US/Kidney and Bladder IMPRESSION: Normal ultrasound of the kidneys and urinary bladder. There is no visualized hydronephrosis or renal ureterectasis as noted on the CT. Electronically Signed: Sami Hyatt DO at 17:53 EST Tel [phone], Service support ,
[2019-08-17 13:24] LABS: Pathologist Review Reviewed
[2019-08-17 13:25] LABS: Pathologist Review Reviewed
--- NOTE | 2019-08-17 13:42 | NURSING ---
Pulse ox 99% on room air.
--- NOTE | 2019-08-17 15:10 | NURSING ---
This RN taking over care for pt at this time.
[2019-08-17 17:26] LABS: Bedside Glucose 184 mg/dL (70-110)
[2019-08-17] MEDS: Latanoprost 0.005% 1 Bottle 1 DRP OPHTHALMIC (21:18)
[2019-08-17] MEDS: Atorvastatin Calcium 20 MG Tablet PO (21:18)
[2019-08-17 22:06] LABS: Bedside Glucose 129 mg/dL (70-110)
[2019-08-18] VITALS (9 sets, daily range): BP systolic 112–149; BP diastolic 45–93; PULSE 68–96; RESP 16–18; TEMP 36.6–37.2; O2SAT 93–97
[2019-08-18] MEDS: 0.9% Normal Saline 1,000 ML 150 ML IV ×4 (01:06→22:27)
[2019-08-18 06:41] LABS: Bedside Glucose 138 mg/dL (70-110)
[2019-08-18 09:44] LABS: Absolute Lymphocyte Count 1.66 X10^3/uL (0.83-4.51); Absolute Neutrophil Count 9.3 X10^3/uL (2.0-7.7); Basophil# 0.04 X10^3/uL; Basophil% 0.3 % (0-1); Eosinophil# 0.36 X10^3/uL; Eosinophils% 2.9 % (0-5); Hematocrit 32.1 % (37-47); Lymphocyte # 1.66 X10^3/ul (4.0); Lymphocyte % 13.4 % (19-41); Mean Corp Hgb Conc 31.2 g/dL (32-36); Mean Corpuscular Hgb 28.4 pg (27.0-32.0); Mean Corpuscular Volume 91.2 fL (81-99); Mean Platelet Vol. 11.3 fl (6.2-12.0); Monocyte# 0.88 X10^3/uL; Monocyte% 7.1 % (0-10); NRBC Flagged by Analyzer 0 % (0-5); Neutrophil # 9.34 X10^3/uL (2.7-7.7); Neutrophil % 75.7 % (47-70); Platelet Count 137 K/mm3 (150-450); RBC Distribution Width CV 14.3 % (11.6-14.6); RBC Distribution Width SD 47.5 fl (35.1-43.9); Red Blood Count 3.52 M/mm3 (4.2-5.4); White Blood Count 12.4 K/mm3 (4.4-11.0)
[2019-08-18 10:11] LABS: Anion Gap 5 (5-15); BUN 15 mg/dL (7-18); Calcium,Total 7.8 mg/dL (8.5-10.1); Chloride 117 mmol/L (98-107); Creatinine, Serum 0.88 mg/dL (0.55-1.02); EST Glomerular Filtration Rate 65 mL/min (>60); Est Glom Filt Rate - Afr Amer 78 mL/min (>60); Estimated Creatinine Clearance 36.55 ml/min; Glucose 122 mg/dL (74-106); Potassium 3.1 mmol/L (3.5-5.1); Sodium Level 147 mmol/L (136-145)
[2019-08-18] MEDS: Aspirin 81 MG TAB.CHEW PO (10:18)
[2019-08-18] MEDS: Nystatin Powder 15gm Bottle 1 APPLIC TOPICAL ×2 (10:18→22:08)
[2019-08-18] MEDS: Pantoprazole Sodium 40 MG Tablet PO (10:18)
[2019-08-18] MEDS: Magnesium Oxide 400 MG Tablet PO ×2 (10:18→17:36)
[2019-08-18 12:01] LABS: Bedside Glucose 112 mg/dL (70-110)
--- NOTE | 2019-08-18 14:35 | CASEMGMT ---
This RN CM to room to discuss discharge plan with pt/daughter at this time as pt most likely will be sent home on iv antibx. Pt is somewhat confused and this RN CM is unsure how much she understands after explanation at this time. Daughter states she will think about it and then Dr. Niño entered room to discuss iv antibbx with pt at this time. This RN CM to check back tomorrow with pt/daughter regarding plan. Pt/daughter voice no further questions/concerns/needs at this time. [place] RN CM
--- NOTE | 2019-08-18 15:04 | CON.PCM_ITS ---
Problem List (1) Pyelonephritis Status: Acute Reason for Consult: bacteremia Consulted by: Dr. Tan History of Present Illness: The patient is a 83 year old F presented 08/16 with acute onset of confusion, increased urinary frequency, and flank pain. No fever at home. Had progressive symptoms over 1-2 days. Had been treated for uti about a month ago with po abx. No prior h/o kidney stones. Taken to ED, started on zosyn, feeling better, flank pain improved, mental status close to baseline per her daughter. Had some n/v at home before coming in. Full ROS performed and neg except as noted above. - Medical History Past Medical History (Chronic Problems): Chronic Problems GERD (gastroesophageal reflux disease) (Chronic) Hyperlipidemia (Chronic) Obstructive sleep apnea (Chronic) Type II diabetes mellitus (Chronic) Allergies/Adverse Reactions: Allergies sulfamethoxazole [From ] Allergy (Verified 08/16/19 15:09) Hives trimethoprim [From ] Allergy (Verified 08/16/19 15:09) Hives adhesive tape Adverse Reaction (Verified 08/16/19 15:09) Rash Home Medications: Ambulatory Orders Medication Instructions Recorded Ramipril [Altace] 5 mg PO DAILY 11/05/17 Aspirin [Aspirin, Baby] 81 mg PO DAILY@0800 02/01/19 Atorvastatin Calcium [Lipitor] 20 mg PO QHS 02/01/19 Bimatoprost 0.01% [Lumigan 0.01%] 1 drp EACH EYE QHS 02/01/19 Exenatide Microspheres [Bydureon 2 mg SQ TU 02/01/19 Pen] Omeprazole [Prilosec] 40 mg PO DAILY 02/01/19 Magnesium Oxide [Mag-Ox 400] 400 mg PO BIDCM #20 tab 02/03/19 Glipizide [Glipizide ER] 2.5 mg PO DAILY 08/16/19 Lecithin, Soy [Lecithin] 400 mg PO BID 08/16/19 - Social History Tobacco Use: non-smoker Vital Signs Temp Pulse Resp BP Pulse Ox 98.9 F 92 16 145/50 H 97 08/18/19 13:55 08/18/19 13:55 08/18/19 13:55 08/18/19 13:55 08/18/19 13:55 Oxygen Delivery Method Room Air Weight: 80.9 kg Body Mass Index (BMI) 32.8 Finger Stick Blood Glucose 274 Microbiology Past 72 Hours 08/16/19 19:48 Blood Culture - Preliminary Blood Culture (Wb) - Left Forearm GNR lactose trade economist 08/16/19 17:15 Blood Culture - Preliminary Blood Culture (Wb) - Anticubital Right GNR lactose trade economist 08/16/19 17:20 Urine Culture - Preliminary Urine Catheter - Catheter Presumptive E. coli Laboratory Tests Past 24 Hrs 08/18/19 08/18/19 09:20 09:20 WBC 12.4 H RBC 3.52 L Hgb 10.0 L Hct 32.1 L MCV 91.2 MCH 28.4 MCHC 31.2 L RDW Std Deviation 47.5 H RDW Coeff of Wesley 14.3 Plt Count 137 L MPV 11.3 Immature Gran % (Auto) 0.600 Neut % (Auto) 75.7 H Lymph % (Auto) 13.4 L [place] % (Auto) 7.1 Eos % (Auto) 2.9 Baso % (Auto) 0.3 Absolute Neuts (auto) 9.3 H Absolute Lymphs (auto) 1.66 Nucleated RBC % 0 Sodium 147 H Potassium 3.1 L Chloride 117 H Carbon Dioxide 25.0 Anion Gap 5 BUN 15 Creatinine 0.88 Estim Creat Clear Calc 36.55 Est GFR (MDRD) Af Amer 78 Est GFR (MDRD) Non-Af 65 BUN/Creatinine Ratio 17.0 Glucose 122 H Calcium 7.8 L - Other Studies Radiology: [] reviewed Other Studies: [] Route of nutrition/ use of supplements: [] Nutritional Intake: [] IV Site: [] Rocha Catheter: [] - Physical Exam General: Alert, Oriented x3, Cooperative, No apparent distress HEENT: Atraumatic, PERRLA, EOMI Neck: Supple, No Nodes Lungs: Clear to auscultation, Normal air movement Cardiovascular: Regular rate, Regular Rhythm Abdomen: Soft, Non Tender, Non-Distended Extremities: Edema Skin: No rashes IV Site: PICC, without redness Musculoskeletal: No Tenderness to Palpation of Joints or Extremities Neurological: Cranial nerves II-XII grossly intact - Assessment/Plan Antibiotics: [] Assessment/Plan: [] Active and Suspected Problems Pyelonephritis (Acute) Severe sepsis (Acute) severe sepsis due to ESBL ecoli bacteremia from source with associated stone - urology has been consulted. Repeat bcx sent today. Picc in place. Wbc and fever much improved. Will change zosyn to meropenem for more consistent ESBL coverage given severity of infection. Plan on iv ertapenem at discharge. Will follow, thank you, d/w rn field case manager.
--- NOTE | 2019-08-18 15:34 | PN_ITS ---
Patient Problems: Active and Suspected Problems Pyelonephritis (Acute) Severe sepsis (Acute) Reason for Visit: Patient is unable to provide any history. She denies any fever or chills at home. No fever after hospital admission She is confused, disoriented to time place and person. Concern of dysphagia therefore feeding under supervision. At most, she can tell me that she did not had a history of kidney stone. Denies burning micturition but has increased frequency and right flank pain about 1 day prior to admission. Patient was treated with p.o. antibiotic about a month ago for UTI Objective: Urine and blood cultures x2 shows ESBL, MDR E. coli Vitals/I&O's: Vital Signs Temp Pulse Resp BP Pulse Ox 98.9 F 92 16 145/50 H 97 08/18/19 13:55 08/18/19 13:55 08/18/19 13:55 08/18/19 13:55 08/18/19 13:55 Oxygen Delivery Method Room Air Weight: 178 lb 5.663 oz Body Mass Index (BMI) 32.8 Finger Stick Blood Glucose 274 Intake and Output for Last 24 Hours 08/16/19 08/17/19 08/18/19 23:59 23:59 23:59 Intake Total 1252.5 / 1252.5 3553.25 / 3553.25 2767.75 / 2767.75 Balance 1252.5 / 1252.5 3553.25 / 3553.25 2767.75 / 2767.75 General: Confused, Disoriented HEENT: Atraumatic, PERRLA, EOMI, Normocephalic Neck: Supple, No JVD, Negative Carotid Bruits Lungs: Clear to auscultation, Diminished - Entry diminished in bilateral lung bases. Cardiovascular: Regular rate, Regular Rhythm, Normal S1, Normal S2, No murmurs Abdomen: Bowel Sounds Present, Soft, Non Tender, Non-Distended Extremities: Capillary Refill Less than 3 Seconds, Edema Skin: No rashes, No breakdown Musculoskeletal: No Tenderness to Palpation of Joints or Extremities, Arthritic Changes Neurological: Deep Tendon Reflexes 2+/4 and Symmetrical, - - Does not follow command. Possible dementia Psych/Mental Status: Normal Affect, Appropriate Microbiology Past 72 Hours 08/16/19 19:48 Blood Culture (Wb) - Left Forearm Blood Culture - Preliminary GNR lactose director of midwifery/staff midwife 08/16/19 17:15 Blood Culture (Wb) - Anticubital Right Blood Culture - Preliminary GNR lactose director of midwifery/staff midwife 08/16/19 17:20 Urine Catheter - Catheter Urine Culture - Preliminary Presumptive E. coli Laboratory Results 08/17/19 17:14: POC Glucose 184 H 08/17/19 21:16: POC Glucose 129 H 08/18/19 06:08: POC Glucose 138 H 08/18/19 09:20: WBC 12.4 H, RBC 3.52 L, Hgb 10.0 L, Hct 32.1 L, MCV 91.2, MCH 28.4, MCHC 31.2 L, RDW Std Deviation 47.5 H, RDW Coeff of Wesley 14.3, Plt Count 137 L, MPV 11.3, Immature Gran % (Auto) 0.600, Neut % (Auto) 75.7 H, Lymph % (Auto) 13.4 L, [place] % (Auto) 7.1, Eos % (Auto) 2.9, Baso % (Auto) 0.3, Absolute Neuts (auto) 9.3 H, Absolute Lymphs (auto) 1.66, Nucleated RBC % 0 08/18/19 09:20: Sodium 147 H, Potassium 3.1 L, Chloride 117 H, Carbon Dioxide 25.0, Anion Gap 5, BUN 15, Creatinine 0.88, Estim Creat Clear Calc 36.55, Est GFR (MDRD) Af Amer 78, Est GFR (MDRD) Non-Af 65, BUN/Creatinine Ratio 17.0, Glucose 122 H, Calcium 7.8 L 08/18/19 11:18: POC Glucose 112 H Current Medications Acetaminophen (Tylenol) 650 mg PO Q6H PRN PRN PRN Reason: FEVER Last Admin: 08/16/19 21:28 Dose: 650 mg Documented by: Aspirin (Aspirin, Baby) 81 mg PO DAILY@0800 COUNTS INCLUDE 234 BEDS AT THE [facility] Last Admin: 08/18/19 10:18 Dose: 81 mg Documented by: Atorvastatin Calcium (Lipitor) 20 mg PO QHS COUNTS INCLUDE 234 BEDS AT THE [facility] Last Admin: 08/17/19 21:18 Dose: 20 mg Documented by: Dextrose (D50w Syringe) 0 gm IV X1 PRN; Protocol PRN Reason: Hypoglycemia Glucagon () 1 mg IM .X1 PRN PRN Reason: Hypoglycemia Heparin Sodium (Porcine) (Heparin Na) 5,000 unit SC Q12 COUNTS INCLUDE 234 BEDS AT THE [facility] Last Admin: 08/18/19 10:19 Dose: Not Given Documented by: Sodium Chloride () 1,000 mls @ 150 mls/hr IV .[id number] DIANA Last Infusion: 08/18/19 10:20 Dose: Infused Documented by: Sodium Chloride () 250 mls @ 15 mls/hr IV .[id number] PRN PRN Reason: Saline Flush Last Infusion: 08/18/19 10:20 Dose: Infused Documented by: Sodium Chloride () 250 mls @ 15 mls/hr IV .[id number] PRN PRN Reason: Additional IVPB Infusion Meropenem 1 gm/ Sodium (Chloride) 120 mls @ 33 mls/hr IV Q12 DIANA Insulin Glargine (Lantus ([facility])) 8 units SC QHS COUNTS INCLUDE 234 BEDS AT THE [facility] Last Admin: 08/17/19 21:19 Dose: 8 units Documented by: Insulin Human Lispro (Humalog Kwikpen ([facility])) 0 unit SC ACHS COUNTS INCLUDE 234 BEDS AT THE [facility]; Protocol Last Admin: 08/18/19 11:29 Dose: Not Given Documented by: Latanoprost (Xalatan Opthalmic) 1 drop OPHTHALMIC QHS COUNTS INCLUDE 234 BEDS AT THE [facility] Last Admin: 08/17/19 21:18 Dose: 1 drop Documented by: [facility] 400) [facility] Last Admin: 08/18/19 10:18 Dose: 400 mg Documented by: Nystatin (Mycostatin Powder) 1 applic TOPICAL BID COUNTS INCLUDE 234 BEDS AT THE [facility]; Protocol Last Admin: 08/18/19 10:18 Dose: 1 applicatio Documented by: Ondansetron HCl (Zofran) 4 mg IV Q8H PRN PRN PRN Reason: NAUSEA/VOMITING Pantoprazole Sodium (Protonix) 40 mg PO DAILY COUNTS INCLUDE 234 BEDS AT THE [facility] Last Admin: 08/18/19 10:18 Dose: 40 mg Documented by: Potassium Chloride (K-Dur) 40 meq PO DAILYCM COUNTS INCLUDE 234 BEDS AT THE [facility] Stop: 08/19/19 08:01 Last Admin: 08/18/19 12:13 Dose: 40 meq Documented by: Sodium Chloride () 10 - 40 ml IV UD PRN PRN Reason: SALINE FLUSH Last Admin: 08/16/19 21:28 Dose: 10 ml Documented by: STROKE Vital Signs/Narrative: Vital Signs Temp Pulse Resp BP Pulse Ox 08/18/19 13:55 98.9 F 92 16 145/50 H 97 Medical Necessity - Tobacco Use Smoking Status: Never smoker Assessment/Plan All Active Problems Traumatic closed displaced fracture of shafts of left ulna and radius (Acute) UTI (urinary tract infection) (Acute) Hypoglycemia associated with diabetes (Acute) Pyelonephritis (Acute) Severe sepsis (Acute) This 83-year-old female is being admitted for pyelonephritis with a small calculus over right intramural ureter with very mild pelvocaliectasis and hydroureter. 1. Severe sepsis, lactic acidosis and bacteremia, E. coli MDR found in urine culture and blood cultures x2: Most likely from infected right intramural ureteric calculus associated with mild right hydroureter and pelviectasis which patient might have passed. Urologist is been consulted. ID consult reviewed, discussed and appreciated. Patient IV antibiotic Zosyn was changed to meropenem for more consistent AISHA level. Repeat blood cultures ordered. 2. E. coli MDR pyelonephritis and bacteremia secondary to infected right ureteric calculus: As mentioned above. Renal ultrasound was done but is not reported 3. right hydroureteronephrosis secondary to right infected ureteric calculus: As mentioned above 4. Acute metabolic encephalopathy, infectious encephalopathy * head CT negative. * avoid sedating medications and narcotics at this time. 5. DM2 * high and uncontrolled * likely aggravated by above * A1c 8.3 07/30/2019 * glipizide held * On basal and short-acting sliding scale insulin. 6. JANIE * likely prerenal. Improved and resolved. BUN/creatinine 28/1.29 to 15/0.88. * improving * continue IVF 7. VTE prophylaxis: SQ heparin. Total time of the visit including total time spent in counseling or coordination of care, (more than 50% of the total time, spent in obtaining medical information from nurses and other ancillary care providers), succussion with consultants, ID and urologist, review of labs and imaging is 35 minutes Clinical Impression(s) from Imaging Studies Brain CT 08/16/19 15:49 IMPRESSION: Chronic involutional changes without evidence of acute intracranial or calvarial abnormality. There is no major interval change. Chest X-Ray 08/16/19 15:49 IMPRESSION: No acute cardiopulmonary pathology [phone], Service support , Abdomen/Pelvis CT 08/16/19 15:50 IMPRESSION: Mild right hydroureteronephrosis association with tiny calculus possibly within the distal intramural portion of the ureter in the bladder or recently passed stone. 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 Code Visit Inpatient E&M: 42880 Subs Hosp L3
[2019-08-18] MEDS: 0.9% Saline Lock 10 ML Syringe IV (16:15)
[2019-08-18] MEDS: Insulin Lispro 100 UNIT/ML INSULN.PEN SC ×2 (16:55→22:07)
[2019-08-18 17:21] LABS: Bedside Glucose 174 mg/dL (70-110)
[2019-08-18] MEDS: Atorvastatin Calcium 20 MG Tablet PO (22:04)
[2019-08-18] MEDS: Heparin Injection (Vial) 5,000 UNIT/ML VIAL 5000 UNIT SC (22:05)
[2019-08-18] MEDS: Latanoprost 0.005% 1 Bottle 1 DRP OPHTHALMIC (22:09)
[2019-08-18 22:41] LABS: Bedside Glucose 240 mg/dL (70-110)
[2019-08-19] VITALS (7 sets, daily range): BP systolic 142–155; BP diastolic 55–83; PULSE 70–89; RESP 18; TEMP 36.2–36.8; O2SAT 94–100
[2019-08-19] MEDS: 0.9% Saline Lock 10 ML Syringe IV ×2 (04:11→04:19)
[2019-08-19 04:30] LABS: Absolute Lymphocyte Count 1.56 X10^3/uL (0.83-4.51); Absolute Neutrophil Count 7.6 X10^3/uL (2.0-7.7); Basophil# 0.04 X10^3/uL; Basophil% 0.4 % (0-1); Eosinophil# 0.49 X10^3/uL; Eosinophils% 4.6 % (0-5); Hematocrit 32.7 % (37-47); Hemoglobin 10.6 g/dL (12.0-15.0); Lymphocyte # 1.56 X10^3/ul (4.0); Lymphocyte % 14.5 % (19-41); Mean Corp Hgb Conc 32.4 g/dL (32-36); Mean Corpuscular Volume 89.3 fL (81-99); Mean Platelet Vol. 10.9 fl (6.2-12.0); Monocyte# 0.98 X10^3/uL; Monocyte% 9.1 % (0-10); NRBC Flagged by Analyzer 0 % (0-5); Neutrophil # 7.61 X10^3/uL (2.7-7.7); Neutrophil % 70.9 % (47-70); Platelet Count 137 K/mm3 (150-450); RBC Distribution Width CV 13.5 % (11.6-14.6); RBC Distribution Width SD 44.2 fl (35.1-43.9); Red Blood Count 3.66 M/mm3 (4.2-5.4); White Blood Count 10.7 K/mm3 (4.4-11.0)
[2019-08-19 04:49] LABS: Anion Gap 5 (5-15); BUN 17 mg/dL (7-18); BUN/Creat Ratio 23.5 RATIO (10-20); Calcium,Total 7.9 mg/dL (8.5-10.1); Chloride 114 mmol/L (98-107); Creatinine, Serum 0.72 mg/dL (0.55-1.02); EST Glomerular Filtration Rate 82 mL/min (>60); Est Glom Filt Rate - Afr Amer 99 mL/min (>60); Estimated Creatinine Clearance 32.17 ml/min; Glucose 139 mg/dL (74-106); Potassium 3.6 mmol/L (3.5-5.1); Sodium Level 144 mmol/L (136-145)
[2019-08-19] MEDS: 0.9% Normal Saline 1,000 ML 150 ML IV ×2 (05:25→10:04)
[2019-08-19 06:45] LABS: Bedside Glucose 131 mg/dL (70-110)
--- NOTE | 2019-08-19 09:54 | PCM.PN.ID ---
Patient Problems: Active and Suspected Problems Pyelonephritis (Acute) Severe sepsis (Acute) Subjective: Feeling ok, no pain, no fever, no n/v/d. - Physical Exam Vitals/I&O's: Vital Signs Temp Pulse Resp BP Pulse Ox 98.0 F 70 18 155/69 H 94 08/19/19 04:00 08/19/19 07:00 08/19/19 04:00 08/19/19 04:00 08/19/19 07:32 Oxygen Delivery Method Room Air Weight: 80.9 kg Body Mass Index (BMI) 32.8 Finger Stick Blood Glucose 274 Intake and Output for Last 24 Hours 08/17/19 08/18/19 08/19/19 23:59 23:59 23:59 Intake Total 3553.25 / 3553.25 5344.45 / 5344.45 937.55 / 937.55 Output Total Balance 3553.25 / 3553.25 5343.45 / 5343.45 937.55 / 937.55 General: Alert, Cooperative, No apparent distress Lungs: Clear to auscultation, Normal air movement Cardiovascular: Regular rate, Regular Rhythm Abdomen: Soft, Non Tender, Non-Distended Skin: No rashes Microbiology Past 72 Hours 08/16/19 17:20 Urine Catheter - Catheter Urine Culture - Final Presumptive E. 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 08/16/19 19:48 Blood Culture (Wb) - Left Forearm Blood Culture - Final Escherichia coli Laboratory Results 08/18/19 09:20: Sodium 147 H, Potassium 3.1 L, Chloride 117 H, Carbon Dioxide 25.0, Anion Gap 5, BUN 15, Creatinine 0.88, Estim Creat Clear Calc 36.55, Est GFR (MDRD) Af Amer 78, Est GFR (MDRD) Non-Af 65, BUN/Creatinine Ratio 17.0, Glucose 122 H, Calcium 7.8 L 08/18/19 11:18: POC Glucose 112 H 08/18/19 16:49: POC Glucose 174 H 08/18/19 22:01: POC Glucose 240 H 08/19/19 04:13: WBC 10.7, RBC 3.66 L, Hgb 10.6 L, Hct 32.7 L, MCV 89.3, MCH 29.0, MCHC 32.4, RDW Std Deviation 44.2 H, RDW Coeff of Wesley 13.5, Plt Count 137 L, MPV 10.9, Immature Gran % (Auto) 0.500, Neut % (Auto) 70.9 H, Lymph % (Auto) 14.5 L, [place] % (Auto) 9.1, Eos % (Auto) 4.6, Baso % (Auto) 0.4, Absolute Neuts (auto) 7.6, Absolute Lymphs (auto) 1.56, Nucleated RBC % 0 08/19/19 04:13: Sodium 144, Potassium 3.6, Chloride 114 H, Carbon Dioxide 25.0, Anion Gap 5, BUN 17, Creatinine 0.72, Estim Creat Clear Calc 32.17, Est GFR (MDRD) Af Amer 99, Est GFR (MDRD) Non-Af 82, BUN/Creatinine Ratio 23.5 H, Glucose 139 H, Calcium 7.9 L 08/19/19 06:42: POC Glucose 131 H Current Medications Acetaminophen (Tylenol) 650 mg PO Q6H PRN PRN PRN Reason: FEVER Last Admin: 08/16/19 21:28 Dose: 650 mg Documented by: Aspirin (Aspirin, Baby) 81 mg PO DAILY@0800 [facility] Last Admin: 08/18/19 10:18 Dose: 81 mg Documented by: Atorvastatin Calcium (Lipitor) 20 mg PO QHS [facility] Last Admin: 08/18/19 22:04 Dose: 20 mg Documented by: Dextrose (D50w Syringe) 0 gm IV X1 PRN; Protocol PRN Reason: Hypoglycemia Glucagon () 1 mg IM .X1 PRN PRN Reason: Hypoglycemia Heparin Sodium (Porcine) (Heparin Na) 5,000 unit SC Q12 [facility] Last Admin: 08/18/19 22:05 Dose: 5,000 unit Documented by: Sodium Chloride () 1,000 mls @ 150 mls/hr IV .[id number] [facility] Last Infusion: 08/19/19 06:03 Dose: 150 mls/hr Documented by: Sodium Chloride () 250 mls @ 15 mls/hr IV .[id number] PRN PRN Reason: Saline Flush Last Infusion: 08/18/19 22:05 Dose: 0 mls/hr Documented by: Sodium Chloride () 250 mls @ 15 mls/hr IV .[id number] PRN PRN Reason: Additional IVPB Infusion Meropenem 1 gm/ Sodium (Chloride) 120 mls @ 33 mls/hr IV Q12 [facility] Last Infusion: 08/19/19 01:44 Dose: Infused Documented by: Insulin Glargine (Lantus (Bk)) 8 units SC QHS [facility] Last Admin: 08/18/19 22:07 Dose: 8 units Documented by: Insulin Human Lispro (Humalog Kwikpen ([facility])) 0 unit SC ACHS [facility]; Protocol Last Admin: 08/19/19 06:44 Dose: Not Given Documented by: Latanoprost (Xalatan Opthalmic) 1 drop OPHTHALMIC QHS [facility] Last Admin: 08/18/19 22:09 Dose: 1 drop Documented by: Magnesium Oxide (Mag-Ox 400) [facility] Last Admin: 08/18/19 17:36 Dose: 400 mg Documented by: Nystatin (Mycostatin Powder) 1 applic TOPICAL BID [facility]; Protocol Last Admin: 08/18/19 22:08 Dose: 1 applicatio Documented by: Ondansetron HCl (Zofran) 4 mg IV Q8H PRN PRN PRN Reason: NAUSEA/VOMITING Pantoprazole Sodium (Protonix) 40 mg PO DAILY [facility] Last Admin: 08/18/19 10:18 Dose: 40 mg Documented by: Sodium Chloride () 10 - 40 ml IV UD PRN PRN Reason: SALINE FLUSH Last Admin: 08/19/19 04:19 Dose: 10 ml Documented by: Medical Necessity - Tobacco Use Smoking Status: Never smoker Route of nutrition/ use of supplements: [] Nutritional Intake: [] IV Site: [] Rocha Catheter: [] - Assessment/Plan Antibiotics: [] Assessment/Plan: [] Active and Suspected Problems Pyelonephritis (Acute) Severe sepsis (Acute) severe sepsis due to ESBL ecoli bacteremia from source with associated stone - urology has been consulted. Repeat bcx neg so far. Picc in place. Wbc and fever much improved. On meropenem. Ok for d/c on ertapenem 1gm iv q24h for 7 more days. Will need dose of ertapenem 1gm once on day of discharge prior to her leaving. Will follow, d/w caser.
[2019-08-19] MEDS: Aspirin 81 MG TAB.CHEW PO (10:06)
[2019-08-19] MEDS: Magnesium Oxide 400 MG Tablet PO ×2 (10:06→17:11)
[2019-08-19] MEDS: Heparin Injection (Vial) 5,000 UNIT/ML VIAL 5000 UNIT SC (10:06)
[2019-08-19] MEDS: Pantoprazole Sodium 40 MG Tablet PO (10:06)
[2019-08-19] MEDS: Nystatin Powder 15gm Bottle 1 APPLIC TOPICAL (10:11)
--- NOTE | 2019-08-19 12:23 | PCM.PN.HOSP ---
Patient Problems: Active and Suspected Problems Pyelonephritis (Acute) Severe sepsis (Acute) Reason for Visit: Pyelonephritis with bacteremia. On IV antibiotic. ESBL MDR E. coli. Objective: Seen and examined. No fever or chills in 48 hours. Repeat blood culture is negative so far. Vitals/I&O's: Vital Signs Temp Pulse Resp BP Pulse Ox 98.3 F 81 18 155/55 H 98 08/19/19 09:59 08/19/19 09:59 08/19/19 09:59 08/19/19 09:59 08/19/19 09:59 Oxygen Delivery Method Room Air Weight: 178 lb 5.663 oz Body Mass Index (BMI) 32.8 Finger Stick Blood Glucose 274 Intake and Output for Last 24 Hours 08/17/19 08/18/19 08/19/19 23:59 23:59 23:59 Intake Total 3553.25 / 3553.25 5344.45 / 5344.45 1540.05 / 1540.05 Output Total Balance 3553.25 / 3553.25 5343.45 / 5343.45 1540.05 / 1540.05 General: Alert, Oriented x3, Cooperative HEENT: Atraumatic, PERRLA, EOMI, Normocephalic Neck: Supple, No JVD, Negative Carotid Bruits Lungs: No rhonchi, No wheeze, Diminished Cardiovascular: Regular rate, Regular Rhythm, Normal S1, Normal S2, No murmurs Abdomen: Bowel Sounds Present, Soft, Non Tender, Non-Distended Extremities: No edema, Capillary Refill Less than 3 Seconds Skin: No rashes, No breakdown Musculoskeletal: No Tenderness to Palpation of Joints or Extremities, Arthritic Changes Neurological: Cranial nerves II-XII grossly intact, Deep Tendon Reflexes 2+/4 and Symmetrical, Neuro grossly intact Psych/Mental Status: Normal Affect, Appropriate Microbiology Past 72 Hours 08/16/19 17:20 Urine Catheter - Catheter Urine Culture - Final Presumptive E. 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 lactose [employer] 08/16/19 19:48 Blood Culture (Wb) - Left Forearm Blood Culture - Final Escherichia coli Laboratory Results 08/18/19 16:49: POC Glucose 174 H 08/18/19 22:01: POC Glucose 240 H 08/19/19 04:13: WBC 10.7, RBC 3.66 L, Hgb 10.6 L, Hct 32.7 L, MCV 89.3, MCH 29.0, MCHC 32.4, RDW Std Deviation 44.2 H, RDW Coeff of Wesley 13.5, Plt Count 137 L, MPV 10.9, Immature Gran % (Auto) 0.500, Neut % (Auto) 70.9 H, Lymph % (Auto) 14.5 L, Rogers % (Auto) 9.1, Eos % (Auto) 4.6, Baso % (Auto) 0.4, Absolute Neuts (auto) 7.6, Absolute Lymphs (auto) 1.56, Nucleated RBC % 0 08/19/19 04:13: Sodium 144, Potassium 3.6, Chloride 114 H, Carbon Dioxide 25.0, Anion Gap 5, BUN 17, Creatinine 0.72, Estim Creat Clear Calc 32.17, Est GFR (MDRD) Af Amer 99, Est GFR (MDRD) Non-Af 82, BUN/Creatinine Ratio 23.5 H, Glucose 139 H, Calcium 7.9 L 08/19/19 06:42: POC Glucose 131 H Current Medications Acetaminophen (Tylenol) 650 mg PO Q6H PRN PRN PRN Reason: FEVER Last Admin: 08/16/19 21:28 Dose: 650 mg Documented by: Aspirin (Aspirin, Baby) 81 mg PO DAILY@0800 [facility] Last Admin: 08/19/19 10:06 Dose: 81 mg Documented by: Atorvastatin Calcium (Lipitor) 20 mg PO QHS [facility] Last Admin: 08/18/19 22:04 Dose: 20 mg Documented by: Dextrose (D50w Syringe) 0 gm IV X1 PRN; Protocol PRN Reason: Hypoglycemia Glucagon () 1 mg IM .X1 PRN PRN Reason: Hypoglycemia Heparin Sodium (Porcine) (Heparin Na) 5,000 unit SC Q12 [facility] Last Admin: 08/19/19 10:06 Dose: 5,000 unit Documented by: Sodium Chloride () 250 mls @ 15 mls/hr IV .[id number] PRN PRN Reason: Saline Flush Last Infusion: 08/18/19 22:05 Dose: 0 mls/hr Documented by: Sodium Chloride () 250 mls @ 15 mls/hr IV .[id number] PRN PRN Reason: Additional IVPB Infusion Meropenem 1 gm/ Sodium (Chloride) 120 mls @ 33 mls/hr IV Q12 [facility] Last Admin: 08/19/19 10:05 Dose: 33 mls/hr Documented by: Insulin Glargine (Lantus ([facility])) 8 units SC QHS [facility] Last Admin: 08/18/19 22:07 Dose: 8 units Documented by: Insulin Human Lispro (Humalog Kwikpen ([facility])) 0 unit SC ACHS [facility]; Protocol Last Admin: 08/19/19 06:44 Dose: Not Given Documented by: Latanoprost (Xalatan Opthalmic) 1 drop OPHTHALMIC QHS [facility] Last Admin: 08/18/19 22:09 Dose: 1 drop Documented by: Magnesium Oxide (Mag-Ox 400) 400 mg PO BIDCM [facility] Last Admin: 08/19/19 10:06 Dose: 400 mg Documented by: Nystatin (Mycostatin Powder) 1 applic TOPICAL BID [facility]; Protocol Last Admin: 08/19/19 10:11 Dose: 1 applicatio Documented by: Ondansetron HCl (Zofran) 4 mg IV Q8H PRN PRN PRN Reason: NAUSEA/VOMITING Pantoprazole Sodium (Protonix) 40 mg PO DAILY [facility] Last Admin: 08/19/19 10:06 Dose: 40 mg Documented by: Sodium Chloride () 10 - 40 ml IV UD PRN PRN Reason: SALINE FLUSH Last Admin: 08/19/19 04:19 Dose: 10 ml Documented by: STROKE Vital Signs/Narrative: Vital Signs Temp Pulse Resp BP Pulse Ox 08/19/19 09:59 98.3 F 81 18 155/55 H 98 Medical Necessity - Tobacco Use Smoking Status: Never smoker Assessment/Plan All Active Problems Traumatic closed displaced fracture of shafts of left ulna and radius (Acute) UTI (urinary tract infection) (Acute) Hypoglycemia associated with diabetes (Acute) Pyelonephritis (Acute) Severe sepsis (Acute) This 83-year-old female is being admitted for pyelonephritis with a small calculus over right intramural ureter with very mild pelvocaliectasis and hydroureter. 1. Severe sepsis, lactic acidosis and bacteremia, E. coli MDR found in urine culture and blood cultures x2: Most likely from infected right intramural ureteric calculus associated with mild right hydroureter and pelviectasis which patient might have passed. Urologist is been consulted. ID consult reviewed, discussed and appreciated. Patient IV antibiotic Zosyn was changed to meropenem for more consistent AISHA level. Repeat blood cultures ordered. 08/19/2019: Repeat blood culture from 08/18 is negative for 24 hours. Right upper arm PICC line. On IV meropenem. Plan for 1 week of IV ertapenem. Leukocytosis resolved. Hemodynamically stable. 2. E. coli MDR pyelonephritis and bacteremia secondary to infected right ureteric calculus: As mentioned above. 3. right hydroureteronephrosis secondary to right infected ureteric calculus: As mentioned above 08/19/2019: Discussed with urologist Dr. Caba. Renal ultrasound is done but not reported. He thinks patient has passed ureteric stone. Advised to follow-up in office. 4. Acute metabolic encephalopathy, infectious encephalopathy head CT negative. avoid sedating medications and narcotics at this time. 08/19 2019: On baseline. Acute encephalopathy resolved 5. DM2 high and uncontrolled likely aggravated by above A1c 8.3 07/30/2019 glipizide held On basal and short-acting sliding scale insulin. 6. JANIE likely prerenal. Improved and resolved. BUN/creatinine 28/1.29 to 15/0.88. improving continue IVF 7. VTE prophylaxis: SQ heparin. Total time of the visit including total time spent in counseling or coordination of care, (more than 50% of the total time, spent in obtaining medical information from nurses and other ancillary care providers), succussion with consultants, ID and urologist, review of labs and imaging is 35 minutes Patient is pending pre-CERT for transfer to SNF to complete IV antibiotic and PT and OT. Clinical Impression(s) from Imaging Studies Brain CT 08/16/19 15:49 IMPRESSION: Chronic involutional changes without evidence of acute intracranial or calvarial abnormality. There is no major interval change. Chest X-Ray 08/16/19 15:49 IMPRESSION: No acute cardiopulmonary pathology [phone], Service support , Abdomen/Pelvis CT 08/16/19 15:50 IMPRESSION: Mild right hydroureteronephrosis association with tiny calculus possibly within the distal intramural portion of the ureter in the bladder or recently passed stone. 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 Code Visit Inpatient E&M: 17499 Subs Hosp L2
[2019-08-19] MEDS: Insulin Lispro 100 UNIT/ML INSULN.PEN SC (12:32)
[2019-08-19 12:40] LABS: Bedside Glucose 195 mg/dL (70-110)
--- NOTE | 2019-08-19 13:00 | CASEMGMT ---
Pt's daughter has not been in yet and call placed to her at this time. Pt is still somewhat confused at times and just giggles when you talk to her about anything. Daughter is updated on need for iv antibx, Ertapenem 1gm iv every 24 hours for 7 more days, and states that she is concerned about pt going home at discharge with iv antibx and picc line in place. Daughter does not feel that pt is comprehending the significance of her infection at this time. Daughter states that she would like pt to go to [facility] at discharge for further therapy and iv antibx. Sg bolden at this time, voices understanding. This MARLON JACOBS did discuss with pt and she giggled and states is agreeable to daughters plan at this time. SStnathalia MASON CM
--- NOTE | 2019-08-19 13:16 | CASEMGMT ---
MARLON JACOBS spoke with patient's daughter and she would prefer patient go to [facility] to get her IV antibiotics and get stronger. MARLON JACOBS spoke with patient and she agreed with plan. SW called [facility] and left a message with referral as well as faxed information. Await response. Samantha NOLAN MSW
--- NOTE | 2019-08-19 13:54 | PCM.TXEXTCAR ---
- Diet 08/16/19 20:51 Diet: Cardiac: Calorie-Controlled Food consistency:: Regular Liquid Consistency:: Regular/Thin Type of Dietary Supplement:: Glucerna Shake Is pt able to select menu?: No How many daily calories?: 1800 calorie - Routine Orders/Code Status Suppository Type: Dulcolax 10mg Suppository Frequency: Daily PRN Routine Lab Work: CBC - 1 week, BMP - Therapies Weight Bearing: Weight bearing as tolerated Extremity Affected:: Bilateral Lower Physical Therapy: Eval and Treat Occupational Therapy: Eval and Treat Speech Therapy: Eval and Treat - Allergies/Procedures Done in Hospital Allergies/Adverse Reactions: Allergies sulfamethoxazole [From ] Allergy (Verified 08/16/19 15:09) Hives trimethoprim [From ] Allergy (Verified 08/16/19 15:09) Hives adhesive tape Adverse Reaction (Verified 08/16/19 15:09) Rash - Type of Care/Length of Stay Estimated LOS: Convalescent Care Less Than 30 days Type of Care Needed: Skilled Rehab Potential: Fair Prognosis: Fair - Additional Orders/Day of Discharge Day of Discharge: 08/19/19 - Dietary and Speech Recommendations Dietitian Recommendations/Changes: Has Glucerna TID ordered on MAR and w/ meals. Since pt is a supervised feed, will d/c Glucerna on MAR and provide w/ meals until adequate PO intake is established. Will continue current diet as ordered- cardiac/1800 calorie controlled and adjust as needed pending PO intake at meals. - Follow Up Care Primary Care Physician: Cecy Trivedi MD [Primary Care Provider] - Please follow up with your Primary Care Physician in: in 2 weeks Please Follow Up With: Cecy Trivedi MD Please Follow Up With: Angelito Niño MD When: in 2 weeks Please Follow Up With: Danny Caba MD When: in 2 weeks for right ureter stone, passed
--- NOTE | 2019-08-19 14:01 | DS.PCM_ITS ---
Discharge Date and Diagnosis - Problem List Patient Problems: Active and Suspected Problems Pyelonephritis (Acute) Severe sepsis (Acute) Date of Admission: 08/16/19 Date of Discharge: 08/19/19 - Primary Discharge Diagnosis Active and Suspected Problems Pyelonephritis (Acute) Severe sepsis (Acute) - Secondary Discharge Diagnosis Chronic Problems GERD (gastroesophageal reflux disease) (Chronic) Hyperlipidemia (Chronic) Obstructive sleep apnea (Chronic) Type II diabetes mellitus (Chronic) Hospital Course and Treatment Operations: None Summary of Care Provided: [] This 83-year-old female is being admitted for pyelonephritis with a small calculus over right intramural ureter with very mild pelvocaliectasis and hydroureter. Patient was admitted severe sepsis with lactic acidosis and bacteremia, E. coli MDR found in urine culture and blood cultures x2. Initially, started on IV Zosyn empirically but was changed to meropenem as per ID recommendation although it was sensitive to both Zosyn and meropenem. Repeat blood cultures x2 are negative for more than 24 hours. It seems patient had E. coli MDR from pyelonephritis secondary to infected right ureteric calculus. Urologist was consulted. Abdominal CT was done suspicion of right intramural calculus with right hydroureter and mild right pelvic stasis. Urologist Dr. Caba was consulted and renal ultrasound was done. Renal ultrasound not done. Urologist 1 follow-up in the office. Acute metabolic encephalopathy, infectious encephalopathy: Acute encephalopathy resolved. * head CT negative. * avoid sedating medications and narcotics at this time. DM2 * high and uncontrolled * likely aggravated by above * A1c 8.3 07/30/2019 * glipizide held * On basal and short-acting sliding scale insulin. JANIE * likely prerenal. Improved and resolved. BUN/creatinine 28/1.29 to 15/0.88. * improving * IV fluid stopped. JANIE resolved VTE prophylaxis: SQ heparin. Discharge medication reconciliation done. Discharge follow-up instructions completed. Discharge process discussed with the patient and all questions were answered to patient's satisfaction. Prescription for meropenem 1 g daily was given by ID with weekly follow-up with CBC and BMP. Total time spent, exact 35 minutes on discharge meds reconciliation, examination, coordination of care with nurses and ancillary staff, review of imaging and blood test and discussion with the patient on follow-up instructions Patient Problems: Active and Suspected Problems Pyelonephritis (Acute) Severe sepsis (Acute) Subjective: Please see progress note of today. - Physical Exam Vitals/I&O's: Vital Signs Temp Pulse Resp BP Pulse Ox 98.3 F 81 18 155/55 H 98 08/19/19 09:59 08/19/19 09:59 08/19/19 09:59 08/19/19 09:59 08/19/19 09:59 Oxygen Delivery Method Room Air Weight: 178 lb 5.663 oz Body Mass Index (BMI) 32.8 Finger Stick Blood Glucose 274 Intake and Output for Last 24 Hours 08/17/19 08/18/19 08/19/19 23:59 23:59 23:59 Intake Total 3553.25 / 3553.25 5344.45 / 5344.45 2267.55 / 2267.55 Output Total Balance 3553.25 / 3553.25 5343.45 / 5343.45 2267.55 / 2267.55 Microbiology Past 72 Hours 08/16/19 17:20 Urine Catheter - Catheter Urine Culture - Final Presumptive E. 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 08/16/19 19:48 Blood Culture (Wb) - Left Forearm Blood Culture - Final Escherichia coli Laboratory Results 08/18/19 16:49: POC Glucose 174 H 08/18/19 22:01: POC Glucose 240 H 08/19/19 04:13: WBC 10.7, RBC 3.66 L, Hgb 10.6 L, Hct 32.7 L, MCV 89.3, MCH 29.0, MCHC 32.4, RDW Std Deviation 44.2 H, RDW Coeff of Wesley 13.5, Plt Count 137 L, MPV 10.9, Immature Gran % (Auto) 0.500, Neut % (Auto) 70.9 H, Lymph % (Auto) 14.5 L, [place] % (Auto) 9.1, Eos % (Auto) 4.6, Baso % (Auto) 0.4, Absolute Neuts (auto) 7.6, Absolute Lymphs (auto) 1.56, Nucleated RBC % 0 08/19/19 04:13: Sodium 144, Potassium 3.6, Chloride 114 H, Carbon Dioxide 25.0, Anion Gap 5, BUN 17, Creatinine 0.72, Estim Creat Clear Calc 32.17, Est GFR (MDRD) Af Amer 99, Est GFR (MDRD) Non-Af 82, BUN/Creatinine Ratio 23.5 H, Glucose 139 H, Calcium 7.9 L 08/19/19 06:42: POC Glucose 131 H 08/19/19 12:30: POC Glucose 195 H Current Medications Acetaminophen (Tylenol) 650 mg PO Q6H PRN PRN PRN Reason: FEVER Last Admin: 08/16/19 21:28 Dose: 650 mg Documented by: Aspirin (Aspirin, Baby) 81 mg PO DAILY@0800 [facility] Last Admin: 08/19/19 10:06 Dose: 81 mg Documented by: Atorvastatin Calcium (Lipitor) 20 mg PO QHS [facility] Last Admin: 08/18/19 22:04 Dose: 20 mg Documented by: Dextrose (D50w Syringe) 0 gm IV X1 PRN; Protocol PRN Reason: Hypoglycemia Glucagon () 1 mg IM .X1 PRN PRN Reason: Hypoglycemia Heparin Sodium (Porcine) (Heparin Na) 5,000 unit SC Q12 [facility] Last Admin: 08/19/19 10:06 Dose: 5,000 unit Documented by: Sodium Chloride () 250 mls @ 15 mls/hr IV .[id number] PRN PRN Reason: Saline Flush Last Infusion: 08/18/19 22:05 Dose: 0 mls/hr Documented by: Sodium Chloride () 250 mls @ 15 mls/hr IV .[id number] PRN PRN Reason: Additional IVPB Infusion Meropenem 1 gm/ Sodium (Chloride) 120 mls @ 33 mls/hr IV Q12 [facility] Last Admin: 08/19/19 10:05 Dose: 33 mls/hr Documented by: Insulin Glargine (Lantus (Bk)) 8 units SC QHS [facility] Last Admin: 08/18/19 22:07 Dose: 8 units Documented by: Insulin Human Lispro (Humalog Kwikpen ([facility]k)) 0 unit SC ACHS [facility]; Protocol Last Admin: 08/19/19 12:32 Dose: 2 u Documented by: Latanoprost (Xalatan Opthalmic) 1 drop OPHTHALMIC QHS [facility] Last Admin: 08/18/19 22:09 Dose: 1 drop Documented by: Magnesium Oxide (Mag-Ox 400) 400 mg PO BIDCM [facility] Last Admin: 08/19/19 10:06 Dose: 400 mg Documented by: Nystatin (Mycostatin Powder) 1 applic TOPICAL BID [facility]; Protocol Last Admin: 08/19/19 10:11 Dose: 1 applicatio Documented by: Ondansetron HCl (Zofran) 4 mg IV Q8H PRN PRN PRN Reason: NAUSEA/VOMITING Pantoprazole Sodium (Protonix) 40 mg PO DAILY [facility] Last Admin: 08/19/19 10:06 Dose: 40 mg Documented by: Sodium Chloride () 10 - 40 ml IV UD PRN PRN Reason: SALINE FLUSH Last Admin: 08/19/19 04:19 Dose: 10 ml Documented by: Home Medications: Medications to take at Discharge Aspirin [Aspirin, Baby] 81 mg PO DAILY@0800 02/01/19 Atorvastatin Calcium [Lipitor] 20 mg PO QHS 02/01/19 Bimatoprost 0.01% [Lumigan 0.01%] 1 drp EACH EYE QHS 02/01/19 Omeprazole [Prilosec] 40 mg PO DAILY 02/01/19 Magnesium Oxide [Mag-Ox 400] 400 mg PO BIDCM #20 tab 02/03/19 Glipizide [Glipizide ER] 2.5 mg PO DAILY 08/16/19 Lecithin, Soy [Lecithin] 400 mg PO BID 08/16/19 Ertapenem Sodium [Ertapenem] 1 gm IV DAILY 7 Days #7 vial 08/19/19 Insulin Glargine [Lantus SoloStar Pen] 8 units SUBCUT QHS #0 pen 08/19/19 Insulin Lispro [Humalog KwikPen] See Protocol SUBCUT ACHS insuln.pen 08/19/19 Nystatin Powder [Mycostatin Powder] 1 applic TOPICAL BID bottle 08/19/19 Ramipril [Altace] 5 mg PO DAILY #0 08/19/19 Following Prescrptions Were Given to Patient: Ertapenem Sodium [Ertapenem] 1 gm IV DAILY 7 Days #7 vial Prescription Printed Primary Care Physician: Cecy Trivedi MD [Primary Care Provider] - Please follow up with your Primary Care Physician in: in 2 weeks Please Follow Up With: Cecy Trivedi MD Please Follow Up With: Angelito Niño MD When: in 2 weeks Please Follow Up With: Danny Caba MD When: in 2 weeks for right ureter stone, passed Medical Necessity - Tobacco Use Smoking Status: Never smoker Meaningful Use Info Meaningful Use Diagnoses (Choose all that apply): None applicable Code Visit Please disregard billing charge of today's progress note Inpatient E&M: 59913 Disch Hosp
--- NOTE | 2019-08-19 14:13 | CASEMGMT ---
Physician decided to discharge patient today. BLAYNE has not yet heard back from [facility]. BLAYNE called Fior at [facility] and she said she just got back from a meeting and they are looking at the referral now. She will get back with BLAYNE. Samanhta NOLAN MSW
--- NOTE | 2019-08-19 15:15 | CASEMGMT ---
[facility] can take patient. BLAYNE faxed orders to [facility]. BLAYNE called [facility] and arranged for patient to get picked up at via cot. BLAYNE notified Fior at [facility], patient's daughter via phone, discharge rn who notified RN, and tool grinder operator surface. Convalescent was completed on HENS. Plan: d/c to [facility] under skilled level of care on a convalescent stay. [facility] Care transported via cot. Samantha NOLAN SIZING MACHINE TENDER
[2019-08-19 16:21] LABS: Bedside Glucose 150 mg/dL (70-110)
== END 2019-08-19 17:33 | disposition skilled nursing facility (03) | DRG 871 ==
LOC: ED 18:47 → PCU 19:47
PROVIDERS: Admitting Provider Student in an Organized Health Care Education/Training Program; Emergency Provider Emergency Medicine; PCP Family Medicine; Visit Provider Internal Medicine
DX: A41.51 Sepsis due to Escherichia coli [E. coli] (principal); G93.41 Metabolic encephalopathy; N12 Tubulo-interstitial nephritis, not specified as acute or chronic; N13.6 Pyonephrosis; N17.9 Acute kidney failure, unspecified; Z16.342 Resistance to multiple antimycobacterial drugs; R65.20 Severe sepsis without septic shock; E87.5 Hyperkalemia; I10 Essential (primary) hypertension; E78.5 Hyperlipidemia, unspecified; N20.0 Calculus of kidney
CPT/HCPCS: 36415; 36569; 70450; 71045; 74176; 76770; 80048; 81001; 82962; 83605; 85025; 87040; 87077; 87086; 87088; 87186; 93005; 94762; 97110; 97116; 97163; 97166; 97530; 97535; 99285; J2185; J7030; J7050; A4216

== ENCOUNTER → 2019-09-23 13:51 | Outpatient (CLI) | payer MEDICARE, OTHER, SELFPAY ==
[2019-08-16 20:40] VITALS: BMI 32.8
--- NOTE | 2019-09-23 13:54 | CT_ITS ---
STUDY: CT ABDOMEN AND PELVIS WITHOUT CONTRAST REASON FOR EXAM: Female, 83 years old. FLANK PAIN, APPENDECTOMY, CHOLECYSTECTOMY RADIATION DOSAGE (If Supplied By Facility): CTDIvol = ( 22.38 ) mGy, DLP = ( 1006.37 ) mGycm TECHNIQUE: Transaxial images were obtained from the dome of the diaphragm to the symphysis pubis without oral contrast, and without intravenous contrast. Sagittal and coronal images were reconstructed. Individualized dose optimization techniques were used for this CT. COMPARISON: Comparison is made with prior examination dated August 16, 2019. FINDINGS: Stable minimal increased markings at the lung bases. Coronary artery calcification. Normal liver. Normal gallbladder and extrahepatic biliary system. There are multiple benign calcified granulomata of the spleen. Normal pancreas. Normal bilateral adrenal glands. Stable 3.5 mm nonobstructive calculus in the mid posterior aspect of the right kidney. Stable left parapelvic renal cysts. Punctate calcification in the midportion of the left kidney. Normal visualized stomach. Normal small intestine. Normal colon. The patient is status post appendectomy. There is diffuse atherosclerotic calcification of the abdominal aorta and its major visceral branches, without a demonstrated aneurysm. Normal inferior vena cava. Normal retroperitoneum. A minimal amount of air is seen in the anterior aspect of the urinary bladder. This may represent changes secondary to Rocha catheter manipulation. If no catheterization has been performed recently, a fistulous communication should be ruled out. Normal abdominal wall. There are mild degenerative changes of the visualized lumbar spine. CT/Abdomen/Pelvis without Cont IMPRESSION: Stable examination except for a tiny amount of air along the anterior wall of the urinary bladder as described. Electronically Signed: Mickey Malik, at 15:13 EDT , Service support ,
== END ==
PROVIDERS: PCP Family Medicine; Referring Provider Urology; Visit Provider Urology
DX: N20.9 Urinary calculus, unspecified (principal)
CPT/HCPCS: 74176

== ENCOUNTER 2019-12-08 15:15 | Emergency (ER) | payer MEDICARE, OTHER, SELFPAY ==
[2019-08-16 20:40] VITALS: BMI 32.8
[2019-12-08 15:19] VITALS: BP 143/56; PULSE 72; RESP 18; TEMP 36.7; O2SAT 97; BMI 35.3
--- NOTE | 2019-12-08 16:05 | ED.VIS.FALL ---
History of Present Illness Chief Complaint: Fall Informant: Patient Occurred: Today Mechanism/Context: Same level fall, Trip - over dog's leash Usually ambulates: Without assistance Location: head Quality of Pain: Aching Current Severity: Mild Maximum Severity: Moderate Worsened by: palpation Relieved by: leaving alone Associated Symptoms: Negative for: Parasthesias, Weakness, Loss of function, Inability to ambulate, Loss of consciousness, Amnesia Narrative: Patient states she tripped over her dog's leash today and fell, hitting the back of her head on the pavement and scraping her right elbow. She denies any significant extremity pain. She has been able to stand and weight-bear since the injury. There was no loss of consciousness. She does not think she has a headache, she denies any nausea or vomiting. Tetanus Immunization: 5-10 years - Past Medical History (1) GERD (gastroesophageal reflux disease) Status: Chronic (2) Hyperlipidemia Status: Chronic (3) Obstructive sleep apnea Status: Chronic (4) Type II diabetes mellitus Status: Chronic Past Medical History - Allergies and Home Meds Allergies/Adverse Reactions: Allergies sulfamethoxazole [From Septra] Allergy (Verified 08/16/19 15:09) Hives trimethoprim [From Septra] Allergy (Verified 08/16/19 15:09) Hives adhesive tape Adverse Reaction (Verified 08/16/19 15:09) Rash Primary Care Physician: Cecy Trivedi MD [Primary Care Provider] - Surgical History: appendectomy, cholecystectomy, hysterectomy, tonsillectomy Smoking Status: Never smoker - Family History Maternal Family History: Reports: Diabetes, Heart Disease - age 59 Paternal Family History: Reports: Cancer - in 80's, Diabetes Review of Systems General: Denies: Chills, Fever, Sweats Eyes: Denies: Visual changes - bilaterally, Diplopia ENT: Denies: Bilateral ear pain, Rhinorrhea, Sore throat Cardiovascular: Denies: Chest pain, Palpitations Respiratory: Denies: Dyspnea, Cough, Dyspnea on exertion Gastrointestinal: Denies: Abdominal pain, Nausea, Vomiting, Diarrhea, Melena, Hematochezia Genitourinary: Denies: Dysuria, Hematuria, Frequency Musculoskeletal: Denies: Neck pain, Back pain, Extremity Pain Skin: Reports: Abrasions, Wounds. Denies: Rash Neurological: Denies: Headache, Weakness, Numbness Physical Exam Vital Signs/Narrative: Vital Signs Temp Pulse Resp BP Pulse Ox 12/08/19 15:19 98.1 F 72 18 143/56 H 97 Inital Vital Signs reviewed: Yes General: Well nourished, Well developed, Obese, - - Keenly alert, no acute distress. GCS 15. Head: Normocephalic, Trauma - Occiput with hematoma and abrasion, no repairable laceration. No crepitance or depression., Tenderness - Occiput only Eyes: Perrl, EOMI ENT: TM's clear, No hemotympanum or drainage, No trauma. Negative for: Hemotympanum, Otorrhea, Nasal trauma Neck: Nontender, Full ROM. Negative for: Spinal Tenderness Cardiovascular: Regular rate, Regular rhythm, No murmurs Respiratory: No distress, CTA bilaterally, Chest nontender Abdomen: Soft, Nontender, Nondistended, Normal bowel sounds Back: Nontender Extremeties: Full range of motion throughout all 4 extremities without difficulty or pain. Skin: Normal color, No rash, Trauma - Abrasion right elbow olecranon process, no bony tenderness or deformity or swelling. Neurological: Alert, Oriented x3, Cranial nerves II-XII grossly intact, Normal Strength, Normal Sensation Psychological: Normal affect, Normal Mood Diagnostic/Tx/Re-eval Impressions Brain CT 12/08/19 16:15 IMPRESSION: 1. Superolateral left parietal and midline parieto-occipital cephalhematomas, as noted. No acute intracranial injury. 2. Stable chronic involutional and microvascular ischemic changes of the brain. Electronically Signed: Inderjit Pizano MD at 16:38 EDT , Service support , 12/08/19 16:15 Brain/Head without Contrast [CT] Stat Laboratory Results 12/08/19 17:53 POC Glucose 108 - Medical Decision Making CT unremarkable except for cephalohematoma, which was noted clinically. After we cleansed the scalp abrasion/wound, and to get a better look at it, it is evident that there is really no laceration there, just an abrasion in the center of the hematoma, nothing to repair. She was reassured. We discussed signs and symptoms of head injury and reasons to return but I suspect that she will be okay. She is okay being discharged home. Her elbow abrasion was cleansed and dressed. No concern for fracture there. She also has some pain in her pannus on the right side. There is no evidence of injury there. She is minimally tender. I discussed that if she started vomiting or having blood in her stool that she should come back to the ER for imaging, but I think the chances of an internal injury here are extremely low, it appears likely that her head and elbow took the majority of the forces here. They agree and are fine with that. ED Disposition - Plan for ED Patient: Disposition: Home or Assisted Living Diagnosis: Traumatic injury of head with hematoma of scalp, Closed head injury without loss of consciousness, Abrasion of right elbow, Contusion of abdominal wall Instructions: ED Head Injury Adult Referrals: Cecy Trivedi MD [Primary Care Provider] - As Needed
--- NOTE | 2019-12-08 16:15 | CT_ITS ---
STUDY: CT BRAIN WITHOUT CONTRAST REASON FOR EXAM: Female, 84 years old. FALL, LAC TO BACK OF HEAD, NO LOC RADIATION DOSAGE (If Supplied By Facility): CTDIvol = ( 60.81 ) mGy, DLP = ( 1044.28 ) mGycm TECHNIQUE: Transaxial CT imaging of the brain was performed without administration of intravenous contrast material. Individualized dose optimization techniques were used for this CT. COMPARISON: Noncontrast CT brain August 16, 2019. FINDINGS: 4.15 cm diameter, 6 mm thick soft tissue density in the left parietal scalp consistent with a cephalhematoma. There is also minor swelling admixed with a few gas bubbles in the midline parieto-occipital scalp, presumably due to laceration or other site of penetrating injury. Normal calvarium. Again seen are atherosclerotic calcifications of the distal internal carotid and vertebral arteries. There is stable mild cerebral atrophy with widening of the extra-axial spaces and ventricular dilatation. There are stable areas of decreased attenuation within the white matter tracts of the supratentorial brain, consistent with microvascular disease changes. Normal basal ganglia. Possible lacunar infarct in the posterior left thalamus on series 1002 image 21. Normal brainstem. There is stable mild cerebellar atrophy. There is no intracranial hemorrhage. There are no findings of an acute ischemic infarction. Normal visualized paranasal sinuses. CT/Brain/Head without Contrast IMPRESSION: 1. Superolateral left parietal and midline parieto-occipital cephalhematomas, as noted. No acute intracranial injury. 2. Stable chronic involutional and microvascular ischemic changes of the brain. Electronically Signed: Inderjit Pizano MD at 16:38 EDT , Service support ,
[2019-12-08 18:04] VITALS: PULSE 73; RESP 18; O2SAT 100
[2019-12-08 18:10] LABS: Bedside Glucose 108 mg/dL (70-110)
[2019-12-08 19:00] VITALS: BP 138/78; PULSE 72; RESP 16; O2SAT 97
== END 2019-12-08 19:01 | disposition home or self-care (01) ==
PROVIDERS: Emergency Provider Emergency Medicine; PCP Family Medicine
DX: S01.01XA Laceration without foreign body of scalp, initial encounter (principal); S30.1XXA Contusion of abdominal wall, initial encounter; S50.311A Abrasion of right elbow, initial encounter; W01.0XXA Fall on same level from slipping, tripping and stumbling without subsequent striking against object, initial encounter; Y93.9 Activity, unspecified; Y92.9 Unspecified place or not applicable; K21.9 Gastro-esophageal reflux disease without esophagitis; E78.5 Hyperlipidemia, unspecified; E11.9 Type 2 diabetes mellitus without complications; G47.33 Obstructive sleep apnea (adult) (pediatric); Z79.4 Long term (current) use of insulin; Z79.82 Long term (current) use of aspirin; Z79.84 Long term (current) use of oral hypoglycemic drugs; Z79.899 Other long term (current) drug therapy
CPT/HCPCS: 70450; 82962; 99284

== ENCOUNTER 2020-02-14 12:57 | Emergency (ER) | payer MEDICARE, OTHER, SELFPAY ==
[2020-02-14 12:58] VITALS: BP 108/44; PULSE 86; RESP 18; TEMP 36.7; O2SAT 96; BMI 35.2
--- NOTE | 2020-02-14 14:01 | EKG12_ITS ---
Test Reason : WEAKNESS Blood Pressure : / mmHG Vent. Rate : 063 BPM Atrial Rate : 063 BPM P-R Int : 148 ms QRS Dur : 076 ms QT Int : 400 ms P-R-T Axes : 047 007 059 degrees QTc Int : 409 ms Normal sinus rhythm Normal ECG Confirmed by CAROLYNN MURRAY, JUNG ([id number]), purchasing expeditor MARÍA JEAN ([id number]) on 02/16/2020 1:29:27 PM Referred By: VAISHALI Confirmed By:JUNG PRADHAN MD
--- NOTE | 2020-02-14 14:23 | ED.VIS.GEN ---
History of Present Illness Chief Complaint: Weakness Informant: Patient, Family Narrative: Patient is an 84-year-old female who presents to the emergency department for weakness/possible confusion and had a subjective fever. Her initial symptoms started 2 days ago whenever she had some facial flushing. They did not take her temperature but that she might of had a fever. She had a few episodes of diarrhea and one episode of vomiting that day. Since then all of the symptoms have resolved. She denies any significant cough though she has had allergies over the past couple months. No known sick contacts. Yesterday she sat her life alert down to hard which prompted a visit from the fire department. They thought she might be slightly confused. The daughter spoke to her on the phone and did not think so. Her caregiver saw her today. They thought that she might be a little bit off. Patient denies falling or hitting her head. She denies any headache or vision changes. She states that she does not want to be here and is not sure why her daughter is making her come in. He denies feeling confused. She denies any chest pain, shortness of breath or heart palpitations. No abdominal no urinary symptoms. She did complete a course of antibiotics a week and a half ago for a UTI. She does have a history of pyelonephritis and sepsis. Past Medical History - Allergies and Home Meds Allergies/Adverse Reactions: Allergies sulfamethoxazole [From Septra] Allergy (Verified 02/14/20 13:02) Hives trimethoprim [From Septra] Allergy (Verified 02/14/20 13:02) Hives adhesive tape Adverse Reaction (Verified 02/14/20 13:02) Rash Primary Care Physician: Cecy Trivedi MD [Primary Care Provider] - 2 Days Past Medical History: - - Hyperlipidemia, WILLIAM, diabetes Surgical History: appendectomy, cholecystectomy, hysterectomy, tonsillectomy Lives: Alone Smoking Status: Never smoker - Family History Maternal Family History: Reports: Diabetes, Heart Disease - age 59 Paternal Family History: Reports: Cancer - in 80's, Diabetes Review of Systems All systems negative except as indicated General: Denies: Chills, Fever, Sweats Eyes: Denies: Visual changes - bilaterally, Diplopia ENT: Denies: Rhinorrhea, Sore throat Cardiovascular: Denies: Chest pain, Palpitations Respiratory: Denies: Dyspnea, Cough, Dyspnea on exertion Gastrointestinal: Denies: Abdominal pain, Nausea, Vomiting, Diarrhea Genitourinary: Denies: Dysuria, Hematuria, Frequency Musculoskeletal: Denies: Back pain, Extremity Pain Skin: Denies: Rash, Wounds Neurological: Denies: Headache, Weakness, Numbness Physical Exam Vital Signs/Narrative: Vital Signs Temp Pulse Resp BP Pulse Ox 02/14/20 12:58 98.0 F 86 18 108/44 L 96 Inital Vital Signs reviewed: Yes General: Well nourished, Well developed, No Acute Distress Head: Normocephalic, Atraumatic Eyes: Perrl, EOMI ENT: Moist mucous membranes, No rhinorrhea Neck: Supple, Nontender Cardiovascular: Regular rate, Regular rhythm, No murmurs Respiratory: No distress, CTA bilaterally, Chest nontender Abdomen: Soft, Nontender, Nondistended Back: Nontender, Normal Inspection Extremities: Nontender, No edema Skin: Normal color, No rash Neurological: Alert, Cranial nerves II-XII grossly intact, Normal Strength, Normal Sensation, - - Oriented to person and place but not time. Daughter states that this is baseline for her. Psychological: Normal affect, Normal Mood Diagnostic/Tx/Re-eval - EKG Initial EKG Interpretation: - - Rate of 63 bpm and normal sinus rhythm. Normal intervals. Normal axis. No ST elevations or depressions appreciated. No T wave abnormalities. Prior EKG for comparison was performed on August 162019. This is similar in appearance. - Medical Decision Making Patient presents emerged department for multiple complaints which have since all resolved. Upon arrival to the ED vital signs within normal limits. They are concerned that she might of had a fever. Her vomiting and diarrhea has since resolved. She has no complaints at this time. We will check basic lab work as she just recently got over a UTI with antibiotic use. Physical exam is benign without any neuro deficits. She is at her baseline. Lab work showed a very mildly elevated BUN/creatinine. I did review her previous urinary cultures. She does seem sensitive to cephalosporins and will place on Keflex for outpatient management. She does not have an elevated white blood cell count. No fever here in the emergency department. No evidence of SIRS criteria to meet sepsis criteria. She is nontoxic-appearing. Will have her follow-up with her PCP. If she develops any worsening symptoms or develops any fevers at home she was to return to the emergency department immediately. She understands and is agreeable with this plan. Discharged home in stable condition. ED Disposition - Plan for ED Patient: Disposition: Home or Assisted Living Diagnosis: UTI (urinary tract infection) Instructions: Understanding Urinary Tract Infections (UTIs) Prescriptions: Cephalexin [Keflex] 500 mg PO Q12 #14 cap Transmission Status: Received by [facility] Referrals: Cecy Trivedi MD [Primary Care Provider] - 2 Days
[2020-02-14 15:01] VITALS: BP 136/57; PULSE 67; RESP 20; TEMP 36.7; O2SAT 97
--- NOTE | 2020-02-14 15:15 | RAD_ITS ---
STUDY: X-RAY CHEST REASON FOR EXAM: Female, 84 years old. WEAKNESS, FEVER, CONFUSION. RECENT UTI, ATB COMPLETED. TECHNIQUE: Single AP portable view of the chest. COMPARISON: Comparison is made with prior study FINDINGS: The lungs are clear and expanded. There is no demonstrated pleural abnormality. Normal size heart. Normal mediastinum and len. Normal visualized pulmonary arteries. There is atherosclerotic calcification of the aortic arch with tortuosity. Normal visualized thoracic spine. There is degenerative osteoarthritis of the bilateral shoulders. There is no demonstrated abnormality of the visualized soft tissue structures of the upper abdomen. RAD/Chest 1 View (Portable) IMPRESSION: No acute abnormality is seen. Electronically Signed: Mickey Malik, at 15:37 EDT , Service support ,
[2020-02-14 15:38] LABS: Mucous, Urine 0 SEEN /hpf (<or=2+); Red Blood Cells-Urine 0 SEEN /hpf (0-5)
[2020-02-14 15:43] LABS: Color, Urine Yellow (Yellow); Glucose, Dipstick Normal (Normal); Ketone-Dipstick Negative (Negative); Leukocyte Esterase-Dipstick 500 /ul (Negative); Nitrite-Dipstick Positive (Negative); Occult Blood-Urine 10 /ul (Negative); Protein-Dipstick 15 mg/dl (Negative); Urine Bilirubin Dipstick Negative (Negative); Urine Clarity Cloudy (Clear); Urine Urobilinogen Normal (Normal)
[2020-02-14 15:57] LABS: Bacteria 1+ /hpf (None Seen); White Blood Cells 50-100 SEEN /hpf (0-5)
[2020-02-14 15:58] LABS: Squamous Epithelial Cells - UA 0-5 SEEN /hpf (5-10)
[2020-02-14 16:18] LABS: Absolute Lymphocyte Count 2.12 X10^3/uL (0.83-4.51); Absolute Neutrophil Count 4.2 X10^3/uL (2.0-7.7); Basophil# 0.06 X10^3/uL; Basophil% 0.8 % (0-1); Eosinophil# 0.45 X10^3/uL; Eosinophils% 5.7 % (0-5); Hematocrit 38.9 % (37-47); Hemoglobin 12.2 g/dL (12.0-15.0); Lymphocyte # 2.12 X10^3/ul (4.0); Mean Corp Hgb Conc 31.4 g/dL (32-36); Mean Corpuscular Hgb 29.3 pg (27.0-32.0); Mean Corpuscular Volume 93.3 fL (81-99); Mean Platelet Vol. 10.5 fl (6.2-12.0); Monocyte# 1.01 X10^3/uL; Monocyte% 12.8 % (0-10); NRBC Flagged by Analyzer 0 % (0-5); Neutrophil # 4.19 X10^3/uL (2.7-7.7); Neutrophil % 53.3 % (47-70); Platelet Count 234 K/mm3 (150-450); RBC Distribution Width SD 47.5 fl (35.1-43.9); Red Blood Count 4.17 M/mm3 (4.2-5.4); White Blood Count 7.9 K/mm3 (4.4-11.0)
[2020-02-14 16:37] LABS: ALB/GLOB Ratio 0.9 RATIO (0.9-2.4); AST(SGOT) 35 U/L (15-37); Alanine Aminotransfer ALT/SGPT 37 U/L (13-56); Albumin, Serum 3.4 g/dL (3.2-5.0); Alkaline Phosphatase 84 U/L (45-117); Anion Gap 6 (5-15); BUN 37 mg/dL (7-18); BUN/Creat Ratio 32.2 RATIO (10-20); Calcium,Total 8.7 mg/dL (8.5-10.1); Chloride 112 mmol/L (98-107); Creatinine, Serum 1.15 mg/dL (0.55-1.02); EST Glomerular Filtration Rate 48 mL/min (>60); Est Glom Filt Rate - Afr Amer 58 mL/min (>60); Estimated Creatinine Clearance 26.16 ml/min; Globulin 3.9 g/dL (2.2-4.2); Glucose 126 mg/dL (74-106); Magnesium 2.3 mg/dL (1.6-2.6); Potassium 4.1 mmol/L (3.5-5.1); Protein, Total 7.3 g/dL (6.4-8.2); Sodium Level 144 mmol/L (136-145)
[2020-02-14 16:46] LABS: Lactic Acid 1.5 mmol/L (0.4-1.9)
[2020-02-14] MEDS: Cephalexin 250 MG Capsule 500 MG PO (17:23)
[2020-02-14 17:24] VITALS: BP 118/47; PULSE 74; RESP 16; O2SAT 98
== END 2020-02-14 17:29 | disposition home or self-care (01) ==
PROVIDERS: Emergency Provider Emergency Medicine; PCP Family Medicine
DX: N39.0 Urinary tract infection, site not specified (principal); E11.9 Type 2 diabetes mellitus without complications; E78.5 Hyperlipidemia, unspecified; G47.33 Obstructive sleep apnea (adult) (pediatric); Z87.440 Personal history of urinary (tract) infections; Z86.19 Personal history of other infectious and parasitic diseases; Z79.4 Long term (current) use of insulin; Z79.82 Long term (current) use of aspirin; Z79.899 Other long term (current) drug therapy
CPT/HCPCS: 71045; 80053; 81001; 83605; 83735; 84484; 85025; 87086; 87088; 87186; 93005; 99285; A4216

== ENCOUNTER → 2020-05-09 11:34 | Outpatient (CLI) | payer MEDICARE, OTHER, SELFPAY ==
[2020-05-09 15:45] LABS: AST(SGOT) 13 U/L (15-37); Alanine Aminotransfer ALT/SGPT 19 U/L (13-56); Albumin, Serum 3.4 g/dL (3.2-5.0); Alkaline Phosphatase 95 U/L (45-117); Bilirubin, Direct 0.12 mg/dL (0.00-0.30); Cholesterol 126 mg/dL (200); Globulin 3.9 g/dL (2.2-4.2); High Density Lipoprotein 39 mg/dL; Protein, Total 7.3 g/dL (6.4-8.2); Triglycerides 285 mg/dL; Very Low Density Lipoprotein 57 mg/dL (5-40)
== END ==
PROVIDERS: PCP Family Medicine; Referring Provider Family Medicine; Visit Provider Family Medicine
DX: E11.8 Type 2 diabetes mellitus with unspecified complications (principal); E11.65 Type 2 diabetes mellitus with hyperglycemia
CPT/HCPCS: 36415; 80061; 80076

== ENCOUNTER 2020-07-23 17:07 | Inpatient (IN) | payer MEDICARE, SELFPAY ==
[2020-07-23 17:08] VITALS: BP 115/54; PULSE 93; RESP 16; TEMP 36.6; O2SAT 97; BMI 37.7
--- NOTE | 2020-07-23 17:26 | EKG12_ITS ---
Test Reason : CONFUSED Blood Pressure : / mmHG Vent. Rate : 087 BPM Atrial Rate : 080 BPM P-R Int : 000 ms QRS Dur : 066 ms QT Int : 366 ms P-R-T Axes : 000 027 049 degrees QTc Int : 440 ms Atrial fibrillation Abnormal ECG Confirmed by JACQUELINE OJEDA MD ([id number]), department editor LISE SHIPLEY ([id number]) on 07/26/2020 6:56:59 AM Referred By: RADHA Confirmed By:JACQUELINE OJEDA MD
--- NOTE | 2020-07-23 17:27 | ED.DCSUM_ITS ---
History of Present Illness Chief Complaint: General Illness Informant: Patient, Family Narrative: 84-year-old female presenting with generalized weakness. This is been worse over the course of last night and early today. Her daughter who assist her with her care tried to feed her today thinking that that would help her get more energy however this evening she is unable to get out of her chair secondary to weakness. There is no report of any falls. Daughter states that she is too weak to get up to even fall. She not had a fever, nausea or vomiting. Daughter does state that the last time she was symptomatic like this she had a UTI. She has a history of multiple UTIs. - Past Medical History (1) UTI (urinary tract infection) Status: Chronic (2) GERD (gastroesophageal reflux disease) Status: Chronic (3) Hyperlipidemia Status: Chronic (4) Obstructive sleep apnea Status: Chronic Past Medical History - Allergies and Home Meds Allergies/Adverse Reactions: Allergies sulfamethoxazole [From ] Allergy (Verified 07/23/20 18:11) Hives trimethoprim [From Marra] Allergy (Verified 07/23/20 18:11) Hives adhesive tape Adverse Reaction (Verified 07/23/20 18:11) Rash Primary Care Physician: Cecy Trivedi MD [Primary Care Provider] - Prior records reviewed: Yes Past Medical History: - - Reviewed in problem list Surgical History: appendectomy, cholecystectomy, hysterectomy, tonsillectomy Lives: Alone Smoking Status: Never smoker Alcohol: None Drugs: None - Family History Maternal Family History: Reports: Diabetes, Heart Disease - age 59 Paternal Family History: Reports: Cancer - in 80's, Diabetes Review of Systems General: Reports: Malaise. Denies: Chills, Fever Eyes: Denies: Visual changes - bilaterally, Diplopia ENT: Denies: Rhinorrhea, Sore throat Cardiovascular: Denies: Chest pain, Palpitations Respiratory: Denies: Dyspnea, Cough Gastrointestinal: Denies: Abdominal pain, Nausea, Vomiting Musculoskeletal: Denies: Myalgias, Arthralgias Skin: Denies: Rash, Abscess Neurological: Denies: Headache Psych: Denies: Depression, Anxiety Physical Exam Vital Signs/Narrative: Vital Signs Temp Pulse Resp BP Pulse Ox 07/23/20 17:08 98 F 93 16 115/54 L 97 General: Obese, No Acute Distress Head: Normocephalic, Atraumatic Eyes: Perrl, EOMI ENT: Dry mucous membranes. Negative for: Nasal congestion Cardiovascular: Regular rate, Regular rhythm Respiratory: No distress, CTA bilaterally Abdomen: Soft, Nontender, Nondistended Skin: Normal color, No rash. Negative for: Cyanosis, Diaphoresis Neurological: Alert, Oriented x3, Cranial nerves II-XII grossly intact Psychological: Normal affect Diagnostic/Tx/Re-eval Clinical Impression(s) from Imaging Studies Brain CT 07/23/20 17:59 IMPRESSION: Chronic involutional changes of the brain. Electronically Signed: Kevin Yu MD at 18:29 EST , Service support , Chest X-Ray 07/23/20 18:13 IMPRESSION: Normal x-ray examination of the chest. Electronically Signed: Kevin Yu MD at 18:33 EST , Service support , Laboratory Data 07/23/20 07/23/20 07/23/20 18:00 18:45 18:45 WBC 13.5 H RBC 4.11 L Hgb 12.0 Hct 36.9 L MCV 89.8 MCH 29.2 MCHC 32.5 RDW Std Deviation 45.8 H RDW Coeff of Wesley 13.9 Plt Count 193 MPV 11.1 Immature Gran % (Auto) 0.400 Neut % (Auto) 78.9 H Lymph % (Auto) 10.2 L [place] % (Auto) 9.7 Eos % (Auto) 0.4 Baso % (Auto) 0.4 Absolute Neuts (auto) 10.6 H Absolute Lymphs (auto) 1.37 Nucleated RBC % 0 Sodium 139 Potassium 4.5 Chloride 110 H Carbon Dioxide 22.0 Anion Gap 7 BUN 33 H Creatinine 1.28 H Estim Creat Clear Calc 23.50 Est GFR (MDRD) Af Amer 51 L Est GFR (MDRD) Non-Af 42 L BUN/Creatinine Ratio 25.8 H Glucose 263 H Calcium 8.8 Total Bilirubin 0.50 AST 25 ALT 25 Alkaline Phosphatase 77 Troponin I < 0.015 Total Protein 7.6 Albumin 3.5 Globulin 4.1 Albumin/Globulin Ratio 0.9 Urine Color Yellow Urine Clarity Clear Urine pH 5.0 Ur Specific Annabella 1.015 Urine Protein 15 H Urine Glucose (UA) 250 H Urine Ketones Negative Urine Occult Blood 150 H Urine Nitrite Positive H Urine Bilirubin Negative Urine Urobilinogen Normal Ur Leukocyte Esterase 500 H Urine RBC 0-5 SEEN Urine WBC 25-50 SEEN Ur Squamous Epith Cells 0-5 SEEN Urine Bacteria 3+ Urine Mucus 0 SEEN - Rhythm Strip Rhythm Strip: Sinus Rhythm Rate: 87 - EKG Initial EKG Interpretation: Sinus Rhythm - With frequent PACs, No Acute Injury Pattern - Medical Decision Making He 4-year-old female presenting with generalized weakness. Initially the daughter had told me that she had not had any falls because she is too weak to get out of her chair. Currently she told nursing staff that patient had multiple falls. Patient evaluated for generalized weakness and likely UTI given her history. EKG performed on arrival shows sinus rhythm with frequent PACs without signs of ischemic change interpreted by myself. Chest x-ray shows no acute process as interpreted by myself confirmed by radiology. Lab work shows a leukocytosis of 14,000. She is confirmed to have UTI. She was given Rocephin initially and urine culture was sent. Patient was also given IV fluids and was found to be slightly dehydrated. CT brain is negative for acute process. Given patient's severe weakness and UTI she will need to be admitted to the hospital. This was discussed with her daughter prior to her leaving. Patient discussed with Siomara Argueta who discovered that she was resistant to Rocephin on previous urinalysis and therefore we will start Zosyn when she gets to the medical floor. Patient is medically stable at this time. Impression: 1. UTI 2. Generalized weakness ED Disposition - Plan for ED Patient: Referrals: Cecy Trivedi MD [Primary Care Provider] -
--- NOTE | 2020-07-23 17:59 | CT_ITS ---
STUDY: CT BRAIN WITHOUT CONTRAST REASON FOR EXAM: Female, 84 years old. CONFUSION AND WEAKNESS -- HX:HTN,DIABETES RADIATION DOSAGE (If Supplied By Facility): CTDIvol = ( 44.99 ) mGy, DLP = ( 796.11 ) mGycm TECHNIQUE: Transaxial CT imaging of the brain was performed without administration of intravenous contrast material. Individualized dose optimization techniques were used for this CT. COMPARISON: CT brain 12/08/2019 FINDINGS: Normal soft tissue structures. Normal calvarium. There is mild cerebral atrophy with widening of the extra-axial spaces and ventricular dilatation. There are areas of decreased attenuation within the white matter tracts of the supratentorial brain, consistent with microvascular disease changes. Normal basal ganglia and thalami. Normal brainstem. Normal cerebellum. There is no intracranial hemorrhage. There are no findings of an acute ischemic infarction. Normal visualized paranasal sinuses. CT/Brain/Head without Contrast IMPRESSION: Chronic involutional changes of the brain. Electronically Signed: Kevin Yu MD at 18:29 EST , Service support ,
[2020-07-23 18:09] LABS: Mucous, Urine 0 SEEN /hpf (<or=2+)
[2020-07-23 18:10] LABS: Glucose, Dipstick 250 mg/dl (Normal); Ketone-Dipstick Negative (Negative); Leukocyte Esterase-Dipstick 500 /ul (Negative); Nitrite-Dipstick Positive (Negative); Occult Blood-Urine 150 /ul (Negative); Protein-Dipstick 15 mg/dl (Negative); Specific Gravity, Urine 1.015 (1.002-1.030); Urine Bilirubin Dipstick Negative (Negative); Urine Urobilinogen Normal (Normal)
--- NOTE | 2020-07-23 18:13 | RAD_ITS ---
STUDY: X-RAY CHEST REASON FOR EXAM: Female, 84 years old. WEAKNESS;CONFUSION TECHNIQUE: Single frontal view of the chest. COMPARISON: 02/24/2020 FINDINGS: The lungs are clear and expanded. There is no demonstrated pleural abnormality. Normal size heart. Normal mediastinum and len. Normal visualized pulmonary arteries. Normal visualized aortic arch and descending thoracic aorta. Normal visualized thoracic spine. Normal visualized ribs, clavicles, and shoulders. There is no demonstrated abnormality of the visualized soft tissue structures of the upper abdomen. RAD/Chest 1 View (Portable) IMPRESSION: Normal x-ray examination of the chest. Electronically Signed: Kevin Yu MD at 18:33 EST , Service support ,
[2020-07-23 18:17] LABS: Color, Urine Yellow (Yellow); Urine Clarity Clear (Clear)
[2020-07-23 18:18] LABS: Red Blood Cells-Urine 0-5 SEEN /hpf (0-5); White Blood Cells 25-50 SEEN /hpf (0-5)
[2020-07-23 18:19] LABS: Bacteria 3+ /hpf (None Seen); Squamous Epithelial Cells - UA 0-5 SEEN /hpf (5-10)
[2020-07-23 18:56] LABS: Absolute Lymphocyte Count 1.37 X10^3/uL (0.83-4.51); Absolute Neutrophil Count 10.6 X10^3/uL (2.0-7.7); Basophil# 0.05 X10^3/uL; Basophil% 0.4 % (0-1); Eosinophil# 0.05 X10^3/uL; Eosinophils% 0.4 % (0-5); Hematocrit 36.9 % (37-47); Lymphocyte # 1.37 X10^3/ul (4.0); Lymphocyte % 10.2 % (19-41); Mean Corp Hgb Conc 32.5 g/dL (32-36); Mean Corpuscular Hgb 29.2 pg (27.0-32.0); Mean Corpuscular Volume 89.8 fL (81-99); Mean Platelet Vol. 11.1 fl (6.2-12.0); Monocyte# 1.31 X10^3/uL; Monocyte% 9.7 % (0-10); NRBC Flagged by Analyzer 0 % (0-5); Neutrophil # 10.62 X10^3/uL (2.7-7.7); Neutrophil % 78.9 % (47-70); Platelet Count 193 K/mm3 (150-450); RBC Distribution Width CV 13.9 % (11.6-14.6); RBC Distribution Width SD 45.8 fl (35.1-43.9); Red Blood Count 4.11 M/mm3 (4.2-5.4); White Blood Count 13.5 K/mm3 (4.4-11.0)
[2020-07-23 19:21] LABS: ALB/GLOB Ratio 0.9 RATIO (0.9-2.4); AST(SGOT) 25 U/L (15-37); Alanine Aminotransfer ALT/SGPT 25 U/L (13-56); Albumin, Serum 3.5 g/dL (3.2-5.0); Alkaline Phosphatase 77 U/L (45-117); Anion Gap 7 (5-15); BUN 33 mg/dL (7-18); BUN/Creat Ratio 25.8 RATIO (10-20); Calcium,Total 8.8 mg/dL (8.5-10.1); Chloride 110 mmol/L (98-107); Creatinine, Serum 1.28 mg/dL (0.55-1.02); EST Glomerular Filtration Rate 42 mL/min (>60); Est Glom Filt Rate - Afr Amer 51 mL/min (>60); Globulin 4.1 g/dL (2.2-4.2); Glucose 263 mg/dL (74-106); Potassium 4.5 mmol/L (3.5-5.1); Protein, Total 7.6 g/dL (6.4-8.2); Sodium Level 139 mmol/L (136-145)
[2020-07-23] MEDS: Ceftriaxone 1 GM/50 ML BAG IV (19:22)
--- NOTE | 2020-07-23 19:41 | HP.PCM_ITS ---
Problem List (1) UTI (urinary tract infection) Status: Acute (2) Acute encephalopathy Status: Acute (3) HTN (hypertension) Status: Chronic Qualifiers: Hypertension type: essential hypertension Qualified Code(s): I10 - Essential (primary) hypertension (4) Obesity (BMI 30-39.9) Status: Chronic (5) CKD (chronic kidney disease), stage III Status: Chronic Qualifiers: Chronic kidney disease stage 3 subtype: unspecified whether 3a or 3b Qualified Code(s): N18.30 - Chronic kidney disease, stage 3 unspecified (6) Dementia Status: Chronic Qualifiers: Dementia type: unspecified type Dementia behavioral disturbance: without behavioral disturbance Qualified Code(s): F03.90 - Unspecified dementia without behavioral disturbance (7) GERD (gastroesophageal reflux disease) Status: Chronic Qualifiers: Esophagitis presence: esophagitis presence not specified Qualified Code(s): K21.9 - Gastro-esophageal reflux disease without esophagitis (8) Hyperlipidemia Status: Chronic Qualifiers: Hyperlipidemia type: unspecified Qualified Code(s): E78.5 - Hyperlipidemia, unspecified (9) Obstructive sleep apnea Status: Chronic (10) Type II diabetes mellitus Status: Chronic Qualifiers: Diabetes mellitus assisted insulin use: without assisted use Diabetes mellitus complication status: with other specified complication Qualified Code(s): E11.69 - Type 2 diabetes mellitus with other specified complication History of Present Illness Date of Admission: 07/23/20 Chief Complaint: Debility, weakness, confusion. The patient is an 84 y/o F w/ PMHx: Dementia unclear type without behavioral disturbance, Diabetes mellitus type II, Obesity, HTN, HLD, WILLIAM, GERD, Hx Frequent UTIs who presents to the [facility] ED on 07/23/20 with history of increasing generalized weakness, fatigue over the last 36 hours, even noted per her daughter to be unable to get out of her chair secondary to increased debility and weakness with no recent fever, chills, nausea, emesis, alteration sense of taste or smell, dyspnea, cough. Work-up in the ED included T 98, heart 93, BP 115/54, respiratory rate 16, 97% on room air, urinalysis significant appearing with evidence of urinary tract infection, urine culture pending per ED, CT brain with no acute intracranial findings, chest x-ray with no acute cardiopulmonary findings, CBC with WBC 13.5, hemoglobin 12, platelet 193 with left shift, CMP with chloride 110, BUN/creatinine 33/1.28, glucose 263 otherwise not marked appearing, troponin less than 0.015, EKG ? PAF versus sinus rhythm with PACs, urinalysis significant appearing for likely UTI, urine culture pending per ED. In the ED patient ministered normal saline and Rocephin therapy however significantly noted resistance pattern to Rocephin prior, Chronic CT head without acute intracranial findings, CXR without acute findings. Past Medical History Past Medical History (Chronic Problems): Chronic Problems HTN (hypertension) (Chronic) Obesity (BMI 30-39.9) (Chronic) CKD (chronic kidney disease), stage III (Chronic) Dementia (Chronic) GERD (gastroesophageal reflux disease) (Chronic) Hyperlipidemia (Chronic) Obstructive sleep apnea (Chronic) Type II diabetes mellitus (Chronic) Allergies sulfamethoxazole [From Marra] Allergy (Verified 07/23/20 18:11) Hives trimethoprim [From Marra] Allergy (Verified 07/23/20 18:11) Hives adhesive tape Adverse Reaction (Verified 07/23/20 18:11) Rash Home Medications: Ambulatory Orders Medication Instructions Recorded Aspirin [Aspirin, Baby] 81 mg PO DAILY@0800 02/01/19 Omeprazole [Prilosec] 40 mg PO DAILY 02/01/19 Glipizide [Glipizide ER] 5 mg PO DAILY 08/16/19 Lecithin, Soy [Lecithin] 400 mg PO BID 08/16/19 Nystatin Powder [Mycostatin Powder] 1 applic TOPICAL BID bottle 08/19/19 Exenatide Microspheres [Bydureon 2 mg SQ TU 07/23/20 Pen] Lactobacillus Acidophilus 1 ea PO DAILY 07/23/20 [Acidophilus] Latanoprost 2.5 ml OP DAILY 07/23/20 Lisinopril [Prinivil] 10 mg PO DAILY 07/23/20 Magnesium Oxide [Mag-Ox 400] 400 mg PO DAILY 07/23/20 Simvastatin 40 mg PO DAILY 07/23/20 Surgical History: appendectomy, cholecystectomy, hysterectomy, tonsillectomy Psychiatric History: No pertinent psych hx 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 Denies: Chills, Fever, Weight Change HEENT: Denies: Head Aches, Sinus Congestion, Sinus Drainage Cardiovascular: Denies: Chest Pain, Palpitations Respiratory: Denies: Cough, Shortness of breath at rest, Sputum production Gastrointestinal: Denies: Abdominal Pain, Nausea, Vomiting Genitourinary: Reports: Dysuria, Frequency Musculoskeletal: Reports: Back Pain, Joint Pain, Muscle pain. Denies: Joint Tenderness Skin: Denies: Rash, Wounds Neurological: Reports: Confusion. Denies: Focal weakness, Numbness, Tingling Psychiatric: Denies: Anxiety, Depression, Homicidal Ideations, Suicidal Ideations Hematologic/ Lymphatic: Reports: Easy Bruising. Denies: Easy Bleeding VTE Information - Inpt Only VTE Present on Admission: No VTE Mechan Device Prophylaxis: SCD's VTE Pharm Prophylaxis ordered?: Yes Patient Problems: Active and Suspected Problems UTI (urinary tract infection) (Acute) Acute encephalopathy (Acute) Subjective: Patient seated upright in the ED bed, fatigued appearing, clearly confused with underlying history of dementia. Objective: Physical Examination: General: awake, alert, oriented to self, place and in some recent events but clearly confused with underlying dementia, remains cooperative, seated upright in the ED physician, fatigued appearing. Skin: normal color, turgor, no icterus, cyanosis. HEENT: AT/NC, EOMI, PERRLA, dry MM, no carotid bruits or JVD noted. Lungs: Diminished breath sounds, greater bases, moderate effort, no rales, ronchi or wheezing. Heart: Irregular, rate controlled; no gallop, rub audible. Abdomen: soft, pes, NTTP, ND, normal BS, he is evidence of HSM. Extremities: no cyanosis, clubbing, or edema. Neurological: patient awake, alert, oriented as noted; cognitive function decreased baseline with underlying dementia, not currently at baseline likely secondary to acute presentation; pupils equally reactive to light and accomodation; cranial nerves II-XII grossly normal, moving all 4 extremities, no focal deficits, strength severely globally decreased secondary to acute presentation. Psychiatric: affect appears fatigued, no acute evidence of depressive or anxiety feelings. - Physical Exam Vitals/I&O's: Vital Signs Temp Pulse Resp BP Pulse Ox 98 F 93 16 115/54 L 97 07/23/20 17:08 07/23/20 17:08 07/23/20 17:08 07/23/20 17:08 07/23/20 17:08 Weight: 193 lb 1.999 oz Body Mass Index (BMI) 37.7 Finger Stick Blood Glucose 108 Intake and Output for Last 24 Hours 07/21/20 07/22/20 07/23/20 23:59 23:59 23:59 Intake Total 500 / 500 Balance 500 / 500 Laboratory Results 07/23/20 18:00: Urine Color Yellow, Urine Clarity Clear, Urine pH 5.0, Ur Specific [place] 1.015, Urine Protein 15 H, Urine Glucose (UA) 250 H, Urine Ketones Negative, Urine Occult Blood 150 H, Urine Nitrite Positive H, Urine Bilirubin Negative, Urine Urobilinogen Normal, Ur Leukocyte Esterase 500 H, Urine RBC 0-5 SEEN, Urine WBC 25-50 SEEN, Ur Squamous Epith Cells 0-5 SEEN, Urine Bacteria 3+, Urine Mucus 0 SEEN 07/23/20 18:45: WBC 13.5 H, RBC 4.11 L, Hgb 12.0, Hct 36.9 L, MCV 89.8, MCH 29.2, MCHC 32.5, RDW Std Deviation 45.8 H, RDW Coeff of Wesley 13.9, Plt Count 193, MPV 11.1, Immature Gran % (Auto) 0.400, Neut % (Auto) 78.9 H, Lymph % (Auto) 10.2 L, Ramsey % (Auto) 9.7, Eos % (Auto) 0.4, Baso % (Auto) 0.4, Absolute Neuts (auto) 10.6 H, Absolute Lymphs (auto) 1.37, Nucleated RBC % 0 07/23/20 18:45: Sodium 139, Potassium 4.5, Chloride 110 H, Carbon Dioxide 22.0, Anion Gap 7, BUN 33 H, Creatinine 1.28 H, Estim Creat Clear Calc 23.50, Est GFR (MDRD) Af Amer 51 L, Est GFR (MDRD) Non-Af 42 L, BUN/Creatinine Ratio 25.8 H, Glucose 263 H, Calcium 8.8, Total Bilirubin 0.50, AST 25, ALT 25, Alkaline Phosphatase 77, Troponin I < 0.015, Total Protein 7.6, Albumin 3.5, Globulin 4.1, Albumin/Globulin Ratio 0.9 Assessment/Plan All Active Problems Traumatic closed displaced fracture of shafts of left ulna and radius (Acute) UTI (urinary tract infection) (Acute) Hypoglycemia associated with diabetes (Acute) Pyelonephritis (Acute) Severe sepsis (Acute) Acute encephalopathy (Acute) The patient is an 84 y/o F w/ PMHx: Dementia unclear type without behavioral disturbance, Diabetes mellitus type II, Obesity, HTN, HLD, WILLIAM, GERD, Hx Frequent UTIs who presents to the [facility] ED on 07/23/20 with history of increasing generalized weakness, fatigue over the last 36 hours, even noted per her daughter to be unable to get out of her chair secondary to increased debility and weakness with no recent fever, chills, nausea, emesis, alteration sense of taste or smell, dyspnea, cough. 1. Acute Debility, Acute Encephalopathy secondary to Acute Urinary Tract Infection: Prior urine cultures with E. coli, Enterococcus and Proteus with significant resistance patterns. Will admit to the PCU given #2, UA upon ED evaluation remarkable, pending UCx, continue IVFs, monitor I/Os, continue IV Zosyn per review of prior cultures w/ transition as able pending sensitivities and speciation and may consider infectious disease consultation if necessary. Bld cx x 2 obtained in the ED. 2. ? Paroxsymal atrial fibrillation versus sinus rhythm with notable PACs: EKG in ED w/ atrial fibrillation rate controlled versus sinus rhythm with PACs, rate controlled if indeed in atrial fibrillation, no prior history noted per records, maintain on telemetry, obtain cardiac enzyme serial set, obtain magnesium level, obtain ECHO, obtain TSH level, adding beta-libia low dose in the interim, initiate therapeutic Lovenox pending further evaluation given other additional history high risk and high CHADS2 score pending repeat EKG in a.m. IF NOT evidence PAF on telemetry and repeat AM EKG then d/c therapeutic regimen and BB. 3. Hypertension: Continue home regimen including low-dose lisinopril, adding beta-libia therapy as noted above, PRN hydralazine. 4. Hyperlipidemia: We will continue patient home statin therapy. 5. Diabetes mellitus type II: Will hold oral regimen, continue home insulin regimen, ADA diet, accu checks w/ ISS. 6. WILLIAM: We will continue CPAP nightly. 7. Obesity: Weight loss and lifestyle changes encouraged. 8. GERD: We will continue PPI. 9. Chronic Kidney Disease Stage III with mild renal insufficiency likely secondary to #1: Admission BUN/Cr 33/1.28, baseline renal function 0.8-0.9, repeat BMP in AM. 10. Dementia unclear type without behavioral disturbance: Complicates presentation, poor historian, fall precautions, therapies consulted as noted. 11. DVT prophylaxis: SCDs, Lovenox as noted. 12. CODE STATUS: Full code. Inpatient E&M: 15670 Init Hosp L3
[2020-07-23 20:32] VITALS: BP 157/55; PULSE 81; RESP 20; TEMP 36.3; O2SAT 97
[2020-07-23 20:50] VITALS: BP 136/81; PULSE 85; RESP 18; TEMP 37.7; O2SAT 98
[2020-07-23 20:55] VITALS: BMI 36.6
[2020-07-23 21:06] VITALS: BMI 36.6
[2020-07-23 21:13] VITALS: PULSE 84
[2020-07-23 21:13] LABS: Magnesium 1.9 mg/dL (1.6-2.6); Thyroid Stim Hormone (TSH) 0.89 uIU/mL (0.358-3.74)
--- NOTE | 2020-07-23 21:29 | PCS.PANDOC ---
PANDEMIC DOCUMENTATION INITIATED: Date: 07/23/20 Time: 2041
[2020-07-23] MEDS: 0.9% Normal Saline 1,000 ML 100 ML IV (21:58)
[2020-07-23 22:48] VITALS: PULSE 90
[2020-07-23] MEDS: Metoprolol Tartrate 25 MG Tablet 12.5 MG PO (22:48)
[2020-07-23] MEDS: Nystatin Powder 15gm Bottle 1 APPLIC TOPICAL (22:52)
[2020-07-23] MEDS: Atorvastatin Calcium 20 MG Tablet PO (22:52)
[2020-07-23] MEDS: Insulin Lispro 100 UNIT/ML INSULN.PEN SC (22:53)
[2020-07-23 23:06] LABS: Bedside Glucose 196 mg/dL (70-110)
[2020-07-24] VITALS (13 sets, daily range): BP systolic 133–158; BP diastolic 61–84; PULSE 68–99; RESP 16–18; TEMP 36.8–37.1; O2SAT 94–97
--- NOTE | 2020-07-24 05:55 | EKG12_ITS ---
Test Reason : AM EKG Blood Pressure : / mmHG Vent. Rate : 099 BPM Atrial Rate : 099 BPM P-R Int : 134 ms QRS Dur : 074 ms QT Int : 342 ms P-R-T Axes : 064 033 076 degrees QTc Int : 438 ms Normal sinus rhythm Normal ECG Confirmed by CAROLYNN MURRAY, JUNG ([id number]), managing editor MARJ WU ([id number]) on 07/28/2020 9:48:44 AM Referred By: DR VELASQUEZ Confirmed By:JUNG PRADHAN MD
[2020-07-24 06:06] LABS: Absolute Lymphocyte Count 0.67 X10^3/uL (0.83-4.51); Absolute Neutrophil Count 9.9 X10^3/uL (2.0-7.7); Basophil# 0.05 X10^3/uL; Basophil% 0.4 % (0-1); Eosinophils% 0.9 % (0-5); Hematocrit 35.4 % (37-47); Hemoglobin 11.3 g/dL (12.0-15.0); Lymphocyte # 0.67 X10^3/ul (4.0); Lymphocyte % 5.8 % (19-41); Mean Corp Hgb Conc 31.9 g/dL (32-36); Mean Corpuscular Hgb 28.3 pg (27.0-32.0); Mean Corpuscular Volume 88.7 fL (81-99); Mean Platelet Vol. 11.2 fl (6.2-12.0); Monocyte# 0.82 X10^3/uL; NRBC Flagged by Analyzer 0 % (0-5); Neutrophil # 9.94 X10^3/uL (2.7-7.7); Neutrophil % 85.4 % (47-70); Platelet Count 167 K/mm3 (150-450); RBC Distribution Width CV 13.7 % (11.6-14.6); RBC Distribution Width SD 45.2 fl (35.1-43.9); Red Blood Count 3.99 M/mm3 (4.2-5.4); White Blood Count 11.6 K/mm3 (4.4-11.0)
[2020-07-24] MEDS: Insulin Lispro 100 UNIT/ML INSULN.PEN SC ×3 (06:38→16:35)
[2020-07-24 06:40] LABS: Bedside Glucose 244 mg/dL (70-110)
[2020-07-24 06:40] LABS: ALB/GLOB Ratio 0.9 RATIO (0.9-2.4); AST(SGOT) 31 U/L (15-37); Alanine Aminotransfer ALT/SGPT 24 U/L (13-56); Albumin, Serum 3.2 g/dL (3.2-5.0); Alkaline Phosphatase 68 U/L (45-117); Anion Gap 8 (5-15); BUN 26 mg/dL (7-18); Calcium,Total 8.3 mg/dL (8.5-10.1); Chloride 109 mmol/L (98-107); Creatinine, Serum 1.04 mg/dL (0.55-1.02); EST Glomerular Filtration Rate 54 mL/min (>60); Est Glom Filt Rate - Afr Amer 65 mL/min (>60); Estimated Creatinine Clearance 28.92 ml/min; Globulin 3.6 g/dL (2.2-4.2); Glucose 237 mg/dL (74-106); Protein, Total 6.8 g/dL (6.4-8.2); Sodium Level 140 mmol/L (136-145)
[2020-07-24] MEDS: Pantoprazole Sodium 40 MG Tablet PO (08:03)
[2020-07-24] MEDS: Aspirin 81 MG TAB.CHEW PO (08:03)
[2020-07-24] MEDS: Lisinopril 10 MG Tablet PO (08:03)
[2020-07-24] MEDS: Enoxaparin 100 MG/ML Syringe 90 MG SC (08:04)
[2020-07-24] MEDS: Metoprolol Tartrate 25 MG Tablet 12.5 MG PO ×2 (08:05→21:39)
[2020-07-24] MEDS: Latanoprost 0.005% 1 Bottle 1 DRP RIGHT EYE (08:05)
[2020-07-24] MEDS: Glucerna Shake 120 ML LIQUID PO ×3 (08:06→17:23)
[2020-07-24] MEDS: Nystatin Powder 15gm Bottle 1 APPLIC TOPICAL ×2 (08:06→21:40)
--- NOTE | 2020-07-24 08:23 | PCM.PROGNOTE ---
Patient Problems: Active and Suspected Problems UTI (urinary tract infection) (Acute) Acute encephalopathy (Acute) Subjective: Chief complaint: Follow-up after admission for acute cystitis and encephalopathy. Patient seen and examined. No acute events overnight. She just woke up from sleep. She is alert and noted x3. She denied any significant complaints. Her vital signs are stable, afebrile. - Physical Exam Vitals/I&O's: Vital Signs Temp Pulse Resp BP Pulse Ox 98.3 F 99 16 147/64 H 94 07/24/20 07:54 07/24/20 08:05 07/24/20 07:54 07/24/20 08:05 07/24/20 07:54 Oxygen Delivery Method Room Air Weight: 187 lb 9.814 oz Body Mass Index (BMI) 36.6 Finger Stick Blood Glucose 108 Intake and Output for Last 24 Hours 07/22/20 07/23/20 07/24/20 23:59 23:59 23:59 Intake Total 845 / 845 600 / 600 Output Total 250 / 250 Balance 845 / 845 350 / 350 General: Alert, Oriented x3, Cooperative, No apparent distress HEENT: Atraumatic, PERRLA, EOMI, Normocephalic Oral: Moist Mucosa, No Gingival or Mucosal Lesions/ Ulcerations Neck: Supple, No JVD, Negative Carotid Bruits, Trachea Midline, Thyroid Normal Size and Texture Lungs: Clear to auscultation, No rhonchi, No wheeze, No rales, Diminished Cardiovascular: Regular rate, Regular Rhythm, Normal S1, Normal S2, PMI Normal Abdomen: Bowel Sounds Present, Soft, Non Tender, Non-Distended, No Hepato-splenomegaly Extremities: No clubbing, No cyanosis, No edema Skin: No rashes, No breakdown Neurological: Cranial nerves II-XII grossly intact, Neuro grossly intact Psych/Mental Status: Normal Affect, Appropriate Laboratory Results 07/23/20 18:00: Urine Color Yellow, Urine Clarity Clear, Urine pH 5.0, Ur Specific [place] 1.015, Urine Protein 15 H, Urine Glucose (UA) 250 H, Urine Ketones Negative, Urine Occult Blood 150 H, Urine Nitrite Positive H, Urine Bilirubin Negative, Urine Urobilinogen Normal, Ur Leukocyte Esterase 500 H, Urine RBC 0-5 SEEN, Urine WBC 25-50 SEEN, Ur Squamous Epith Cells 0-5 SEEN, Urine Bacteria 3+, Urine Mucus 0 SEEN 07/23/20 18:45: WBC 13.5 H, RBC 4.11 L, Hgb 12.0, Hct 36.9 L, MCV 89.8, MCH 29.2, MCHC 32.5, RDW Std Deviation 45.8 H, RDW Coeff of Wesley 13.9, Plt Count 193, MPV 11.1, Immature Gran % (Auto) 0.400, Neut % (Auto) 78.9 H, Lymph % (Auto) 10.2 L, Price % (Auto) 9.7, Eos % (Auto) 0.4, Baso % (Auto) 0.4, Absolute Neuts (auto) 10.6 H, Absolute Lymphs (auto) 1.37, Nucleated RBC % 0 07/23/20 18:45: Sodium 139, Potassium 4.5, Chloride 110 H, Carbon Dioxide 22.0, Anion Gap 7, BUN 33 H, Creatinine 1.28 H, Estim Creat Clear Calc 23.50, Est GFR (MDRD) Af Amer 51 L, Est GFR (MDRD) Non-Af 42 L, BUN/Creatinine Ratio 25.8 H, Glucose 263 H, Calcium 8.8, Total Bilirubin 0.50, AST 25, ALT 25, Alkaline Phosphatase 77, Troponin I < 0.015, Total Protein 7.6, Albumin 3.5, Globulin 4.1, Albumin/Globulin Ratio 0.9 07/23/20 18:45: Magnesium 1.9, TSH 0.89 07/23/20 22:00: Troponin I < 0.015 07/23/20 22:45: POC Glucose 196 H 07/24/20 00:20: Troponin I < 0.015 07/24/20 05:35: WBC 11.6 H, RBC 3.99 L, Hgb 11.3 L, Hct 35.4 L, MCV 88.7, MCH 28.3, MCHC 31.9 L, RDW Std Deviation 45.2 H, RDW Coeff of Wesley 13.7, Plt Count 167, MPV 11.2, Immature Gran % (Auto) 0.500, Neut % (Auto) 85.4 H, Lymph % (Auto) 5.8 L, Price % (Auto) 7.0, Eos % (Auto) 0.9, Baso % (Auto) 0.4, Absolute Neuts (auto) 9.9 H, Absolute Lymphs (auto) 0.67 L, Nucleated RBC % 0 07/24/20 05:35: Sodium 140, Potassium 4.0, Chloride 109 H, Carbon Dioxide 23.0, Anion Gap 8, BUN 26 H, Creatinine 1.04 H, Estim Creat Clear Calc 28.92, Est GFR (MDRD) Af Amer 65, Est GFR (MDRD) Non-Af 54 L, BUN/Creatinine Ratio 25.0 H, Glucose 237 H, Calcium 8.3 L, Total Bilirubin 0.70, AST 31, ALT 24, Alkaline Phosphatase 68, Total Protein 6.8, Albumin 3.2, Globulin 3.6, Albumin/Globulin Ratio 0.9 07/24/20 06:35: POC Glucose 244 H Current Medications Acetaminophen (Acetaminophen 325 Mg Tablet) 650 mg PO Q6H PRN PRN PRN Reason: Pain Score 1-10/Temp > 100.7 F Al Hydroxide/Mg Hydroxide (Mag Hydrox/Al Hydrox/Simeth 30 Ml Udc) 30 ml PO Q6H PRN PRN PRN Reason: Gastric Burning Albuterol Sulfate (Albuterol 2.5 Mg/3 Ml Vial.Neb.) 2.5 mg INHALATION Q2H PRN PRN PRN Reason: Dyspnea, wheezing Aspirin (Aspirin 81 Mg Tab.Chew) 81 mg PO DAILY@0800 [facility] Last Admin: 07/24/20 08:03 Dose: 81 mg Documented by: Atorvastatin Calcium (Atorvastatin Calcium 20 Mg Tablet) 20 mg PO QHS [facility] Last Admin: 07/23/20 22:52 Dose: 20 mg Documented by: Enoxaparin Sodium (Enoxaparin 100 Mg/Ml Syringe) 90 mg SC DAILY [facility] Last Admin: 07/24/20 08:04 Dose: 90 mg Documented by: Guaifenesin (Guaifenesin 10 Ml Udc (200mg/10ml)) 20 ml PO Q4H PRN PRN PRN Reason: COUGH Hydralazine HCl (Hydralazine 20 Mg/Ml Vial) 10 mg IV Q4H PRN PRN PRN Reason: SBP > 160 Piperacillin Sod/Tazobactam (Sod 3.375 gm/ Sodium Chloride) 50 mls @ 12.5 mls/hr IV Q8 [facility] Last Admin: 07/24/20 05:09 Dose: 12.5 mls/hr Documented by: Sodium Chloride () 250 mls @ 15 mls/hr IV .[id number] PRN PRN Reason: Saline Flush Sodium Chloride () 250 mls @ 15 mls/hr IV .[id number] PRN PRN Reason: Additional IVPB Infusion Insulin Human Lispro (Insulin Lispro 100 Unit/Ml Insuln.Pen) 0 unit SC ACHS [facility]; Protocol Last Admin: 07/24/20 06:38 Dose: 3 units Documented by: Lactobacillus Acidophilus (Lactobacillus Acidophilus) 1 tablet PO DAILY [facility] Last Admin: 07/24/20 08:03 Dose: 1 tablet Documented by: Latanoprost (Latanoprost 0.005% 1 Bottle) 1 drop RIGHT EYE DAILY [facility] Last Admin: 07/24/20 08:05 Dose: 1 drop Documented by: Lisinopril (Lisinopril 10 Mg Tablet) 10 mg PO DAILY [facility] Last Admin: 07/24/20 08:03 Dose: 10 mg Documented by: Magnesium Hydroxide (Magnesium Hydroxide 30 Ml Udc) 30 ml PO DAILY PRN PRN PRN Reason: Constipation Melatonin (Melatonin 3 Mg Tablet) 3 mg PO QHS PRN PRN PRN Reason: INSOMNIA Metoprolol Tartrate (Metoprolol Tartrate 25 Mg Tablet) 12.5 mg PO BID [facility] Last Admin: 07/24/20 08:05 Dose: 12.5 mg Documented by: Nutritional Formula (Lactose Free) (Glucerna Shake 120 Ml Liquid) 120 ml PO TIDCM [facility] Last Admin: 07/24/20 08:06 Dose: 120 ml Documented by: Nystatin (Nystatin Powder 15gm Bottle) 1 applic TOPICAL BID [facility]; Protocol Last Admin: 07/24/20 08:06 Dose: 1 applicatio Documented by: Ondansetron HCl (Ondansetron 4 Mg/2 Ml Vial) 4 mg IV Q8H PRN PRN PRN Reason: NAUSEA/VOMITING Pantoprazole Sodium (Pantoprazole Sodium 40 Mg Tablet) 40 mg PO DAILY [facility] Last Admin: 07/24/20 08:03 Dose: 40 mg Documented by: Prochlorperazine Edisylate (Prochlorperazine 10 Mg/2 Ml Vial) 5 mg IV Q4H PRN PRN PRN Reason: Breakthrough nausea/vomiting Psyllium Hydrophilic Mucilloid (Psyllium 1 Packet) 1 packet PO DAILY PRN PRN PRN Reason: Constipation Senna/Docusate Sodium (Senna/Docusate Sodium 1 Tablet) 2 tablet PO BID PRN PRN PRN Reason: Constipation Sodium Chloride (0.9% Saline Lock 10 Ml Syringe) 10 - 40 ml IV UD PRN PRN Reason: SALINE FLUSH Throat Lozenges (Benzocaine/Menthol 1 Lozenge) 1 lozenge MUCOUS MEM Q2H PRN PRN PRN Reason: SORE THROAT Medical Necessity - Tobacco Use Smoking Status: Never smoker Assessment/Plan All Active Problems UTI (urinary tract infection) (Acute) Acute encephalopathy (Acute) This is an 84 years old female patient presented to the emergency room because of weakness and confusion, found to have acute cystitis with acute metabolic encephalopathy. #1 acute cystitis: She is on IV Zosyn. She had previous urine cultures with Proteus mirabilis and Enterococcus as well as E. coli. She has been afebrile, WBC is trending down. Her vital signs are stable. Urine cultures pending. Plan to continue same treatment. #2 acute encephalopathy: Secondary to acute cystitis in addition to possible baseline dementia. Today, patient is alert and noted x3. CT scan brain showed no acute findings. Chest x-ray showed no acute infiltrate or consolidation. #3 Questionable paroxysmal atrial fibrillation: Admission EKG reviewed, revealed normal sinus rhythm. Reviewed with cardiology and it is normal sinus rhythm. Repeat EKG from today revealed normal sinus rhythm, rate is controlled. No acute ischemic changes. Troponin was negative x3. TSH was normal. Serum electrolytes including magnesium and potassium were normal. Plan: 2D echocardiogram. #4 type 2 diabetes mellitus: Blood sugar stable, she is only on sliding scale, will resume glipizide. #5 hypertension: Blood pressure stable, continue lisinopril and metoprolol, IV adenosine as needed. #6 obstructive sleep apnea: Continue CPAP at night with same home settings. #7 hyperlipidemia: Continue statins. #8 DVT prophylaxis: Subcu Lovenox. This note was generated with [employer] dictation software. It may contain incorrect words, spelling, and punctuation that were not noted in checking the note before signing. Inpatient E&M: 25843 Subs Hosp L2
[2020-07-24] MEDS: 0.9% Normal Saline 1,000 ML 75 ML IV (10:43)
--- NOTE | 2020-07-24 10:46 | ECHOCS_ITS ---
Version 2 Reason For Study: AFIB Procedure This was a 2D Doppler, Color Flow transthoracic echocardiogram. The study was technically difficult. Contrast injection was performed. Patient was scanned in supine position during reflux assessment. Exam performed portable in patient room. Left Ventricle Normal LV size. Left ventricular systolic function is normal. The estimated ejection fraction is 70 %. No regional wall motion abnormalities noted. Right Ventricle Normal RV size. Normal systolic function. Tricuspid Valve Normal tricuspid valve. Mild (1+) tricuspid valve insufficiency. Pulmonary artery systolic pressure is 30 mmHg. Aortic Valve The aortic valve is not well visualized. Pulmonic Valve The pulmonic valve is not well visualized. Great Vessels Normal aortic root. The pulmonary artery is normal size. Normal inferior vena cava. Pericardium/Pleural No pericardial effusion. Medication Diluted definity 3.0ml given slow IV push to enhance endocardial definition. MMode/2D Measurements & Calculations RVDd: 2.8 cm Ao root diam: 2.2 cm LAV(MOD-sp2): 39.3 ml LA dimension(2D): 3.5 cm Time Measurements MV dec time: 0.30 sec Doppler Measurements & Calculations MV E max randy: 118.9 cm/sec Lat Peak E' Randy: 5.9 cm/sec Med Peak E' Randy: 5.3 cm/sec E/E' lat: 20.3 E/E' med: 22.5 MV V2 max: 141.2 cm/sec Ao V2 max: 128.6 cm/sec PA V2 max: 187.6 cm/sec MV max P.0 mmHg Ao max P.6 mmHg MV V2 mean: 73.4 cm/sec MV mean P.5 mmHg MV V2 VTI: 37.7 cm TR max randy: 264.0 cm/sec TR max P.9 mmHg Interpretation Summary Normal LV size. Left ventricular systolic function is normal. The estimated ejection fraction is 70 %. Pulmonary artery systolic pressure is 30 mmHg. Contrast injection was performed. Ordering Physician: Sánchez Diamond Referring Physician: JAROCHO CORTEZ Performed By: Nereyda Basilio, GUILLERMINA, RVT
--- NOTE | 2020-07-24 10:56 | CASEMGMT ---
Pt is confused and unable to answer questions appropriately/complete CM assessment at this time. Call to pt's daughter, Kriss Mireles, to do CM assessment at this time. RN CM assessment: Phone interview with pt's daughter for initial transition planning/care coordination assessment. RN CM introduced self and role at [facility], pt's daughter voices understanding and consents to assessment at this time. Per daughter, pt does have some intermittent confusion at home. Care providers, pharmacy, and demographics verified with daughter at this time. Presentation: confusion Admitting dx: Encephalopathy, UTI PCP: [facility] Specialists: Pt only has an eye drAmarilys Preferred Pharmacy: [facility] Insurance: [facility] Prescription Benefit: [facility] Living Will/HPOA: Daughter states pt has a LW/HPOA and is aware that they are not on file at [facility] at this time. Daughter states she will bring them in this afternoon to be copied and placed on chart. Daughter states she is HPOA at this time. LNOK: Kriss Mireles, daughter/HPOA Living Arrangements: Daughter states that pt currently lives alone on main level of 2 story home and has been able to care for self previously but has had increased confusion. Per daughter, pt has private duty aides for 2 hours on and daughter comes on tuesdays to do pt's meds. Pt also has a friend that may stop in on the weekend to check in on her. Transportation: Daughter states that they took pt's driving privileges away last August after admission to hospital and then SNF. Daughter states she or aide drives and states no transportation concerns at this time. DME/HHC: Daughter states pt has the following DME: cane, walker, raised toilet seat, grab bars in shower/by toilet, medical alert, and lift chair. Daughter states no need for any further DME at this time. Daughter states pt has had [facility] in the past and has been to [facility] in the past. Daughter would like pt to go home at discharge but pt is confused at this time and unsure if pt able to care for self at home. Pt is retired. Pt does not smoke cigarettes or drink ETOH. Daughter voices no further concerns/needs at this time. CM to follow PT/OT and for any further discharge planning/needs. Plan: TBD, pending PT/OT evals. SStaten RN CM
[2020-07-24 11:31] LABS: Bedside Glucose 266 mg/dL (70-110)
--- NOTE | 2020-07-24 14:30 | CASEMGMT ---
Daughter was here and this RN CM to room to talk with her and she already left. Per Sarah MASON, pt was sleeping and daughter stated, there was no point in her staying if pt was going to sleep. CM to follow up tomorrow. Thee MASON CM
--- NOTE | 2020-07-24 14:36 | NURSING ---
daughter updated about poc
[2020-07-24 16:50] LABS: Bedside Glucose 205 mg/dL (70-110)
[2020-07-24] MEDS: Atorvastatin Calcium 20 MG Tablet PO (21:40)
[2020-07-24 22:25] LABS: Bedside Glucose 143 mg/dL (70-110)
[2020-07-25] VITALS (14 sets, daily range): BP systolic 100–133; BP diastolic 42–55; PULSE 70–84; RESP 15–18; TEMP 36.8–37.1; O2SAT 94–97
[2020-07-25 06:07] LABS: Absolute Lymphocyte Count 2.49 X10^3/uL (0.83-4.51); Absolute Neutrophil Count 4.7 X10^3/uL (2.0-7.7); Basophil# 0.05 X10^3/uL; Basophil% 0.6 % (0-1); Eosinophil# 0.33 X10^3/uL; Eosinophils% 3.8 % (0-5); Hematocrit 35.2 % (37-47); Hemoglobin 11.2 g/dL (12.0-15.0); Lymphocyte # 2.49 X10^3/ul (4.0); Lymphocyte % 28.8 % (19-41); Mean Corp Hgb Conc 31.8 g/dL (32-36); Mean Corpuscular Hgb 28.3 pg (27.0-32.0); Mean Corpuscular Volume 88.9 fL (81-99); Mean Platelet Vol. 11.2 fl (6.2-12.0); Monocyte# 1.08 X10^3/uL; Monocyte% 12.5 % (0-10); NRBC Flagged by Analyzer 0 % (0-5); Neutrophil # 4.68 X10^3/uL (2.7-7.7); Neutrophil % 54.1 % (47-70); Platelet Count 167 K/mm3 (150-450); RBC Distribution Width SD 45.5 fl (35.1-43.9); Red Blood Count 3.96 M/mm3 (4.2-5.4); White Blood Count 8.7 K/mm3 (4.4-11.0)
[2020-07-25 06:46] LABS: Bedside Glucose 131 mg/dL (70-110)
--- NOTE | 2020-07-25 08:06 | PCM.PROGNOTE ---
Patient Problems: Active and Suspected Problems UTI (urinary tract infection) (Acute) Acute encephalopathy (Acute) Subjective: Chief complaint: Follow-up after admission for acute cystitis and encephalopathy. Patient seen and examined. No acute events overnight. Smiling, she is very sleepy and lethargic but arousable. She could not provide any history. Her vital signs are stable. - Physical Exam Vitals/I&O's: Vital Signs Temp Pulse Resp BP Pulse Ox 98.7 F 80 17 133/47 H 94 07/25/20 07:52 07/25/20 07:52 07/25/20 07:52 07/25/20 07:52 07/25/20 07:52 Oxygen Delivery Method Room Air Weight: 187 lb 9.814 oz Body Mass Index (BMI) 36.6 Finger Stick Blood Glucose 108 Intake and Output for Last 24 Hours 07/23/20 07/24/20 07/25/20 23:59 23:59 23:59 Intake Total 845 / 845 2133.75 / 2133.75 66.25 / 66.25 Output Total 350 / 350 200 / 200 Balance 845 / 845 1783.75 / 1783.75 -133.75 / -133.75 General: Lethargic, - - Sleepy, arousable. HEENT: Atraumatic, PERRLA, EOMI, Normocephalic Oral: Moist Mucosa, No Gingival or Mucosal Lesions/ Ulcerations Neck: Supple, No JVD, Negative Carotid Bruits, Trachea Midline, Thyroid Normal Size and Texture Lungs: Clear to auscultation, No rhonchi, No wheeze, No rales, Diminished Cardiovascular: Regular rate, Regular Rhythm, Normal S1, Normal S2, PMI Normal Abdomen: Bowel Sounds Present, Soft, Non Tender, Non-Distended, No Hepato-splenomegaly Extremities: No clubbing, No cyanosis, No edema Skin: No rashes, No breakdown Lymphatic: No Cervical, Supraclavicular, or Inguinal Adenopathy Neurological: Cranial nerves II-XII grossly intact, Neuro grossly intact Psych/Mental Status: - - Unable to assess, patient is sleepy. Microbiology Past 72 Hours 07/23/20 18:00 Urine Catheter - Catheter Urine Culture - Preliminary Presumptive E. coli Laboratory Results 07/24/20 11:02: POC Glucose 266 H 07/24/20 16:33: POC Glucose 205 H 07/24/20 21:39: POC Glucose 143 H 07/25/20 05:35: WBC 8.7, RBC 3.96 L, Hgb 11.2 L, Hct 35.2 L, MCV 88.9, MCH 28.3, MCHC 31.8 L, RDW Std Deviation 45.5 H, RDW Coeff of Wesley 14.0, Plt Count 167, MPV 11.2, Immature Gran % (Auto) 0.200, Neut % (Auto) 54.1, Lymph % (Auto) 28.8, [place] % (Auto) 12.5 H, Eos % (Auto) 3.8, Baso % (Auto) 0.6, Absolute Neuts (auto) 4.7, Absolute Lymphs (auto) 2.49, Nucleated RBC % 0 07/25/20 06:39: POC Glucose 131 H Current Medications Acetaminophen (Acetaminophen 325 Mg Tablet) 650 mg PO Q6H PRN PRN PRN Reason: Pain Score 1-10/Temp > 100.7 F Al Hydroxide/Mg Hydroxide (Mag Hydrox/Al Hydrox/Simeth 30 Ml Udc) 30 ml PO Q6H PRN PRN PRN Reason: Gastric Burning Albuterol Sulfate (Albuterol 2.5 Mg/3 Ml Vial.Neb.) 2.5 mg INHALATION Q2H PRN PRN PRN Reason: Dyspnea, wheezing Aspirin (Aspirin 81 Mg Tab.Chew) 81 mg PO DAILY@0800 [facility] Last Admin: 07/24/20 08:03 Dose: 81 mg Documented by: Atorvastatin Calcium (Atorvastatin Calcium 20 Mg Tablet) 20 mg PO QHS [facility] Last Admin: 07/24/20 21:40 Dose: 20 mg Documented by: Enoxaparin Sodium (Enoxaparin 30 Mg/0.3 Ml Syringe) 30 mg SC DAILY [facility] Glipizide (Glipizide Xl 5 Mg Tablet) 5 mg PO DAILY@0800 [facility] Guaifenesin (Guaifenesin 10 Ml Udc (200mg/10ml)) 20 ml PO Q4H PRN PRN PRN Reason: COUGH Hydralazine HCl (Hydralazine 20 Mg/Ml Vial) 10 mg IV Q4H PRN PRN PRN Reason: SBP > 160 Piperacillin Sod/Tazobactam (Sod 3.375 gm/ Sodium Chloride) 50 mls @ 12.5 mls/hr IV Q8 [facility] Last Admin: 07/25/20 05:02 Dose: 12.5 mls/hr Documented by: Sodium Chloride () 250 mls @ 15 mls/hr IV .[id number] PRN PRN Reason: Saline Flush Sodium Chloride () 250 mls @ 15 mls/hr IV .[id number] PRN PRN Reason: Additional IVPB Infusion Insulin Human Lispro (Insulin Lispro 100 Unit/Ml Insuln.Pen) 0 unit SC ACHS [facility]; Protocol Last Admin: 07/25/20 06:41 Dose: Not Given Documented by: Lactobacillus Acidophilus (Lactobacillus Acidophilus) 1 tablet PO DAILY [facility] Last Admin: 07/24/20 08:03 Dose: 1 tablet Documented by: Latanoprost (Latanoprost 0.005% 1 Bottle) 1 drop RIGHT EYE DAILY [facility] Last Admin: 07/24/20 08:05 Dose: 1 drop Documented by: Lisinopril (Lisinopril 10 Mg Tablet) 10 mg PO DAILY [facility] Last Admin: 07/24/20 08:03 Dose: 10 mg Documented by: Magnesium Hydroxide (Magnesium Hydroxide 30 Ml Udc) 30 ml PO DAILY PRN PRN PRN Reason: Constipation Melatonin (Melatonin 3 Mg Tablet) 3 mg PO QHS PRN PRN PRN Reason: INSOMNIA Metoprolol Tartrate (Metoprolol Tartrate 25 Mg Tablet) 12.5 mg PO BID [facility] Last Admin: 07/24/20 21:39 Dose: 12.5 mg Documented by: Nutritional Formula (Lactose Free) (Glucerna Shake 120 Ml Liquid) 120 ml PO TIDCM [facility] Last Admin: 07/24/20 17:23 Dose: 120 ml Documented by: Nystatin (Nystatin Powder 15gm Bottle) 1 applic TOPICAL BID [facility]; Protocol Last Admin: 07/24/20 21:40 Dose: 1 applicatio Documented by: Ondansetron HCl (Ondansetron 4 Mg/2 Ml Vial) 4 mg IV Q8H PRN PRN PRN Reason: NAUSEA/VOMITING Pantoprazole Sodium (Pantoprazole Sodium 40 Mg Tablet) 40 mg PO DAILY [facility] Last Admin: 07/24/20 08:03 Dose: 40 mg Documented by: Prochlorperazine Edisylate (Prochlorperazine 10 Mg/2 Ml Vial) 5 mg IV Q4H PRN PRN PRN Reason: Breakthrough nausea/vomiting Psyllium Hydrophilic Mucilloid (Psyllium 1 Packet) 1 packet PO DAILY PRN PRN PRN Reason: Constipation Senna/Docusate Sodium (Senna/Docusate Sodium 1 Tablet) 2 tablet PO BID PRN PRN PRN Reason: Constipation Sodium Chloride (0.9% Saline Lock 10 Ml Syringe) 10 - 40 ml IV UD PRN PRN Reason: SALINE FLUSH Throat Lozenges (Benzocaine/Menthol 1 Lozenge) 1 lozenge MUCOUS MEM Q2H PRN PRN PRN Reason: SORE THROAT Medical Necessity - Tobacco Use Smoking Status: Never smoker Assessment/Plan All Active Problems UTI (urinary tract infection) (Acute) Acute encephalopathy (Acute) This is an 84 years old female patient presented to the emergency room because of weakness and confusion, found to have acute cystitis with acute metabolic encephalopathy. #1 acute cystitis: Remained on IV Zosyn. She has been afebrile, WBC is back to normal. She has been afebrile, other vital signs are stable. Previous urine cultures reviewed again and revealed ESBL E. coli, Proteus and Enterococcus. Urine culture from this admission revealed E. coli, final is pending. Plan to continue same treatment, infectious disease consult for ESBL E. coli. #2 acute encephalopathy: Secondary to acute cystitis in addition to possible baseline dementia. Today, patient is sleepy but arousable. Nursing staff mentioned that patient has been having difficulties keeping her awake and she needed assistance for feeding. CT scan brain showed no acute findings. Chest x-ray showed no acute infiltrate or consolidation. Plan to monitor. #3 Questionable paroxysmal atrial fibrillation: Ruled out. Admission EKG reviewed, revealed normal sinus rhythm. Reviewed with cardiology and it is normal sinus rhythm. Repeat EKG revealed normal sinus rhythm, rate is controlled. No acute ischemic changes. Troponin was negative x3. TSH was normal. 2D echocardiogram revealed normal LV size and function, ejection fraction of 70%, no significant valvular heart disease. #4 type 2 diabetes mellitus: Blood sugar stable, she is only on sliding scale, continue glipizide. #5 hypertension: Blood pressure stable, continue lisinopril and metoprolol, IV hydralazine as needed. #6 obstructive sleep apnea: Continue CPAP at night with same home settings. #7 hyperlipidemia: Continue statins. #8 DVT prophylaxis: Subcu Lovenox. This note was generated with [employer] dictation software. It may contain incorrect words, spelling, and punctuation that were not noted in checking the note before signing. Inpatient E&M: 68119 Subs Hosp L2
[2020-07-25] MEDS: Nystatin Powder 15gm Bottle 1 APPLIC TOPICAL ×2 (10:28→21:20)
[2020-07-25] MEDS: Metoprolol Tartrate 25 MG Tablet 12.5 MG PO ×2 (10:29→21:20)
[2020-07-25] MEDS: Aspirin 81 MG TAB.CHEW PO (10:29)
[2020-07-25] MEDS: Lisinopril 10 MG Tablet PO (10:29)
[2020-07-25] MEDS: glipiZIDE XL 5 MG Tablet PO (10:29)
[2020-07-25] MEDS: Enoxaparin 30 MG/0.3 ML Syringe SC (10:30)
[2020-07-25] MEDS: Latanoprost 0.005% 1 Bottle 1 DRP RIGHT EYE (10:30)
[2020-07-25] MEDS: Pantoprazole Sodium 40 MG Tablet PO (10:30)
[2020-07-25] MEDS: Glucerna Shake 120 ML LIQUID PO ×3 (10:35→16:55)
--- NOTE | 2020-07-25 11:00 | PCM.HP.ID ---
Problem List (1) UTI (urinary tract infection) Status: Acute Reason for Consult: uti Consulted by: Dr. Diamond History of Present Illness: The patient is a 84 year old F with dementia, presented 07/23 from [facility] with acute onset confusion, weakness, fatigue, suspected uti. Admitted on zosyn, feeling better, denies pain, no n/v/d. Full ROS performed and neg except as noted above. - Medical History Past Medical History (Chronic Problems): Chronic Problems HTN (hypertension) (Chronic) Obesity (BMI 30-39.9) (Chronic) CKD (chronic kidney disease), stage III (Chronic) Dementia (Chronic) GERD (gastroesophageal reflux disease) (Chronic) Hyperlipidemia (Chronic) Obstructive sleep apnea (Chronic) Type II diabetes mellitus (Chronic) Allergies/Adverse Reactions: Allergies sulfamethoxazole [From ] Allergy (Verified 07/23/20 18:11) Hives trimethoprim [From ] Allergy (Verified 07/23/20 18:11) Hives adhesive tape Adverse Reaction (Verified 07/23/20 18:11) Rash Home Medications: Ambulatory Orders Medication Instructions Recorded Aspirin [Aspirin, Baby] 81 mg PO DAILY@0800 02/01/19 Omeprazole [Prilosec] 40 mg PO DAILY 02/01/19 Glipizide [Glipizide ER] 5 mg PO DAILY 08/16/19 Lecithin, Soy [Lecithin] 400 mg PO BID 08/16/19 Nystatin Powder [Mycostatin Powder] 1 applic TOPICAL BID bottle 08/19/19 Exenatide Microspheres [Bydureon 2 mg SQ TU 07/23/20 Pen] Lactobacillus Acidophilus 1 ea PO DAILY 07/23/20 [Acidophilus] Latanoprost 2.5 ml OP DAILY 07/23/20 Lisinopril [Prinivil] 10 mg PO DAILY 07/23/20 Magnesium Oxide [Mag-Ox 400] 400 mg PO DAILY 07/23/20 Simvastatin 40 mg PO DAILY 07/23/20 - Social History Tobacco Use: non-smoker Vital Signs Temp Pulse Resp BP Pulse Ox 98.7 F 80 17 133/47 H 94 07/25/20 07:52 07/25/20 10:29 07/25/20 07:52 07/25/20 10:29 07/25/20 07:52 Oxygen Delivery Method Room Air Weight: 85.1 kg Body Mass Index (BMI) 36.6 Finger Stick Blood Glucose 108 Microbiology Past 72 Hours 07/23/20 18:00 Urine Culture - Preliminary Urine Catheter - Catheter Presumptive E. coli Laboratory Tests Past 24 Hrs 07/25/20 05:35 WBC 8.7 RBC 3.96 L Hgb 11.2 L Hct 35.2 L MCV 88.9 MCH 28.3 MCHC 31.8 L RDW Std Deviation 45.5 H RDW Coeff of Wesley 14.0 Plt Count 167 MPV 11.2 Immature Gran % (Auto) 0.200 Neut % (Auto) 54.1 Lymph % (Auto) 28.8 [place] % (Auto) 12.5 H Eos % (Auto) 3.8 Baso % (Auto) 0.6 Absolute Neuts (auto) 4.7 Absolute Lymphs (auto) 2.49 Nucleated RBC % 0 - Other Studies Radiology: [] reviewed Other Studies: [] Route of nutrition/ use of supplements: [] Nutritional Intake: [] IV Site: [] Rocha Catheter: [] - Physical Exam General: Cooperative, No apparent distress, - - oriented x1 HEENT: Atraumatic, PERRLA, EOMI Neck: Supple, No Nodes Lungs: Clear to auscultation, Normal air movement Cardiovascular: Regular rate, Regular Rhythm Abdomen: Soft, Non Tender, Non-Distended Extremities: No edema Skin: No rashes IV Site: Peripheral, without redness Musculoskeletal: No Tenderness to Palpation of Joints or Extremities Neurological: Cranial nerves II-XII grossly intact - Assessment/Plan Antibiotics: [] Assessment/Plan: [] Active and Suspected Problems UTI (urinary tract infection) (Acute) Acute encephalopathy (Acute) esbl ecoli uti with encephalopathy - improving on zosyn, will continue. Plan on short course, may be able to stop tomorrow at discharge. No fever, normal wbc. Will follow, thank you, d/w Dr. Diamond
--- NOTE | 2020-07-25 11:48 | CASEMGMT ---
Daughter has not come in yet today and this RN CM attempted to call daughter at this time and call went straight to voicemail. RN CM to attempt again later and follow if daughter comes to visit. Therapy is recommending SNF at this time. SStnathalia RN CM
[2020-07-25] MEDS: Insulin Lispro 100 UNIT/ML INSULN.PEN SC ×3 (12:32→21:31)
[2020-07-25 12:56] LABS: Bedside Glucose 255 mg/dL (70-110)
--- NOTE | 2020-07-25 12:58 | CASEMGMT ---
BLAYNE called patient's daughter. Introduced self and role at [facility]. BLAYNE told her SW noted that she was asking about TCU. She said yes she would like for patient to go there at discharge. SW let her know they would have a bed for her. She then asked if SW could check with [facility] to see if they would have availability. She said a friend of their's mentioned [facility]. BLAYNE told her SW will do this and get back with her. BLAYNE did not give a list of nursing homes as she already had places in mind that she wanted. BLAYNE faxed a referral to [facility]. Await their response. Samantha NOLAN MSW
--- NOTE | 2020-07-25 14:04 | CASEMGMT ---
[facility] said they can take patient. BLAYNE called patient's daughter and let her know. She said she prefers patient go to [facility] TCU. BLAYNE let her know the plan is to tentatively discharge tomorrow. BLAYNE called Rosalee at [facility] and let her know this information. Plan: [facility] TCU when ready. Samantha WATTS
[2020-07-25 17:26] LABS: Bedside Glucose 165 mg/dL (70-110)
[2020-07-25] MEDS: Atorvastatin Calcium 20 MG Tablet PO (21:20)
[2020-07-25 21:36] LABS: Bedside Glucose 225 mg/dL (70-110)
[2020-07-26 02:53] VITALS: BP 134/53; PULSE 78; RESP 18; TEMP 36.8; O2SAT 97
[2020-07-26 03:30] VITALS: PULSE 86
[2020-07-26] MEDS: Insulin Lispro 100 UNIT/ML INSULN.PEN SC ×2 (06:11→11:50)
[2020-07-26 06:20] LABS: Bedside Glucose 177 mg/dL (70-110)
[2020-07-26 07:00] VITALS: PULSE 76
[2020-07-26 09:30] VITALS: BP 147/72; PULSE 81; RESP 18; TEMP 36.6; O2SAT 98
[2020-07-26 09:33] VITALS: PULSE 81
[2020-07-26] MEDS: Metoprolol Tartrate 25 MG Tablet 12.5 MG PO (09:33)
[2020-07-26] MEDS: Latanoprost 0.005% 1 Bottle 1 DRP RIGHT EYE (09:34)
[2020-07-26] MEDS: Pantoprazole Sodium 40 MG Tablet PO (09:34)
[2020-07-26] MEDS: Aspirin 81 MG TAB.CHEW PO (09:34)
[2020-07-26] MEDS: glipiZIDE XL 5 MG Tablet PO (09:34)
[2020-07-26] MEDS: Lisinopril 10 MG Tablet PO (09:34)
[2020-07-26] MEDS: Nystatin Powder 15gm Bottle 1 APPLIC TOPICAL (09:35)
[2020-07-26] MEDS: Enoxaparin 30 MG/0.3 ML Syringe SC (09:35)
[2020-07-26] MEDS: Glucerna Shake 120 ML LIQUID PO ×2 (09:35→11:51)
--- NOTE | 2020-07-26 09:58 | PCM.TXEXTCAR ---
- Diet 07/24/20 15:47 Diet: Carbohydrate Controlled Food consistency:: Regular Liquid Consistency:: Regular/Thin Is pt able to select menu?: No - Routine Orders/Code Status Code Status: Full Code - Suggestions for Active Care Change Position every (hours): 3 Hours to sit in a chair: 2 Times a day to sit in chair: 3 - Therapies Weight Bearing: Weight bearing as tolerated Physical Therapy: Eval and Treat Occupational Therapy: Eval and Treat - Allergies/Procedures Done in Hospital Allergies/Adverse Reactions: Allergies sulfamethoxazole [From ] Allergy (Verified 07/23/20 18:11) Hives trimethoprim [From ] Allergy (Verified 07/23/20 18:11) Hives adhesive tape Adverse Reaction (Verified 07/23/20 18:11) Rash - Type of Care/Length of Stay Estimated LOS: Convalescent Care Less Than 30 days Type of Care Needed: Skilled Rehab Potential: Fair Prognosis: Fair - Additional Orders/Day of Discharge H&P will serve as current which was dated: 07/23/20 Day of Discharge: 07/26/20 - Dietary and Speech Recommendations Dietitian Recommendations/Changes: Will liberalize diet to carb-controlled. Continue glucerna shake w/ medpass as ordered. - Follow Up Care Primary Care Physician: Cecy Trivedi MD [Primary Care Provider] - Please follow up with your Primary Care Physician in: 1-2 week. Please Follow Up With: Cecy Trivedi MD
--- NOTE | 2020-07-26 10:08 | PHA.DC.MR ---
Pharmacy Service has performed discharge medication reconciliation for this patient. The patient's discharge medication list was reviewed for discrepancies and discrepancies were resolved. Home Medications Aspirin [Aspirin, Baby] 81 mg PO DAILY@0800 02/01/19 Omeprazole [Prilosec] 40 mg PO DAILY 02/01/19 Glipizide [Glipizide ER] 5 mg PO DAILY 08/16/19 Lecithin, Soy [Lecithin] 400 mg PO BID 08/16/19 Nystatin Powder [Mycostatin Powder] 1 applic TOPICAL BID bottle 08/19/19 Exenatide Microspheres [Bydureon Pen] 2 mg SQ TU 07/23/20 Lactobacillus Acidophilus [Acidophilus] 1 ea PO DAILY 07/23/20 Latanoprost 2.5 ml OP DAILY 07/23/20 Lisinopril [Prinivil] 10 mg PO DAILY 07/23/20 Magnesium Oxide [Mag-Ox 400] 400 mg PO DAILY 07/23/20 Simvastatin 40 mg PO DAILY 07/23/20
--- NOTE | 2020-07-26 10:58 | DS.PCM_ITS ---
Discharge Date and Diagnosis - Problem List Patient Problems: Active and Suspected Problems UTI (urinary tract infection) (Acute) Acute encephalopathy (Acute) Date of Admission: 07/23/20 Date of Discharge: 07/26/20 - Primary Discharge Diagnosis Acute Problems: Active Problems #1 ESBL E. coli acute cystitis. #2 acute metabolic encephalopathy. - Secondary Discharge Diagnosis Chronic Problems: Chronic Problems HTN (hypertension) (Chronic) Obesity (BMI 30-39.9) (Chronic) CKD (chronic kidney disease), stage III (Chronic) Dementia (Chronic) GERD (gastroesophageal reflux disease) (Chronic) Hyperlipidemia (Chronic) Obstructive sleep apnea (Chronic) Type II diabetes mellitus (Chronic) Hospital Course and Treatment Imaging Results: Clinical Impression(s) from Imaging Studies Brain CT 07/23/20 17:59 IMPRESSION: Chronic involutional changes of the brain. Electronically Signed: Kevin Yu MD at 18:29 EST , Service support , Chest X-Ray 07/23/20 18:13 IMPRESSION: Normal x-ray examination of the chest. Electronically Signed: Kevin Yu MD at 18:33 EST , Service support , Dr. Niño, infectious disease. Operations: None Procedures: None Summary of Care Provided: Patient seen and examined on the day of discharge and appeared to be stable to be discharged home. She remained alert and oriented x3. She has been afebrile, other vital signs are stable. This is an 84 years old female patient presented to the emergency room because of weakness and confusion, found to have acute cystitis with acute metabolic encephalopathy. #1 ESBL E. coli acute cystitis: In the setting of recurrent acute cystitis with ESBL E. coli in the past. Treated with IV Zosyn and IV fluids. Chest x-ray showed no acute findings. COVID-19 antigen came back negative. Urine culture revealed presumptive ESBL E. coli. Infectious disease consulted and agreed to continue IV Zosyn and upon discharge, ID stated that 4 days of IV Zosyn will be enough and there is no need for more antibiotics. Patient discharged to SNF in a stable condition, no antibiotic given upon discharge. #2 acute encephalopathy: Secondary to acute cystitis in addition to possible baseline dementia. CT scan brain showed no acute findings. After treating the infection, patient's mentation improved and she remained alert and oriented with intermittent confusion which is likely due to baseline dementia. #3 Questionable paroxysmal atrial fibrillation: Ruled out. Admission EKG reviewed, revealed normal sinus rhythm. Reviewed with cardiology and it is normal sinus rhythm. Repeat EKG revealed normal sinus rhythm, rate is controlled. No acute ischemic changes. Troponin was negative x3. TSH was normal. 2D echocardiogram revealed normal LV size and function, ejection fraction of 70%, no significant valvular heart disease. #4 type 2 diabetes mellitus: Blood sugar stable, continued on glipizide upon discharge. #5 hypertension: Blood pressure stable, continued on lisinopril and metoprolol. #6 obstructive sleep apnea: Continue CPAP at night with same home settings. Patient discharged [facility] in a stable medical condition, no antibiotic prescribed upon discharge according to ID recommendations, patient received a total of 4 days of IV Zosyn, continued on her previous medications without any changes, recommended follow-up with PCP in 1 to 2 weeks. This note was generated with [employer] dictation software. It may contain incorrect words, spelling, and punctuation that were not noted in checking the note before signing. Patient Problems: Active and Suspected Problems UTI (urinary tract infection) (Acute) Acute encephalopathy (Acute) - Physical Exam Vitals/I&O's: Vital Signs Temp Pulse Resp BP Pulse Ox 97.9 F 81 18 147/72 H 98 07/26/20 09:30 07/26/20 09:33 07/26/20 09:30 07/26/20 09:30 07/26/20 09:30 Oxygen Delivery Method Room Air Weight: 187 lb 9.814 oz Body Mass Index (BMI) 36.6 Finger Stick Blood Glucose 108 Intake and Output for Last 24 Hours 07/24/20 07/25/20 07/26/20 23:59 23:59 23:59 Intake Total 2133.75 / 2133.75 916.25 / 916.25 100 / 100 Output Total 350 / 350 200 / 300 450 / 450 Balance 1783.75 / 1783.75 716.25 / 616.25 -350 / -350 General: Alert, Oriented x3, Cooperative, No apparent distress HEENT: Atraumatic, PERRLA, EOMI, Normocephalic Oral: Moist Mucosa, No Gingival or Mucosal Lesions/ Ulcerations Neck: Supple, No JVD, Negative Carotid Bruits, Trachea Midline, Thyroid Normal Size and Texture Lungs: Clear to auscultation, No rhonchi, No wheeze, No rales, Diminished Cardiovascular: Regular rate, Regular Rhythm, Normal S1, Normal S2, PMI Normal Abdomen: Bowel Sounds Present, Soft, Non Tender, Non-Distended, No Hepato- splenomegaly, Obese Extremities: No clubbing, No cyanosis, No edema Skin: No rashes, No breakdown Lymphatic: No Cervical, Supraclavicular, or Inguinal Adenopathy Neurological: Cranial nerves II-XII grossly intact, Neuro grossly intact Psych/Mental Status: Normal Affect, Appropriate Microbiology Past 72 Hours 07/23/20 18:00 Urine Catheter - Catheter Urine Culture - Final Presumptive E. coli Laboratory Results 07/25/20 12:26: POC Glucose 255 H 07/25/20 16:54: POC Glucose 165 H 07/25/20 21:30: POC Glucose 225 H 07/26/20 06:11: POC Glucose 177 H Current Medications Acetaminophen (Acetaminophen 325 Mg Tablet) 650 mg PO Q6H PRN PRN PRN Reason: Pain Score 1-10/Temp > 100.7 F Al Hydroxide/Mg Hydroxide (Mag Hydrox/Al Hydrox/Simeth 30 Ml Udc) 30 ml PO Q6H PRN PRN PRN Reason: Gastric Burning Albuterol Sulfate (Albuterol 2.5 Mg/3 Ml Vial.Neb.) 2.5 mg INHALATION Q2H PRN PRN PRN Reason: Dyspnea, wheezing Aspirin (Aspirin 81 Mg Tab.Chew) 81 mg PO DAILY@0800 [facility] Last Admin: 07/26/20 09:34 Dose: 81 mg Documented by: Atorvastatin Calcium (Atorvastatin Calcium 20 Mg Tablet) 20 mg PO QHS [facility] Last Admin: 07/25/20 21:20 Dose: 20 mg Documented by: Enoxaparin Sodium (Enoxaparin 30 Mg/0.3 Ml Syringe) 30 mg SC DAILY [facility] Last Admin: 07/26/20 09:35 Dose: 30 mg Documented by: Glipizide (Glipizide Xl 5 Mg Tablet) 5 mg PO DAILY@0800 [facility] Last Admin: 07/26/20 09:34 Dose: 5 mg Documented by: Guaifenesin (Guaifenesin 10 Ml Udc (200mg/10ml)) 20 ml PO Q4H PRN PRN PRN Reason: COUGH Hydralazine HCl (Hydralazine 20 Mg/Ml Vial) 10 mg IV Q4H PRN PRN PRN Reason: SBP > 160 Piperacillin Sod/Tazobactam (Sod 3.375 gm/ Sodium Chloride) 50 mls @ 12.5 mls/hr IV Q8 [facility] Last Infusion: 07/26/20 09:50 Dose: Infused Documented by: Sodium Chloride () 250 mls @ 15 mls/hr IV .[id number] PRN PRN Reason: Saline Flush Sodium Chloride () 250 mls @ 15 mls/hr IV .[id number] PRN PRN Reason: Additional IVPB Infusion Insulin Human Lispro (Insulin Lispro 100 Unit/Ml Insuln.Pen) 0 unit SC ACHS [facility]; Protocol Last Admin: 07/26/20 06:11 Dose: 1 units Documented by: Lactobacillus Acidophilus (Lactobacillus Acidophilus) 1 tablet PO DAILY [facility] Last Admin: 07/26/20 09:34 Dose: 1 tablet Documented by: Latanoprost (Latanoprost 0.005% 1 Bottle) 1 drop RIGHT EYE DAILY [facility] Last Admin: 07/26/20 09:34 Dose: 1 drop Documented by: Lisinopril (Lisinopril 10 Mg Tablet) 10 mg PO DAILY [facility] Last Admin: 07/26/20 09:34 Dose: 10 mg Documented by: Magnesium Hydroxide (Magnesium Hydroxide 30 Ml Udc) 30 ml PO DAILY PRN PRN PRN Reason: Constipation Melatonin (Melatonin 3 Mg Tablet) 3 mg PO QHS PRN PRN PRN Reason: INSOMNIA Metoprolol Tartrate (Metoprolol Tartrate 25 Mg Tablet) 12.5 mg PO BID [facility] Last Admin: 07/26/20 09:33 Dose: 12.5 mg Documented by: Nutritional Formula (Lactose Free) (Glucerna Shake 120 Ml Liquid) 120 ml PO TIDCM [facility] Last Admin: 07/26/20 09:35 Dose: 120 ml Documented by: Nystatin (Nystatin Powder 15gm Bottle) 1 applic TOPICAL BID [facility]; Protocol Last Admin: 07/26/20 09:35 Dose: 1 applicatio Documented by: Ondansetron HCl (Ondansetron 4 Mg/2 Ml Vial) 4 mg IV Q8H PRN PRN PRN Reason: NAUSEA/VOMITING Pantoprazole Sodium (Pantoprazole Sodium 40 Mg Tablet) 40 mg PO DAILY [facility] Last Admin: 07/26/20 09:34 Dose: 40 mg Documented by: Prochlorperazine Edisylate (Prochlorperazine 10 Mg/2 Ml Vial) 5 mg IV Q4H PRN PRN PRN Reason: Breakthrough nausea/vomiting Psyllium Hydrophilic Mucilloid (Psyllium 1 Packet) 1 packet PO DAILY PRN PRN PRN Reason: Constipation Senna/Docusate Sodium (Senna/Docusate Sodium 1 Tablet) 2 tablet PO BID PRN PRN PRN Reason: Constipation Sodium Chloride (0.9% Saline Lock 10 Ml Syringe) 10 - 40 ml IV UD PRN PRN Reason: SALINE FLUSH Throat Lozenges (Benzocaine/Menthol 1 Lozenge) 1 lozenge MUCOUS MEM Q2H PRN PRN PRN Reason: SORE THROAT Home Medications: Medications to take at Discharge Aspirin [Aspirin, Baby] 81 mg PO DAILY@0800 02/01/19 Omeprazole [Prilosec] 40 mg PO DAILY 02/01/19 Glipizide [Glipizide ER] 5 mg PO DAILY 08/16/19 Lecithin, Soy [Lecithin] 400 mg PO BID 08/16/19 Exenatide Microspheres [Bydureon Pen] 2 mg SQ TU 07/23/20 Lactobacillus Acidophilus [Acidophilus] 1 ea PO DAILY 07/23/20 Latanoprost 2.5 ml OP DAILY 07/23/20 Lisinopril [Prinivil] 10 mg PO DAILY 07/23/20 Magnesium Oxide [Mag-Ox 400] 400 mg PO DAILY 07/23/20 Simvastatin 40 mg PO DAILY 07/23/20 Nystatin Powder [Mycostatin Powder] 1 applic TOPICAL BID 07/26/20 Primary Care Physician: Cecy Trivedi MD [Primary Care Provider] - Please follow up with your Primary Care Physician in: 1-2 week. Please Follow Up With: Cecy Trivedi MD [facility] Minutes spent on discharge:: 32 Patient Condition:: Stable Medical Necessity - Tobacco Use Smoking Status: Never smoker Meaningful Use Info Meaningful Use Diagnoses (Choose all that apply): None applicable Inpatient E&M: 88872 Disch Hosp
[2020-07-26 11:00] VITALS: PULSE 78
--- NOTE | 2020-07-26 11:09 | CASEMGMT ---
Patient is ready for discharge to TCU. BLAYNE spoke with Allyson in TCU and they can take patient today. Orders copied. BLAYNE spoke with patient and her daughter letting them know that patient will be going to TCU today. They thanked BLAYNE for the update. BLAYNE will let RN know that patient needs a rapid COVID test before she goes to TCU. Plan: [facility] TCU under skilled level of care. Samantha NOLAN MSW
[2020-07-26 12:21] LABS: Bedside Glucose 258 mg/dL (70-110)
== END 2020-07-26 14:20 | disposition skilled nursing facility (03) | DRG 689 ==
LOC: ED 17:56 → MS3 20:10 → PCU 07-24 07:20
PROVIDERS: Admitting Provider Family Medicine; Emergency Provider Student in an Organized Health Care Education/Training Program; PCP Family Medicine; Visit Provider Hospitalist
DX: N30.00 Acute cystitis without hematuria (principal); G93.41 Metabolic encephalopathy; Z16.12 Extended spectrum beta lactamase (ESBL) resistance; I49.1 Atrial premature depolarization; B96.20 Unspecified Escherichia coli [E. coli] as the cause of diseases classified elsewhere; E11.22 Type 2 diabetes mellitus with diabetic chronic kidney disease; E66.9 Obesity, unspecified; E78.5 Hyperlipidemia, unspecified; F03.90 Unspecified dementia, unspecified severity, without behavioral disturbance, psychotic disturbance, mood disturbance, and anxiety; G47.33 Obstructive sleep apnea (adult) (pediatric); I12.9 Hypertensive chronic kidney disease with stage 1 through stage 4 chronic kidney disease, or unspecified chronic kidney disease; K21.9 Gastro-esophageal reflux disease without esophagitis; N18.30 Chronic kidney disease, stage 3 unspecified; Z68.36 Body mass index [BMI] 36.0-36.9, adult; Z87.440 Personal history of urinary (tract) infections; Z90.49 Acquired absence of other specified parts of digestive tract; Z79.82 Long term (current) use of aspirin; Z79.84 Long term (current) use of oral hypoglycemic drugs; Z79.899 Other long term (current) drug therapy
CPT/HCPCS: 36415; 70450; 71045; 80053; 81001; 82962; 83735; 84443; 84484; 85025; 87086; 87088; 87186; 87426; 93005; 93306; 97110; 97116; 97163; 97166; 97530; 97802; 99285; J7030; J7040; P9612; Q9957; A4216; C8929

== ENCOUNTER 2020-07-26 14:35 | Inpatient (IN) | payer MEDICARE, OTHER, SELFPAY ==
[2020-07-26 14:52] VITALS: BP 147/50; PULSE 78; PULSE 80; RESP 18; TEMP 36.7; O2SAT 97; O2SAT 99; BMI 40.4
[2020-07-26 15:06] VITALS: O2SAT 96
[2020-07-26 16:25] VITALS: BMI 40.5
--- NOTE | 2020-07-26 16:45 | CASEMGMT ---
Social Work Notified by nursing that patient is upset about 14 day quarantine and is requesting to leave. Met with patient and offered assistance. Pt expressed she was trapped into to coming here. She was not told she had to stay in 14 day quarantine, and she wants to leave. Explained pt does not have to stay for the full 14 days, just if she does, she will remain in isolation for precaution. Explained pt has the right to leave and staff cannot keep her here. Inquired about her goals in coming to TCU. Pt stated she thought she would come for a few days and get rested - she is already strong enough. She lives alone and people have been trying to get her to move out for awhile now, but she is happy in her home. SW provided supportive listening and validated feelings. Again, offered for pt to remain a few days to see what nursing and therapy can provide and when she is ready to DC home, SW can assist. Pt agreeable and stated I will stay for 3 days. SW understood. Nurse finished completing admission assessment. SW notified Dr. Dillon. Per chart review, pt has dx of Dementia. Dr. zepeda visit. No HCPOA paperwork on file. Dtr listed as next of kin. Will continue to follow. Tasneem Edwards, KILN DRAWER APPLICATION ANALYST
[2020-07-26] MEDS: Nystatin Powder 15gm Bottle 1 APPLIC TOPICAL (17:54)
[2020-07-26] MEDS: Atorvastatin Calcium 20 MG Tablet PO (20:40)
--- NOTE | 2020-07-26 20:40 | HP.PCM_ITS ---
Problem List (1) Debility Status: Acute (2) Weakness Status: Acute (3) Multiple falls Status: Acute (4) UTI due to extended-spectrum beta lactamase (ESBL) producing Escherichia coli Status: Acute (5) Acute delirium Status: Acute (6) Frontal lobe dementia Status: Chronic (7) Chronic kidney disease Status: Chronic (8) Diabetes mellitus Status: Chronic (9) Glaucoma Status: Chronic (10) Hypomagnesemia Status: Chronic (11) HTN (hypertension) Status: Chronic Qualifiers: (12) GERD (gastroesophageal reflux disease) Status: Chronic Qualifiers: (13) Hyperlipidemia Status: Chronic Qualifiers: (14) Obstructive sleep apnea Status: Chronic History of Present Illness Date of Admission: 07/26/20 Chief Complaint: Here for rehabilitation, strengthening, prior to discharge home alone. 07/23/2020 The patient is a 84 year old Female with below past medical history presented to [facility] Emergency Department with generalized illness. 07/23/2020 CT brain negative. 07/23/2020 Chest X-ray normal. Weakness x 2 days, unable to get out of chair. History of multiple urinary tract infections, multiple falls. EKG okay. UA consistent urinary tract infection, urine culture sent, Rocephin given. IV fluids for dehydration. Previous urine culture resistant to Rocephin, Zosyn given instead. 07/23/2020 Admit to Hospital. Zosyn IV fo resistant urinary tract infection. Metoprolol, Lovenox for new onset atrial fibrillation. 07/24/2020 EKG normal sinus rhythm per cardiology. Continue IV Zosyn for resistant urinary tract infection. 07/24/2020 Echo normal LV size. Left ventricular systolic function normal. EF 70%. Pulmonary arterial systolic pressure 30mm HG. 07/25/2020 ESBL E. Coli urinary tract infection, consult Infectious Disease. 07/25/2020 Infectious Disease recommends continuing IV Zosyn 1 more day for ESBL E. Coli urinary tract infection with encephalopathy. 07/26/2020 Admit to TCU with debility, here for rehabilitation, strengthening, prior to discharge home alone. Past Medical History Past Medical History (Chronic Problems): Chronic Problems Frontal lobe dementia (Chronic) Chronic kidney disease (Chronic) Diabetes mellitus (Chronic) Glaucoma (Chronic) Hypomagnesemia (Chronic) HTN (hypertension) (Chronic) Obesity (BMI 30-39.9) (Chronic) CKD (chronic kidney disease), stage III (Chronic) Dementia (Chronic) GERD (gastroesophageal reflux disease) (Chronic) Hyperlipidemia (Chronic) Obstructive sleep apnea (Chronic) Type II diabetes mellitus (Chronic) Allergies sulfamethoxazole [From ] Allergy (Verified 07/23/20 18:11) Hives trimethoprim [From Marra] Allergy (Verified 07/23/20 18:11) Hives adhesive tape Adverse Reaction (Verified 07/23/20 18:11) Rash Home Medications: Ambulatory Orders Medication Instructions Recorded Aspirin [Aspirin, Baby] 81 mg PO DAILY@0800 02/01/19 Omeprazole [Prilosec] 40 mg PO DAILY 02/01/19 Glipizide [Glipizide ER] 5 mg PO DAILY 08/16/19 Lecithin, Soy [Lecithin] 400 mg PO BID 08/16/19 Exenatide Microspheres [Bydureon 2 mg SQ TU 07/23/20 Pen] Lactobacillus Acidophilus 1 ea PO DAILY 07/23/20 [Acidophilus] Latanoprost 2.5 ml OP DAILY 07/23/20 Lisinopril [Prinivil] 10 mg PO DAILY 07/23/20 Magnesium Oxide [Mag-Ox 400] 400 mg PO DAILY 07/23/20 Simvastatin 40 mg PO DAILY 07/23/20 Nystatin Powder [Mycostatin Powder] 1 applic TOPICAL BID 07/26/20 Surgical History: appendectomy, cholecystectomy, hysterectomy, tonsillectomy Psychiatric History: No pertinent psych hx ROLL SKINNER History: No pertinent ROLL SKINNER history Lives: Alone Smoking Status: Never smoker Tobacco Use: Non-smoker Alcohol: None Drugs: None - *Family History Maternal History Items: Diabetes, Heart Disease - age 59 Paternal History Items: Cancer - in 80's, Diabetes Review of Systems Constitutional: Denies: Chills, Fever, Weight Change HEENT: Denies: Head Aches, Sinus Congestion, Sinus Drainage Cardiovascular: Denies: Chest Pain, Palpitations Respiratory: Denies: Cough, Shortness of breath at rest, Sputum production Gastrointestinal: Denies: Abdominal Pain, Nausea, Vomiting Genitourinary: Denies: Dysuria Musculoskeletal: Denies: Joint Pain, Joint Tenderness Skin: Denies: Rash, Wounds Neurological: Denies: Numbness, Tingling, Focal weakness Psychiatric: Denies: Anxiety, Depression, Homicidal Ideations, Suicidal Ideations Hematologic/ Lymphatic: Denies: Easy Bruising, Easy Bleeding VTE Information - Inpt Only VTE Present on Admission: No VTE Mechan Device Prophylaxis: Knee High MICHEL Hose VTE Pharm Prophylaxis ordered?: Yes Patient Problems: Active and Suspected Problems Debility (Acute) Weakness (Acute) Multiple falls (Acute) UTI due to extended-spectrum beta lactamase (ESBL) producing Escherichia coli (Acute) Acute delirium (Acute) - Physical Exam Vitals/I&O's: Vital Signs Temp Pulse Resp BP Pulse Ox 98.1 F 80 18 147/50 H 96 07/26/20 14:52 07/26/20 14:52 07/26/20 14:52 07/26/20 14:52 07/26/20 15:06 Oxygen Delivery Method Room Air Weight: 94.007 kg Body Mass Index (BMI) 40.4 Finger Stick Blood Glucose 108 General: Alert, Oriented x3, Cooperative HEENT: Atraumatic, PERRLA, EOMI, Normocephalic Neck: Supple, No JVD, Negative Carotid Bruits Lungs: Clear to auscultation, Normal air movement Cardiovascular: Regular rate, No murmurs Abdomen: Bowel Sounds Present, Soft, Non Tender Extremities: No edema, Capillary Refill Less than 3 Seconds Skin: No rashes, No breakdown Musculoskeletal: No Tenderness to Palpation of Joints or Extremities Neurological: Cranial nerves II-XII grossly intact Psych/Mental Status: Normal Affect, Appropriate Laboratory Results 07/26/20 16:30: COVID-19 ([facility]) Pending Current Medications Aspirin (Aspirin 81 Mg Tab.Chew) 81 mg PO DAILY@0800 [facility] Atorvastatin Calcium (Atorvastatin Calcium 20 Mg Tablet) 20 mg PO QHS [facility] Glipizide (Glipizide Xl 5 Mg Tablet) 5 mg PO DAILY@0800 [facility] Lactobacillus Acidophilus (Lactobacillus Acidophilus) 1 tablet PO DAILY [facility] Latanoprost (Latanoprost 0.005% 1 Bottle) 1 drop RIGHT EYE QHS [facility] Lisinopril (Lisinopril 10 Mg Tablet) 10 mg PO DAILY [facility] Magnesium Chloride (Magnesium Chloride 64 Mg Delay Rel.Tablet) 128 mg PO DAILY [facility] Nystatin (Nystatin Powder 15gm Bottle) 1 applic TOPICAL BID [facility]; Protocol Last Admin: 07/26/20 17:54 Dose: 1 applicatio Documented by: Pantoprazole Sodium (Pantoprazole Sodium 40 Mg Tablet) 40 mg PO DAILY [facility] Tuberculin PPD (Tuberculin,Purif.Prot.Deriv. 50 Tu/Ml Vial) 5 tu ID [id number] ONE Stop: 07/27/20 10:01 Tuberculin PPD (Tuberculin,Purif.Prot.Deriv. 50 Tu/Ml Vial) 5 tu ID [id number] ONE Stop: 08/03/20 10:01 Assessment/Plan All Active Problems Debility (Acute) Weakness (Acute) Multiple falls (Acute) UTI due to extended-spectrum beta lactamase (ESBL) producing Escherichia coli (Acute) Acute delirium (Acute) UTI (urinary tract infection) (Acute) Acute encephalopathy (Acute) 84 year old female with below past medical history hospitalized for ESBL E. Coli urinary tract infection, complicate by acute delirium with underlying dementia, admitted to TCU with debility, here for rehabilitation, strengthening, prior to discharge home alone. * Debility - PT/OT. * Pain - Tylenol 1000MG Q6H PRN pain (1-10). * Bowel - Miralax 17GM daily, Senna/colace 1 tablet BID, MOM 30ML daily PRN, Dulcolax 10MG [place] daily PRN. * Adult immunization - Administer Prevnar 13, Pneumovax 23, Fluzone, COVID19 vaccine as appropriate. * DVT prophylaxis - Lovenox 40MG SC daily. * CV prophylaxis - Aspirin 81MG daily. * Hyperlipidemia - Atorvastatin 20MG QHS. * Diabetes Mellitus II - Glipizide 5MG daily, Bydureon 2MG per week. * GI prophylaxis - Lactobacillus 1 tablet daily. * Glaucoma - Xalatan 0.05% 1GTT OD QHS. * Hypertension - Lisinopril 10MG daily. * Hypomagnesemia - Magnesium Oxide 128MG daily. * Tinea Corporis - Nystatin powder topical BID. * GERD - Pantoprazole 40MG daily. * Subacute delirium with underlying dementia - secondary to ESBL E. Coli UTI, should clear over time.
[2020-07-26 22:06] LABS: Bedside Glucose 206 mg/dL (70-110)
[2020-07-27 03:41] VITALS: BP 156/67; PULSE 76; RESP 16; TEMP 37; O2SAT 98
[2020-07-27] MEDS: Magnesium Chloride 64 MG Delay Rel.Tablet 128 MG PO (03:42)
[2020-07-27] MEDS: Pantoprazole Sodium 40 MG Tablet PO (03:43)
[2020-07-27] MEDS: Lisinopril 10 MG Tablet PO (03:43)
[2020-07-27] MEDS: Nystatin Powder 15gm Bottle 1 APPLIC TOPICAL ×2 (03:44→17:27)
[2020-07-27 05:36] LABS: Absolute Neutrophil Count 5.4 X10^3/uL (2.0-7.7); Basophil# 0.05 X10^3/uL; Basophil% 0.6 % (0-1); Eosinophil# 0.46 X10^3/uL; Eosinophils% 5.4 % (0-5); Hematocrit 34.8 % (37-47); Hemoglobin 11.7 g/dL (12.0-15.0); Mean Corp Hgb Conc 33.6 g/dL (32-36); Mean Corpuscular Hgb 29.5 pg (27.0-32.0); Mean Corpuscular Volume 87.9 fL (81-99); Mean Platelet Vol. 10.8 fl (6.2-12.0); Monocyte# 0.84 X10^3/uL; Monocyte% 9.9 % (0-10); NRBC Flagged by Analyzer 0 % (0-5); Neutrophil % 63.6 % (47-70); Platelet Count 214 K/mm3 (150-450); RBC Distribution Width CV 13.1 % (11.6-14.6); Red Blood Count 3.96 M/mm3 (4.2-5.4); White Blood Count 8.5 K/mm3 (4.4-11.0)
[2020-07-27 05:51] LABS: Anion Gap 6 (5-15); BUN 23 mg/dL (7-18); BUN/Creat Ratio 24.9 RATIO (10-20); Calcium,Total 8.8 mg/dL (8.5-10.1); Chloride 108 mmol/L (98-107); Creatinine, Serum 0.92 mg/dL (0.55-1.02); EST Glomerular Filtration Rate 61 mL/min (>60); Est Glom Filt Rate - Afr Amer 74 mL/min (>60); Glucose 167 mg/dL (74-106); Potassium 3.8 mmol/L (3.5-5.1); Sodium Level 139 mmol/L (136-145)
[2020-07-27 06:21] LABS: Bedside Glucose 175 mg/dL (70-110)
[2020-07-27] MEDS: glipiZIDE XL 5 MG Tablet PO (08:08)
[2020-07-27] MEDS: Aspirin 81 MG TAB.CHEW PO (08:08)
[2020-07-27 11:21] LABS: Bedside Glucose 304 mg/dL (70-110)
[2020-07-27] MEDS: Tuberculin,Purif.prot.deriv. 50 TU/ML Vial 5 ML ID (11:26)
[2020-07-27] MEDS: Enoxaparin 40 MG/0.4 ML Syringe SC (11:26)
[2020-07-27 13:14] VITALS: BP 109/63; PULSE 80; RESP 18; TEMP 36.6; O2SAT 96
--- NOTE | 2020-07-27 13:26 | CASEMGMT ---
Social Work Discussed code status with patient. Pt wishes to be DNR-CCA, no intubation. Nursing notified. MOLST form reviewed, communication to , placed in chart. Pt stated she had a great night last night - she slept well and hasn't slept that well in awhile. Pt was enjoying her lunch at time of assessment as well. Tasneem Edwards, STEFANIE TELEVISION ANNOUNCER
--- NOTE | 2020-07-27 13:55 | NURSING ---
Resident and family updated on current COVD status on the unit.
--- NOTE | 2020-07-27 14:38 | PHA.CONS_ITS ---
<Daniel Ramiresi - Last Filed: 07/27/20 14:38> Progress Note - Pharmacy Subjective: TCU Admission Objective: Allergies sulfamethoxazole [From ] Allergy (Verified 07/23/20 18:11) Hives trimethoprim [From ] Allergy (Verified 07/23/20 18:11) Hives adhesive tape Adverse Reaction (Verified 07/23/20 18:11) Rash Current Medications Generic Name Dose Route Start Last Admin Trade Name Freq PRN Reason Stop Dose Admin Acetaminophen 1,000 mg 07/26/20 20:55 Acetaminophen 500 Mg Tablet PO Q6H PRN PRN Pain Score 1-10 Aspirin 81 mg 07/27/20 08:00 07/27/20 08:08 Aspirin 81 Mg Tab.Chew PO 81 mg DAILY@0800 [facility] Administration Atorvastatin Calcium 20 mg 07/26/20 22:00 07/26/20 20:40 Atorvastatin Calcium 20 Mg Tablet PO 20 mg QHS [facility] Administration Bisacodyl 10 mg 07/26/20 20:56 Bisacodyl 10 Mg Suppository RECTAL DAILY PRN Constipation Enoxaparin Sodium 40 mg 07/27/20 08:00 07/27/20 11:26 Enoxaparin 40 Mg/0.4 Ml Syringe SC 40 mg DAILY@0800 [facility] Administration Glipizide 5 mg 07/27/20 08:00 07/27/20 08:08 Glipizide Xl 5 Mg Tablet PO 5 mg DAILY@0800 [facility] Administration Insulin Glargine 10 units 07/27/20 22:00 Insulin Glargine 100 Units/Ml Pen SC QHS [facility] Lactobacillus Acidophilus 1 tablet 07/27/20 06:00 07/27/20 03:43 Lactobacillus Acidophilus PO 1 tablet DAILY [facility] Administration Latanoprost 1 drop 07/27/20 22:00 Latanoprost 0.005% 1 Bottle RIGHT EYE QHS [facility] Lisinopril 10 mg 07/27/20 06:00 07/27/20 03:43 Lisinopril 10 Mg Tablet PO 10 mg DAILY [facility] Administration Magnesium Chloride 128 mg 07/27/20 06:00 07/27/20 03:42 Magnesium Chloride 64 Mg Delay Rel.Tablet PO 128 mg DAILY [facility] Administration Magnesium Hydroxide 30 ml 07/26/20 20:55 Magnesium Hydroxide 30 Ml Udc PO DAILY PRN Constipation Nystatin 1 applic 07/26/20 18:00 07/27/20 03:44 Nystatin Powder 15gm Bottle TOPICAL 1 applicatio BID [facility]IA[facility] Administration Protocol Pantoprazole Sodium 40 mg 07/27/20 06:00 07/27/20 03:43 Pantoprazole Sodium 40 Mg Tablet PO 40 mg DAILY [facility] Administration Polyethylene Glycol 17 gm 07/27/20 06:00 07/27/20 03:43 Polyethylene Glycol 3350 17 Gm Packet PO Not Given DAILY [facility] Senna/Docusate Sodium 1 tablet 07/27/20 06:00 07/27/20 03:43 Senna/Docusate Sodium 1 Tablet PO Not Given BID [facility] Tuberculin PPD 5 tu 08/03/20 10:00 Tuberculin,Purif.Prot.Deriv. 50 Tu/Ml Vial ID 08/03/20 10:01 X1 ONE Problem List Debility (Acute) Weakness (Acute) Multiple falls (Acute) UTI due to extended-spectrum beta lactamase (ESBL) producing Escherichia coli (Acute) Acute delirium (Acute) Frontal lobe dementia (Chronic) Chronic kidney disease (Chronic) Diabetes mellitus (Chronic) Glaucoma (Chronic) Hypomagnesemia (Chronic) HTN (hypertension) (Chronic) GERD (gastroesophageal reflux disease) (Chronic) Hyperlipidemia (Chronic) Obstructive sleep apnea (Chronic) Vital Signs Temp Pulse Resp BP Pulse Ox 97.9 F 80 18 109/63 96 07/27/20 13:14 07/27/20 13:14 07/27/20 13:14 07/27/20 13:14 07/27/20 13:14 Oxygen Delivery Method Room Air Weight: 94.007 kg Body Mass Index (BMI) 40.4 Finger Stick Blood Glucose 108 Sodium 139 mmol/L (136-145) 07/27/20 05:25 Potassium 3.8 mmol/L (3.5-5.1) 07/27/20 05:25 Chloride 108 mmol/L (98-107) H 07/27/20 05:25 Carbon Dioxide 25.0 mmol/L (21.0-32.0) 07/27/20 05:25 Anion Gap 6 (5-15) 07/27/20 05:25 BUN 23 mg/dL (7-18) H 07/27/20 05:25 Creatinine 0.92 mg/dL (0.55-1.02) 07/27/20 05:25 Est GFR (MDRD) Af Amer 74 mL/min (>60) 07/27/20 05:25 Est GFR (MDRD) Non-Af 61 mL/min (>60) 07/27/20 05:25 BUN/Creatinine Ratio 24.9 RATIO (10-20) H 07/27/20 05:25 Glucose 167 mg/dL (74-106) H 07/27/20 05:25 Assessment/Plan: 1. Pain: acetaminophen 1000mg PO Q6H PRN pain 1-04/15. Please continue to monitor for S/S of increased pain and PRN usage. 2. DVT prophylaxis: enoxaparin 40mg SC daily. Please continue to monitor for S/S of bleeding, renal function, hemoglobin (last 11.7 g/dL), and platelets (last 214,000). 3. CV prophylaxis: aspirin 81mg PO DAILYCM. Please continue to monitor for S/S of bleeding. 4. Hypertension: lisinopril 10mg PO daily. Please continue to monitor renal function, potassium (last 3.8 mmol/L), and BP (last 109/63). 5. Hyperlipidemia: atorvastatin 20mg PO QHS. Please continue to monitor lipid panels (last 05/2020) and for muscle pain. *6. Diabetes mellitus type II: glipizide XL 5mg daily, Bydureon 2mg SC weekly and insulin glargine 10units SC daily. Please continue to monitor for S/S of hypoglycemia and blood glucose. Please consider ordering a hemoglobin A1c (last was 8.3% from 07/2019). 7. GI prophylaxis: lactobacillus acidophilus 1T PO daily. Please continue to monitor. 8. Glaucoma: latanoprost 0.005% ophthalmic solution 1gtt OD QHS. Please continue to monitor for glaucoma. 9. Hypomagnesemia: magnesium chloride 128mg PO daily. Please continue to monitor magnesium levels (last 1.9 mg/dL). 10. GERD: pantoprazole 40mg PO daily. Please continue to monitor for S/S of GERD and diarrhea. Psychotropic Medications: None Unnecessary Medications: None Bowel Regimen: Miralax 17gm PO daily, senna/docusate 1T PO BID, MOM 30mL PO daily PRN constipation, and bisacodyl 10mg ID daily PRN constipation. Please continue to monitor for S/S of constipation and PRN usage. Date of Note:: 07/27/20 - Provider Comments Provider responsibility: Provider responsible to enter orders to implement recommendations <Zachary Dillon Chi - Last Filed: 07/27/20 15:54> Progress Note - Pharmacy Subjective: [] Objective: Allergies sulfamethoxazole [From ] Allergy (Verified 07/23/20 18:11) Hives trimethoprim [From ] Allergy (Verified 07/23/20 18:11) Hives adhesive tape Adverse Reaction (Verified 07/23/20 18:11) Rash Current Medications Generic Name Dose Route Start Last Admin Trade Name Freq PRN Reason Stop Dose Admin Acetaminophen 1,000 mg 07/26/20 20:55 Acetaminophen 500 Mg Tablet PO Q6H PRN PRN Pain Score 1-10 Aspirin 81 mg 07/27/20 08:00 07/27/20 08:08 Aspirin 81 Mg Tab.Chew PO 81 mg DAILY@0800 [facility] Administration Atorvastatin Calcium 20 mg 07/26/20 22:00 07/26/20 20:40 Atorvastatin Calcium 20 Mg Tablet PO 20 mg QHS [facility] Administration Bisacodyl 10 mg 07/26/20 20:56 Bisacodyl 10 Mg Suppository RECTAL DAILY PRN Constipation Enoxaparin Sodium 40 mg 07/27/20 08:00 07/27/20 11:26 Enoxaparin 40 Mg/0.4 Ml Syringe SC 40 mg DAILY@0800 [facility] Administration Glipizide 5 mg 07/27/20 08:00 07/27/20 08:08 Glipizide Xl 5 Mg Tablet PO 5 mg DAILY@0800 [facility] Administration Insulin Glargine 10 units 07/27/20 22:00 Insulin Glargine 100 Units/Ml Pen SC QHS [facility] Lactobacillus Acidophilus 1 tablet 07/27/20 06:00 07/27/20 03:43 Lactobacillus Acidophilus PO 1 tablet DAILY [facility] Administration Latanoprost 1 drop 07/27/20 22:00 Latanoprost 0.005% 1 Bottle RIGHT EYE QHS [facility] Lisinopril 10 mg 07/27/20 06:00 07/27/20 03:43 Lisinopril 10 Mg Tablet PO 10 mg DAILY [facility] Administration Magnesium Chloride 128 mg 07/27/20 06:00 07/27/20 03:42 Magnesium Chloride 64 Mg Delay Rel.Tablet PO 128 mg DAILY [facility] Administration Magnesium Hydroxide 30 ml 07/26/20 20:55 Magnesium Hydroxide 30 Ml Udc PO DAILY PRN Constipation Nystatin 1 applic 07/26/20 18:00 07/27/20 03:44 Nystatin Powder 15gm Bottle TOPICAL 1 applicatio BID [facility] Administration Protocol Pantoprazole Sodium 40 mg 07/27/20 06:00 07/27/20 03:43 Pantoprazole Sodium 40 Mg Tablet PO 40 mg DAILY [facility] Administration Polyethylene Glycol 17 gm 07/27/20 06:00 07/27/20 03:43 Polyethylene Glycol 3350 17 Gm Packet PO Not Given DAILY [facility] Senna/Docusate Sodium 1 tablet 07/27/20 06:00 07/27/20 03:43 Senna/Docusate Sodium 1 Tablet PO Not Given BID [facility] Tuberculin PPD 5 tu 08/03/20 10:00 Tuberculin,Purif.Prot.Deriv. 50 Tu/Ml Vial ID 08/03/20 10:01 X1 ONE Problem List Debility (Acute) Weakness (Acute) Multiple falls (Acute) UTI due to extended-spectrum beta lactamase (ESBL) producing Escherichia coli (Acute) Acute delirium (Acute) Frontal lobe dementia (Chronic) Chronic kidney disease (Chronic) Diabetes mellitus (Chronic) Glaucoma (Chronic) Hypomagnesemia (Chronic) HTN (hypertension) (Chronic) GERD (gastroesophageal reflux disease) (Chronic) Hyperlipidemia (Chronic) Obstructive sleep apnea (Chronic) Vital Signs Temp Pulse Resp BP Pulse Ox 97.9 F 80 18 109/63 96 07/27/20 13:14 07/27/20 13:14 07/27/20 13:14 07/27/20 13:14 07/27/20 13:14 Oxygen Delivery Method Room Air Weight: 94.007 kg Body Mass Index (BMI) 40.4 Finger Stick Blood Glucose 108 Sodium 139 mmol/L (136-145) 07/27/20 05:25 Potassium 3.8 mmol/L (3.5-5.1) 07/27/20 05:25 Chloride 108 mmol/L (98-107) H 07/27/20 05:25 Carbon Dioxide 25.0 mmol/L (21.0-32.0) 07/27/20 05:25 Anion Gap 6 (5-15) 07/27/20 05:25 BUN 23 mg/dL (7-18) H 07/27/20 05:25 Creatinine 0.92 mg/dL (0.55-1.02) 07/27/20 05:25 Est GFR (MDRD) Af Amer 74 mL/min (>60) 07/27/20 05:25 Est GFR (MDRD) Non-Af 61 mL/min (>60) 07/27/20 05:25 BUN/Creatinine Ratio 24.9 RATIO (10-20) H 07/27/20 05:25 Glucose 167 mg/dL (74-106) H 07/27/20 05:25 Assessment/Plan: Psychotropic Medications: Unnecessary Medications: Bowel Regimen: - Provider Comments Provider responsibility: Provider responsible to enter orders to implement recommendations Provider Comments to Recommendations by Pharmacy: Agree
--- NOTE | 2020-07-27 15:59 | CHAPLAIN ---
Type of Pastoral Visit _x__ Initial Visit ___ Follow-up Visit ___ On-call Visit ___ General Patient Visit ___ Spiritual Assessment ___ Family Conference ___ Bereavement ___ Rapid Response ___ Code Blue ___ Other (describe below) Pastoral Care Referral From _x__ Patient ___ Family ___ Nurse ___ Physician ___ Safety Equipment Testing Specialist ___ Solar Sales Specialist ___ Other (describe below) Sacrament/Intervention _x__ Active listening ___ Anointing ___ Pentecostalism ___ Bereavement ___ Communion _x__ Melanie exploration ___ _x__ Life review _x__ Prayer ___ Reconciliation ___ Sacrament of Sick _x__ Supportive presence ___ Wedding ___ Other (describe below) Pastoral Comments patient became talkative after introduction and role of this fixture builder explained; pt clearly stated that her goal is to go home and that I am more comfortable there; pt spoke of her who built their home and their garages; pt said that her son suddenly in their home in May and now she has lost her , two sons, and a male friend and that I've got my plot ready. All I need is a date on the stone.; pt says that her daughter is her main support and that she does a wonderful job for me; pt identifies herself as a Nonden[employer]ational that accepted [employer] personally and is confident of her eternal life; pt does ask some spiritual questions about the after life; pt would like to watch Jewish programming on the TV and this fixture builder will supply her the channel numbers to assist her with that; pt welcomes visits and prayer support
[2020-07-27 16:51] LABS: Bedside Glucose 208 mg/dL (70-110)
[2020-07-27] MEDS: Atorvastatin Calcium 20 MG Tablet PO (21:15)
[2020-07-27 21:20] LABS: Bedside Glucose 258 mg/dL (70-110)
[2020-07-27 21:33] VITALS: PULSE 76; RESP 18; O2SAT 96
[2020-07-28] MEDS: Latanoprost 0.005% 1 Bottle 1 DRP RIGHT EYE ×2 (01:45→21:18)
[2020-07-28 06:00] VITALS: BP 156/77; PULSE 85; RESP 16; TEMP 36.6; O2SAT 98
[2020-07-28] MEDS: Menthol/Lanolin/Calamine/Znox 113 GM Tube 1 APPLIC TOPICAL ×2 (06:04→17:29)
[2020-07-28] MEDS: Magnesium Chloride 64 MG Delay Rel.Tablet 128 MG PO (06:04)
[2020-07-28] MEDS: Nystatin Powder 15gm Bottle 1 APPLIC TOPICAL ×2 (06:05→17:26)
[2020-07-28] MEDS: Pantoprazole Sodium 40 MG Tablet PO (06:05)
[2020-07-28] MEDS: Senna/Docusate Sodium 1 Tablet PO (06:05)
[2020-07-28] MEDS: Lisinopril 10 MG Tablet PO (06:06)
[2020-07-28 07:00] LABS: Bedside Glucose 213 mg/dL (70-110)
[2020-07-28] MEDS: glipiZIDE XL 5 MG Tablet PO (08:31)
[2020-07-28] MEDS: Aspirin 81 MG TAB.CHEW PO (08:32)
[2020-07-28] MEDS: Enoxaparin 40 MG/0.4 ML Syringe SC (08:32)
[2020-07-28 10:56] LABS: Bedside Glucose 296 mg/dL (70-110)
--- NOTE | 2020-07-28 14:35 | CASEMGMT ---
Social Work Pt requesting to speak with SW to DC. Spoke with pt. Pt stated today is day 3, I'm ready to leave. Expressed appreciation for staying for days compromised. Spoke with therapy and and all agreeable to is safe to DC home alone. Offered DC 07/29 as pt has received skilled care this date. Pt would like to go today. SW offered to contact dtr to determine bean picker. Pt agreed. Spoke with dtr and explained situation. Dtr stated she has already been in [place] today and would prefer to bean picker tomorrow. SW agreeable. Facilitated phone call between dtr and pt. Dtr explained she cannot bean picker until 07/29. Pt agreed. Dtr to get private duty aides restarted. Inquired to pt for referral to skilled HHC - pt declined. No DME needs either. Plan: DC home alone 07/29 with no therapy or DME. Tasneem Edwards, AUDIOVISUAL LEAD TECHNICIAN SURGICAL SERVICES COORDINATOR
[2020-07-28 14:43] VITALS: BP 105/57; PULSE 88; RESP 16; TEMP 36.2; O2SAT 98
--- NOTE | 2020-07-28 14:50 | DCINST_ITS ---
- Discharge Diagnoses Current Active Problems: Current Active and Chronic Problems Debility (Acute) Weakness (Acute) Multiple falls (Acute) UTI due to extended-spectrum beta lactamase (ESBL) producing Escherichia coli (Acute) Acute delirium (Acute) Frontal lobe dementia (Chronic) Chronic kidney disease (Chronic) Diabetes mellitus (Chronic) Glaucoma (Chronic) Hypomagnesemia (Chronic) HTN (hypertension) (Chronic) GERD (gastroesophageal reflux disease) (Chronic) Hyperlipidemia (Chronic) Obstructive sleep apnea (Chronic) You will use the following diet at home:: No restrictions, Regular Your food should be the consistency of: Regular Your liquids should be the consistency of: Regular/Thin Discharge Activity: Return to Normal Activity, May Shower, Use Walker Weight Bearing Status: Weight bearing as tolerated Call your doctor if you observe: Fever of 101 or Higher, Inability to urinate, Inability to have a bowel movement, Shortness of breath, Dizziness, Chest pain, Uncontrolled pain Allergies/Adverse Reactions: Allergies sulfamethoxazole [From ] Allergy (Verified 07/23/20 18:11) Hives trimethoprim [From ] Allergy (Verified 07/23/20 18:11) Hives adhesive tape Adverse Reaction (Verified 07/23/20 18:11) Rash Medications to take at Discharge Aspirin [Aspirin, Baby] 81 mg PO DAILY@0800 02/01/19 Omeprazole [Prilosec] 40 mg PO DAILY 02/01/19 Glipizide [Glipizide ER] 5 mg PO DAILY 08/16/19 Lecithin, Soy [Lecithin] 400 mg PO BID 08/16/19 Exenatide Microspheres [Bydureon Pen] 2 mg SQ TU 07/23/20 Lactobacillus Acidophilus [Acidophilus] 1 ea PO DAILY 07/23/20 Latanoprost 2.5 ml OP DAILY 07/23/20 Lisinopril [Prinivil] 10 mg PO DAILY 07/23/20 Magnesium Oxide [Mag-Ox 400] 400 mg PO DAILY 07/23/20 Simvastatin 40 mg PO DAILY 07/23/20 Nystatin Powder [Mycostatin Powder] 1 applic TOPICAL BID 07/26/20 Acetaminophen [Tylenol] 1,000 mg PO Q6H PRN PRN tab 07/28/20 Menthol/Lanolin/Calamine/Znox [Calmoseptine Ointment] 1 applic TOPICAL BID tube 07/28/20 Primary Care Physician: Cecy Trivedi MD [Primary Care Provider] - Please follow up with your Primary Care Physician in: 1 week. Test Results: Test results from this visit will be discussed in further detail at your follow- up appointment, if applicable. Please Follow Up With: Cecy Trivedi MD When: 1 week.
--- NOTE | 2020-07-28 14:51 | DS.PCM_ITS ---
Discharge Date and Diagnosis - Problem List Patient Problems: Active and Suspected Problems Debility (Acute) Weakness (Acute) Multiple falls (Acute) UTI due to extended-spectrum beta lactamase (ESBL) producing Escherichia coli (Acute) Acute delirium (Acute) Date of Admission: 07/26/20 Date of Discharge: 07/29/20 - Primary Discharge Diagnosis Acute Problems: Active Problems Debility (Acute) Weakness (Acute) Multiple falls (Acute) UTI due to extended-spectrum beta lactamase (ESBL) producing Escherichia coli (Acute) Acute delirium (Acute) - Secondary Discharge Diagnosis Chronic Problems: Chronic Problems Frontal lobe dementia (Chronic) Chronic kidney disease (Chronic) Diabetes mellitus (Chronic) Glaucoma (Chronic) Hypomagnesemia (Chronic) HTN (hypertension) (Chronic) Obesity (BMI 30-39.9) (Chronic) CKD (chronic kidney disease), stage III (Chronic) Dementia (Chronic) GERD (gastroesophageal reflux disease) (Chronic) Hyperlipidemia (Chronic) Obstructive sleep apnea (Chronic) Type II diabetes mellitus (Chronic) Hospital Course and Treatment Imaging Results: 07/26/20 15:09 Diet: Carbohydrate Controlled Food consistency:: Regular Liquid Consistency:: Regular/Thin Type of Dietary Supplement:: Glucerna Shake Diet Comments: 120 ml glucerna w/ meals. Labs (Last 48 Hours) 07/26/20 07/26/20 07/27/20 16:30 21:59 05:25 WBC 8.5 RBC 3.96 L Hgb 11.7 L Hct 34.8 L MCV 87.9 MCH 29.5 MCHC 33.6 D RDW Std Deviation 42.0 RDW Coeff of Wesley 13.1 Plt Count 214 MPV 10.8 Immature Gran % (Auto) 0.500 Neut % (Auto) 63.6 Lymph % (Auto) 20.0 [place] % (Auto) 9.9 Eos % (Auto) 5.4 H Baso % (Auto) 0.6 Absolute Neuts (auto) 5.4 Absolute Lymphs (auto) 1.70 Nucleated RBC % 0 Sodium Potassium Chloride Carbon Dioxide Anion Gap BUN Creatinine Estim Creat Clear Calc Est GFR (MDRD) Af Amer Est GFR (MDRD) Non-Af BUN/Creatinine Ratio Glucose Calcium COVID-19 ([facility]) Pending POC Glucose 206 H 07/27/20 07/27/20 07/27/20 05:25 06:11 11:10 WBC RBC Hgb Hct MCV MCH MCHC RDW Std Deviation RDW Coeff of Wesley Plt Count MPV Immature Gran % (Auto) Neut % (Auto) Lymph % (Auto) [place] % (Auto) Eos % (Auto) Baso % (Auto) Absolute Neuts (auto) Absolute Lymphs (auto) Nucleated RBC % Sodium 139 Potassium 3.8 Chloride 108 H Carbon Dioxide 25.0 Anion Gap 6 BUN 23 H Creatinine 0.92 Estim Creat Clear Calc 32.70 Est GFR (MDRD) Af Amer 74 Est GFR (MDRD) Non-Af 61 BUN/Creatinine Ratio 24.9 H Glucose 167 H Calcium 8.8 COVID-19 ([facility]) POC Glucose 175 H 304 H 07/27/20 07/27/20 07/28/20 16:35 21:12 06:01 WBC RBC Hgb Hct MCV MCH MCHC RDW Std Deviation RDW Coeff of Wesley Plt Count MPV Immature Gran % (Auto) Neut % (Auto) Lymph % (Auto) [place] % (Auto) Eos % (Auto) Baso % (Auto) Absolute Neuts (auto) Absolute Lymphs (auto) Nucleated RBC % Sodium Potassium Chloride Carbon Dioxide Anion Gap BUN Creatinine Estim Creat Clear Calc Est GFR (MDRD) Af Amer Est GFR (MDRD) Non-Af BUN/Creatinine Ratio Glucose Calcium COVID-19 ([facility]) POC Glucose 208 H 258 H 213 H 07/28/20 10:48 WBC RBC Hgb Hct MCV MCH MCHC RDW Std Deviation RDW Coeff of Wesley Plt Count MPV Immature Gran % (Auto) Neut % (Auto) Lymph % (Auto) [place] % (Auto) Eos % (Auto) Baso % (Auto) Absolute Neuts (auto) Absolute Lymphs (auto) Nucleated RBC % Sodium Potassium Chloride Carbon Dioxide Anion Gap BUN Creatinine Estim Creat Clear Calc Est GFR (MDRD) Af Amer Est GFR (MDRD) Non-Af BUN/Creatinine Ratio Glucose Calcium COVID-19 ([facility]) POC Glucose 296 H Operations: None Procedures: None Summary of Care Provided: The patient is a 84 year old Female with below past medical history hospitalized for ESBL E. Coli urinary tract infection, complicate by acute delirium with underlying dementia, admitted to TCU with debility, here for rehabilitation, strengthening, prior to discharge home alone. Discharge home alone, No therapy, No durable medical equipment. Patient Problems: Active and Suspected Problems Debility (Acute) Weakness (Acute) Multiple falls (Acute) UTI due to extended-spectrum beta lactamase (ESBL) producing Escherichia coli (Acute) Acute delirium (Acute) - Physical Exam Vitals/I&O's: Vital Signs Temp Pulse Resp BP Pulse Ox 97.1 F L 88 16 105/57 L 98 07/28/20 14:43 07/28/20 14:43 07/28/20 14:43 07/28/20 14:43 07/28/20 14:43 Oxygen Delivery Method Room Air Weight: 83.688 kg Body Mass Index (BMI) 40.4 Finger Stick Blood Glucose 108 Intake and Output for Last 24 Hours 07/26/20 07/27/20 07/28/20 23:59 23:59 23:59 Intake Total 240 / 240 1080 / 1080 360 / 360 Output Total 350 / 350 Balance 240 / 240 730 / 730 360 / 360 Laboratory Results 07/27/20 16:35: POC Glucose 208 H 07/27/20 21:12: POC Glucose 258 H 07/28/20 06:01: POC Glucose 213 H 07/28/20 10:48: POC Glucose 296 H Current Medications Acetaminophen (Acetaminophen 500 Mg Tablet) 1,000 mg PO Q6H PRN PRN PRN Reason: Pain Score 1-10 Aspirin (Aspirin 81 Mg Tab.Chew) 81 mg PO DAILY@0800 [facility] Last Admin: 07/28/20 08:32 Dose: 81 mg Documented by: Atorvastatin Calcium (Atorvastatin Calcium 20 Mg Tablet) 20 mg PO QHS [facility] Last Admin: 07/27/20 21:15 Dose: 20 mg Documented by: Bisacodyl (Bisacodyl 10 Mg Suppository) 10 mg RECTAL DAILY PRN PRN Reason: Constipation Calamine/Phenol (Menthol/Lanolin/Calamine/Znox 113 Gm Tube) 1 applic TOPICAL BID [facility]; Protocol Last Admin: 07/28/20 06:04 Dose: 1 applicatio Documented by: Enoxaparin Sodium (Enoxaparin 40 Mg/0.4 Ml Syringe) 40 mg SC DAILY@0800 [facility] Last Admin: 07/28/20 08:32 Dose: 40 mg Documented by: Glipizide (Glipizide Xl 5 Mg Tablet) 5 mg PO DAILY@0800 [facility] Last Admin: 07/28/20 08:31 Dose: 5 mg Documented by: Insulin Glargine (Insulin Glargine 100 Units/Ml Pen) 10 units SC QHS [facility] Last Admin: 07/27/20 21:22 Dose: 10 units Documented by: Lactobacillus Acidophilus (Lactobacillus Acidophilus) 1 tablet PO DAILY [facility] Last Admin: 07/28/20 06:04 Dose: 1 tablet Documented by: Latanoprost (Latanoprost 0.005% 1 Bottle) 1 drop RIGHT EYE QHS [facility] Last Admin: 07/28/20 01:45 Dose: 1 drop Documented by: Lisinopril (Lisinopril 10 Mg Tablet) 10 mg PO DAILY [facility] Last Admin: 07/28/20 06:06 Dose: 10 mg Documented by: Magnesium Chloride (Magnesium Chloride 64 Mg Delay Rel.Tablet) 128 mg PO DAILY [facility] Last Admin: 07/28/20 06:04 Dose: 128 mg Documented by: Magnesium Hydroxide (Magnesium Hydroxide 30 Ml Udc) 30 ml PO DAILY PRN PRN Reason: Constipation Nystatin (Nystatin Powder 15gm Bottle) 1 applic TOPICAL BID [facility]; Protocol Last Admin: 07/28/20 06:05 Dose: 1 applicatio Documented by: Pantoprazole Sodium (Pantoprazole Sodium 40 Mg Tablet) 40 mg PO DAILY [facility] Last Admin: 07/28/20 06:05 Dose: 40 mg Documented by: Polyethylene Glycol (Polyethylene Glycol 3350 17 Gm Packet) 17 gm PO DAILY [facility] Last Admin: 07/28/20 06:04 Dose: Not Given Documented by: Senna/Docusate Sodium (Senna/Docusate Sodium 1 Tablet) 1 tablet PO BID [facility] Last Admin: 07/28/20 13:39 Dose: Not Given Documented by: Tuberculin PPD (Tuberculin,Purif.Prot.Deriv. 50 Tu/Ml Vial) 5 tu ID [id number] ONE Stop: 08/03/20 10:01 Discharge Diet: No Restrictions Discharge Activity: Return to Normal Activity, May Shower, Use Walker Weight Bearing Status: Weight bearing as tolerated Call your doctor if you observe: Fever of 101 or Higher, Inability to urinate, Inability to have a bowel movement, Shortness of breath, Dizziness, Chest pain, Uncontrolled pain Home Medications: Medications to take at Discharge Aspirin [Aspirin, Baby] 81 mg PO DAILY@0800 02/01/19 Omeprazole [Prilosec] 40 mg PO DAILY 02/01/19 Glipizide [Glipizide ER] 5 mg PO DAILY 08/16/19 Lecithin, Soy [Lecithin] 400 mg PO BID 08/16/19 Exenatide Microspheres [Bydureon Pen] 2 mg SQ TU 07/23/20 Lactobacillus Acidophilus [Acidophilus] 1 ea PO DAILY 07/23/20 Latanoprost 2.5 ml OP DAILY 07/23/20 Lisinopril [Prinivil] 10 mg PO DAILY 07/23/20 Magnesium Oxide [Mag-Ox 400] 400 mg PO DAILY 07/23/20 Simvastatin 40 mg PO DAILY 07/23/20 Nystatin Powder [Mycostatin Powder] 1 applic TOPICAL BID 07/26/20 Acetaminophen [Tylenol] 1,000 mg PO Q6H PRN PRN tab 07/28/20 Menthol/Lanolin/Calamine/Znox [Calmoseptine Ointment] 1 applic TOPICAL BID tube 07/28/20 Primary Care Physician: Cecy Trivedi MD [Primary Care Provider] - Please follow up with your Primary Care Physician in: 1 week. Please Follow Up With: Cecy Trivedi MD When: 1 week. Disposition: Home Minutes spent on discharge:: 30 Patient Condition:: Stable Medical Necessity - Tobacco Use Smoking Status: Never smoker Tobacco Use: Non-smoker Meaningful Use Info Meaningful Use Diagnoses (Choose all that apply): None applicable
--- NOTE | 2020-07-28 16:05 | CASEMGMT ---
Social Work BIMS and PHQ-9 completed for MDS assessment. Tasneem Edwards, MUSIC WORKER DANCING INSTRUCTOR
[2020-07-28 17:36] LABS: Bedside Glucose 241 mg/dL (70-110)
[2020-07-28] MEDS: Atorvastatin Calcium 20 MG Tablet PO (21:15)
[2020-07-28 21:25] LABS: Bedside Glucose 238 mg/dL (70-110)
[2020-07-29 05:50] VITALS: BP 152/67; PULSE 68; RESP 18; TEMP 36.8; O2SAT 98
[2020-07-29] MEDS: Pantoprazole Sodium 40 MG Tablet PO (05:51)
[2020-07-29] MEDS: Lisinopril 10 MG Tablet PO (05:51)
[2020-07-29] MEDS: Magnesium Chloride 64 MG Delay Rel.Tablet 128 MG PO (05:51)
[2020-07-29] MEDS: Nystatin Powder 15gm Bottle 1 APPLIC TOPICAL (05:52)
[2020-07-29] MEDS: Menthol/Lanolin/Calamine/Znox 113 GM Tube 1 APPLIC TOPICAL (05:52)
[2020-07-29 06:26] LABS: Bedside Glucose 169 mg/dL (70-110)
[2020-07-29] MEDS: glipiZIDE XL 5 MG Tablet PO (08:36)
[2020-07-29] MEDS: Aspirin 81 MG TAB.CHEW PO (08:36)
[2020-07-29 09:41] VITALS: PULSE 81; RESP 18; O2SAT 99
--- NOTE | 2020-08-07 14:02 | MDS.RN ---
Information for the mds was obtained from review of the clinical record, interview of resident, staff, and direct observation of resident's care.
== END 2020-07-29 10:11 | disposition home or self-care (01) | DRG 690 ==
PROVIDERS: Admitting Provider Family Medicine Geriatric Medicine; PCP Family Medicine; Visit Provider Family Medicine Geriatric Medicine
DX: N39.0 Urinary tract infection, site not specified (principal); Z16.12 Extended spectrum beta lactamase (ESBL) resistance; Z68.41 Body mass index [BMI] 40.0-44.9, adult; B96.20 Unspecified Escherichia coli [E. coli] as the cause of diseases classified elsewhere; R29.6 Repeated falls; F02.80 Dementia in other diseases classified elsewhere, unspecified severity, without behavioral disturbance, psychotic disturbance, mood disturbance, and anxiety; G31.09 Other frontotemporal neurocognitive disorder; N18.30 Chronic kidney disease, stage 3 unspecified; E11.22 Type 2 diabetes mellitus with diabetic chronic kidney disease; K21.9 Gastro-esophageal reflux disease without esophagitis; I12.9 Hypertensive chronic kidney disease with stage 1 through stage 4 chronic kidney disease, or unspecified chronic kidney disease; G47.33 Obstructive sleep apnea (adult) (pediatric); E78.5 Hyperlipidemia, unspecified; E66.9 Obesity, unspecified; B35.4 Tinea corporis; H40.9 Unspecified glaucoma
CPT/HCPCS: 80048; 82962; 85025; 87635; 92507; 92523; 92610; 97110; 97116; 97162; 97166; 97530; 97535; U0005; U0003

== ENCOUNTER → 2020-08-01 14:56 | Outpatient (CLI) | payer MEDICARE, SELFPAY ==
[2020-07-26 14:52] VITALS: BMI 40.4
== END ==
PROVIDERS: PCP Family Medicine; Visit Provider Family Medicine
DX: A41.81 Sepsis due to Enterococcus (principal)
CPT/HCPCS: 87086; 87088; 87186

== ENCOUNTER → 2020-08-16 | Outpatient (CLI) | payer MEDICARE, SELFPAY ==
[2020-07-26 14:52] VITALS: BMI 40.4
== END | disposition home or self-care (01) ==
LOC: LABSPEC 15:22
PROVIDERS: PCP Family Medicine; Visit Provider Family Medicine
DX: R39.9 Unspecified symptoms and signs involving the genitourinary system (principal)
CPT/HCPCS: 87077; 87086; 87088

== ENCOUNTER → 2020-08-28 13:53 | Outpatient (CLI) | payer MEDICARE, SELFPAY ==
--- NOTE | 2020-08-28 13:59 | US_ITS ---
STUDY: RENAL ULTRASOUND - COMPLETE REASON FOR EXAM: Female, 84 years old. UTI''s TECHNIQUE: Ultrasound evaluation of the kidneys was performed with real-time and static dye-scale imaging. COMPARISON: Comparison is made with prior study dated 08/17/2019. FINDINGS: RIGHT KIDNEY: Normal location of the right kidney, which is normal in size. The right kidney measures 9.7 cm x 3.9 cm x 5 cm. There is a normal cortex of the right kidney. The renal cortex measures 1.2 cm. There is no right renal mass or cyst. There are no right renal calculi. There is no right hydronephrosis. DISTAL RIGHT URETER: There is non-visualization of the distal right ureter. There is no demonstrated right ureterovesical junction calculus. There is no demonstrated right ureteral jet. LEFT KIDNEY: Normal location of the left kidney, which is normal in size. The left kidney measures 9.6 cm x 5 cm x 5.8 cm. There is a normal cortex of the left kidney. The renal cortex measures 1.4 cm. There is no left renal mass or cyst. There are no left renal calculi. There is no left hydronephrosis. DISTAL LEFT URETER: There is non-visualization of the distal left ureter. There is no demonstrated left ureterovesical junction calculus. There is no demonstrated left ureteral jet. BLADDER: The bladder is empty at the time the examination. US/Kidney and Bladder IMPRESSION: Normal ultrasound of the kidneys. Electronically Signed: Mickey Malik MD at 14:51 EST , Service support ,
== END ==
PROVIDERS: PCP Family Medicine; Referring Provider Urology; Visit Provider Urology
DX: N39.0 Urinary tract infection, site not specified (principal)
CPT/HCPCS: 76770

== ENCOUNTER 2020-11-26 10:53 | Emergency (ER) | payer MEDICARE, SELFPAY ==
[2020-11-26 10:55] VITALS: BP 121/56; PULSE 91; RESP 14; TEMP 35.6; O2SAT 98; BMI 35.2
--- NOTE | 2020-11-26 11:11 | EX.ED.DYSGE1 ---
HPI History of Present Illness Chief Complaint: Hyperglycemia Informant: patient and family Onset/Context/Timing Onset: Weeks Context: Gradual Onset Timing: Continuous Current Severity: Mild Maximum Severity: Mild Narrative Narrative: 85-year-old diabetic female who lives alone at home. Does not check her blood sugars. Daughter is with the patient. States for the last several weeks she has had increased thirst and increased urination. Her blood sugars have been running high. She saw her urologist for a pelvic genitalia yeast infection. Patient now is on antifungal. Her urinalysis at that time was negative. Prior similar symptoms: Yes Recent Illness/Hospitalization: No PFSH PFS Medical History Cholecystectomy planned Chronic kidney disease (CKD) Dementia Diabetes GERD (gastroesophageal reflux disease) Hyperlipidemia Home Medications Omeprazole [Prilosec] 40 mg PO DAILY 02/01/19 [History Last Taken 08/16/19] aspirin 81 mg PO DAILY@0800 02/01/19 [History Last Taken 08/16/19] glipizide 5 mg PO DAILY 08/16/19 [History Last Taken 08/16/19] lecithin, soy 400 mg PO BID 08/16/19 [History Last Taken 08/16/19] Lactobacillus acidophilus 1 ea PO DAILY 07/23/20 [History Last Taken Unknown] exenatide microspheres 2 mg SQ TU 07/23/20 [History Last Taken Unknown] latanoprost 2.5 ml OP DAILY 07/23/20 [History Last Taken Unknown] lisinopril 10 mg PO DAILY 07/23/20 [History Last Taken Unknown] magnesium oxide 400 mg PO DAILY 07/23/20 [History Last Taken Unknown] simvastatin 40 mg PO DAILY 07/23/20 [History Last Taken Unknown] nystatin 1 applic TOPICAL BID 07/26/20 [History Last Taken Unknown] acetaminophen 1,000 mg PO Q6H PRN PRN tab 07/28/20 [Rx Last Taken Unknown] menthol-zinc oxide 1 applic TOPICAL BID tube 07/28/20 [Rx Last Taken Unknown] Allergy/AdvReac Type Severity Reaction Status Date / Time sulfamethoxazole Allergy Hives Verified 11/26/20 10:54 [From ] trimethoprim [From ] Allergy Hives Verified 11/26/20 10:54 adhesive tape AdvReac Rash Verified 11/26/20 10:54 Surgical History History of appendectomy Social History Smoking Status: Never smoker ROS ROS ED ROS Narrative Patient denies any recent fever vomiting or abdominal pain. Has had increased urination and increased thirst. With associated elevated blood sugars. Denies any dysuria. Review of Systems ROS Unobtainable: Denies due to encephalopathy Constitutional Constitutional ED: Denies fever(s) Eyes Eyes: Denies change in vision ENT ENT ED: Denies ear pain or sore throat Cardiovascular Cardiovascular: Denies chest pain Respiratory/Chest Respiratory/Chest: Denies cough or dyspnea Gastrointestinal Gastrointestinal: Reports diarrhea; Denies abdominal pain, nausea or vomiting Genitourinary Genitourinary ED: Reports urinary frequency; Denies dysuria or hematuria Musculoskeletal Musculoskeletal: Denies myalgias Integumentary Reports rash Neurologic Neurologic: Denies headache(s) Psychiatric Psychiatric: Denies depression Endocrine Endocrinology: Reports polydipsia and polyuria Allergic/Immunologic Allergic/Immunologic ED: Denies urticaria EXAM Physical Exam Narrative Exam Narrative: Older female accompanied by her daughter. Vital signs are stable afebrile. She is in no acute distress. Lungs are clear. Heart regular rhythm. Abdomen soft nontender. She has external lower abdominal and external pelvic yeast infection. Moving all 4 extremities. No edema. Neurologically she is awake and alert. Const Vital Signs: 11/26/20 10:55 11/26/20 11:04 11/26/20 13:00 Temperature 96.1 F L Temperature Source Temporal Pulse Rate 91 91 Respiratory Rate 14 18 Respiratory Pattern Normal Blood Pressure 121/56 H Blood Pressure Mean 77 Pulse Ox 98 100 Oxygen Delivery Method Room Air Room Air 11/26/20 13:14 Temperature Temperature Source Pulse Rate 68 Respiratory Rate 12 Respiratory Pattern Blood Pressure 145/63 H Blood Pressure Mean 90 Pulse Ox 98 Oxygen Delivery Method Room Air HEENT Negative for trauma or tenderness Eyes PERRL and EOMs intact bilaterally Neck no lymphadenopathy, supple and no JVD General: Negative for tenderness Chest Wall inspection of chest normal Resp normal respiratory effort and clear to auscultation bilaterally Cardio regular rate, regular rhythm and no murmurs GI normal to inspection, nondistended, normoactive bowel sounds, non-tender and non-distended Auscultation: normoactive bowel sounds Palpation: soft Back/Spine no CVA tenderness Extremity normal to inspection General Extremety ED: Negative for edema or tenderness General Extremity: Negative for edema Neuro oriented x3 Sensorium / Orientation: alert Motor Exam: strength 5/5 throughout Psych mental status grossly normal Skin Skin Narrative: Skin yeast infection of the lower abdomen and external pelvic region. Rashes: rashes noted MDM MDM MDM Narrative Medical decision making narrative: Older diabetic female accompanied by her daughter. Has had elevated blood sugars recently. Should be given a liter normal saline screening labs are being obtained. She also has a skin yeast infection but is recently been started on antifungals. Repeat exam patient is doing well at 2:40. Had a long discussion with the daughter. She is not ready to institutionalize her mother. She knows she needs more help at home. She will follow-up with either the primary care physician's office or the licensed clinical social worker here at the hospital. They are currently not available today. She will be given a dose of subcu insulin prior to discharge. Lab Data Attestation: I reviewed the patient's lab results. Lab results narrative: CBC unremarkable. Normal white count. Chemistries normal gap is 7. Creatinine 1.32. Glucose elevated 401. Serum ketones negative. Labs: Laboratory Results - last 24 hr 11/26/20 11/26/20 11/26/20 11:10 12:17 12:17 WBC Cancelled Corrected WBC Cancelled RBC Cancelled Hgb Cancelled Hct Cancelled MCV Cancelled MCH Cancelled MCHC Cancelled RDW Std Deviation Cancelled RDW Coeff of Wesley Cancelled Plt Count Cancelled MPV Cancelled Immature Gran % (Auto) Cancelled Neut % (Auto) Cancelled Lymph % (Auto) Cancelled Dundy % (Auto) Cancelled Eos % (Auto) Cancelled Baso % (Auto) Cancelled Absolute Neuts (auto) Cancelled Absolute Lymphs (auto) Cancelled Total Counted Cancelled Neutrophils % (Manual) Cancelled Band Neutrophils % Cancelled Lymphocytes % (Manual) Cancelled Monocytes % (Manual) Cancelled Eosinophils % (Manual) Cancelled Basophils % (Manual) Cancelled Metamyelocytes % Cancelled Myelocytes % Cancelled Promyelocytes % Cancelled Blast Cells % Cancelled Plasma Cell % (Manual) Cancelled Other Cells % Cancelled Nucleated RBC % Cancelled Nucleated RBCs/100 WBC Cancelled Differential Comment Cancelled Diff Path Review Cancelled Hypersegmented Neuts Cancelled Atypical Lymphocytes Cancelled Reactive Lymphocytes Cancelled Smudge Cells Cancelled Toxic Granulation Cancelled Toxic Vacuolation Cancelled Dohle Bodies Cancelled Rosina Rods Cancelled Platelet Estimate Cancelled Plt Morphology Comment Cancelled RBC Morphology Cancelled Polychromasia Cancelled Hypochromasia Cancelled Poikilocytosis Cancelled Basophilic Stippling Cancelled Anisocytosis Cancelled Microcytosis Cancelled Macrocytosis Cancelled Spherocytes Cancelled Sickle Cells Cancelled Target Cells Cancelled Tear Drop Cells Cancelled Ovalocytes Cancelled Stomatocytes Cancelled Morris-Maxville Bodies Cancelled Bobby Cells Cancelled Bite Cells Cancelled Crenated Cell Cancelled Acanthocytes (Spur) Cancelled Rouleaux Cancelled Schistocytes Cancelled Sodium 137 Potassium 5.1 Chloride 105 Carbon Dioxide 25.0 Anion Gap 7 BUN 32 H Creatinine 1.36 H Estim Creat Clear Calc 21.72 Est GFR (MDRD) Af Amer 48 L Est GFR (MDRD) Non-Af 39 L BUN/Creatinine Ratio 23.5 H Glucose 401 H Calcium 8.7 Acetone Level POC Glucose 396 H 11/26/20 11/26/20 12:40 12:44 WBC 7.9 Corrected WBC RBC 4.39 Hgb 12.7 Hct 39.7 MCV 90.4 MCH 28.9 MCHC 32.0 RDW Std Deviation 43.3 RDW Coeff of Wesley 13.1 Plt Count 216 MPV 11.3 Immature Gran % (Auto) 0.400 Neut % (Auto) 60.8 Lymph % (Auto) 26.1 Dundy % (Auto) 7.8 Eos % (Auto) 4.1 Baso % (Auto) 0.8 Absolute Neuts (auto) 4.8 Absolute Lymphs (auto) 2.05 Total Counted Neutrophils % (Manual) Band Neutrophils % Lymphocytes % (Manual) Monocytes % (Manual) Eosinophils % (Manual) Basophils % (Manual) Metamyelocytes % Myelocytes % Promyelocytes % Blast Cells % Plasma Cell % (Manual) Other Cells % Nucleated RBC % 0 Nucleated RBCs/100 WBC Differential Comment Diff Path Review Hypersegmented Neuts Atypical Lymphocytes Reactive Lymphocytes Smudge Cells Toxic Granulation Toxic Vacuolation Dohle Bodies Rosina Rods Platelet Estimate Plt Morphology Comment RBC Morphology Polychromasia Hypochromasia Poikilocytosis Basophilic Stippling Anisocytosis Microcytosis Macrocytosis Spherocytes Sickle Cells Target Cells Tear Drop Cells Ovalocytes Stomatocytes Morris-[place] Bodies Bobby Cells Bite Cells Crenated Cell Acanthocytes (Spur) Rouleaux Schistocytes Sodium Potassium Chloride Carbon Dioxide Anion Gap BUN Creatinine Estim Creat Clear Calc Est GFR (MDRD) Af Amer Est GFR (MDRD) Non-Af BUN/Creatinine Ratio Glucose Calcium Acetone Level NEGATIVE POC Glucose Discharge Plan Triage Chief Complaint: Hyperglycemia ED Provider: Mejia Posada Dx/Rx/DC Orders Clinical Impression: Type II diabetes mellitus, Hyperglycemia, Yeast infection of the skin Instructions: ED Anika Skin Infection (Adult), ED Diabetic Hyperglycemia Prescriptions: No Action aspirin 81 MG tablet,chewable 81 mg PO DAILY@0800 RF: 0 Omeprazole [Prilosec] 40 MG capsule 40 mg PO DAILY RF: 0 glipizide 2.5 MG tablet extended release 24hr 5 mg PO DAILY RF: 0 lecithin, soy 400 MG capsule 400 mg PO BID RF: 0 latanoprost 2.5 ML drops 2.5 ml OP DAILY RF: 0 simvastatin 40 MG tablet 40 mg PO DAILY RF: 0 lisinopril 10 MG tablet 10 mg PO DAILY RF: 0 Lactobacillus acidophilus 1 EACH capsule 1 ea PO DAILY RF: 0 exenatide microspheres 2 MG/0.65 ML pen injector 2 mg SQ TU RF: 0 magnesium oxide 400 MG tablet 400 mg PO DAILY RF: 0 nystatin 1 APPLIC bottle 1 applic TOPICAL BID RF: 0 acetaminophen 500 MG tablet 1,000 mg PO Q6H PRN PRN (Reason: Pain Score 1-10) RF: 0 menthol-zinc oxide 1 APPLIC ointment 1 applic TOPICAL BID RF: 0 Primary Care Provider: Cecy Trivedi Referrals: Cecy Trivedi MD [Primary Care Provider] - 1 Day (Call and follow-up with your doctor's office tomorrow.) Activity Restrictions/Additional Instructions: Must check your blood sugars at least twice a day. Call follow-up with your doctors office tomorrow for more assistance at home or call and speak with her licensed clinical social worker here in the emergency department at [phone]. Keep the lower abdomen groin area clean and dry. Apply the antifungal ointment twice a day. Disposition Disposition: Home, self care
[2020-11-26 11:15] LABS: Bedside Glucose 396 mg/dL (70-110)
[2020-11-26 12:42] LABS: Anion Gap 7 (5-15); BUN 32 mg/dL (7-18); BUN/Creat Ratio 23.5 RATIO (10-20); Calcium,Total 8.7 mg/dL (8.5-10.1); Chloride 105 mmol/L (98-107); Creatinine, Serum 1.36 mg/dL (0.55-1.02); EST Glomerular Filtration Rate 39 mL/min (>60); Est Glom Filt Rate - Afr Amer 48 mL/min (>60); Estimated Creatinine Clearance 21.72 ml/min; Glucose 401 mg/dL (74-106); Potassium 5.1 mmol/L (3.5-5.1); Sodium Level 137 mmol/L (136-145)
--- NOTE | 2020-11-26 12:59 | ED.RN ---
PT HARD STICK, UNABLE TO OBTAIN AN IV AT THIS TIME. DR GAITAN INFORMED. LAB CONTACTED TO DRAW BLOODWORK. PT AND FAMILY INFORMED
[2020-11-26 13:00] VITALS: PULSE 91; RESP 18; O2SAT 100
[2020-11-26 13:14] VITALS: BP 145/63; PULSE 68; RESP 12; O2SAT 98
[2020-11-26 13:23] LABS: Absolute Lymphocyte Count 2.05 X10^3/uL (0.83-4.51); Absolute Neutrophil Count 4.8 X10^3/uL (2.0-7.7); Basophil# 0.06 X10^3/uL; Basophil% 0.8 % (0-1); Eosinophil# 0.32 X10^3/uL; Eosinophils% 4.1 % (0-5); Hematocrit 39.7 % (37-47); Hemoglobin 12.7 g/dL (12.0-15.0); Lymphocyte # 2.05 X10^3/ul (0.83-4.51); Lymphocyte % 26.1 % (19-41); Mean Corpuscular Hgb 28.9 pg (27.0-32.0); Mean Corpuscular Volume 90.4 fL (81-99); Mean Platelet Vol. 11.3 fl (6.2-12.0); Monocyte# 0.61 X10^3/uL; Monocyte% 7.8 % (0-10); NRBC Flagged by Analyzer 0 % (0-5); Neutrophil # 4.78 X10^3/uL (2.7-7.7); Neutrophil % 60.8 % (47-70); Platelet Count 216 K/mm3 (150-450); RBC Distribution Width CV 13.1 % (11.6-14.6); RBC Distribution Width SD 43.3 fl (35.1-43.9); Red Blood Count 4.39 M/mm3 (4.2-5.4); White Blood Count 7.9 K/mm3 (4.4-11.0)
[2020-11-26] MEDS: Insulin Lispro 100 UNIT/ML INSULN.PEN 10 UNIT SC (14:57)
[2020-11-26 15:00] VITALS: BP 140/60; PULSE 69; RESP 18; O2SAT 96
== END 2020-11-26 15:14 | disposition home or self-care (01) ==
PROVIDERS: Emergency Provider Emergency Medicine; PCP Family Medicine
DX: E11.65 Type 2 diabetes mellitus with hyperglycemia (principal); B37.2 Candidiasis of skin and nail; E11.22 Type 2 diabetes mellitus with diabetic chronic kidney disease; N18.9 Chronic kidney disease, unspecified; E78.5 Hyperlipidemia, unspecified; F03.90 Unspecified dementia, unspecified severity, without behavioral disturbance, psychotic disturbance, mood disturbance, and anxiety; K21.9 Gastro-esophageal reflux disease without esophagitis; Z79.82 Long term (current) use of aspirin; Z79.84 Long term (current) use of oral hypoglycemic drugs; Z79.899 Other long term (current) drug therapy
CPT/HCPCS: 36415; 80048; 82009; 82962; 85025; 96372; 99285

== ENCOUNTER 2020-12-11 20:02 | Inpatient (IN) | payer MEDICARE, SELFPAY ==
[2020-12-11 20:03] VITALS: BP 121/72; PULSE 101; RESP 17; TEMP 36.6; O2SAT 97; BMI 35.6
[2020-12-11 20:06] VITALS: BP 121/72; PULSE 99; RESP 16; O2SAT 97
[2020-12-11] MEDS: 0.9% Normal Saline 1,000 ML 999 ML IV (20:22)
--- NOTE | 2020-12-11 20:25 | EKG12_ITS ---
Test Reason : WEAKNESS Blood Pressure : / mmHG Vent. Rate : 094 BPM Atrial Rate : 094 BPM P-R Int : 136 ms QRS Dur : 070 ms QT Int : 352 ms P-R-T Axes : 044 007 054 degrees QTc Int : 440 ms Sinus rhythm with Premature supraventricular complexes Otherwise normal ECG Confirmed by LYNETTE MURRAY, JACQUELINE ([id number]), primer expeditor and drier MARJ WU ([id number]) on 12/15/2020 8:17:21 AM Referred By: STAR Confirmed By:JACQUELINE OJEDA MD
[2020-12-11 20:29] LABS: Absolute Lymphocyte Count 1.84 X10^3/uL (0.83-4.51); Absolute Neutrophil Count 8.8 X10^3/uL (2.0-7.7); Basophil# 0.07 X10^3/uL; Basophil% 0.6 % (0-1); Eosinophil# 0.19 X10^3/uL; Eosinophils% 1.6 % (0-5); Hematocrit 41.3 % (37-47); Hemoglobin 13.3 g/dL (12.0-15.0); Lymphocyte # 1.84 X10^3/ul (0.83-4.51); Lymphocyte % 15.4 % (19-41); Mean Corp Hgb Conc 32.2 g/dL (32-36); Mean Platelet Vol. 11.5 fl (6.2-12.0); Monocyte# 0.91 X10^3/uL; Monocyte% 7.6 % (0-10); NRBC Flagged by Analyzer 0 % (0-5); Neutrophil # 8.84 X10^3/uL (2.7-7.7); Neutrophil % 74.1 % (47-70); Platelet Count 158 K/mm3 (150-450); RBC Distribution Width CV 13.3 % (11.6-14.6); RBC Distribution Width SD 43.7 fl (35.1-43.9); Red Blood Count 4.59 M/mm3 (4.2-5.4); White Blood Count 11.9 K/mm3 (4.4-11.0)
--- NOTE | 2020-12-11 20:32 | US_ITS ---
We are attempting to reach an attending provider to discuss findings. An addendum with communication details will be sent when the communication is complete. HISTORY: LT LEG PAIN AND SWELLING EXAMINATION: US Venous Duplex LE Unilat / Limited: TECHNIQUE: Wan scale, pulse wave, and color flow Doppler imaging was performed of the lower extremity venous system. The left greater saphenous, common femoral, femoral, popliteal, peroneal and posterior tibial veins were interrogated. COMPARISON: None FINDINGS: # of images incl. paperwork: 22 There is loss of compression with hypoechoic occlusive thrombus from the left common femoral vein through the popliteal, posterior tibial and peroneal veins. Some internal echoes identified within the thrombus in the common femoral and proximal superficial femoral veins. 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 at 2231 Reported and signed by: Seng Horan MD Electronically Signed: Seng Horan MD at 22:30 EDT Tel , Service support ,
[2020-12-11 20:48] LABS: ALB/GLOB Ratio 0.8 RATIO (0.9-2.4); AST(SGOT) 23 U/L (15-37); Alanine Aminotransfer ALT/SGPT 29 U/L (13-56); Albumin, Serum 3.5 g/dL (3.2-5.0); Alkaline Phosphatase 87 U/L (45-117); Anion Gap 12 (5-15); BUN 43 mg/dL (7-18); Calcium,Total 9.1 mg/dL (8.5-10.1); Chloride 102 mmol/L (98-107); Creatinine, Serum 2.26 mg/dL (0.55-1.02); EST Glomerular Filtration Rate 22 mL/min (>60); Est Glom Filt Rate - Afr Amer 26 mL/min (>60); Estimated Creatinine Clearance 13.07 ml/min; Globulin 4.4 g/dL (2.2-4.2); Glucose 344 mg/dL (74-106); Potassium 5.4 mmol/L (3.5-5.1); Protein, Total 7.9 g/dL (6.4-8.2); Sodium Level 135 mmol/L (136-145)
--- NOTE | 2020-12-11 21:08 | RAD_ITS ---
HISTORY: Trauma, fall and pain EXAMINATION/TECHNIQUE: XR Tibia/Fibula 2 Views: COMPARISON: None FINDINGS: BONES/JOINTS: No acute fracture or dislocation. Preservation of the joint spaces. No sclerotic or destructive changes observed. SOFT TISSUES: No soft tissue swelling or gas. No radiopaque foreign body. Vascular calcifications present. RAD/Tibia & Fibula 2 Views IMPRESSION: No acute bony abnormality. at 2228 Reported and signed by: Seng Horan MD Electronically Signed: Seng Horan MD at 22:27 EDT Tel , Service support ,
--- NOTE | 2020-12-11 21:16 | EDS_ITS ---
HPI History of Present Illness Chief Complaint: Weakness Informant: patient and family Onset/Context/Timing Onset: Today Context: Gradual Onset Timing: Continuous Current Severity: Mild Maximum Severity: Mild Narrative Narrative: 85-year-old female history of diabetes and renal insufficiency. Patient was seen in the emergency department several weeks ago for weakness and hyperglycemia. She lives alone at home. Her blood sugars have been running high and she has been very weak at home. She had a recent fall over the weekend but was not evaluated that time. Now she is having more trouble getting around the house and no swelling of her left leg. She denies any headache, fever, vomiting, diarrhea or dysuria. Prior similar symptoms: Yes Recent Illness/Hospitalization: No PFSH PFS Medical History Cholecystectomy planned Chronic kidney disease (CKD) Dementia Diabetes GERD (gastroesophageal reflux disease) Hyperlipidemia Home Medications Omeprazole [Prilosec] 40 mg PO DAILY 02/01/19 [History Last Taken 08/16/19] aspirin 81 mg PO DAILY@0800 02/01/19 [History Last Taken 08/16/19] glipizide 5 mg PO DAILY 08/16/19 [History Last Taken 08/16/19] lecithin, soy 400 mg PO BID 08/16/19 [History Last Taken 08/16/19] Lactobacillus acidophilus 1 ea PO DAILY 07/23/20 [History Last Taken Unknown] exenatide microspheres 2 mg SQ TU 07/23/20 [History Last Taken Unknown] latanoprost 2.5 ml OP DAILY 07/23/20 [History Last Taken Unknown] lisinopril 10 mg PO DAILY 07/23/20 [History Last Taken Unknown] magnesium oxide 400 mg PO DAILY 07/23/20 [History Last Taken Unknown] simvastatin 40 mg PO DAILY 07/23/20 [History Last Taken Unknown] nystatin 1 applic TOPICAL BID 07/26/20 [History Last Taken Unknown] acetaminophen 1,000 mg PO Q6H PRN PRN tab 07/28/20 [Rx Last Taken Unknown] menthol-zinc oxide 1 applic TOPICAL BID tube 07/28/20 [Rx Last Taken Unknown] Allergy/AdvReac Type Severity Reaction Status Date / Time sulfamethoxazole Allergy Hives Verified 12/11/20 20:03 [From ] trimethoprim [From Septra] Allergy Hives Verified 12/11/20 20:03 adhesive tape AdvReac Rash Verified 12/11/20 20:03 Surgical History History of appendectomy Social History Smoking Status: Never smoker ROS ROS ED ROS Narrative Patient denies recent illness other than weakness and elevated blood sugars. Review of Systems ROS Unobtainable: Denies due to encephalopathy Constitutional Constitutional ED: Denies chills or fever(s) Eyes Eyes: Denies change in vision ENT ENT ED: Denies ear pain or sore throat Cardiovascular Cardiovascular: Denies chest pain Respiratory/Chest Respiratory/Chest: Denies cough or dyspnea Gastrointestinal Gastrointestinal: Denies abdominal pain, diarrhea, nausea or vomiting Genitourinary Genitourinary ED: Denies dysuria Musculoskeletal Musculoskeletal: Denies myalgias Integumentary Denies rash Neurologic Neurologic: Denies headache(s) Psychiatric Psychiatric: Denies depression Endocrine Endocrinology: Denies polyuria Allergic/Immunologic Allergic/Immunologic ED: Denies urticaria EXAM Physical Exam Narrative Exam Narrative: Older woman accompanied by her daughter no acute distress. Vital signs stable afebrile. Pulse ox 97% on room air no signs of hypoxia. HEENT exam unremarkable atraumatic. Moist weeks membranes. Neck nontender. Lungs clear to auscultation. Heart regular rhythm rate about 95 no murmur. Chest wall nontender. Abdomen soft nontender. No peritoneal signs. Pelvic girdle intact. Extremities moves all 4. Both upper and right lower extremity unremarkable. Nontender no deformity. Her left lower leg is swollen. Concern for a blood clot. She does have a DP pulse. There is minimal mottling of the leg. There is no gross bony deformity of the hip knee or ankle. She is able to flex and extend both knees and hips. There is no shortening or rotation. Back nontender. Neurologically she is awake and alert. Answering questions and following commands. Const Vital Signs: 12/11/20 20:03 12/11/20 20:06 12/11/20 20:21 Temperature 97.9 F Temperature Source Oral Pulse Rate 101 H 99 Respiratory Rate 17 16 Respiratory Effort Normal Non-Labored Respiratory Pattern Normal Blood Pressure 121/72 H 121/72 H Blood Pressure Mean 88 88 Pulse Ox 97 97 Oxygen Delivery Method Room Air Room Air Positive well nourished and well developed General Appearance ED: well developed HEENT Reports moist mucous membranes Negative for trauma or tenderness Eyes PERRL and EOMs intact bilaterally Neck no lymphadenopathy, supple and no JVD General: Negative for tenderness Chest Wall inspection of chest normal and palpation of chest normal Resp normal respiratory effort and clear to auscultation bilaterally Cardio regular rate, regular rhythm and no murmurs GI normal to inspection, nondistended, normoactive bowel sounds, non-tender, non- distended and no masses Inspection: Negative for abdominal distention Auscultation: normoactive bowel sounds Palpation: soft; Negative for tender, guarding or rebound tenderness present Back/Spine no CVA tenderness Cervical Spine: Negative for cervical spine tenderness Thoracic Spine / Upper Back: Negative for thoracic spinal tenderness or paraspinal muscle tenderness Extremity normal to inspection Extremity Narrative: Both upper and right lower extremity unremarkable. Left lower extremity is edematous. Concern for DVT versus trauma. There is no gross bony deformity. There is no shortening or rotation of the left hip. She is able to flex and extend at both the hip and the ankle and the knee. And she has a palpable DP pulse. General Extremety ED: Yes edema and tenderness General Extremity: edema Neuro oriented x3 Sensorium / Orientation: alert Psych mental status grossly normal Skin no rashes or lesions noted MDM MDM MDM Narrative Medical decision making narrative: Older female failure to thrive with a recent fall over the weekend. Concern left lower extremity is swollen could be secondary to DVT versus trauma. Also she has elevated blood sugar. She will be treated with IV fluids. Rule out DKA. Ultrasound the leg. Lab Data Attestation: I reviewed the patient's lab results. Lab results narrative: CBC shows a white count of 11.9. Hemoglobin 13. Electrolytes show potassium of 5.4. Normal anion gap of 12. She has known renal insufficiency her creatinine is 2.26. Liver enzymes are normal. Glucose 344. Acetone negative. Noninvasive study of her left lower extremity shows a DVT. Labs: Laboratory Results - last 24 hr 12/11/20 12/11/20 12/11/20 20:15 20:15 20:15 WBC 11.9 H RBC 4.59 Hgb 13.3 Hct 41.3 MCV 90.0 MCH 29.0 MCHC 32.2 RDW Std Deviation 43.7 RDW Coeff of Wesley 13.3 Plt Count 158 MPV 11.5 Immature Gran % (Auto) 0.700 Neut % (Auto) 74.1 H Lymph % (Auto) 15.4 L Pitkin % (Auto) 7.6 Eos % (Auto) 1.6 Baso % (Auto) 0.6 Absolute Neuts (auto) 8.8 H Absolute Lymphs (auto) 1.84 Nucleated RBC % 0 Sodium 135 L Potassium 5.4 H Chloride 102 Carbon Dioxide 21.0 Anion Gap 12 BUN 43 H Creatinine 2.26 H Estim Creat Clear Calc 13.07 Est GFR (MDRD) Af Amer 26 L Est GFR (MDRD) Non-Af 22 L BUN/Creatinine Ratio 19.0 Glucose 344 H Calcium 9.1 Total Bilirubin 0.80 AST 23 ALT 29 Alkaline Phosphatase 87 Total Protein 7.9 Albumin 3.5 Globulin 4.4 H Albumin/Globulin Ratio 0.8 L Acetone Level NEGATIVE Radiography Diagnostic Testing: Tib-fib x-ray 2 views interpreted by myself shows chronic arthritic changes in ankle and knee but no acute abnormality. No fracture or dislocation. All chronic changes. Rhythm Strip Rate: 94 EKG Initial EKG: Attestation: I personally reviewed and interpreted this EKG as follows: Interpretation: Sinus Rhythm and No Acute Injury Pattern Comments: Sinus rhythm rate 94 no acute signs of MS nor ischemia. Prior EKG tracings: not available for review Discharge Plan Dx/Rx/DC Orders Clinical Impression: Weakness, Multiple falls, Chronic kidney disease, Diabetes mellitus, Hyperglycemia, Adult failure to thrive, Acute deep vein thrombosis (DVT), Acute kidney injury Disposition Disposition: Acute Care [facility]
[2020-12-11 21:25] LABS: Mucous, Urine 0 SEEN /hpf (<or=2+)
[2020-12-11 21:38] LABS: Color, Urine Yellow (Yellow); Glucose, Dipstick 100 mg/dl (Normal); Ketone-Dipstick 15 mg/dl (Negative); Leukocyte Esterase-Dipstick 500 /ul (Negative); Nitrite-Dipstick Negative (Negative); Occult Blood-Urine 50 /ul (Negative); Protein-Dipstick 100 mg/dl (Negative); Urine Bilirubin Dipstick 1 mg/dL (Negative); Urine Clarity Turbid (Clear); Urine Urobilinogen 1 mg/dl (Normal)
[2020-12-11 21:45] LABS: Amorphous Sediment 1+ URATE; Bacteria 3+ /hpf (None Seen); Red Blood Cells-Urine 5-10 SEEN /hpf (0-5); Squamous Epithelial Cells - UA 0-5 SEEN /hpf (5-10); White Blood Cells >100 SEEN /hpf (0-5)
[2020-12-11] MEDS: Enoxaparin 80 MG/0.8 ML Syringe SC (21:51)
[2020-12-11] MEDS: Ceftriaxone 1 GM/50 ML BAG IV (21:51)
[2020-12-11 21:57] VITALS: BP 119/55; PULSE 85; RESP 15; TEMP 36.1; O2SAT 100
--- NOTE | 2020-12-11 22:08 | HP.PCM_ITS ---
Documented by User: Jacklyn Garcia NP-C 12/11/20 22:39 HPI - General General Date of Admission: 12/11/20 HPI Narrative KAROLINE ZAPATA, is a 85 F who presents today with increased weakness. Patient confused, daughter at bedside. Daughter reports patient has been increasingly weak over the past few weeks and has had multiple falls with the last fall as r ecently as Friday. Patient's daughter reports that they did not bring patient in to be evaluated on Friday as she did not appear to be injured. Patient's daughter was concerned about patient's leg swelling as well. A venous duplex and x-ray of the tibia and fibula were performed in the ER, results are pending however per ER physician was notified by radiology that patient was noted to have a DVT in her left lower extremity. Urinalysis also shows patient has UTI with positive protein, glucose, ketones, occult blood and 500 leukocyte esterase. [facility] Medical History Cholecystectomy planned Chronic kidney disease (CKD) Dementia Diabetes GERD (gastroesophageal reflux disease) Hyperlipidemia Home Medications aspirin 81 mg PO DAILY@0800 02/01/19 [History Last Taken 08/16/19] glipizide 5 mg PO DAILY 08/16/19 [History Last Taken 08/16/19] lecithin, soy 400 mg PO BID 08/16/19 [History Last Taken 08/16/19] Lactobacillus acidophilus 1 ea PO DAILY 07/23/20 [History Last Taken Unknown] exenatide microspheres 2 mg SQ TU 07/23/20 [History Last Taken Unknown] latanoprost 2.5 ml OP DAILY 07/23/20 [History Last Taken Unknown] lisinopril 5 mg PO DAILY 07/23/20 [History Last Taken Unknown] simvastatin 40 mg PO QHS 07/23/20 [History Last Taken Unknown] nystatin 1 applic TOPICAL BID 07/26/20 [History Last Taken Unknown] acetaminophen 1,000 mg PO Q6H PRN PRN tab 07/28/20 [Rx Last Taken Unknown] Kidney 12/11/20 [History Last Taken Unknown] ascorbic acid (vitamin C) [Vitamin C] 500 mg PO DAILY 12/11/20 [History Last Taken Unknown] calcium carb and citrat-mag ox [CalMag Thins] 1 tab PO BID 12/11/20 [History Last Taken Unknown] d-mannose 1,000 mg PO BID 12/11/20 [History Last Taken Unknown] omeprazole 40 mg PO DAILY 12/11/20 [History Last Taken Unknown] Allergy/AdvReac Type Severity Reaction Status Date / Time sulfamethoxazole Allergy Hives Verified 12/11/20 20:03 [From ] trimethoprim [From ] Allergy Hives Verified 12/11/20 20:03 adhesive tape AdvReac Rash Verified 12/11/20 20:03 Surgical History History of appendectomy Social History Smoking Status: Never smoker ROS Constitutional Constitutional: Reports weakness; Denies anorexia, chills, fatigue or fever(s) Cardiovascular Cardiovascular: Reports edema; Denies chest pain or palpitations Respiratory/Chest Respiratory/Chest: Denies cough, hemoptysis, shortness of breath at rest or shortness of breath with exertion Gastrointestinal Gastrointestinal: Denies abdominal pain, constipation, diarrhea, nausea or vomiting Genitourinary Genitourinary: Reports dysuria Musculoskeletal Musculoskeletal: Reports extremity pain; Denies back pain, joint pain or joint stiffness Integumentary Integumentary: Denies dry skin Neurologic Neurologic: Reports confusion; Denies abnormal gait, abnormal speech or dizziness Psychiatric Psychiatric: Denies anxiety or depression Endocrine Endocrinology: Denies change in body appearance Hematologic/Lymphatic Hematologic/Lymphatic: Denies easy bleeding or easy bruising Vital Signs Vital Signs Vital Signs: 12/11/20 20:03 12/11/20 20:06 12/11/20 20:21 Temperature 97.9 F Temperature Source Oral Pulse Rate 101 H 99 Respiratory Rate 17 16 Respiratory Effort Normal Non-Labored Respiratory Pattern Normal Blood Pressure 121/72 H 121/72 H Blood Pressure Mean 88 88 Pulse Ox 97 97 Oxygen Delivery Method Room Air Room Air 12/11/20 21:57 Temperature 97 F L Temperature Source Temporal Pulse Rate 85 Respiratory Rate 15 Respiratory Effort Respiratory Pattern Blood Pressure 119/55 L Blood Pressure Mean 76 Pulse Ox 100 Oxygen Delivery Method Room Air Weight Weight: 182 lb 5.156 oz Body Mass Index (BMI) 35.6 Physical Exam Const alert General Appearance: cooperative Orientation / Consciousness: awake, oriented to person and oriented to place HEENT normocephalic and head/scalp atraumatic Eyes PERRL Neck supple, no JVD and thyroid normal General: trachea midline Lymph Lymphatic: no lymphadenopathy noted Resp normal respiratory effort, normal air movement and clear to auscultation bila terally Cardio regular rate, regular rhythm, S1 normal heart sound and S2 normal heart sound GI normal to inspection, nondistended, normoactive bowel sounds, soft to palpation and non-tender Extremity General Extremity: calf tenderness and mottling Peripheral Pulses: Yes posterior tibial pulses present right 2+ and left 1+ Left Lower Extremity: lower leg inspection (Swollen), palpation (Nontender) and neurovascular exam (Intact) Skin General Skin Exam: no breakdown and turgor normal Lesions: no lesions Rashes: no rashes Neuro CN's II-XII intact bilaterally Psych cooperative and affect normal Appearance: appropriate Results Lab / Micro Data Result Diagrams: 12/11/20 20:15 12/11/20 20:15 Labs: Laboratory Results - last 24 hr 12/11/20 12/11/20 12/11/20 20:15 20:15 20:15 WBC 11.9 H RBC 4.59 Hgb 13.3 Hct 41.3 MCV 90.0 MCH 29.0 MCHC 32.2 RDW Std Deviation 43.7 RDW Coeff of Wesley 13.3 Plt Count 158 MPV 11.5 Immature Gran % (Auto) 0.700 Neut % (Auto) 74.1 H Lymph % (Auto) 15.4 L Miner % (Auto) 7.6 Eos % (Auto) 1.6 Baso % (Auto) 0.6 Absolute Neuts (auto) 8.8 H Absolute Lymphs (auto) 1.84 Nucleated RBC % 0 Sodium 135 L Potassium 5.4 H Chloride 102 Carbon Dioxide 21.0 Anion Gap 12 BUN 43 H Creatinine 2.26 H Estim Creat Clear Calc 13.07 Est GFR (MDRD) Af Amer 26 L Est GFR (MDRD) Non-Af 22 L BUN/Creatinine Ratio 19.0 Glucose 344 H Calcium 9.1 Total Bilirubin 0.80 AST 23 ALT 29 Alkaline Phosphatase 87 Total Protein 7.9 Albumin 3.5 Globulin 4.4 H Albumin/Globulin Ratio 0.8 L Urine Color Urine Clarity Urine pH Ur Specific [place] Urine Protein Urine Glucose (UA) Urine Ketones Urine Occult Blood Urine Nitrite Urine Bilirubin Urine Urobilinogen Ur Leukocyte Esterase Urine RBC Urine WBC Ur Squamous Epith Cells Amorphous Sediment Urine Bacteria Urine Mucus Acetone Level NEGATIVE 12/11/20 21:15 WBC RBC Hgb Hct MCV MCH MCHC RDW Std Deviation RDW Coeff of Wesley Plt Count MPV Immature Gran % (Auto) Neut % (Auto) Lymph % (Auto) Miner % (Auto) Eos % (Auto) Baso % (Auto) Absolute Neuts (auto) Absolute Lymphs (auto) Nucleated RBC % Sodium Potassium Chloride Carbon Dioxide Anion Gap BUN Creatinine Estim Creat Clear Calc Est GFR (MDRD) Af Amer Est GFR (MDRD) Non-Af BUN/Creatinine Ratio Glucose Calcium Total Bilirubin AST ALT Alkaline Phosphatase Total Protein Albumin Globulin Albumin/Globulin Ratio Urine Color Yellow Urine Clarity Turbid Urine pH 5.0 Ur Specific [place] 1.030 Urine Protein 100 H Urine Glucose (UA) 100 H Urine Ketones 15 H Urine Occult Blood 50 H Urine Nitrite Negative Urine Bilirubin 1 H Urine Urobilinogen 1 H Ur Leukocyte Esterase 500 H Urine RBC 5-10 SEEN Urine WBC >100 SEEN Ur Squamous Epith Cells 0-5 SEEN Amorphous Sediment 1+ URATE Urine Bacteria 3+ Urine Mucus 0 SEEN Acetone Level Rhythm Strip Rate: 94 Assessment & Plan Assessment/Plan (1) Acute deep vein thrombosis (DVT): QUALIFIERS: Affected thrombotic vein of extremity: femoral DVT location: lower extremity Laterality: left Qualified Code(s): I82.412 - Acute embolism and thrombosis of left femoral vein (2) Urinary tract infection: QUALIFIERS: Hematuria presence: with hematuria Urinary tract infection type: site unspecified Qualified Code(s): N39.0 - Urinary tract infection, site not specified; R31.9 - Hematuria, unspecified (3) Acute kidney injury: (4) Adult failure to thrive: PLAN: 1. Acute deep vein thrombosis -Admit to [facility] -Will start patient on therapeutic Lovenox daily due to decreased creatinine clearance from dehydration -Elevate extremities while in bed or chair -Possibly related to patient fall 2 days ago where she was lying on floor for hours 2. Urinary tract infection -Urinalysis positive, urine culture ordered -Patient received Rocephin 1 g in ER, will continue -Encourage oral fluid intake -Monitor intake and output 3. Acute kidney injury secondary to chronic kidney disease -Likely secondary to urinary tract infection and dehydration from recent fall where patient was on the floor for extended amount of time -Patient received 1500 mL bolus in ER, normal saline at 125ml/hr ordered -Recheck CMP in a.m., trend BUN, creatinine and GFR. 4. Adult failure to thrive -Patient has been admitted multiple times for weakness and multiple falls along with hyperglycemia. -Daughter reports that patient was set up for assisted living prior to recent fall and current hospitalization -PT and OT to eval and treat -Case management consulted for discharge planning and possible coordination for SNF following hospitalization 5. Yeast infection of the skin Nystatin ordered to be applied 3 times daily to abdominal fold and under bilateral breasts 6. Diabetes mellitus type 2 -Blood sugar upon admission 344, daughter reports has been uncontrolled -Continue glipizide, will start AC at bedtime blood sugars with sliding scale insulin -Will hold [place] at this time 7. Hypertension -Stable, continue lisinopril -Vital signs per protocol, trend BP and heart rate DVT prophylaxis-SCDs, therapeutic Lovenox ordered This patient was seen by SMOOTH Suazo under the supervision of Dr. Hernandez. Documented by User: Dr. Reese Hernandez MD 12/11/20 22:47 HPI - General General Date of Admission: 12/11/20 [facility] Medical History Cholecystectomy planned Chronic kidney disease (CKD) Dementia Diabetes GERD (gastroesophageal reflux disease) Hyperlipidemia Home Medications aspirin 81 mg PO DAILY@0800 02/01/19 [History Last Taken 08/16/19] glipizide 5 mg PO DAILY 08/16/19 [History Last Taken 08/16/19] lecithin, soy 400 mg PO BID 08/16/19 [History Last Taken 08/16/19] Lactobacillus acidophilus 1 ea PO DAILY 07/23/20 [History Last Taken Unknown] exenatide microspheres 2 mg SQ TU 07/23/20 [History Last Taken Unknown] latanoprost 2.5 ml OP DAILY 07/23/20 [History Last Taken Unknown] lisinopril 5 mg PO DAILY 07/23/20 [History Last Taken Unknown] simvastatin 40 mg PO QHS 07/23/20 [History Last Taken Unknown] nystatin 1 applic TOPICAL BID 07/26/20 [History Last Taken Unknown] acetaminophen 1,000 mg PO Q6H PRN PRN tab 07/28/20 [Rx Last Taken Unknown] Kidney 12/11/20 [History Last Taken Unknown] ascorbic acid (vitamin C) [Vitamin C] 500 mg PO DAILY 12/11/20 [History Last Taken Unknown] calcium carb and citrat-mag ox [CalMag Thins] 1 tab PO BID 12/11/20 [History Last Taken Unknown] d-mannose 1,000 mg PO BID 12/11/20 [History Last Taken Unknown] omeprazole 40 mg PO DAILY 12/11/20 [History Last Taken Unknown] Allergy/AdvReac Type Severity Reaction Status Date / Time sulfamethoxazole Allergy Hives Verified 12/11/20 20:03 [From ] trimethoprim [From ] Allergy Hives Verified 12/11/20 20:03 adhesive tape AdvReac Rash Verified 12/11/20 20:03 Surgical History History of appendectomy Social History Smoking Status: Never smoker Results Lab / Micro Data Result Diagrams: 12/11/20 20:15 12/11/20 20:15 Charges/Coding Addendum Addendum: Patient was seen and examined independently. I agree with assessment and plan by SMOOTH Verdugo Patient fell 2 days prior to presentation. Also she has been weak. At the emergency department it was noted that her left leg is swollen. She denies any recent travel. Patient and family is unsure of last colonoscopy. Alert and oriented x3 Nontraumatic; normocephalic Lung clear to auscultate Heart sounds S1-S2. No murmur, gallop or rubs. Abdomen bowel sounds present soft, nontender nondistended Extremity: Erythema and swelling of left leg DVT Ultrasound duplex of left lower extremity showed acute DVT. Therapeutic dose of Lovenox ordered. Further work-up outpatient to find a reason for DVT. JANIE and hyperkalemia Likely prerenal from dehydration. Trend BMP. Hold home LOLI inhibitor. Avoid nephrotoxins. Normal saline at hydration rates. Debility and fall PT and OT to work with patient Diabetes mellitus with hyperglycemia Home glipizide continued. Accu-Chek with high scale correction scale insulin ordered. UTI Emergency department labs reviewed showed abnormal urinalysis. Stated on Ceftriaxone at the emergency department and continued. Follow urine cultures ordered at the emergency department. Multi Select Codes Visit Charges Visit Charges: 54796 Init Hosp L3
[2020-12-11 22:10] VITALS: BP 119/55; PULSE 85; RESP 15; TEMP 36.1; O2SAT 100
[2020-12-11 22:30] LABS: CPK Total, Creatine Kinase 109 U/L (26-192)
[2020-12-11 22:44] VITALS: BMI 35.3
--- NOTE | 2020-12-11 22:49 | NURSING ---
Pt states her daughter went over her meds with the ER staff.
[2020-12-11 23:20] VITALS: BP 119/53; PULSE 87; RESP 18; TEMP 36.7; O2SAT 97
[2020-12-11 23:45] VITALS: PULSE 87; RESP 18; O2SAT 97
[2020-12-11] MEDS: Insulin Lispro 100 UNIT/ML INSULN.PEN SC (23:56)
[2020-12-11] MEDS: 0.9% Normal Saline 1,000 ML 125 ML IV (23:56)
[2020-12-12 00:06] LABS: Bedside Glucose 289 mg/dL (70-110)
[2020-12-12 04:51] VITALS: BP 118/58; PULSE 81; RESP 18; TEMP 36.5; O2SAT 97
[2020-12-12] MEDS: Nystatin Powder 15gm Bottle 1 APPLIC TOPICAL ×3 (05:00→21:09)
[2020-12-12 06:55] LABS: Bedside Glucose 144 mg/dL (70-110)
[2020-12-12 07:11] LABS: Absolute Lymphocyte Count 2.11 X10^3/uL (0.83-4.51); Absolute Neutrophil Count 5.4 X10^3/uL (2.0-7.7); Basophil# 0.06 X10^3/uL; Basophil% 0.7 % (0-1); Eosinophil# 0.35 X10^3/uL; Hematocrit 36.6 % (37-47); Hemoglobin 11.3 g/dL (12.0-15.0); Lymphocyte # 2.11 X10^3/ul (0.83-4.51); Lymphocyte % 24.1 % (19-41); Mean Corp Hgb Conc 30.9 g/dL (32-36); Mean Corpuscular Hgb 27.9 pg (27.0-32.0); Mean Corpuscular Volume 90.4 fL (81-99); Mean Platelet Vol. 11.2 fl (6.2-12.0); Monocyte# 0.79 X10^3/uL; NRBC Flagged by Analyzer 0 % (0-5); Neutrophil # 5.39 X10^3/uL (2.7-7.7); Neutrophil % 61.6 % (47-70); Platelet Count 138 K/mm3 (150-450); RBC Distribution Width CV 13.3 % (11.6-14.6); RBC Distribution Width SD 43.7 fl (35.1-43.9); Red Blood Count 4.05 M/mm3 (4.2-5.4); White Blood Count 8.8 K/mm3 (4.4-11.0)
[2020-12-12 07:41] LABS: ALB/GLOB Ratio 0.7 RATIO (0.9-2.4); AST(SGOT) 12 U/L (15-37); Alanine Aminotransfer ALT/SGPT 22 U/L (13-56); Albumin, Serum 2.8 g/dL (3.2-5.0); Alkaline Phosphatase 75 U/L (45-117); Anion Gap 8 (5-15); BUN 37 mg/dL (7-18); BUN/Creat Ratio 29.4 RATIO (10-20); Calcium,Total 8.4 mg/dL (8.5-10.1); Chloride 109 mmol/L (98-107); Creatinine, Serum 1.26 mg/dL (0.55-1.02); EST Glomerular Filtration Rate 43 mL/min (>60); Est Glom Filt Rate - Afr Amer 52 mL/min (>60); Estimated Creatinine Clearance 23.45 ml/min; Globulin 3.8 g/dL (2.2-4.2); Glucose 144 mg/dL (74-106); Potassium 3.8 mmol/L (3.5-5.1); Protein, Total 6.6 g/dL (6.4-8.2); Sodium Level 139 mmol/L (136-145)
[2020-12-12] MEDS: 0.9% Normal Saline 1,000 ML 125 ML IV (07:51)
[2020-12-12 09:55] VITALS: BP 105/41; PULSE 83; RESP 16; TEMP 36.6; O2SAT 96
--- NOTE | 2020-12-12 10:01 | PN.HOSP_ITS ---
Documented by User: Vandana Mliler NP, PRODUCT ASSEMBLER-C 12/12/20 10:34 Subjective Subjective Patient seen and examined. Reports dysuria. Denies fever, chills. Denies nausea, vomiting. Denies other symptoms or complaints. Objective Data Objective Data Vital Signs: Vital Signs Temp Pulse Resp BP Pulse Ox 97.7 F L 81 18 118/58 L 97 12/12/20 04:51 12/12/20 04:51 12/12/20 04:51 12/12/20 04:51 12/12/20 04:51 Oxygen Delivery Method Room Air Weight: 180 lb 15.992 oz Body Mass Index (BMI) 35.3 Intake & Output: Intake and Output for Last 24 Hours 12/10/20 12/11/20 12/12/20 23:59 23:59 23:59 Intake Total 1050 / 1070 1059.58 / 1059.58 Balance 1050 / 1070 1059.58 / 1059.58 Lab / Micro Data Result Diagrams: 12/12/20 06:46 12/12/20 06:46 Labs: Laboratory Results - last 24 hr 12/11/20 12/11/20 12/11/20 20:15 20:15 20:15 WBC 11.9 H RBC 4.59 Hgb 13.3 Hct 41.3 MCV 90.0 MCH 29.0 MCHC 32.2 RDW Std Deviation 43.7 RDW Coeff of Wesley 13.3 Plt Count 158 MPV 11.5 Immature Gran % (Auto) 0.700 Neut % (Auto) 74.1 H Lymph % (Auto) 15.4 L Glenn % (Auto) 7.6 Eos % (Auto) 1.6 Baso % (Auto) 0.6 Absolute Neuts (auto) 8.8 H Absolute Lymphs (auto) 1.84 Nucleated RBC % 0 Sodium 135 L Potassium 5.4 H Chloride 102 Carbon Dioxide 21.0 Anion Gap 12 BUN 43 H Creatinine 2.26 H Estim Creat Clear Calc 13.07 Est GFR (MDRD) Af Amer 26 L Est GFR (MDRD) Non-Af 22 L BUN/Creatinine Ratio 19.0 Glucose 344 H Calcium 9.1 Total Bilirubin 0.80 AST 23 ALT 29 Alkaline Phosphatase 87 Total Creatine Kinase Total Protein 7.9 Albumin 3.5 Globulin 4.4 H Albumin/Globulin Ratio 0.8 L Urine Color Urine Clarity Urine pH Ur Specific [place] Urine Protein Urine Glucose (UA) Urine Ketones Urine Occult Blood Urine Nitrite Urine Bilirubin Urine Urobilinogen Ur Leukocyte Esterase Urine RBC Urine WBC Ur Squamous Epith Cells Amorphous Sediment Urine Bacteria Urine Mucus Acetone Level NEGATIVE POC Glucose 12/11/20 12/11/20 12/11/20 20:15 21:15 23:52 WBC RBC Hgb Hct MCV MCH MCHC RDW Std Deviation RDW Coeff of Wesley Plt Count MPV Immature Gran % (Auto) Neut % (Auto) Lymph % (Auto) Glenn % (Auto) Eos % (Auto) Baso % (Auto) Absolute Neuts (auto) Absolute Lymphs (auto) Nucleated RBC % Sodium Potassium Chloride Carbon Dioxide Anion Gap BUN Creatinine Estim Creat Clear Calc Est GFR (MDRD) Af Amer Est GFR (MDRD) Non-Af BUN/Creatinine Ratio Glucose Calcium Total Bilirubin AST ALT Alkaline Phosphatase Total Creatine Kinase 109 Total Protein Albumin Globulin Albumin/Globulin Ratio Urine Color Yellow Urine Clarity Turbid Urine pH 5.0 Ur Specific [place] 1.030 Urine Protein 100 H Urine Glucose (UA) 100 H Urine Ketones 15 H Urine Occult Blood 50 H Urine Nitrite Negative Urine Bilirubin 1 H Urine Urobilinogen 1 H Ur Leukocyte Esterase 500 H Urine RBC 5-10 SEEN Urine WBC >100 SEEN Ur Squamous Epith Cells 0-5 SEEN Amorphous Sediment 1+ URATE Urine Bacteria 3+ Urine Mucus 0 SEEN Acetone Level POC Glucose 289 H 12/12/20 12/12/20 12/12/20 06:45 06:46 06:46 WBC 8.8 RBC 4.05 L Hgb 11.3 L Hct 36.6 L MCV 90.4 MCH 27.9 MCHC 30.9 L RDW Std Deviation 43.7 RDW Coeff of Wesley 13.3 Plt Count 138 L MPV 11.2 Immature Gran % (Auto) 0.600 Neut % (Auto) 61.6 Lymph % (Auto) 24.1 Glenn % (Auto) 9.0 Eos % (Auto) 4.0 Baso % (Auto) 0.7 Absolute Neuts (auto) 5.4 Absolute Lymphs (auto) 2.11 Nucleated RBC % 0 Sodium 139 Potassium 3.8 Chloride 109 H Carbon Dioxide 22.0 Anion Gap 8 BUN 37 H Creatinine 1.26 H Estim Creat Clear Calc 23.45 Est GFR (MDRD) Af Amer 52 L Est GFR (MDRD) Non-Af 43 L BUN/Creatinine Ratio 29.4 H Glucose 144 H Calcium 8.4 L Total Bilirubin 0.60 AST 12 L ALT 22 Alkaline Phosphatase 75 Total Creatine Kinase Total Protein 6.6 Albumin 2.8 L Globulin 3.8 Albumin/Globulin Ratio 0.7 L Urine Color Urine Clarity Urine pH Ur Specific [place] Urine Protein Urine Glucose (UA) Urine Ketones Urine Occult Blood Urine Nitrite Urine Bilirubin Urine Urobilinogen Ur Leukocyte Esterase Urine RBC Urine WBC Ur Squamous Epith Cells Amorphous Sediment Urine Bacteria Urine Mucus Acetone Level POC Glucose 144 H Radiography Diagnostic Testing: Radiology Impression Venous Duplex 12/11/20 20:32 IMPRESSION: Extensive occlusive thrombus from the left common femoral vein through the calf veins. at 2231 Reported and signed by: Seng Horan MD Electronically Signed: Seng Horan MD at 22:30 EDT Tel , Service support , ADDENDUM: 12/11/20 2251 IMPRESSION: Extensive occlusive thrombus from the left common femoral vein through the calf veins. at 2231 Reported and signed by: Seng Horan MD N.B. : The above information has been verbally conveyed by Seng Horan MD to Carloz Posada MD, on 12/11/2020 22:44:52 (ET). Electronically Signed: Seng Horan MD at 22:30 EDT Tel , Service support , Tibia/Fibula X-Ray 12/11/20 21:08 IMPRESSION: No acute bony abnormality. at 2228 Reported and signed by: Seng Horan MD Electronically Signed: Seng Horan MD at 22:27 EDT Tel , Service support , Rhythm Strip Rate: 94 Physical Exam Const alert, oriented x3 and no apparent distress Orientation / Consciousness: awake, oriented to person, oriented to place and oriented to time HEENT normocephalic and moist oral mucous membranes Eyes PERRL, EOMs intact bilaterally and conjunctivae normal Neck no lymphadenopathy Resp normal respiratory effort and clear to auscultation bilaterally Cardio regular rate, regular rhythm and no murmurs Peripheral Pulses: pulses 2+ throughout GI normal to inspection, nondistended, normoactive bowel sounds, non-tender and non-distended Extremity normal to inspection Skin no rashes or lesions noted Lesions: no lesions Rashes: no rashes Trauma: no lacerations or abrasions Neuro CN's II-XII intact bilaterally, no focal motor deficits, no sensory deficits noted and deep tendon reflexes 2+ bilaterally Psych mental status grossly normal and affect normal Assessment & Plan Assessment/Plan (1) UTI (urinary tract infection): (2) Acute deep vein thrombosis (DVT): QUALIFIERS: Affected thrombotic vein of extremity: femoral DVT location: lower extremity Laterality: left Qualified Code(s): I82.412 - Acute embolism and thrombosis of left femoral vein (3) Acute kidney injury: PLAN: 1. Acute DVT-venous duplex on admission shows extensive occlusive thrombus from the left common femoral vein through the calf veins. IV Lovenox on admission, transition to Eliquis acute DVT dosing. 2. Acute UTI-history of ESBL E. coli, Proteus and Enterococcus urine cultures. Resistant to Rocephin. Transition to IV Zosyn pending repeat cultures. 3. Acute kidney injury on chronic kidney disease stage IIIb- JANIE resolved. Trend BMP. 4. Debility, failure to thrive-patient was reportedly set up for assisted living prior to admission. PT/OT. CM consult. 5. Type 2 diabetes mellitus-oral regimen on hold. Accu-Cheks with sliding scale insulin. Glucose on admission 344, daughter reported blood sugars have been uncontrolled. Check hemoglobin A1c. 6. Candidal intertrigo, under breasts-topical nystatin ordered. 7. WILLIAM-continue CPAP regimen. 8. Hypertension-stable, resume lisinopril. 9. Hyperlipidemia- continue statin. DVT prophylaxis-Eliquis This patient was seen by SMOOTH Ragland under the supervision of Dr. Diamond. Documented by User: Dr. Sánchez Diamond MD 12/12/20 12:27 Objective Data Lab / Micro Data Result Diagrams: 12/12/20 06:46 12/12/20 06:46 Charges/Coding Addendum Addendum: Hospitalist note: I am seeing this patient in conjunction with Vandana Miller. I independently seen and examined the patient. Progress note above , laboratory data and imaging studies reviewed and I concur with above treatment plan. Today, she denies any complaints. She is feeling better. Her vitals are stable, afebrile. - Physical Exam General: Alert, Oriented x3, Cooperative, No apparent distress. HEENT: Atraumatic, PERRLA, EOMI. Neck: Supple, No JVD, Negative Carotid Bruits, Trachea Midline, Thyroid Normal. Lungs: Clear to auscultation, Normal air movement, No rhonchi, No wheeze, No rales. Cardiovascular: Regular rate, Regular Rhythm, Normal S1, Normal S2, PMI Normal. Abdomen: Bowel Sounds Present, Soft, Non Tender, Non-Distended, No Hepato- splenomegaly. Extremities: No clubbing, No cyanosis, edema Skin: No rashes, No breakdown Neurological: Cranial nerves are intact, neuro grossly intact Vital Signs are stable. Assessment and plan: #1 acute cystitis: With past history of ESBL E. coli. Currently, she is on IV Rocephin. Her vital signs are stable, afebrile. Previous cultures reviewed. Plan to switch to IV meropenem. #2 acute DVT of the left lower extremity: On therapeutic Lovenox. Venous Doppler reviewed. Plan to switch to p.o. Eliquis. #3 JANIE on CKD: Patient has been on IV fluids, kidney function improved. It is back to baseline. Plan to decrease IV fluids. #4 debility/functional decline: PT OT evaluation and treatment, patient may need placement to [facility]. #5 other chronic medical problems: Stable, continue current medications as above. This note was generated with [employer] dictation software. It may contain incorrect words, spelling, and punctuation that were not noted in checking the note before signing. Visit Charges Inpatient E&M: 34473 Subs Hosp L2
[2020-12-12] MEDS: Enoxaparin 80 MG/0.8 ML Syringe SC (10:09)
--- NOTE | 2020-12-12 10:30 | CASEMGMT ---
MARLON JACOBS Face to Face with patient for initial transition planning/care coordination assessment. MARLON JACOBS introduced self and role at [facility]. Patient sitting in chair, alert and oriented, daughter at bedside. Patient willing to participate in assessment and is able to answer all questions appropriately. Care providers, pharmacy, and demographics verified. Patient is unable to decide on disposition at discharge. Patient is currently 2 assist with transfers, discussed possible need for SNF for additional therapy. Daughter is agreeable. Daughter also states that patient is moving to [facility] this Friday. Patient states he has no further needs or concerns at this time. RN ARLENE updated Michela Story regarding potential SNF placement at discharge. CM to follow for discharge planning needs that may arise. PCP: Farooq Specialists: none Preferred Pharmacy: [facility] Insurance: [place] [employer] Prescription Benefit: yes Living Will/HPOA: yes, daughter Kriss Mireles LNOK: daughter Living Arrangements: Patient lives alone in a 2 story home with bed and bath on first floor. 3 steps and railing to enter the home. Patient states she is normally indepenedent at home. Transportation: daughter DME/HHC: Patient has raised toilet, cane, walker, grab bars, and medical alert. Patient has been to TCU and has had [facility] in the patient Disposition Plan: TBD by course of treatment and progress with therapy. Tiffanie GALLEGOS, RN, CM
--- NOTE | 2020-12-12 10:34 | CASEMGMT ---
Pt screened with [facility] Palliative Care Screening Tool d/t strata 3, pt did not meet criteria.
[2020-12-12 10:58] LABS: Hemoglobin A1c 12.6 % (3.8-5.6)
--- NOTE | 2020-12-12 11:28 | CASEMGMT ---
SW met w/pt and daughter in room in regard to discharge plan. Daughter Kriss explains plan was for pt to go to [facility] on Friday. Daughter is not in favor of pt going home in between, and would be agreeable for pt to go straight to [facility] from here. SW spoke w/pt and daughter about pt getting some skilled time at a assisted facility if needed, in between here and [facility]. SW provided list of assisted facilities in network w/pt's insurance, desired geographic area, and includes quality and resource use data. Daughter would be agreeable for pt to go to TCU prior to going to [facility]. SW explained will call both TCU and will also update [facility] on pt and see if pt would be able to go straight from here to [facility], or if she will need to go somewhere for rehab first. Daughter states understanding. SW called [facility], spoke w/Vandana Donato. She was aware pt was in the hospital, and will review clinical information to see if pt can come straight to [facility] or would need rehab first, she will let SW know. Vandana would prefer pt get rehab first, will look at information and let SW know. [facility] does have availability now and pt could come earlier than Friday, if they feel they can manage her care. SW called TCU, message left on referral line. SW faxed clinical information to [facility]. BLAYNE will continue to follow. ELVIRA Archuleta
[2020-12-12] MEDS: Lisinopril 5 MG Tablet PO (11:45)
[2020-12-12] MEDS: Insulin Lispro 100 UNIT/ML INSULN.PEN SC ×3 (11:52→21:14)
[2020-12-12] MEDS: Menthol/Lanolin/Calamine/Znox 113 GM Tube 1 APPLIC TOPICAL ×2 (11:54→21:07)
[2020-12-12 12:00] LABS: Bedside Glucose 290 mg/dL (70-110)
--- NOTE | 2020-12-12 12:48 | CASEMGMT ---
Addendum entered by Sandee Story 12/12/20 13:25: BLAYNE spoke w/ here at the hospital, it is anticipated pt would be able to get the COVID vaccine next week in TCU. BLAYNE called daughter and let her know. ELVIRA Archuleta Addendum entered by Sandee Story 12/12/20 13:04: SW called daughter back, let her know have not yet been able to find out about a COVID vaccine clinic, will let her know should SW find out, otherwise she can ask when pt gets to TCU. Daughter states understanding. ELVIRA Archuleta Addendum entered by Sandee Story 12/12/20 12:53: SW spoke w/Allyson in TCU, they can take pt and will start precert. SW called daughter, explained to her that [facility] could take pt from here, but they would prefer pt go to TCU first. SW explained TCU can take pt and will work on getting precert, if daughter agreeable. Daughter is agreeable to pt going to [facility] and then going to [facility]. SW inquired if pt has had the COVID vaccine, she has not. SW did explain that pt will need to be quarantined for the first 14 days(if she is in TCU that long), and after that can have visitors. Daughter states understanding. Daughter inquired about pt getting the COVID vaccine here, SW will ask and let her know. SW left message in regard to any upcoming COVID vaccine clinics in TCU. SW called Vandana at [facility] and let her know that pt will go to TCU first prior to coming to [facility]. ELVIRA Archuleta Original Note: BLAYNE spoke w/Vandana at [facility], she states if pt cannot go to TCU they are fine w/taking pt straight from the hospital to [facility]. She states it would be preferred pt go to TCU first, but would take her straight from the hospital should the family refuse or TCU cannot take her. BLAYNE called Allyson in TCU and left a message to call SW back. BLAYNE will continue to follow. ELVIRA Archuleta
--- NOTE | 2020-12-12 13:01 | CASEMGMT ---
Pt screened with [facility] Palliative Care Screening Tool d/t strata 3, pt met criteria. No order received.
[2020-12-12] MEDS: Glucerna Shake 120 ML LIQUID PO (14:41)
[2020-12-12 14:45] VITALS: BP 96/49; PULSE 88; RESP 16; TEMP 36.9; O2SAT 97
--- NOTE | 2020-12-12 16:39 | CHAPLAIN ---
Type of Pastoral Visit _x__ Initial Visit ___ Follow-up Visit ___ On-call Visit ___ General Patient Visit ___ Spiritual Assessment ___ Family Conference ___ Bereavement ___ Rapid Response ___ Code Blue ___ Other (describe below) Pastoral Care Referral From _x__ Patient ___ Family ___ Nurse ___ Physician ___ Clerical Aide ___ Deputy Sheriff Civil Division ___ Other (describe below) Sacrament/Intervention _x__ Active listening ___ Anointing ___ Zoroastrianism ___ Bereavement ___ Communion ___ Melanie exploration ___ ___ Life review _x__ Prayer ___ Reconciliation ___ Sacrament of Sick ___ Supportive presence ___ Wedding ___ Other (describe below) Pastoral Comments
[2020-12-12 20:42] VITALS: BP 97/35; PULSE 80; RESP 18; TEMP 36.9; O2SAT 97
[2020-12-12] MEDS: Atorvastatin Calcium 20 MG Tablet PO (21:08)
[2020-12-12] MEDS: APIXABAN 5 MG TABLET 10 MG PO (21:08)
[2020-12-12 22:31] LABS: Bedside Glucose 331 mg/dL (70-110)
[2020-12-12] MEDS: MELATONIN 3 MG TABLET PO (23:37)
[2020-12-13 05:59] VITALS: BP 122/60; PULSE 74; RESP 16; TEMP 36.6; O2SAT 98
[2020-12-13] MEDS: Nystatin Powder 15gm Bottle 1 APPLIC TOPICAL (06:03)
[2020-12-13] MEDS: Insulin Lispro 100 UNIT/ML INSULN.PEN SC ×3 (06:40→16:58)
[2020-12-13 06:44] LABS: Absolute Lymphocyte Count 2.05 X10^3/uL (0.83-4.51); Absolute Neutrophil Count 5.5 X10^3/uL (2.0-7.7); Basophil# 0.06 X10^3/uL; Basophil% 0.7 % (0-1); Eosinophil# 0.51 X10^3/uL; Eosinophils% 5.8 % (0-5); Hemoglobin 11.9 g/dL (12.0-15.0); Lymphocyte # 2.05 X10^3/ul (0.83-4.51); Lymphocyte % 23.2 % (19-41); Mean Corp Hgb Conc 31.3 g/dL (32-36); Mean Corpuscular Hgb 28.5 pg (27.0-32.0); Mean Corpuscular Volume 91.1 fL (81-99); Monocyte# 0.67 X10^3/uL; Monocyte% 7.6 % (0-10); NRBC Flagged by Analyzer 0 % (0-5); Platelet Count 146 K/mm3 (150-450); RBC Distribution Width CV 13.2 % (11.6-14.6); RBC Distribution Width SD 44.7 fl (35.1-43.9); Red Blood Count 4.17 M/mm3 (4.2-5.4); White Blood Count 8.9 K/mm3 (4.4-11.0)
[2020-12-13 06:45] LABS: Bedside Glucose 166 mg/dL (70-110)
[2020-12-13 07:06] VITALS: O2SAT 95
[2020-12-13 07:20] LABS: Anion Gap 6 (5-15); BUN 30 mg/dL (7-18); BUN/Creat Ratio 27.3 RATIO (10-20); Calcium,Total 8.7 mg/dL (8.5-10.1); Chloride 110 mmol/L (98-107); EST Glomerular Filtration Rate 50 mL/min (>60); Est Glom Filt Rate - Afr Amer 61 mL/min (>60); Estimated Creatinine Clearance 26.86 ml/min; Glucose 181 mg/dL (74-106); Potassium 4.3 mmol/L (3.5-5.1); Sodium Level 139 mmol/L (136-145)
[2020-12-13 09:05] VITALS: BP 116/55; PULSE 81; RESP 18; TEMP 36.4; O2SAT 96
[2020-12-13] MEDS: Aspirin 81 MG TAB.CHEW PO (09:37)
[2020-12-13] MEDS: Menthol/Lanolin/Calamine/Znox 113 GM Tube 1 APPLIC TOPICAL (09:38)
[2020-12-13] MEDS: APIXABAN 5 MG TABLET 10 MG PO (09:38)
[2020-12-13] MEDS: Lisinopril 5 MG Tablet PO (09:38)
[2020-12-13] MEDS: glipiZIDE XL 5 MG Tablet PO (09:38)
[2020-12-13] MEDS: Pantoprazole Sodium 40 MG Tablet PO (09:38)
[2020-12-13] MEDS: Acetaminophen 325 MG Tablet 650 MG PO (09:41)
--- NOTE | 2020-12-13 10:57 | CASEMGMT ---
Addendum entered by Tiffanie Bernstein 12/13/20 12:10: BLAYNE received call from Allyson with TCU stating pre-cert has been obtained, pt can discharge today to TCU, will need COVID test. BLAYNE updated PA. BLAYNE in to speak with pt and pt's daughter Kriss. BLAYNE updated pt and Kriss on approval to TCU and discharge today and reminded Kriss that pt will need Bydueron injection brought in for TCU. Pt and Kriss state understanding. Plan: TCU today Original Note: Social Work Note BLAYNE received email from Allyson stating pt is on Bydureon Injection Weekly and that will need to be brought in for pt on TCU. SW in to speak with pt and pt's daughter Kriss. BLAYNE updated Kriss about pt's medication, Kriss states she will be able to bring in the medication for pt. BLAYNE updated Kriss that pre-cert is still pending. Plan: TCU pending pre-cert Tiffanie Bernstein LAST REMODELER REPAIRER, WATER LEAK REPAIRER
--- NOTE | 2020-12-13 12:26 | PCM.TXEXTCAR ---
Documented by User: Vandana Miller NP, DIRECTOR DIVERSITY-C 12/13/20 13:00 Diet 12/11/20 23:22 Diet: Consistent Carb - Calorie Controlled Food consistency:: Regular Liquid Consistency:: Regular/Thin Dietary Modifications:: Cardiac / Heart Healthy How many daily calories?: 1600 calorie Routine Orders/Code Status Enema Type: Fleetz Enema Frequency: Daily PRN Suppository Type: Dulcolax 10mg Suppository Frequency: Daily PRN Routine Lab Work: - (CBC, BMP Q Week) Code Status: DNRCC-A (no intubation) Wound(s) L henson: Wound Type: Abrasion Suggestions for Active Care Change Position every (hours): 2 Times a day to sit in chair: 3 Therapies Physical Therapy: Eval and Treat Occupational Therapy: Eval and Treat Problem/Diagnosis (1) UTI (urinary tract infection): Status: Acute (2) Acute deep vein thrombosis (DVT): Status: Acute (3) Acute kidney injury: Status: Acute Allergies/Procedures Done in Hospital Allergies sulfamethoxazole [From ] Allergy (Verified 12/11/20 20:03) Hives trimethoprim [From ] Allergy (Verified 12/11/20 20:03) Hives adhesive tape Adverse Reaction (Verified 12/11/20 20:03) Rash Procedures: None Type of Care/Length of Stay Estimated LOS: Convalescent Care Less Than 30 days Type of Care Needed: Skilled Rehab Potential: Fair Prognosis: Fair Additional Orders/Day of Discharge H&P will serve as current which was dated: 12/11/20 Day of Discharge: 12/13/20 Dietary and Speech Recommendations Dietitian Recommendations/Changes: Cardiac - calorie controlled 1600kcal - consistent carbohydrate diet. D/c glucerna 120mL PO 4x/day at [facility]. Emma Valdovinos MS, RDN, LD Discharge Plan Admission Admit Date/Time: 12/11/20 22:06 Primary Reason for Your Visit: DVT, UTI Attending Provider: Sánchez Diamond Primary Care Provider: Cecy Trivedi Discharge Orders/Prescriptions Prescriptions: New Eliquis 5 mg Tablet 10 mg PO BID Qty: 0 RF: 0 meropenem 1 gram Recon Soln 1 g IV Q12 5 Days Qty: 0 RF: 0 Lantus Solostar U-100 Insulin 100 unit/mL (3 mL) Insulin Pen 15 units subcut BID Qty: 0 RF: 0 insulin lispro [Humalog KwikPen Insulin] 100 unit/mL Insulin Pen See Protocol unit subcut ACHS Qty: 0 RF: 0 Continued aspirin 81 MG tablet,chewable 81 mg PO DAILY@0800 RF: 0 glipizide 2.5 MG tablet extended release 24hr 5 mg PO DAILY RF: 0 lecithin, soy 400 MG capsule 400 mg PO BID RF: 0 latanoprost 2.5 ML drops 2.5 ml OP DAILY RF: 0 simvastatin 40 MG tablet 40 mg PO QHS RF: 0 lisinopril 10 MG tablet 5 mg PO DAILY RF: 0 Lactobacillus acidophilus 1 EACH capsule 1 ea PO DAILY RF: 0 exenatide microspheres 2 MG/0.65 ML pen injector 2 mg SQ TU RF: 0 nystatin 1 APPLIC bottle 1 applic TOPICAL BID RF: 0 omeprazole 40 mg Capsule,Delayed Release(Dr/Ec) 40 mg PO DAILY RF: 0 ascorbic acid (vitamin C) [Vitamin C] 500 mg Tablet 500 mg PO DAILY RF: 0 CalMag Thins 200 mg calcium- 50 mg Tablet 1 tab PO BID RF: 0 d-mannose 500 mg Capsule 1,000 mg PO BID RF: 0 Kidney RF: 0 Changed acetaminophen 500 MG tablet 1,000 mg PO Q8H PRN PRN (Reason: Pain Score 1-10) Qty: 0 RF: 0 Referrals / Follow Up: Cecy Trivedi MD [Primary Care Provider] - In 1 Week Disposition Disposition (needs filled in before D/C Order can be placed): [facility]irement Facility Documented by User: Dr. Sánchez Diamond MD 12/13/20 13:09 Allergies/Procedures Done in Hospital Allergies sulfamethoxazole [From ] Allergy (Verified 12/11/20 20:03) Hives trimethoprim [From ] Allergy (Verified 12/11/20 20:03) Hives adhesive tape Adverse Reaction (Verified 12/11/20 20:03) Rash Discharge Plan Admission Admit Date/Time: 12/11/20 22:06 Primary Reason for Your Visit: DVT, UTI Attending Provider: Sánchez Diamond Primary Care Provider: Cecy Trivedi Discharge Orders/Prescriptions Prescriptions: New Eliquis 5 mg Tablet 10 mg PO BID Qty: 0 RF: 0 meropenem 1 gram Recon Soln 1 g IV Q12 5 Days Qty: 0 RF: 0 Lantus Solostar U-100 Insulin 100 unit/mL (3 mL) Insulin Pen 15 units subcut BID Qty: 0 RF: 0 insulin lispro [Humalog KwikPen Insulin] 100 unit/mL Insulin Pen See Protocol unit subcut ACHS Qty: 0 RF: 0 Continued aspirin 81 MG tablet,chewable 81 mg PO DAILY@0800 RF: 0 glipizide 2.5 MG tablet extended release 24hr 5 mg PO DAILY RF: 0 lecithin, soy 400 MG capsule 400 mg PO BID RF: 0 latanoprost 2.5 ML drops 2.5 ml OP DAILY RF: 0 simvastatin 40 MG tablet 40 mg PO QHS RF: 0 lisinopril 10 MG tablet 5 mg PO DAILY RF: 0 Lactobacillus acidophilus 1 EACH capsule 1 ea PO DAILY RF: 0 exenatide microspheres 2 MG/0.65 ML pen injector 2 mg SQ TU RF: 0 nystatin 1 APPLIC bottle 1 applic TOPICAL BID RF: 0 omeprazole 40 mg Capsule,Delayed Release(Dr/Ec) 40 mg PO DAILY RF: 0 ascorbic acid (vitamin C) [Vitamin C] 500 mg Tablet 500 mg PO DAILY RF: 0 CalMag Thins 200 mg calcium- 50 mg Tablet 1 tab PO BID RF: 0 d-mannose 500 mg Capsule 1,000 mg PO BID RF: 0 Kidney RF: 0 Changed acetaminophen 500 MG tablet 1,000 mg PO Q8H PRN PRN (Reason: Pain Score 1-10) Qty: 0 RF: 0 Referrals / Follow Up: Cecy Trivedi MD [Primary Care Provider] - In 1 Week Disposition Disposition (needs filled in before D/C Order can be placed): Retirement Facility
[2020-12-13 12:41] LABS: Bedside Glucose 324 mg/dL (70-110)
--- NOTE | 2020-12-13 13:00 | DS.PCM_ITS ---
Documented by User: Vandana Miller NP, PROJECT DEVELOPMENT LEADER-C 12/13/20 13:08 Providers Date of Admission: 12/11/20 Date of Discharge: 12/13/20 Primary Care Physician: Dr. Cecy Trivedi MD Reason For Visit: UTI, JANIE, DVT Diagnosis Discharge Diagnosis (1) UTI (urinary tract infection): Status: Deleted Code(s): N39.0 - Urinary tract infection, site not specified (2) Acute deep vein thrombosis (DVT): Status: Acute Code(s): I82.409 - Acute embolism and thrombosis of unspecified deep veins of unspecified lower extremity Qualifiers: Affected thrombotic vein of extremity: femoral DVT location: lower extremity Laterality: left Qualified Code(s): I82.412 - Acute embolism and thrombosis of left femoral vein (3) Acute kidney injury: Status: Deleted Code(s): N17.9 - Acute kidney failure, unspecified Medications at Discharge Home Medications aspirin 81 mg PO DAILY@0800 02/01/19 glipizide 5 mg PO DAILY 08/16/19 lecithin, soy 400 mg PO BID 08/16/19 Lactobacillus acidophilus 1 ea PO DAILY 07/23/20 exenatide microspheres 2 mg SQ TU 07/23/20 latanoprost 2.5 ml OP DAILY 07/23/20 lisinopril 5 mg PO DAILY 07/23/20 simvastatin 40 mg PO QHS 07/23/20 nystatin 1 applic TOPICAL BID 07/26/20 CalMag Thins 1 tab PO BID 12/11/20 Kidney 12/11/20 ascorbic acid (vitamin C) [Vitamin C] 500 mg PO DAILY 12/11/20 d-mannose 1,000 mg PO BID 12/11/20 omeprazole 40 mg PO DAILY 12/11/20 acetaminophen 1,000 mg PO Q8H PRN PRN #0 tab 12/13/20 apixaban [Eliquis] 10 mg PO BID #0 tab 12/13/20 insulin glargine [Lantus Solostar U-100 Insulin] 15 units SUBCUT BID #0 ml 12/13/20 insulin lispro [Humalog KwikPen Insulin] See Protocol SUBCUT ACHS #0 ml 12/13/20 meropenem 1 g IV Q12 5 Days #0 ea 12/13/20 Hospital Course Operations None Procedures None Summary of Care Provided Minutes Spent on Discharge: 35 Hospital Course: Patient is an 85-year-old female admitted 12/11/2020 due to in creased weakness, confusion with multiple falls. 1. Acute DVT-venous duplex on admission shows extensive occlusive thrombus from the left common femoral vein through the calf veins. IV Lovenox on admission, transition to Eliquis acute DVT dosing. Follow-up with PCP in 1 week following discharge from transitional care unit 2. Acute UTI-history of ESBL E. coli, Proteus and Enterococcus urine cultures. Resistant to Rocephin. Preliminary urine culture growing GNR. Follow culture at TCU however will plan to continue IV meropenem to complete 7-day course. 3. Acute kidney injury on chronic kidney disease stage IIIb- JANIE resolved. Trend BMP. 4. Debility, failure to thrive-patient was reportedly set up for assisted living prior to admission. TCU at discharge for further therapy 5. Type 2 diabetes mellitus-continue home oral regimen. Hemoglobin A1c 12.6%. Begin Lantus 15 units twice daily and continue high-dose sliding scale insulin. Pending further glucose monitoring, may increase insulin regimen. Glucose significantly elevated during admission. 6. Candidal intertrigo, under breasts-topical nystatin ordered. 7. WILLIAM-continue CPAP regimen. 8. Hypertension-stable, resume lisinopril. 9. Hyperlipidemia- continue statin. Physical Exam Const alert, oriented x3 and no apparent distress Orientation / Consciousness: awake, oriented to person, oriented to place and oriented to time HEENT normocephalic and moist oral mucous membranes Eyes PERRL, EOMs intact bilaterally and conjunctivae normal Neck no lymphadenopathy Resp normal respiratory effort and clear to auscultation bilaterally Cardio regular rate, regular rhythm and no murmurs Peripheral Pulses: pulses 2+ throughout GI normal to inspection, nondistended, normoactive bowel sounds, non-tender and non-distended Extremity normal to inspection Skin no rashes or lesions noted Lesions: no lesions Rashes: no rashes Trauma: no lacerations or abrasions Neuro CN's II-XII intact bilaterally, no focal motor deficits, no sensory deficits noted and deep tendon reflexes 2+ bilaterally Psych mental status grossly normal and affect normal Patient seen and examined prior to discharge. Physical assessment as noted above. Patient is stable for discharge with follow up recommendations as noted above. This patient was seen by SMOOTH Ragland under the supervision of Dr. Diamond. Weight / BMI Weight Weight: 180 lb 15.992 oz Body Mass Index (BMI) 35.3 ABG / Lab / Microbiology Data Result Diagrams: 12/13/20 06:35 12/13/20 06:35 Laboratory: Laboratory Results - last 24 hr 12/12/20 12/13/20 12/13/20 21:14 06:35 06:35 WBC 8.9 RBC 4.17 L Hgb 11.9 L Hct 38.0 MCV 91.1 MCH 28.5 MCHC 31.3 L RDW Std Deviation 44.7 H RDW Coeff of Wesley 13.2 Plt Count 146 L MPV 11.0 Immature Gran % (Auto) 0.700 Neut % (Auto) 62.0 Lymph % (Auto) 23.2 [place] % (Auto) 7.6 Eos % (Auto) 5.8 H Baso % (Auto) 0.7 Absolute Neuts (auto) 5.5 Absolute Lymphs (auto) 2.05 Nucleated RBC % 0 Sodium 139 Potassium 4.3 Chloride 110 H Carbon Dioxide 23.0 Anion Gap 6 BUN 30 H Creatinine 1.10 H Estim Creat Clear Calc 26.86 Est GFR (MDRD) Af Amer 61 Est GFR (MDRD) Non-Af 50 L BUN/Creatinine Ratio 27.3 H Glucose 181 H Calcium 8.7 POC Glucose 331 H 12/13/20 12/13/20 06:39 12:25 WBC RBC Hgb Hct MCV MCH MCHC RDW Std Deviation RDW Coeff of [place] Plt Count MPV Immature Gran % (Auto) Neut % (Auto) Lymph % (Auto) [place] % (Auto) Eos % (Auto) Baso % (Auto) Absolute Neuts (auto) Absolute Lymphs (auto) Nucleated RBC % Sodium Potassium Chloride Carbon Dioxide Anion Gap BUN Creatinine Estim Creat Clear Calc Est GFR (MDRD) Af Amer Est GFR (MDRD) Non-Af BUN/Creatinine Ratio Glucose Calcium POC Glucose 166 H 324 H Microbiology: Microbiology 12/11/20 21:15 Urine Culture - Preliminary Urine, Catheterized GNR lactose survey superintendent Microbiology 12/11/20 21:15 Urine, Catheterized Urine Culture - Preliminary GNR lactose survey superintendent Meaningful Use Info Meaningful Use Diagnoses (Choose all that apply): VTE VTE Anticoag overlap given w/in hospital stay or rx'd at ar?: Yes Pt receive overlap for 5 days?: Yes Discharge Plan Admission Admit Date/Time: 12/11/20 22:06 Primary Reason for Your Visit: DVT, UTI Attending Provider: Sánchez Diamond Primary Care Provider: Cecy Trivedi Discharge Orders/Prescriptions Prescriptions: New Eliquis 5 mg Tablet 10 mg PO BID Qty: 0 RF: 0 meropenem 1 gram Recon Soln 1 g IV Q12 5 Days Qty: 0 RF: 0 Lantus Solostar U-100 Insulin 100 unit/mL (3 mL) Insulin Pen 15 units subcut BID Qty: 0 RF: 0 insulin lispro [Humalog KwikPen Insulin] 100 unit/mL Insulin Pen See Protocol unit subcut ACHS Qty: 0 RF: 0 Continued aspirin 81 MG tablet,chewable 81 mg PO DAILY@0800 RF: 0 glipizide 2.5 MG tablet extended release 24hr 5 mg PO DAILY RF: 0 lecithin, soy 400 MG capsule 400 mg PO BID RF: 0 latanoprost 2.5 ML drops 2.5 ml OP DAILY RF: 0 simvastatin 40 MG tablet 40 mg PO QHS RF: 0 lisinopril 10 MG tablet 5 mg PO DAILY RF: 0 Lactobacillus acidophilus 1 EACH capsule 1 ea PO DAILY RF: 0 exenatide microspheres 2 MG/0.65 ML pen injector 2 mg SQ TU RF: 0 nystatin 1 APPLIC bottle 1 applic TOPICAL BID RF: 0 omeprazole 40 mg Capsule,Delayed Release(Dr/Ec) 40 mg PO DAILY RF: 0 ascorbic acid (vitamin C) [Vitamin C] 500 mg Tablet 500 mg PO DAILY RF: 0 CalMag Thins 200 mg calcium- 50 mg Tablet 1 tab PO BID RF: 0 d-mannose 500 mg Capsule 1,000 mg PO BID RF: 0 Kidney RF: 0 Changed acetaminophen 500 MG tablet 1,000 mg PO Q8H PRN PRN (Reason: Pain Score 1-10) Qty: 0 RF: 0 Referrals / Follow Up: Cecy Trivedi MD [Primary Care Provider] - In 1 Week Disposition Disposition (needs filled in before D/C Order can be placed): [facility] Documented by User: Dr. Sánchez Diamond MD 12/13/20 14:34 Providers Date of Admission: 12/11/20 Reason For Visit: UTI, JANIE, DVT Diagnosis Discharge Diagnosis (1) Acute deep vein thrombosis (DVT): Status: Acute Code(s): I82.409 - Acute embolism and thrombosis of unspecified deep veins of unspecified lower extremity Qualifiers: Affected thrombotic vein of extremity: femoral DVT location: lower extremity Laterality: left Qualified Code(s): I82.412 - Acute embolism and thrombosis of left femoral vein (2) Acute kidney injury superimposed on CKD: Status: Chronic Code(s): N17.9 - Acute kidney failure, unspecified; N18.9 - Chronic kidney disease, unspecified (3) UTI due to extended-spectrum beta lactamase (ESBL) producing Escherichia coli: Status: Acute Code(s): N39.0 - Urinary tract infection, site not specified; B96.29 - Other Escherichia coli [E. coli] as the cause of diseases classified elsewhere; Z16.12 - Extended spectrum beta lactamase (ESBL) resistance Medications at Discharge Home Medications aspirin 81 mg PO DAILY@0800 02/01/19 glipizide 5 mg PO DAILY 08/16/19 lecithin, soy 400 mg PO BID 08/16/19 Lactobacillus acidophilus 1 ea PO DAILY 07/23/20 exenatide microspheres 2 mg SQ TU 07/23/20 latanoprost 2.5 ml OP DAILY 07/23/20 lisinopril 5 mg PO DAILY 07/23/20 simvastatin 40 mg PO QHS 07/23/20 nystatin 1 applic TOPICAL BID 07/26/20 CalMag Thins 1 tab PO BID 12/11/20 Kidney 12/11/20 ascorbic acid (vitamin C) [Vitamin C] 500 mg PO DAILY 12/11/20 d-mannose 1,000 mg PO BID 12/11/20 omeprazole 40 mg PO DAILY 12/11/20 acetaminophen 1,000 mg PO Q8H PRN PRN #0 tab 12/13/20 apixaban [Eliquis] 10 mg PO BID #0 tab 12/13/20 insulin glargine [Lantus Solostar U-100 Insulin] 15 units SUBCUT BID #0 ml 12/13/20 insulin lispro [Humalog KwikPen Insulin] See Protocol SUBCUT ACHS #0 ml 12/13/20 meropenem 1 g IV Q12 5 Days #0 ea 12/13/20 ABG / Lab / Microbiology Data Result Diagrams: 12/13/20 06:35 12/13/20 06:35 Discharge Plan Admission Admit Date/Time: 12/11/20 22:06 Primary Reason for Your Visit: DVT, UTI Attending Provider: Sánchez Diamond Primary Care Provider: Cecy Trivedi Discharge Orders/Prescriptions Prescriptions: New Eliquis 5 mg Tablet 10 mg PO BID Qty: 0 RF: 0 meropenem 1 gram Recon Soln 1 g IV Q12 5 Days Qty: 0 RF: 0 Lantus Solostar U-100 Insulin 100 unit/mL (3 mL) Insulin Pen 15 units subcut BID Qty: 0 RF: 0 insulin lispro [Humalog KwikPen Insulin] 100 unit/mL Insulin Pen See Protocol unit subcut ACHS Qty: 0 RF: 0 Continued aspirin 81 MG tablet,chewable 81 mg PO DAILY@0800 RF: 0 glipizide 2.5 MG tablet extended release 24hr 5 mg PO DAILY RF: 0 lecithin, soy 400 MG capsule 400 mg PO BID RF: 0 latanoprost 2.5 ML drops 2.5 ml OP DAILY RF: 0 simvastatin 40 MG tablet 40 mg PO QHS RF: 0 lisinopril 10 MG tablet 5 mg PO DAILY RF: 0 Lactobacillus acidophilus 1 EACH capsule 1 ea PO DAILY RF: 0 exenatide microspheres 2 MG/0.65 ML pen injector 2 mg SQ TU RF: 0 nystatin 1 APPLIC bottle 1 applic TOPICAL BID RF: 0 omeprazole 40 mg Capsule,Delayed Release(Dr/Ec) 40 mg PO DAILY RF: 0 ascorbic acid (vitamin C) [Vitamin C] 500 mg Tablet 500 mg PO DAILY RF: 0 CalMag Thins 200 mg calcium- 50 mg Tablet 1 tab PO BID RF: 0 d-mannose 500 mg Capsule 1,000 mg PO BID RF: 0 Kidney RF: 0 Changed acetaminophen 500 MG tablet 1,000 mg PO Q8H PRN PRN (Reason: Pain Score 1-10) Qty: 0 RF: 0 Referrals / Follow Up: Cecy Trivedi MD [Primary Care Provider] - In 1 Week Disposition Disposition (needs filled in before D/C Order can be placed): [facility] Charges/Coding Addendum Addendum: Hospitalist note: Discharge summary above reviewed and I concur with above discharge and treatment plan. Patient presented to the emergency room because of increased weakness and frequent falls. She was found to have acute cystitis in context of history of recurrent ESBL E. coli acute cystitis. She was treated with IV meropenem. Urine culture revealed gram-negative rods, final was pending at the time of discharge. Previous cultures of the urine revealed ESBL E. coli. She was found to have acute kidney injury on top of stage IIIb chronic kidney disease. She was treated with IV fluids and her kidney function returned back to her baseline. Patient complained of left leg swelling and mild pain, venous Doppler done and showed extensive occlusive thrombus from the left common femoral vein through the calf veins. Initially, she was started on therapeutic Lovenox twice daily and then was transitioned to p.o. Eliquis. Patient has been having increasing frequent falls and debility, was seen by PT OT and recommended placement to retirement facility. Patient discharged to TCU in a stable medical condition, discharged on IV meropenem for 5 days more to complete total of 7 days of treatment, discharged on Eliquis for acute left leg DVT treatment, continued on her previous home medications without any changes, plan to follow- up with PCP in 1 week. - Physical Exam General: Alert, Oriented x3, Cooperative, No apparent distress. HEENT: Atraumatic, PERRLA, EOMI. Neck: Supple, No JVD, Negative Carotid Bruits, Trachea Midline, Thyroid Normal. Lungs: Clear to auscultation, Normal air movement, No rhonchi, No wheeze, No rales. Cardiovascular: Regular rate, Regular Rhythm, Normal S1, Normal S2, PMI Normal. Abdomen: Bowel Sounds Present, Soft, Non Tender, Non-Distended, No Hepato- splenomegaly. Extremities: No clubbing, No cyanosis, edema Skin: No rashes, No breakdown Neurological: Cranial nerves are intact, neuro grossly intact Vital Signs are stable. This note was generated with CaseTrekation software. It may contain incorrect words, spelling, and punctuation that were not noted in checking the note before signing. Visit Charges Inpatient E&M: 67240 Disch Hosp
--- NOTE | 2020-12-13 14:28 | PHA.DC.MR ---
Pharmacy Service has performed discharge medication reconciliation for this patient. The patient's discharge medication list was reviewed for discrepancies and discrepancies were resolved. Home Medications aspirin 81 mg PO DAILY@0800 02/01/19 glipizide 5 mg PO DAILY 08/16/19 lecithin, soy 400 mg PO BID 08/16/19 Lactobacillus acidophilus 1 ea PO DAILY 07/23/20 exenatide microspheres 2 mg SQ TU 07/23/20 latanoprost 2.5 ml OP DAILY 07/23/20 lisinopril 5 mg PO DAILY 07/23/20 simvastatin 40 mg PO QHS 07/23/20 nystatin 1 applic TOPICAL BID 07/26/20 CalMag Thins 1 tab PO BID 12/11/20 Kidney 12/11/20 ascorbic acid (vitamin C) [Vitamin C] 500 mg PO DAILY 12/11/20 d-mannose 1,000 mg PO BID 12/11/20 omeprazole 40 mg PO DAILY 12/11/20 acetaminophen 1,000 mg PO Q8H PRN PRN #0 tab 12/13/20 apixaban [Eliquis] 10 mg PO BID #0 tab 12/13/20 insulin glargine [Lantus Solostar U-100 Insulin] 15 units SUBCUT BID #0 ml 12/13/20 insulin lispro [Humalog KwikPen Insulin] See Protocol SUBCUT ACHS #0 ml 12/13/20 meropenem 1 g IV Q12 5 Days #0 ea 12/13/20
[2020-12-13 16:30] VITALS: BP 119/63; PULSE 76; RESP 16; TEMP 36.8; O2SAT 96
[2020-12-13 17:10] LABS: Bedside Glucose 281 mg/dL (70-110)
--- NOTE | 2020-12-13 17:14 | CASEMGMT ---
Social Work Note BLAYNE placed a call to pt's daughter Kriss and updated her that once pt finishes eating dinner, she will be transported to TCU room 21. BLAYNE reminded Kriss that pt's medication will need to be brought to the Main Entrance for TCU. Kriss states understanding. Plan: TCU Today Tiffanie Bernstein CORE BLOWER OPERATOR, [employer] SUPERVISOR
--- NOTE | 2020-12-13 17:39 | NURSING ---
report called to Jayshree in TCU, pt to DC to TCU room 21. BLAYNE Moreno to call daughter and provide update of transfer
[2020-12-16 16:06] LABS: Bedside Glucose 319 mg/dL (70-110)
== END 2020-12-13 17:55 | disposition skilled nursing facility (03) | DRG 300 ==
LOC: ED 21:27 → MS3 23:50
PROVIDERS: Nurse Practitioner Family; Admitting Provider Hospitalist; Emergency Provider Emergency Medicine; PCP Family Medicine; Visit Provider Hospitalist
DX: I82.412 Acute embolism and thrombosis of left femoral vein (principal); N39.0 Urinary tract infection, site not specified; N17.9 Acute kidney failure, unspecified; Z16.19 Resistance to other specified beta lactam antibiotics; R62.7 Adult failure to thrive; B37.2 Candidiasis of skin and nail; R29.6 Repeated falls; N18.32 Chronic kidney disease, stage 3b; I12.9 Hypertensive chronic kidney disease with stage 1 through stage 4 chronic kidney disease, or unspecified chronic kidney disease; B96.29 Other Escherichia coli [E. coli] as the cause of diseases classified elsewhere; E11.22 Type 2 diabetes mellitus with diabetic chronic kidney disease; G47.33 Obstructive sleep apnea (adult) (pediatric); E78.5 Hyperlipidemia, unspecified; K21.9 Gastro-esophageal reflux disease without esophagitis; E11.65 Type 2 diabetes mellitus with hyperglycemia; F03.90 Unspecified dementia, unspecified severity, without behavioral disturbance, psychotic disturbance, mood disturbance, and anxiety; E86.0 Dehydration; Z66 Do not resuscitate; Z88.2 Allergy status to sulfonamides; Z90.49 Acquired absence of other specified parts of digestive tract; Z86.19 Personal history of other infectious and parasitic diseases; Z79.4 Long term (current) use of insulin
CPT/HCPCS: 36415; 73590; 80048; 80053; 81001; 82009; 82550; 82962; 83036; 85025; 87077; 87086; 87088; 87186; 87426; 93005; 93971; 97162; 97166; 97530; 97802; 99285; J2185; J7030; J7050; P9612; A4216

== ENCOUNTER 2020-12-13 18:09 | Inpatient (IN) | payer MEDICARE, SELFPAY ==
[2020-12-13 18:29] VITALS: BMI 37.3
--- NOTE | 2020-12-13 21:18 | HP.PCM_ITS ---
HPI - General General Date of Admission: 12/13/20 HPI Narrative 12/11/2020 KAROLINE ZAPATA, is a 85 Female who presents to [facility] Emergency Department with weakness. Blood sugars high, feeling weak. Recent fall, new swelling of left lower extremity. IV fluids given, rule out DKA, potassium 5.4. Doppler ultrasound positive for acute DVT left lower extremity. UA consistent with urinary tract infection, Rocephin given. 12/11/2020 Admit to Hospital. Lovenox for acute left lower extremity DVT. UTI treated with Rocephin IV, Urine culture pending. IV Fluids for acute kidney injury. PT/OT for debility/[facility]. Nystatin powder for tinea corporis. 12/12/2020 Lovenox transitioned to Eliquis for acute left lower extremity DVT. History of ESBL E. Coli, Proteus Enterococcus urine cultures, Change Rocephin to Zosyn for broader coverage of UTI. 12/13/2020 Meropenem IV x 7 days for urinary tract infection, monitor urine culture final results. 12/13/2020 Admit to TCU with debility, here for rehabilitation, strengthening, prior to discharge home. Stop date for Eliquis 03/13/2021. [facility] Medical History (Updated 12/14/20 @ 00:47 by Carissa Turcios) Cholecystectomy planned Chronic kidney disease (CKD) Dementia Diabetes DVT (deep venous thrombosis) GERD (gastroesophageal reflux disease) Hyperlipidemia Home Medications aspirin 81 mg PO DAILY@0800 02/01/19 [History Last Taken 08/16/19] glipizide 5 mg PO DAILY 08/16/19 [History Last Taken 08/16/19] lecithin, soy 400 mg PO BID 08/16/19 [History Last Taken 08/16/19] Lactobacillus acidophilus 1 ea PO DAILY 07/23/20 [History Last Taken Unknown] exenatide microspheres 2 mg SQ TU 07/23/20 [History Last Taken Unknown] latanoprost 2.5 ml OP DAILY 07/23/20 [History Last Taken Unknown] lisinopril 5 mg PO DAILY 07/23/20 [History Last Taken Unknown] simvastatin 40 mg PO QHS 07/23/20 [History Last Taken Unknown] nystatin 1 applic TOPICAL BID 07/26/20 [History Last Taken Unknown] CalMag Thins 1 tab PO BID 12/11/20 [History Last Taken Unknown] Kidney 12/11/20 [History Last Taken Unknown] ascorbic acid (vitamin C) [Vitamin C] 500 mg PO DAILY 12/11/20 [History Last Taken Unknown] d-mannose 1,000 mg PO BID 12/11/20 [History Last Taken Unknown] omeprazole 40 mg PO DAILY 12/11/20 [History Last Taken Unknown] acetaminophen 1,000 mg PO Q8H PRN PRN #0 tab 12/13/20 [Rx Last Taken Unknown] apixaban [Eliquis] 10 mg PO BID 12/13/20 [History Last Taken Unknown] insulin glargine [Lantus Solostar U-100 Insulin] 15 units SUBCUT BID 12/13/20 [History Last Taken Unknown] insulin lispro [Humalog KwikPen Insulin] See Protocol SUBCUT ACHS 12/13/20 [History Last Taken Unknown] meropenem 1 g IV Q12 12/13/20 [History Last Taken Unknown] Allergy/AdvReac Type Severity Reaction Status Date / Time sulfamethoxazole Allergy Hives Verified 12/11/20 20:03 [From ] trimethoprim [From ] Allergy Hives Verified 12/11/20 20:03 adhesive tape AdvReac Rash Verified 12/11/20 20:03 Surgical History History of appendectomy History of cholecystectomy Social History (Updated 12/13/20 @ 21:[address] Zachary Dillon MD) household members: none Smoking Status: Never smoker ROS Constitutional Constitutional: Denies chills, fever(s) or weight gain ENT HEENT: Denies headache(s), nasal congestion or nasal discharge Cardiovascular Cardiovascular: Denies chest pain or palpitations Respiratory/Chest Respiratory/Chest: Denies cough, excessive phlegm production or shortness of breath with exertion Gastrointestinal Gastrointestinal: Denies abdominal pain, nausea or vomiting Genitourinary Genitourinary: Denies dysuria Musculoskeletal Musculoskeletal: Denies joint pain or joint swelling Integumentary Integumentary: Denies rash or wounds Neurologic Neurologic: Denies focal weakness, numbness or tingling Psychiatric Psychiatric: Reports auditory hallucinations; Denies anxiety, depression, homicidal ideation or suicidal ideation Vital Signs Vital Signs Vital Signs: Weight Weight: 86.8 kg Body Mass Index (BMI) 37.3 Physical Exam Const alert and oriented x3 General Appearance: cooperative HEENT normocephalic Eyes PERRL and EOMs intact bilaterally Neck supple, no JVD and no carotid bruits Resp normal respiratory effort, normal air movement and clear to auscultation bilaterally Cardio regular rate and regular rhythm GI normal to inspection, nondistended, normoactive bowel sounds, non-tender and non-distended Extremity normal capillary refill General Extremity: Negative for edema Skin no rashes or lesions noted General Skin Exam: no breakdown Psych affect normal Appearance: appropriate Assessment & Plan Assessment/Plan (1) Debility: (2) Adult failure to thrive: (3) Urinary tract infection: (4) Hyperkalemia: (5) Acute kidney injury: (6) Acute deep vein thrombosis of left lower extremity: (7) Diabetes mellitus: (8) Chronic kidney disease: (9) GERD (gastroesophageal reflux disease): (10) Hyperlipidemia: (11) Alzheimer disease: (12) Glaucoma: (13) Hypertension: (14) Hypomagnesemia: PLAN: 85 year old female with below past medical history hospitalized for weakness secondary to urinary tract infection, complicated by acute left lower extremity DVT, acute kidney injury, hyperkalemia, admitted to TCU with debility, here for rehabilitation, strengthening, pror to discharge home alone. * Debility - PT/OT. * Pain - Tylenol 1000MG Q6H PRN pain (1-10). * Bowel Miralax 17GM daily, Senna/colace 1 tablet BID, Dulcolax 10MG WI daily PRN. * Adult immunization - Administer Prevnar 13, Pneumovax 23, Fluzone, COVID19 vaccine as appropriate. * DVT prophylaxis - Not necessary, already on Eilquis. * Acute LLE DVT - Eliquis 10MG BID thru 12/19/2020, then 5MG BID thru 03/13/2021. * Vitamin C deficiency - Vitamin C 500MG daily. * Hyperlipidemia - Atorvastatin 20MG QHS. * Diabetes Mellitus II - Glipizide XL 5MG daily, Bydureon 2MG per week, Lantus 15 units BID. * Hypertension - Lisinopril 5MG daily. * UTI - Meropenem 1GM IV Q12H thru 12/18/2020, monitor urine culture. * GI prophylaxis - Lactobacillus 1 tablet daily. * Glaucoma - Latanoprost 1GTT OU QHS. * Tinea corporis - Nystatin powder topical BID. * GERD - Pantoprazole 40MG daily.
[2020-12-13 21:28] VITALS: BP 150/60; PULSE 68; RESP 18; TEMP 36.7
[2020-12-13] MEDS: 0.9% Saline Lock 10 ML Syringe IV (21:35)
[2020-12-13] MEDS: APIXABAN 5 MG TABLET 10 MG PO (21:40)
[2020-12-13] MEDS: Atorvastatin Calcium 20 MG Tablet PO (21:41)
[2020-12-13 21:56] LABS: Bedside Glucose 259 mg/dL (70-110)
[2020-12-13] MEDS: Nystatin Powder 15gm Bottle 1 APPLIC TOPICAL (22:04)
[2020-12-13 22:35] VITALS: O2SAT 95
[2020-12-14 06:21] LABS: Bedside Glucose 204 mg/dL (70-110)
[2020-12-14 06:27] VITALS: BP 116/47; PULSE 69; RESP 18; TEMP 36.7; O2SAT 94
[2020-12-14] MEDS: 0.9% Saline Lock 10 ML Syringe IV ×2 (06:29→10:56)
[2020-12-14] MEDS: Menthol/Lanolin/Calamine/Znox 113 GM Tube 1 APPLIC TOPICAL ×2 (06:31→18:16)
[2020-12-14] MEDS: Polyethylene Glycol 3350 17 GM PACKET PO (06:32)
[2020-12-14] MEDS: Pantoprazole Sodium 40 MG Tablet PO (06:35)
[2020-12-14] MEDS: Lisinopril 5 MG Tablet PO (06:35)
[2020-12-14] MEDS: Senna/Docusate Sodium 1 Tablet PO ×2 (06:35→18:17)
[2020-12-14] MEDS: APIXABAN 5 MG TABLET 10 MG PO ×2 (06:35→18:15)
[2020-12-14] MEDS: Nystatin Powder 15gm Bottle 1 APPLIC TOPICAL ×2 (06:42→18:16)
[2020-12-14] MEDS: glipiZIDE XL 5 MG Tablet PO (08:01)
[2020-12-14] MEDS: Ascorbic Acid 500 MG Tablet PO (08:01)
[2020-12-14 08:52] LABS: Absolute Lymphocyte Count 1.69 X10^3/uL (0.83-4.51); Basophil# 0.07 X10^3/uL; Basophil% 0.8 % (0-1); Eosinophil# 0.65 X10^3/uL; Hematocrit 38.3 % (37-47); Hemoglobin 11.9 g/dL (12.0-15.0); Lymphocyte # 1.69 X10^3/ul (0.83-4.51); Lymphocyte % 18.1 % (19-41); Mean Corp Hgb Conc 31.1 g/dL (32-36); Mean Corpuscular Hgb 28.3 pg (27.0-32.0); Mean Platelet Vol. 11.5 fl (6.2-12.0); Monocyte# 0.87 X10^3/uL; Monocyte% 9.3 % (0-10); NRBC Flagged by Analyzer 0 % (0-5); Neutrophil # 5.98 X10^3/uL (2.7-7.7); Platelet Count 180 K/mm3 (150-450); RBC Distribution Width CV 13.3 % (11.6-14.6); RBC Distribution Width SD 44.2 fl (35.1-43.9); Red Blood Count 4.21 M/mm3 (4.2-5.4); White Blood Count 9.3 K/mm3 (4.4-11.0)
[2020-12-14 09:10] LABS: Anion Gap 7 (5-15); BUN 29 mg/dL (7-18); BUN/Creat Ratio 26.9 RATIO (10-20); Calcium,Total 8.6 mg/dL (8.5-10.1); Chloride 109 mmol/L (98-107); Creatinine, Serum 1.08 mg/dL (0.55-1.02); EST Glomerular Filtration Rate 51 mL/min (>60); Est Glom Filt Rate - Afr Amer 62 mL/min (>60); Estimated Creatinine Clearance 27.36 ml/min; Glucose 245 mg/dL (74-106); Potassium 4.3 mmol/L (3.5-5.1); Sodium Level 137 mmol/L (136-145)
[2020-12-14 10:55] LABS: Bedside Glucose 224 mg/dL (70-110)
[2020-12-14] MEDS: Tuberculin,Purif.prot.deriv. 50 TU/ML Vial 0.1 ML ID (10:55)
--- NOTE | 2020-12-14 13:11 | CASEMGMT ---
Social Work Met with pt for initial assessment. Discussed code status and assisted pt in completing MOLST form. Pt wishes to be DNRCCA, no intubation and no artificial nutrition. MOLST form communicated to doctor and placed in chart. SW placed phone call to pt dgt Kriss and explained [place] insurance coverage with NRD 12/18 and continued stay not guaranteed. Pt was in the process of transitioning to [facility]. When pt is finished with rehabilitation in TCU she will discharge to [facility]. BLAYNE to continue to follow for d/c planning and support. ASHLEY Rosales
[2020-12-14 13:29] VITALS: BP 101/51; PULSE 81; RESP 17; TEMP 36.2
--- NOTE | 2020-12-14 14:58 | NURSING ---
patients own bydureon injection pen placed in med room refrigerator per family instructions to keep cold. medication was verified by pharmacy.
--- NOTE | 2020-12-14 16:29 | PCM.PN.RX ---
Progress Note - Pharmacy Subjective: TCU ADMISSION Objective: Allergies sulfamethoxazole [From ] Allergy (Verified 12/11/20 20:03) Hives trimethoprim [From ] Allergy (Verified 12/11/20 20:03) Hives adhesive tape Adverse Reaction (Verified 12/11/20 20:03) Rash Current Medications Generic Name Dose Route Start Last Admin Trade Name Freq PRN Reason Stop Dose Admin Acetaminophen 1,000 mg 12/13/20 21:37 Acetaminophen 500 Mg Tablet PO Q6H PRN PRN Pain Score 1-10 Apixaban 10 mg 12/13/20 19:00 12/14/20 06:35 Apixaban 5 Mg Tablet PO 12/19/20 23:55 10 mg BID DIANA Administration Apixaban 5 mg 12/20/20 06:00 Apixaban 5 Mg Tablet PO 03/13/21 23:59 BID DIANA Ascorbic Acid 500 mg 12/14/20 08:00 12/14/20 08:01 Ascorbic Acid 500 Mg Tablet PO 500 mg BREAKFAST DIANA Administration Atorvastatin Calcium 20 mg 12/13/20 22:00 12/13/20 21:41 Atorvastatin Calcium 20 Mg Tablet PO 20 mg QHS DIANA Administration Bisacodyl 10 mg 12/13/20 18:40 Bisacodyl 10 Mg Suppository RC DAILY PRN Constipation Calamine/Phenol 1 applic 12/14/20 06:00 12/14/20 06:31 Menthol/Lanolin/Calamine/Znox 113 Gm Tube TOPICAL 1 applic BID DIANA Administration Protocol Ciprofloxacin HCl 250 mg 12/14/20 18:00 Ciprofloxacin 250 Mg Tablet PO 12/18/20 23:59 BID DIANA Glipizide 5 mg 12/14/20 08:00 12/14/20 08:01 Glipizide Xl 5 Mg Tablet PO 5 mg DAILYCM DIANA Administration Sodium Chloride 250 mls @ 15 mls/hr 12/13/20 20:39 12/14/20 10:53 IV Infused .[id number] PRN Infusion Additional IVPB Infusion Insulin Glargine 15 units 12/14/20 06:00 12/14/20 06:37 Insulin Glargine 100 Units/Ml Pen SC 15 units BID DIANA Administration Lactobacillus Acidophilus 1 tablet 12/14/20 06:00 12/14/20 06:35 Lactobacillus Acidophilus PO 1 tablet DAILY DIANA Administration Latanoprost 1 drp 12/14/20 22:00 Latanoprost 0.005% 1 Bottle EACH EYE QHS COUNT INCLUDES THE [facility] Lisinopril 5 mg 12/14/20 06:00 12/14/20 06:35 Lisinopril 5 Mg Tablet PO 5 mg DAILY DIANA Administration Nystatin 1 applic 12/14/20 06:00 12/14/20 06:42 Nystatin Powder 15gm Bottle TOPICAL 1 applic BID DIANA Administration Protocol Pantoprazole Sodium 40 mg 12/14/20 06:00 12/14/20 06:35 Pantoprazole Sodium 40 Mg Tablet PO 40 mg DAILY DIANA Administration Polyethylene Glycol 17 gm 12/14/20 06:00 12/14/20 06:32 Polyethylene Glycol 3350 17 Gm Packet PO 17 gm DAILY DIANA Administration Senna/Docusate Sodium 1 tablet 12/14/20 06:00 12/14/20 06:35 Senna/Docusate Sodium 1 Tablet PO 1 tablet BID DIANA Administration Sodium Chloride 10 - 40 ml 12/13/20 18:26 12/14/20 10:56 0.9% Saline Lock 10 Ml Syringe IV 10 ml UD PRN Administration SALINE FLUSH Tuberculin PPD 0.1 ml 12/21/20 10:00 Tuberculin,Purif.Prot.Deriv. 50 Tu/Ml Vial ID 12/21/20 10:01 X1 ONE Problem List (Last Updated 12/14/20 @ 00:47 by Carissa Turcios) Debility (Acute) Adult failure to thrive (Acute) Urinary tract infection (Acute) Hyperkalemia (Acute) Acute kidney injury (Acute) Acute deep vein thrombosis of left lower extremity (Acute) Diabetes mellitus (Acute) Chronic kidney disease (Chronic) GERD (gastroesophageal reflux disease) (Acute) Hyperlipidemia (Acute) Alzheimer disease (Acute) Glaucoma (Acute) Hypertension (Chronic) Hypomagnesemia (Acute) Vital Signs Temp Pulse Resp BP Pulse Ox 97.1 F L 81 17 101/51 L 94 12/14/20 13:29 12/14/20 13:29 12/14/20 13:29 12/14/20 13:29 12/14/20 06:27 Oxygen Flow Rate (L/min) 97 Oxygen Delivery Method Room Air Weight: 86.8 kg Body Mass Index (BMI) 37.3 Sodium 137 mmol/L (136-145) 12/14/20 08:44 Potassium 4.3 mmol/L (3.5-5.1) 12/14/20 08:44 Chloride 109 mmol/L (98-107) H 12/14/20 08:44 Carbon Dioxide 21.0 mmol/L (21.0-32.0) 12/14/20 08:44 Anion Gap 7 (5-15) 12/14/20 08:44 BUN 29 mg/dL (7-18) H 12/14/20 08:44 Creatinine 1.08 mg/dL (0.55-1.02) H 12/14/20 08:44 Est GFR (MDRD) Af Amer 62 mL/min (>60) 12/14/20 08:44 Est GFR (MDRD) Non-Af 51 mL/min (>60) L 12/14/20 08:44 BUN/Creatinine Ratio 26.9 RATIO (10-20) H 12/14/20 08:44 Glucose 245 mg/dL (74-106) H 12/14/20 08:44 Assessment/Plan: 1. Pain: Tylenol 1000mg PO Q6h PRN Pain 1-10. Please continue to monitor for increased/decreased S/S pain, PRN medication use. 2. Acute DVT: Eliquis 10mg PO BID thru 12/19/20 then 5mg PO BID thereafter. Please continue to monitor for S/S recurrent DVT, S/S bleeding/bruising. 3. UTI Ciprofloxacin 250mg PO BID thru 12/18/20. Please continue to monitor for resolution of infection, renal function, improvement in UTI symptoms, microbiology culture results. 4. Diabetes II: Lantus 15 unit SC BID, Glipizide XL 5mg PO DailyCM, Bydureon 2mg SC once weekly. Please continue to monitor A1C, BG, S/S hypoglycemia. 5. HTN/HLD: Lisinopril 5mg PO Daily, Lipitor 20mg PO QHS. Please continue to monitor BP, pulse, electrolytes, lipid panel annually or sooner if clinically indicated. 6. GERD: Protonix 40mg PO daily. Please continue to monitor for GERD exacerbations, encourage nonpharmacologic therapies as well to decrease exacerbations. 7. Glaucoma: Latanoprost 1 gtt OU QHS. Please continue to monitor for progression of disease, follow-up with ophthalmology as clinically indicated. 8. General Wellness: Vitamin C 500mg PO Daily, Acidophilus 1 tab PO Daily. Please continue to monitor. Psychotropic Medications: None Unnecessary Medications: None Bowel Regimen: Miralax 17g PO Daily, Senna/Docusate 1 tab PO BID, Dulcolax 10mg NM Daily PRN. Please continue to monitor for increased/decreased constipation and/or diarrhea. Date of Note:: 12/14/20
[2020-12-14 17:45] LABS: Bedside Glucose 234 mg/dL (70-110)
[2020-12-14] MEDS: Ciprofloxacin 250 MG Tablet PO (18:16)
[2020-12-14] MEDS: Atorvastatin Calcium 20 MG Tablet PO (20:31)
[2020-12-14] MEDS: Latanoprost 0.005% 1 Bottle 1 DRP EACH EYE (20:31)
[2020-12-14 22:40] LABS: Bedside Glucose 223 mg/dL (70-110)
[2020-12-15 05:00] VITALS: BP 129/50; PULSE 81; RESP 12; TEMP 36.4
[2020-12-15] MEDS: APIXABAN 5 MG TABLET 10 MG PO ×2 (05:01→17:20)
[2020-12-15] MEDS: Ciprofloxacin 250 MG Tablet PO ×2 (05:01→17:20)
[2020-12-15] MEDS: Menthol/Lanolin/Calamine/Znox 113 GM Tube 1 APPLIC TOPICAL ×2 (05:01→17:20)
[2020-12-15] MEDS: Nystatin Powder 15gm Bottle 1 APPLIC TOPICAL ×2 (05:02→17:20)
[2020-12-15] MEDS: Polyethylene Glycol 3350 17 GM PACKET PO (05:02)
[2020-12-15] MEDS: Pantoprazole Sodium 40 MG Tablet PO (05:02)
[2020-12-15] MEDS: Lisinopril 5 MG Tablet PO (05:03)
[2020-12-15] MEDS: Senna/Docusate Sodium 1 Tablet PO ×2 (05:03→17:20)
[2020-12-15 06:21] LABS: Bedside Glucose 169 mg/dL (70-110)
[2020-12-15] MEDS: Ascorbic Acid 500 MG Tablet PO (09:37)
[2020-12-15] MEDS: Insulin Lispro 100 UNIT/ML INSULN.PEN 7 UNIT SC ×3 (09:37→17:21)
[2020-12-15] MEDS: glipiZIDE XL 5 MG Tablet PO (09:37)
[2020-12-15 11:11] LABS: Bedside Glucose 208 mg/dL (70-110)
[2020-12-15] MEDS: 0.9% Saline Lock 10 ML Syringe IV (12:04)
[2020-12-15 13:42] VITALS: BP 92/41; PULSE 76; RESP 14; TEMP 36.3; O2SAT 98
[2020-12-15 14:57] VITALS: BP 124/64; PULSE 78
[2020-12-15 16:31] LABS: Bedside Glucose 193 mg/dL (70-110)
[2020-12-15] MEDS: Atorvastatin Calcium 20 MG Tablet PO (20:56)
[2020-12-15] MEDS: Latanoprost 0.005% 1 Bottle 1 DRP EACH EYE (20:56)
[2020-12-16 01:21] LABS: Bedside Glucose 219 mg/dL (70-110)
[2020-12-16 05:00] VITALS: BP 128/62; PULSE 79; RESP 16; TEMP 35.8; O2SAT 98
[2020-12-16 06:25] LABS: Bedside Glucose 195 mg/dL (70-110)
[2020-12-16] MEDS: APIXABAN 5 MG TABLET 10 MG PO ×2 (06:46→18:02)
[2020-12-16] MEDS: Menthol/Lanolin/Calamine/Znox 113 GM Tube 1 APPLIC TOPICAL ×2 (06:47→18:07)
[2020-12-16] MEDS: Nystatin Powder 15gm Bottle 1 APPLIC TOPICAL ×2 (06:47→18:09)
[2020-12-16] MEDS: Lisinopril 5 MG Tablet PO (06:47)
[2020-12-16] MEDS: Senna/Docusate Sodium 1 Tablet PO ×2 (06:47→18:02)
[2020-12-16] MEDS: Ciprofloxacin 250 MG Tablet PO ×2 (06:47→18:02)
[2020-12-16] MEDS: Pantoprazole Sodium 40 MG Tablet PO (06:47)
[2020-12-16] MEDS: Polyethylene Glycol 3350 17 GM PACKET PO (06:47)
[2020-12-16] MEDS: glipiZIDE XL 5 MG Tablet PO (08:40)
[2020-12-16] MEDS: Insulin Lispro 100 UNIT/ML INSULN.PEN 7 UNIT SC ×3 (08:40→18:03)
[2020-12-16] MEDS: Ascorbic Acid 500 MG Tablet PO (08:40)
[2020-12-16 10:41] LABS: Bedside Glucose 217 mg/dL (70-110)
[2020-12-16 13:53] VITALS: PULSE 67; RESP 14; O2SAT 97
[2020-12-16 15:10] VITALS: BP 120/41; PULSE 67; RESP 14; TEMP 36.7; O2SAT 97
[2020-12-16 16:35] LABS: Bedside Glucose 217 mg/dL (70-110)
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
--- NOTE | 2020-12-16 17:21 | NURSING ---
Patient very agitated this evening with staff. 1 on 1 given with little effect. Patient continues to complain about the care provided to her this shift.
[2020-12-16] MEDS: Latanoprost 0.005% 1 Bottle 1 DRP EACH EYE (20:16)
[2020-12-16] MEDS: Atorvastatin Calcium 20 MG Tablet PO (20:16)
[2020-12-16 21:31] LABS: Bedside Glucose 278 mg/dL (70-110)
[2020-12-17] MEDS: Menthol/Lanolin/Calamine/Znox 113 GM Tube 1 APPLIC TOPICAL ×2 (05:46→18:16)
[2020-12-17] MEDS: Ciprofloxacin 250 MG Tablet PO ×2 (05:46→18:15)
[2020-12-17] MEDS: APIXABAN 5 MG TABLET 10 MG PO ×2 (05:46→18:15)
[2020-12-17] MEDS: Polyethylene Glycol 3350 17 GM PACKET PO (05:47)
[2020-12-17] MEDS: Lisinopril 5 MG Tablet PO (05:47)
[2020-12-17] MEDS: Senna/Docusate Sodium 1 Tablet PO ×2 (05:47→18:15)
[2020-12-17] MEDS: Pantoprazole Sodium 40 MG Tablet PO (05:47)
[2020-12-17] MEDS: Nystatin Powder 15gm Bottle 1 APPLIC TOPICAL ×2 (05:47→18:15)
[2020-12-17 06:23] VITALS: BP 132/57; PULSE 74; RESP 14; TEMP 36.3
[2020-12-17 06:26] LABS: Bedside Glucose 155 mg/dL (70-110)
--- NOTE | 2020-12-17 07:24 | NURSING ---
Pt making rude comments to staff; very demanding of staffs time. Unable at times to make pt happy.
[2020-12-17] MEDS: Insulin Lispro 100 UNIT/ML INSULN.PEN 7 UNIT SC ×3 (08:14→18:17)
[2020-12-17] MEDS: Ascorbic Acid 500 MG Tablet PO (08:14)
[2020-12-17] MEDS: glipiZIDE XL 5 MG Tablet PO (08:14)
[2020-12-17 11:25] LABS: Bedside Glucose 209 mg/dL (70-110)
[2020-12-17 15:25] VITALS: BP 113/59; PULSE 70; RESP 14; TEMP 36.7; O2SAT 99
[2020-12-17 16:30] LABS: Bedside Glucose 204 mg/dL (70-110)
--- NOTE | 2020-12-17 17:37 | NURSING ---
Patient taking self to bathroom without assistance at this time. Patient educated on the importance of using the call light to get help for her safety.
[2020-12-17] MEDS: Latanoprost 0.005% 1 Bottle 1 DRP EACH EYE (21:15)
[2020-12-17] MEDS: Atorvastatin Calcium 20 MG Tablet PO (21:16)
[2020-12-17 22:10] LABS: Bedside Glucose 232 mg/dL (70-110)
[2020-12-18 00:39] VITALS: PULSE 76; RESP 14
--- NOTE | 2020-12-18 01:15 | NURSING ---
Pt uncooperative during assessment. \when asked where she was, replied with answers like in a bed, in this room, same place as yesterday. She then asked several times how many times a day do I have to answer these same questions. Explained to pt that she that they are important for staff to be able to tell if there is any change in condition. She finally answered appropriately. Meds taken without difficulty.
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
[2020-12-18 06:25] LABS: Bedside Glucose 154 mg/dL (70-110)
--- NOTE | 2020-12-18 06:26 | NURSING ---
PIECER called Nurse into patient's room. Stated patient was not answering him or other PIECER and that patient was starring off. This Nurse walked into patient's room. Patient laying supine in bed. Radial pulse noted. Breathing easy and unlabored. When spoken to patient would not answer this nurse. After 2 attempts of trying to get patient to respond. Started to do sternal rub and patient responded. Patient yelled, I said I want all of you to leave me alone! Attempted to get vitals, but patient refused and yelled again get out of my room! RN aware.
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
[2020-12-18] MEDS: Insulin Lispro 100 UNIT/ML INSULN.PEN 7 UNIT SC ×2 (08:04→11:12)
[2020-12-18] MEDS: glipiZIDE XL 5 MG Tablet PO (08:05)
[2020-12-18] MEDS: Ascorbic Acid 500 MG Tablet PO (08:05)
--- NOTE | 2020-12-18 10:40 | CASEMGMT ---
Addendum entered by Deborah Hussein 12/18/20 12:06: Patient reports to have all needed DME. Original Note: Social Work Patient request to speak with a social science research assistant per nursing staff. This social science research assistant met with patient in room. Patient request to discharge on this day, 12/18/2020. This social science research assistant inquired if there is a specific reason for why patient is request to discharge. Patient states I am just ready to go home. Patient is currently in the process of transitioning to assisted living at [facility]. Patient reports to have already moved in to [facility]. Patient states that patient daughter is able to provide transportation for patient to [facility]. Patient agreeable to this social science research assistant speaking with patient daughter about discharge. This social science research assistant collaborated with medical team, agreeable to discharge date being set for today. Therapy is recommending for patient to continue with therapy services, patient is declining continued therapy. Patient with no further questions. Telephone call to patient daughterKriss. Kriss agreeable to discharge and plans to pick patient up today at 1200. Telephone call to Vandana Gunn. Vandana confirms that paper work is in place and patient is able to admit to [facility] today. This social science research assistant faxed discharge instructions to [facility]. Proposed discharge date: 12/18/2020 per patient choice. PLAN: [facility]. Janet WATTS, ELVIRA
--- NOTE | 2020-12-18 10:49 | DS.PCM_ITS ---
Providers Date of Admission: 12/13/20 Primary Care Physician: Dr. Cecy Trivedi MD Reason For Visit: UTI/JANIE/DVT Diagnosis Discharge Diagnosis (1) Debility: Status: Acute Code(s): R53.81 - Other malaise (2) Adult failure to thrive: Status: Acute Code(s): R62.7 - Adult failure to thrive (3) Urinary tract infection: Status: Acute Code(s): N39.0 - Urinary tract infection, site not specified (4) Hyperkalemia: Status: Acute Code(s): E87.5 - Hyperkalemia (5) Acute kidney injury: Status: Acute Code(s): N17.9 - Acute kidney failure, unspecified (6) Acute deep vein thrombosis of left lower extremity: Status: Acute Code(s): I82.402 - Acute embolism and thrombosis of unspecified deep veins of left lower extremity (7) Diabetes mellitus: Status: Acute Code(s): E11.9 - Type 2 diabetes mellitus without complications (8) Chronic kidney disease: Status: Chronic Code(s): N18.9 - Chronic kidney disease, unspecified (9) GERD (gastroesophageal reflux disease): Status: Acute Code(s): K21.9 - Gastro-esophageal reflux disease without esophagitis (10) Hyperlipidemia: Status: Acute Code(s): E78.5 - Hyperlipidemia, unspecified (11) Alzheimer disease: Status: Acute Code(s): G30.9 - Alzheimer's disease, unspecified; F02.80 - Dementia in other diseases classified elsewhere without behavioral disturbance (12) Glaucoma: Status: Acute Code(s): H40.9 - Unspecified glaucoma (13) Hypertension: Status: Chronic Code(s): I10 - Essential (primary) hypertension (14) Hypomagnesemia: Status: Acute Code(s): E83.42 - Hypomagnesemia Medications at Discharge Home Medications glipizide 5 mg PO DAILY 08/16/19 exenatide microspheres 2 mg SQ TU 07/23/20 latanoprost 2.5 ml OP DAILY 07/23/20 lisinopril 5 mg PO DAILY 07/23/20 simvastatin 40 mg PO QHS 07/23/20 ascorbic acid (vitamin C) [Vitamin C] 500 mg PO DAILY 06/07/21 omeprazole 40 mg PO DAILY 12/11/20 Lantus Solostar U-100 Insulin 15 units SUBCUT BID 12/13/20 acetaminophen 1,000 mg PO Q6H PRN PRN #0 tab 12/18/20 apixaban [Eliquis] 5 mg PO BID 30 Days #60 tab 12/18/20 Hospital Course Operations None Procedures None Summary of Care Provided Minutes Spent on Discharge: 35 Hospital Course: 85 year old female with below past medical history hospitalized for weakness secondary to urinary tract infection, complicated by acute left lower extremity DVT, acute kidney injury, hyperkalemia, admitted to [facility] with debility, here for rehabilitation, strengthening, pror to discharge home alone. Discharge to [facility] 12/18/2020. Physical Exam Const alert and oriented x3 General Appearance: cooperative HEENT normocephalic Eyes PERRL and EOMs intact bilaterally Neck supple, no JVD and no carotid bruits Resp normal respiratory effort, normal air movement and clear to auscultation bilaterally Cardio regular rate and regular rhythm GI normal to inspection, nondistended, normoactive bowel sounds, non-tender and non-distended Extremity normal capillary refill General Extremity: Negative for edema Skin no rashes or lesions noted General Skin Exam: no breakdown Psych affect normal Appearance: appropriate Weight / BMI Weight Weight: 86.8 kg Body Mass Index (BMI) 37.3 ABG / Lab / Microbiology Data Result Diagrams: 12/14/20 08:44 12/14/20 08:44 Laboratory: Laboratory Results - last 24 hr 12/17/20 12/17/20 12/17/20 11:18 16:04 21:39 POC Glucose 209 H 204 H 232 H 12/18/20 06:21 POC Glucose 154 H Microbiology: Microbiology 12/14/20 13:00 Mucosa - Nose SARS-CoV-2 Antigen (Rapid) - Final D/C Instructions Discharge Diet: No restrictions Discharge Activity: Return to Normal Activity, May Shower and Use Walker Weight Bearing Status: Weight bearing as tolerated Call your doctor if you observe: Fever of 101 or Higher, Inability to urinate, Inability to have a bowel movement, Shortness of breath, Fainting spells, Chest pain and Uncontrolled pain Additional Instructions: Discharge to [facility] 12/18/2020. Please Follow Up With: Cecy Trivedi MD When: 1 week. Meaningful Use Info Meaningful Use Diagnoses (Choose all that apply): None applicable Discharge Plan Admission Admit Date/Time: 12/13/20 18:09 Primary Reason for Your Visit: Debility Attending Provider: Zachary Dillon Chi Primary Care Provider: Cecy Trivedi Instructions Additional Instructions / Restrictions: Discharge to [facility] 12/18/2020. Discharge Orders/Prescriptions Prescriptions: New acetaminophen 500 mg Tablet 1,000 mg PO Q6H PRN PRN (Reason: Pain Score 1-10) Qty: 0 RF: 0 Eliquis 5 mg Tablet 5 mg PO BID 30 Days Qty: 60 RF: 0 Continued glipizide 2.5 MG tablet extended release 24hr 5 mg PO DAILY RF: 0 latanoprost 2.5 ML drops 2.5 ml OP DAILY RF: 0 simvastatin 40 MG tablet 40 mg PO QHS RF: 0 lisinopril 10 MG tablet 5 mg PO DAILY RF: 0 exenatide microspheres 2 MG/0.65 ML pen injector 2 mg SQ TU RF: 0 omeprazole 40 mg Capsule,Delayed Release(Dr/Ec) 40 mg PO DAILY RF: 0 ascorbic acid (vitamin C) [Vitamin C] 500 mg Tablet 500 mg PO DAILY RF: 0 Lantus Solostar U-100 Insulin 100 unit/mL (3 mL) insulin pen 15 units subcut BID RF: 0 Discontinued aspirin 81 MG tablet,chewable 81 mg PO DAILY@0800 RF: 0 lecithin, soy 400 MG capsule 400 mg PO BID RF: 0 Lactobacillus acidophilus 1 EACH capsule 1 ea PO DAILY RF: 0 nystatin 1 APPLIC bottle 1 applic TOPICAL BID RF: 0 CalMag Thins 200 mg calcium- 50 mg Tablet 1 tab PO BID RF: 0 d-mannose 500 mg Capsule 1,000 mg PO BID RF: 0 Kidney RF: 0 acetaminophen 500 MG tablet 1,000 mg PO Q8H PRN PRN (Reason: Pain Score 1-10) Qty: 0 RF: 0 meropenem 1 gram recon soln 1 g IV Q12 RF: 0 insulin lispro [Humalog KwikPen Insulin] 100 unit/mL insulin pen See Protocol unit subcut ACHS RF: 0 Eliquis 5 mg tablet 10 mg PO BID RF: 0 Referrals / Follow Up: Cecy Trivedi MD [Primary Care Provider] - Disposition Disposition (needs filled in before D/C Order can be placed): Assisted Living
[2020-12-18 10:51] LABS: Bedside Glucose 209 mg/dL (70-110)
--- NOTE | 2020-12-18 10:54 | TREXTCAR_ITS ---
Diet 12/13/20 18:38 Diet: Consistent Carb - Calorie Controlled Food consistency:: Regular Liquid Consistency:: Regular/Thin Dietary Modifications:: Cardiac / Heart Healthy How many daily calories?: 1600 calorie Routine Orders/Code Status Code Status: DNRCC-A (No intubation) Wound(s) lt henson: Wound Type: scabs lt abd fold: Wound Type: open slit Dressing Change: nystatin Therapies Weight Bearing: Weight bearing as tolerated Problem/Diagnosis (1) Debility: Status: Acute (2) Adult failure to thrive: Status: Acute (3) Urinary tract infection: Status: Acute (4) Hyperkalemia: Status: Acute (5) Acute kidney injury: Status: Acute (6) Acute deep vein thrombosis of left lower extremity: Status: Acute (7) Diabetes mellitus: Status: Acute (8) Chronic kidney disease: Status: Chronic (9) GERD (gastroesophageal reflux disease): Status: Acute (10) Hyperlipidemia: Status: Acute (11) Alzheimer disease: Status: Acute (12) Glaucoma: Status: Acute (13) Hypertension: Status: Chronic (14) Hypomagnesemia: Status: Acute Allergies/Procedures Done in Hospital Allergies sulfamethoxazole [From Septra] Allergy (Verified 12/11/20 20:03) Hives trimethoprim [From Septra] Allergy (Verified 12/11/20 20:03) Hives adhesive tape Adverse Reaction (Verified 12/11/20 20:03) Rash Type of Care/Length of Stay Estimated LOS: More Than 30 Days Type of Care Needed: Skilled Nursing/Assisted Living Rehab Potential: Good Prognosis: Fair Additional Orders/Day of Discharge Day of Discharge: 12/18/20 Dietary and Speech Recommendations Dietitian Recommendations/Changes: Continue current diet order. Will provide additional nutrition education as warranted by pt prior to discharge. Follow Up Care Please follow up with your Primary Care Physician in: 1 week. Please Follow Up With: Cecy Trivedi MD Discharge Plan Admission Admit Date/Time: 12/13/20 18:09 Primary Reason for Your Visit: Debility Attending Provider: Zachary Dillon Chi Primary Care Provider: Cecy Trivedi Instructions Additional Instructions / Restrictions: Discharge to [facility] 12/18/2020. Discharge Orders/Prescriptions Prescriptions: New acetaminophen 500 mg Tablet 1,000 mg PO Q6H PRN PRN (Reason: Pain Score 1-10) Qty: 0 RF: 0 Eliquis 5 mg Tablet 5 mg PO BID 30 Days Qty: 60 RF: 0 Continued glipizide 2.5 MG tablet extended release 24hr 5 mg PO DAILY RF: 0 latanoprost 2.5 ML drops 2.5 ml OP DAILY RF: 0 simvastatin 40 MG tablet 40 mg PO QHS RF: 0 lisinopril 10 MG tablet 5 mg PO DAILY RF: 0 exenatide microspheres 2 MG/0.65 ML pen injector 2 mg SQ TU RF: 0 omeprazole 40 mg Capsule,Delayed Release(Dr/Ec) 40 mg PO DAILY RF: 0 ascorbic acid (vitamin C) [Vitamin C] 500 mg Tablet 500 mg PO DAILY RF: 0 Lantus Solostar U-100 Insulin 100 unit/mL (3 mL) insulin pen 15 units subcut BID RF: 0 Discontinued aspirin 81 MG tablet,chewable 81 mg PO DAILY@0800 RF: 0 lecithin, soy 400 MG capsule 400 mg PO BID RF: 0 Lactobacillus acidophilus 1 EACH capsule 1 ea PO DAILY RF: 0 nystatin 1 APPLIC bottle 1 applic TOPICAL BID RF: 0 CalMag Thins 200 mg calcium- 50 mg Tablet 1 tab PO BID RF: 0 d-mannose 500 mg Capsule 1,000 mg PO BID RF: 0 Kidney RF: 0 acetaminophen 500 MG tablet 1,000 mg PO Q8H PRN PRN (Reason: Pain Score 1-10) Qty: 0 RF: 0 meropenem 1 gram recon soln 1 g IV Q12 RF: 0 insulin lispro [Humalog KwikPen Insulin] 100 unit/mL insulin pen See Protocol unit subcut ACHS RF: 0 Eliquis 5 mg tablet 10 mg PO BID RF: 0 Referrals / Follow Up: Cecy Trivedi MD [Primary Care Provider] - Disposition Disposition (needs filled in before D/C Order can be placed): Assisted Living
[2020-12-18 12:05] VITALS: BP 132/51; PULSE 92; RESP 12; TEMP 36.3; O2SAT 98
--- NOTE | 2020-12-18 12:06 | CASEMGMT ---
Social Work Brief interview for mental status (BIMS) and resident mood assessment (PHQ-9) completed on this day. Janet WATTS, COREYS
--- NOTE | 2020-12-18 12:15 | NURSING ---
Attempted to call report to Assisted Living nurse. Nurse unable to answer phone call. They state they will call us back when they get a change. Phone number given.
--- NOTE | 2020-12-25 12:44 | MDS.RN ---
Information for the mds was obtained from review of the clinical record, interview of resident, staff, and direct observation of resident's care.
== END 2020-12-18 12:20 | disposition home or self-care (01) | DRG 690 ==
PROVIDERS: Admitting Provider Family Medicine Geriatric Medicine; PCP Family Medicine; Referring Provider Family Medicine Geriatric Medicine; Visit Provider Family Medicine Geriatric Medicine
DX: N39.0 Urinary tract infection, site not specified (principal); I82.402 Acute embolism and thrombosis of unspecified deep veins of left lower extremity; E78.5 Hyperlipidemia, unspecified; B35.4 Tinea corporis; H40.9 Unspecified glaucoma; I12.9 Hypertensive chronic kidney disease with stage 1 through stage 4 chronic kidney disease, or unspecified chronic kidney disease; N18.9 Chronic kidney disease, unspecified; K21.9 Gastro-esophageal reflux disease without esophagitis; F02.80 Dementia in other diseases classified elsewhere, unspecified severity, without behavioral disturbance, psychotic disturbance, mood disturbance, and anxiety; G30.9 Alzheimer's disease, unspecified; E11.22 Type 2 diabetes mellitus with diabetic chronic kidney disease; Z79.899 Other long term (current) drug therapy; Z79.82 Long term (current) use of aspirin; Z79.4 Long term (current) use of insulin; Z79.01 Long term (current) use of anticoagulants; Z86.718 Personal history of other venous thrombosis and embolism
CPT/HCPCS: 36415; 80048; 82962; 85025; 87426; 97110; 97116; 97162; 97166; 97530; 97535; J2185; J7050; A4216

== ENCOUNTER → 2021-01-05 05:00 | Outpatient (REF) | payer MEDICARE, SELFPAY ==
[2020-12-13 18:29] VITALS: BMI 37.3
[2021-01-05 10:46] LABS: Hematocrit 34.8 % (37-47); Hemoglobin 10.9 g/dL (12.0-15.0); Mean Corp Hgb Conc 31.3 g/dL (32-36); Mean Corpuscular Hgb 28.5 pg (27.0-32.0); Mean Corpuscular Volume 90.9 fL (81-99); Mean Platelet Vol. 11.3 fl (6.2-12.0); Platelet Count 215 K/mm3 (150-450); RBC Distribution Width SD 46.4 fl (35.1-43.9); Red Blood Count 3.83 M/mm3 (4.2-5.4); White Blood Count 5.9 K/mm3 (4.4-11.0)
[2021-01-05 11:06] LABS: Hemoglobin A1c 11.6 % (3.8-5.6)
[2021-01-05 11:09] LABS: ALB/GLOB Ratio 0.8 RATIO (0.9-2.4); AST(SGOT) 19 U/L (15-37); Alanine Aminotransfer ALT/SGPT 28 U/L (13-56); Alkaline Phosphatase 81 U/L (45-117); Anion Gap 9 (5-15); BUN 33 mg/dL (7-18); Calcium,Total 8.9 mg/dL (8.5-10.1); Chloride 107 mmol/L (98-107); Creatinine, Serum 1.22 mg/dL (0.55-1.02); EST Glomerular Filtration Rate 45 mL/min (>60); Est Glom Filt Rate - Afr Amer 54 mL/min (>60); Globulin 3.7 g/dL (2.2-4.2); Glucose 274 mg/dL (74-106); Potassium 4.7 mmol/L (3.5-5.1); Protein, Total 6.7 g/dL (6.4-8.2); Sodium Level 138 mmol/L (136-145)
== END ==
PROVIDERS: PCP Family Medicine; Visit Provider Family Medicine
DX: F03.90 Unspecified dementia, unspecified severity, without behavioral disturbance, psychotic disturbance, mood disturbance, and anxiety (principal); E11.9 Type 2 diabetes mellitus without complications; I82.409 Acute embolism and thrombosis of unspecified deep veins of unspecified lower extremity; I10 Essential (primary) hypertension; E78.5 Hyperlipidemia, unspecified
CPT/HCPCS: 80053; 83036; 85027

== ENCOUNTER 2021-04-17 14:16 | Emergency (ER) | payer MEDICARE, SELFPAY ==
[2021-04-17 14:17] VITALS: BP 165/91; TEMP 36.6; BMI 39.8
[2021-04-17 14:22] VITALS: PULSE 98; RESP 20; O2SAT 97
--- NOTE | 2021-04-17 14:51 | CT_ITS ---
HISTORY: injury/fall TECHNIQUE: Multiple axial images were obtained of the brain without intravenous contrast. A radiation dose optimization technique was used for this scan. IV Contrast dosage and agent: None. COMPARISON: 12/08/19 FINDINGS: # of images incl. paperwork: 239 PARANASAL SINUSES AND MASTOID AIR CELLS: Clear. INTRACRANIAL HEMORRHAGE: None. BRAIN PARENCHYMA: No CT evidence of stroke. No intracranial masses. There is preservation of the valladares/white matter interface. Posterior fossa structures are unremarkable. There is hypoattenuation of the periventricular white matter. Chronic involutional changes are noted. CSF SPACES: Appropriate for age. There is no hydrocephalus. MASS EFFECT: None. CALVARIUM: No acute fracture. CT/Brain/Head without Contrast IMPRESSION: Chronic involutional and white matter changes. No acute intracranial process. Individualized dose optimization techniques were used for this CT. at 1651 Reported and signed by: Seng Horan MD Electronically Signed: Seng Horan MD at 16:50 EDT Tel , Service support ,
--- NOTE | 2021-04-17 14:53 | CT_ITS ---
HISTORY: Trauma, fall, injury right ribcage/chest pain TECHNIQUE: Helically acquired images were obtained of the chest, abdomen, and pelvis following IV contrast. Non-angiographic jerrod bony abnormalities col was performed. A radiation dose optimization technique was used for this scan. IV Contrast dosage and agent: 100mL [id number]-300 Oral contrast: None. COMPARISON: CT abdomen and pelvis 09/23/19 FINDINGS: ----Chest: LUNGS, PLEURA AND LARGE AIRWAYS: No masses, consolidation, or edema. No pleural effusion or thickening. No pneumothorax. THYROID: No thyroid lesions. HEART AND PERICARDIUM: Heart size is normal. No pericardial effusion. VESSELS: Thoracic aorta is not dilated. No aortic dissection. No obvious central pulmonary embolism although this study was not performed with the pulmonary embolism protocol. MEDIASTINUM AND EVELINE: No mediastinal or hilar adenopathy. Fluid-filled patulous esophagus. No hiatal hernia. BONES: No acute or aggressive abnormality. ----Abdomen/Pelvis: LIVER: Homogeneous. No focal mass. GALLBLADDER AND BILIARY TREE: Gallbladder absent. No intra- or extrahepatic biliary ductal dilation. PANCREAS: No focal cystic or solid mass. SPLEEN: Normal size with multiple stable calcified granulomas. ADRENAL GLANDS: No nodules. KIDNEYS AND URETERS: Stable nonobstructing right renal calculus. Stable left parapelvic cysts. No hydronephrosis. PERITONEUM: No ascites or free air. No other fluid collection. BOWEL: No evidence of acute appendicitis. No stomach or bowel distension. No focal inflammatory bowel wall changes. LYMPH NODES: No enlarged mesenteric or retroperitoneal lymph nodes. VESSELS: Aorta is non-dilated. URINARY BLADDER: Unremarkable. REPRODUCTIVE ORGANS: No pelvic masses. ABDOMINAL WALL: Small fat-containing umbilical hernia. BONES: No acute or aggressive abnormality. CT/CT Chest, Abd, Pel w/Contrast IMPRESSION: No acute findings in the chest, abdomen or pelvis. No acute bony abnormalities. GERD. Individualized dose optimization techniques were used for this CT. at 1713 Reported and signed by: Seng Horan MD Electronically Signed: Seng Horan MD at 17:12 EDT Tel , Service support ,
--- NOTE | 2021-04-17 14:54 | EKG12_ITS ---
Test Reason : FALL Blood Pressure : / mmHG Vent. Rate : 105 BPM Atrial Rate : 105 BPM P-R Int : 138 ms QRS Dur : 070 ms QT Int : 352 ms P-R-T Axes : 057 027 052 degrees QTc Int : 465 ms Sinus tachycardia with Premature atrial complexes Otherwise normal ECG Confirmed by LYNETTE MURRAY, JACQUELINE ([id number]), newspaper copy editor MARÍA JEAN ([id number]) on 04/18/2021 9:05:30 AM Referred By: ROSS Confirmed By:JACQUELINE OJEDA MD
--- NOTE | 2021-04-17 15:04 | ED.VIS.FALL ---
HPI HPI - Fall History of Present Illness Chief Complaint: Fall Informant: patient and family Narrative Narrative: Patient has Alzheimer's and is in assisted living, her daughter had taken her out to lunch today and on the way back in to the assisted living facility, she was walking with her walker and stumbled, falling to the ground against her right side hitting her left forehead. There is no loss of consciousness. She is on Eliquis. History is limited due to her dementia. She agrees that her head hurts and her right side, and left knee. She denies any shortness of breath or pains in her chest. Daughter states she has had a progressive decline and is at her baseline mental status right now, she denies any acute changes recently. She recently ended antibiotics for urine abnormality/infection although she had no symptoms of it, and she still has some loose stools but she is having no aggressive diarrhea or blood in it. Nurses are clean her up during my initial examination and there is light brown nonbloody diarrhea present. [facility] Medical History Cholecystectomy planned Chronic kidney disease (CKD) Dementia Diabetes DVT (deep venous thrombosis) GERD (gastroesophageal reflux disease) Hyperlipidemia Home Medications glipizide 5 mg PO DAILY 08/16/19 [History Last Taken 08/16/19] exenatide microspheres 2 mg SQ TU 07/23/20 [History Last Taken Unknown] latanoprost 2.5 ml OP DAILY 07/23/20 [History Last Taken Unknown] lisinopril 5 mg PO DAILY 07/23/20 [History Last Taken Unknown] simvastatin 40 mg PO QHS 07/23/20 [History Last Taken Unknown] ascorbic acid (vitamin C) [Vitamin C] 500 mg PO DAILY 12/11/20 [History Last Taken Unknown] omeprazole 40 mg PO DAILY 12/11/20 [History Last Taken Unknown] Lantus Solostar U-100 Insulin 15 units SUBCUT BID 12/13/20 [History Last Taken Unknown] acetaminophen 1,000 mg PO Q6H PRN PRN #0 tab 12/18/20 [Rx Last Taken Unknown] apixaban [Eliquis] 5 mg PO BID 30 Days #60 tab 12/18/20 [Rx Last Taken Unknown] Allergy/AdvReac Type Severity Reaction Status Date / Time sulfamethoxazole Allergy Hives Verified 04/17/21 14:22 [From ] trimethoprim [From ] Allergy Hives Verified 04/17/21 14:22 adhesive tape AdvReac Rash Verified 04/17/21 14:22 Surgical History History of appendectomy History of cholecystectomy Social History household members: none Smoking Status: Never smoker ROS ROS ED Review of Systems ROS Unobtainable: due to mental condition Eyes Eyes: Denies change in vision or diplopia ENT ENT ED: Denies ear pain, epistaxis, facial pain or rhinorrhea Cardiovascular Cardiovascular: Denies chest pain or palpitations Respiratory/Chest Respiratory/Chest: Denies cough or dyspnea Gastrointestinal Gastrointestinal: Reports as per HPI, abdominal pain and diarrhea; Denies melena, nausea or vomiting Musculoskeletal Musculoskeletal: Denies back pain or neck pain Integumentary Reports Abrasions; Denies abscess, laceration or rash Neurologic Neurologic: Reports as per HPI and confusion; Denies paresthesias or weakness EXAM Physical Exam Const Vital Signs: 04/17/21 14:17 04/17/21 14:22 04/17/21 14:24 Temperature 97.8 F Temperature Source Temporal Pulse Rate 98 Respiratory Rate 20 H Respiratory Effort Normal Non-Labored Blood Pressure 165/91 H Blood Pressure Mean 115 Pulse Ox 97 Oxygen Delivery Method Room Air Positive well nourished and well developed General Appearance ED: well developed and NAD Nutritional Appearance: morbidly obese HEENT Reports TM's clear and nasal mucous membranes and turbinates normal HEENT Narrative: Abrasion overlying large contusion/hematoma left forehead. No crepitance or depression. No other signs of head or facial trauma. Midface stable and atraumatic. trauma Face and Sinus: facial tenderness Tympanic Membrane ED: Yes TM's clear Eyes PERRL and EOMs intact bilaterally Visual Acuity: other Other Details: no entrapment or pain with extraocular movements Neck full ROM and supple General: Negative for tenderness Chest Wall inspection of chest normal Chest Narrative: Tender in right anterior chest without crepitus or subcutaneous emphysema. Sternum nontender. No deformities. No flail. Chest: symmetrical chest wall rise and tenderness; Negative for crepitus Resp normal respiratory effort and clear to auscultation bilaterally Percussion: other equal BS bilat Cardio no murmurs Rate: regular rate Rhythm: regular rhythm GI normal to inspection, nondistended, normoactive bowel sounds and soft to palpation GI Narrative: Tender throughout right abdomen with voluntary guarding no rebound. Otherwise nontender. Obesity limits exam. Back/Spine normal ROM Cervical Spine: Negative for cervical spine tenderness Thoracic Spine / Upper Back: Negative for thoracic spinal tenderness Lumbar Spine / Lower Back: Negative for lumbar spinal tenderness Extremity normal to inspection and full ROM Extremity Narrative: Tenderness left anterior lateral knee. Forage motion extensor mechanism intact. All ligaments stable with short endpoints. No effusion. General Extremety ED: Yes tenderness Neuro CN's II-XII intact bilaterally, moves all extremities, no focal motor deficits and no sensory deficits noted [place] Coma Scale: document GCS findings Spontaneous Obeys Commands Oriented 15 Sensorium / Orientation: awake, alert, oriented to person and oriented to place Psych mental status grossly normal and thought process normal Skin Skin Narrative: Abrasion left forehead and left lateral anterior knee. No other signs of acute injury. Lesions: no lesions Rashes: no rashes MDM MDM MDM Narrative Medical decision making narrative: Patient was seated for most of her injuries, I included the chest, abdomen, pelvis given her pain and tenderness and difficulty examining due to obesity. As seen below, radiology interpreted all of the scans and films as negative for any acute injury. They were reassured. 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 This was a catheterized specimen and I will send it for culture to ensure that if it is infected, she gets treated appropriately, but I do not think empiric treatment is appropriate or indicated at this time since she is having mild diarrhea and she likely is chronically colonized. I discussed all this with the daughter she understands, I advised following up closely with PCP in order to make sure the culture results do not fall through the cracks, however if the results do return to the ED, we should follow-up and make sure she is treated appropriately if needed. Lab Data Attestation: I reviewed the patient's lab results. Labs: Laboratory Results - last 24 hr 04/17/21 04/17/21 04/17/21 15:15 15:15 15:20 WBC 9.5 RBC 4.27 Hgb 11.8 L Hct 37.5 MCV 87.8 MCH 27.6 MCHC 31.5 L RDW Std Deviation 45.1 H RDW Coeff of [place] 14.1 Plt Count 234 MPV 10.7 Immature Gran % (Auto) 0.500 Neut % (Auto) 65.1 Lymph % (Auto) 22.8 [place] % (Auto) 7.4 Eos % (Auto) 3.7 Baso % (Auto) 0.5 Absolute Neuts (auto) 6.2 Absolute Lymphs (auto) 2.16 Nucleated RBC % 0 Sodium 143 Potassium 4.3 Chloride 111 H Carbon Dioxide 26.0 Anion Gap 6 BUN 30 H Creatinine 1.12 H Estim Creat Clear Calc 27.71 Est GFR (MDRD) Af Amer 59 L Est GFR (MDRD) Non-Af 49 L BUN/Creatinine Ratio 26.8 H Glucose 170 H Calcium 9.0 Urine Color Yellow Urine Clarity Sl Cloudy Urine pH 5.0 Ur Specific [place] 1.025 Urine Protein 15 H Urine Glucose (UA) Normal Urine Ketones Negative Urine Occult Blood 25 H Urine Nitrite Positive H Urine Bilirubin Negative Urine Urobilinogen Normal Ur Leukocyte Esterase 500 H Urine RBC 0-5 SEEN Urine WBC >100 SEEN Ur Squamous Epith Cells 0 SEEN Urine Bacteria 1+ Urine Mucus 0 SEEN Radiography Diagnostic Testing: Clinical Impression(s) from Imaging Studies Brain CT 04/17/21 14:51 IMPRESSION: Chronic involutional and white matter changes. No acute intracranial process. Individualized dose optimization techniques were used for this CT. at 1651 Reported and signed by: Seng Horan MD Electronically Signed: Seng Horan MD at 16:50 EDT Tel , Service support , Chest/Abdomen/Pelvis CT 04/17/21 14:53 IMPRESSION: No acute findings in the chest, abdomen or pelvis. No acute bony abnormalities. GERD. Individualized dose optimization techniques were used for this CT. at 1713 Reported and signed by: Seng Horan MD Electronically Signed: Seng Horan MD at 17:12 EDT Tel , Service support , Knee X-Ray 04/17/21 16:25 IMPRESSION: No acute bony abnormality. at 1642 Reported and signed by: Seng Horan MD Electronically Signed: Seng Horan MD at 16:41 EDT Tel , Service support , EKG Initial EKG: Attestation: I personally reviewed and interpreted this EKG as follows: Interpretation: Sinus Rhythm and No Acute Injury Pattern Discharge Plan Triage Chief Complaint: Fall ED Provider: Lawrence Fallon Dx/Rx/DC Orders Clinical Impression: Closed head injury without loss of consciousness, Traumatic hematoma of forehead, Contusion of knee, left, Blunt trauma of abdominal wall, Contusion of right chest wall, CKD (chronic kidney disease), stage III Instructions: ED Head Injury (Adult) Prescriptions: No Action glipizide 2.5 MG tablet extended release 24hr 5 mg PO DAILY RF: 0 latanoprost 2.5 ML drops 2.5 ml OP DAILY RF: 0 simvastatin 40 MG tablet 40 mg PO QHS RF: 0 lisinopril 10 MG tablet 5 mg PO DAILY RF: 0 exenatide microspheres 2 MG/0.65 ML pen injector 2 mg SQ TU RF: 0 omeprazole 40 mg Capsule,Delayed Release(Dr/Ec) 40 mg PO DAILY RF: 0 ascorbic acid (vitamin C) [Vitamin C] 500 mg Tablet 500 mg PO DAILY RF: 0 Lantus Solostar U-100 Insulin 100 unit/mL (3 mL) insulin pen 15 units subcut BID RF: 0 acetaminophen 500 mg Tablet 1,000 mg PO Q6H PRN PRN (Reason: Pain Score 1-10) Qty: 0 RF: 0 Eliquis 5 mg Tablet 5 mg PO BID 30 Days Qty: 60 RF: 0 Primary Care Provider: Cecy Trivedi Referrals: Cecy Trivedi MD [Primary Care Provider] - (2-3 days for reevaluation and culture results of urine) Activity Restrictions/Additional Instructions: Urinalysis was abnormal but everyone of her urine tests in the past is always abnormal, and she has no urine symptoms, so it was cultured and this needs to be checked on 2 or 3 days when the culture results return to ensure that a true infection is not missed. Disposition Disposition: Home, Self Care
[2021-04-17 15:31] LABS: Mucous, Urine 0 SEEN /hpf (<or=2+); Squamous Epithelial Cells - UA 0 SEEN /hpf (5-10)
[2021-04-17] MEDS: fentaNYL 100 MCG/2 ML Ampul 25 MCG IV (15:32)
[2021-04-17] MEDS: Ondansetron 4 MG/2 ML Vial IV (15:32)
[2021-04-17 15:35] LABS: Absolute Lymphocyte Count 2.16 X10^3/uL (0.83-4.51); Absolute Neutrophil Count 6.2 X10^3/uL (2.0-7.7); Basophil# 0.05 X10^3/uL; Basophil% 0.5 % (0-1); Eosinophil# 0.35 X10^3/uL; Eosinophils% 3.7 % (0-5); Hematocrit 37.5 % (37-47); Hemoglobin 11.8 g/dL (12.0-15.0); Lymphocyte # 2.16 X10^3/ul (0.83-4.51); Lymphocyte % 22.8 % (19-41); Mean Corp Hgb Conc 31.5 g/dL (32-36); Mean Corpuscular Hgb 27.6 pg (27.0-32.0); Mean Corpuscular Volume 87.8 fL (81-99); Mean Platelet Vol. 10.7 fl (6.2-12.0); Monocyte% 7.4 % (0-10); NRBC Flagged by Analyzer 0 % (0-5); Neutrophil # 6.18 X10^3/uL (2.7-7.7); Neutrophil % 65.1 % (47-70); Platelet Count 234 K/mm3 (150-450); RBC Distribution Width CV 14.1 % (11.6-14.6); RBC Distribution Width SD 45.1 fl (35.1-43.9); Red Blood Count 4.27 M/mm3 (4.2-5.4); White Blood Count 9.5 K/mm3 (4.4-11.0)
[2021-04-17 15:50] LABS: Glucose, Dipstick Normal (Normal); Ketone-Dipstick Negative (Negative); Leukocyte Esterase-Dipstick 500 /ul (Negative); Nitrite-Dipstick Positive (Negative); Occult Blood-Urine 25 /ul (Negative); Protein-Dipstick 15 mg/dl (Negative); Specific Gravity, Urine 1.025 (1.002-1.030); Urine Bilirubin Dipstick Negative (Negative); Urine Urobilinogen Normal (Normal)
[2021-04-17 15:58] LABS: Anion Gap 6 (5-15); BUN 30 mg/dL (7-18); BUN/Creat Ratio 26.8 RATIO (10-20); Chloride 111 mmol/L (98-107); Creatinine, Serum 1.12 mg/dL (0.55-1.02); EST Glomerular Filtration Rate 49 mL/min (>60); Est Glom Filt Rate - Afr Amer 59 mL/min (>60); Estimated Creatinine Clearance 27.71 ml/min; Glucose 170 mg/dL (74-106); Potassium 4.3 mmol/L (3.5-5.1); Sodium Level 143 mmol/L (136-145)
[2021-04-17 16:14] LABS: Color, Urine Yellow (Yellow); Urine Clarity Sl Cloudy (Clear)
[2021-04-17 16:16] LABS: White Blood Cells >100 SEEN /hpf (0-5)
[2021-04-17 16:17] VITALS: RESP 16
[2021-04-17 16:17] LABS: Bacteria 1+ /hpf (None Seen)
[2021-04-17 16:18] LABS: Red Blood Cells-Urine 0-5 SEEN /hpf (0-5)
--- NOTE | 2021-04-17 16:25 | RAD_ITS ---
HISTORY: Trauma, fall, knee injury EXAMINATION/TECHNIQUE: XR Knee Complete 4 Views or More: COMPARISON: None FINDINGS: BONES/JOINTS: No acute fracture or dislocation. Mild degenerative changes. No sclerotic or destructive changes observed. SOFT TISSUES: No soft tissue swelling or gas. No radiopaque foreign body. Small calcifications lateral to the femoral condyle. RAD/Knee 4 or More Views IMPRESSION: No acute bony abnormality. at 1642 Reported and signed by: Seng Horan MD Electronically Signed: Seng Horan MD at 16:41 EDT Tel , Service support ,
[2021-04-17 17:55] VITALS: BP 125/80; PULSE 85; RESP 16; O2SAT 98
--- NOTE | 2021-04-19 08:14 | ED.RN ---
RESULTS OF URINE CULTURE FAXED TO DR DIEGO MENA
--- NOTE | 2021-04-19 08:17 | ED.RN ---
THIS NURSE CONTACTED [facility]. SPOKE WITH BEATRICE AT [facility]. RESULTS OF URINE CULTURE FAXED TO [facility].
--- NOTE | 2021-04-19 08:30 | ED.RN ---
FAX CONFIRMED SUCCESSFUL FOR DR DIAZ
== END 2021-04-17 17:59 | disposition home or self-care (01) ==
PROVIDERS: Emergency Provider Emergency Medicine; PCP Family Medicine
DX: S00.83XA Contusion of other part of head, initial encounter (principal); S20.211A Contusion of right front wall of thorax, initial encounter; S30.1XXA Contusion of abdominal wall, initial encounter; S80.01XA Contusion of right knee, initial encounter; S80.02XA Contusion of left knee, initial encounter; W01.0XXA Fall on same level from slipping, tripping and stumbling without subsequent striking against object, initial encounter; Y93.01 Activity, walking, marching and hiking; Y92.9 Unspecified place or not applicable; R19.7 Diarrhea, unspecified; E11.22 Type 2 diabetes mellitus with diabetic chronic kidney disease; N18.30 Chronic kidney disease, stage 3 unspecified; G30.9 Alzheimer's disease, unspecified; F02.80 Dementia in other diseases classified elsewhere, unspecified severity, without behavioral disturbance, psychotic disturbance, mood disturbance, and anxiety; E66.01 Morbid (severe) obesity due to excess calories; Z68.39 Body mass index [BMI] 39.0-39.9, adult; K21.9 Gastro-esophageal reflux disease without esophagitis; E78.5 Hyperlipidemia, unspecified; Z86.718 Personal history of other venous thrombosis and embolism; Z79.4 Long term (current) use of insulin; Z79.01 Long term (current) use of anticoagulants; Z79.899 Other long term (current) drug therapy
CPT/HCPCS: 70450; 71260; 73564; 74177; 80048; 81001; 85025; 87077; 87086; 87088; 87186; 93005; 96361; 96374; 96375; 99285; J7040; P9612; Q9967; A4216; J2405

== ENCOUNTER 2021-07-02 17:32 | Observation (INO) | payer MEDICARE, SELFPAY ==
[2021-07-02] VITALS (7 sets, daily range): BP systolic 102–150; BP diastolic 52–93; PULSE 71–85; RESP 16–24; TEMP 36.6–37.7; O2SAT 87–100; BMI 38.7; BMI 37.8
--- NOTE | 2021-07-02 18:25 | EX.ED.DYSGE1 ---
HPI History of Present Illness Chief Complaint: General Illness Informant: patient, EMS and SNF Narrative Narrative: Patient has history of dementia and unable provide much history. She reportedly was sent in from assisted living because she is weak and unable to help care for herself. She did test positive for Covid today. Patient denies any complaints when you speak with her. She does admit to having a mild cough today. [facility] Medical History Cholecystectomy planned Chronic kidney disease (CKD) Dementia Diabetes DVT (deep venous thrombosis) GERD (gastroesophageal reflux disease) HTN (hypertension) Hyperlipidemia Home Medications glipizide 5 mg PO DAILY 08/16/19 [History Last Taken 08/16/19] exenatide microspheres 2 mg SQ TU 07/23/20 [History Last Taken Unknown] latanoprost 2.5 ml OP DAILY 07/23/20 [History Last Taken Unknown] lisinopril 5 mg PO DAILY 07/23/20 [History Last Taken Unknown] simvastatin 40 mg PO QHS 07/23/20 [History Last Taken Unknown] ascorbic acid (vitamin C) [Vitamin C] 500 mg PO DAILY 12/11/20 [History Last Taken Unknown] omeprazole 40 mg PO DAILY 12/11/20 [History Last Taken Unknown] Lantus Solostar U-100 Insulin 15 units SUBCUT BID 12/13/20 [History Last Taken Unknown] acetaminophen 1,000 mg PO Q6H PRN PRN #0 tab 12/18/20 [Rx Last Taken Unknown] apixaban [Eliquis] 5 mg PO BID 30 Days #60 tab 12/18/20 [Rx Last Taken Unknown] Allergy/AdvReac Type Severity Reaction Status Date / Time sulfamethoxazole Allergy Hives Verified 04/17/21 14:22 [From ] trimethoprim [From ] Allergy Hives Verified 04/17/21 14:22 adhesive tape AdvReac Rash Verified 04/17/21 14:22 Surgical History History of appendectomy History of cholecystectomy Social History household members: none Smoking Status: Never smoker ROS ROS ED Review of Systems ROS Unobtainable: due to mental condition and other Details: Unable to obtain secondary to Alzheimer's dementia EXAM Physical Exam Const Vital Signs: 07/02/21 17:37 07/02/21 17:48 07/02/21 18:42 Temperature 99.8 F H 99.8 F H 99.9 F H Temperature Source Oral Oral Temporal Pulse Rate 81 85 84 Respiratory Rate 18 16 20 H Respiratory Effort Short of Breath Labored Accessory Muscle Use Respiratory Pattern Tachypnea Blood Pressure 123/70 H 116/85 H 131/62 H Blood Pressure Mean 87 95 85 Pulse Ox 96 87 94 Oxygen Delivery Method Room Air Room Air Nasal Cannula Oxygen Flow Rate (L/min) 2 07/02/21 19:00 Temperature 97.8 F Temperature Source Temporal Pulse Rate 73 Respiratory Rate 22 H Respiratory Effort Respiratory Pattern Blood Pressure 102/64 Blood Pressure Mean 76 Pulse Ox 100 Oxygen Delivery Method Room Air Oxygen Flow Rate (L/min) Positive well nourished and well developed General Appearance ED: well developed HEENT Reports moist mucous membranes Eyes PERRL and EOMs intact bilaterally Neck supple Chest Wall inspection of chest normal and palpation of chest normal Resp normal respiratory effort and clear to auscultation bilaterally Cardio regular rate and regular rhythm GI non-tender Palpation: soft Extremity normal to inspection Neuro Neuro Narrative: Moves all 4 extremities. Sensorium / Orientation: alert Skin no rashes or lesions noted MDM MDM MDM Narrative Medical decision making narrative: Lab work, chest x-ray, urinalysis obtained. Patient was given a dose of Decadron secondary to her positive Covid status and hypoxia. Lab Data Attestation: I reviewed the patient's lab results. Labs: Laboratory Results - last 24 hr 07/02/21 07/02/21 07/02/21 18:05 18:05 18:05 WBC 4.9 RBC 4.54 Hgb 11.8 L Hct 38.7 MCV 85.2 MCH 26.0 L MCHC 30.5 L RDW Std Deviation 45.7 H RDW Coeff of [place] 14.7 H Plt Count 190 MPV 11.9 Immature Gran % (Auto) 0.200 Neut % (Auto) 46.1 L Lymph % (Auto) 33.2 [place] % (Auto) 17.3 H Eos % (Auto) 2.0 Baso % (Auto) 1.2 H Absolute Neuts (auto) 2.3 Absolute Lymphs (auto) 1.63 Nucleated RBC % 0 Sodium 144 Potassium 4.0 Chloride 113 H Carbon Dioxide 25.0 Anion Gap 6 BUN 24 H Creatinine 0.91 Estim Creat Clear Calc 34.11 Est GFR (MDRD) Af Amer 75 Est GFR (MDRD) Non-Af 62 BUN/Creatinine Ratio 26.3 H Glucose 63 L Lactic Acid 0.8 Calcium 9.1 Total Bilirubin 0.30 Direct Bilirubin < 0.05 AST 44 H ALT 33 Alkaline Phosphatase 78 Total Protein 7.9 Albumin 3.3 Globulin 4.6 H Urine Color Urine Clarity Urine pH Ur Specific [place] Urine Protein Urine Glucose (UA) Urine Ketones Urine Occult Blood Urine Nitrite Urine Bilirubin Urine Urobilinogen Ur Leukocyte Esterase Urine RBC Urine WBC Ur Squamous Epith Cells Urine Bacteria Urine Mucus 07/02/21 19:13 WBC RBC Hgb Hct MCV MCH MCHC RDW Std Deviation RDW Coeff of [place] Plt Count MPV Immature Gran % (Auto) Neut % (Auto) Lymph % (Auto) [place] % (Auto) Eos % (Auto) Baso % (Auto) Absolute Neuts (auto) Absolute Lymphs (auto) Nucleated RBC % Sodium Potassium Chloride Carbon Dioxide Anion Gap BUN Creatinine Estim Creat Clear Calc Est GFR (MDRD) Af Amer Est GFR (MDRD) Non-Af BUN/Creatinine Ratio Glucose Lactic Acid Calcium Total Bilirubin Direct Bilirubin AST ALT Alkaline Phosphatase Total Protein Albumin Globulin Urine Color Yellow Urine Clarity Cloudy Urine pH 5.0 Ur Specific [place] 1.025 Urine Protein 30 H Urine Glucose (UA) Normal Urine Ketones Negative Urine Occult Blood 50 H Urine Nitrite Positive H Urine Bilirubin Negative Urine Urobilinogen Normal Ur Leukocyte Esterase 500 H Urine RBC 0-5 SEEN Urine WBC >100 SEEN Ur Squamous Epith Cells 0 SEEN Urine Bacteria 1+ Urine Mucus 0 SEEN Radiography Chest X-Ray - ED: 1 View, Read by ED Physician and Chronic Changes Treatment and Re-Evaluation Comments:: Patient's lab work reviewed. White count is normal. Chemistry studies unremarkable. Urinalysis does reveal infection with greater than 100 white cells, 1+ bacteria, positive nitrates. Urine culture is sent and she is given a dose of IV Rocephin. Nursing staff states they were advised by [facility] that they were unable to care for her because of her increased weakness and increased need for assistance. I will speak with hospitalist regarding admission overnight and then social work will help with placement issues tomorrow. Discharge Plan Triage Chief Complaint: General Illness ED Provider: Zenaida Funk Dx/Rx/DC Orders Clinical Impression: COVID, UTI (urinary tract infection) Prescriptions: No Action glipizide 2.5 MG tablet extended release 24hr 5 mg PO DAILY RF: 0 latanoprost 2.5 ML drops 2.5 ml OP DAILY RF: 0 simvastatin 40 MG tablet 40 mg PO QHS RF: 0 lisinopril 10 MG tablet 5 mg PO DAILY RF: 0 exenatide microspheres 2 MG/0.65 ML pen injector 2 mg SQ TU RF: 0 omeprazole 40 mg Capsule,Delayed Release(Dr/Ec) 40 mg PO DAILY RF: 0 ascorbic acid (vitamin C) [Vitamin C] 500 mg Tablet 500 mg PO DAILY RF: 0 Lantus Solostar U-100 Insulin 100 unit/mL (3 mL) insulin pen 15 units subcut BID RF: 0 acetaminophen 500 mg Tablet 1,000 mg PO Q6H PRN PRN (Reason: Pain Score 1-10) Qty: 0 RF: 0 Eliquis 5 mg Tablet 5 mg PO BID 30 Days Qty: 60 RF: 0 Primary Care Provider: Cecy Trivedi Referrals: Cecy Trivedi MD [Primary Care Provider] - Disposition Disposition: Acute Care Hospital [facility]
[2021-07-02 18:48] LABS: Absolute Lymphocyte Count 1.63 X10^3/uL (0.83-4.51); Absolute Neutrophil Count 2.3 X10^3/uL (2.0-7.7); Basophil# 0.06 X10^3/uL; Basophil% 1.2 % (0-1); Hematocrit 38.7 % (37-47); Hemoglobin 11.8 g/dL (12.0-15.0); Lymphocyte # 1.63 X10^3/ul (0.83-4.51); Lymphocyte % 33.2 % (19-41); Mean Corp Hgb Conc 30.5 g/dL (32-36); Mean Corpuscular Volume 85.2 fL (81-99); Mean Platelet Vol. 11.9 fl (6.2-12.0); Monocyte# 0.85 X10^3/uL; Monocyte% 17.3 % (0-10); NRBC Flagged by Analyzer 0 % (0-5); Neutrophil # 2.26 X10^3/uL (2.7-7.7); Neutrophil % 46.1 % (47-70); Platelet Count 190 K/mm3 (150-450); RBC Distribution Width CV 14.7 % (11.6-14.6); RBC Distribution Width SD 45.7 fl (35.1-43.9); Red Blood Count 4.54 M/mm3 (4.2-5.4); White Blood Count 4.9 K/mm3 (4.4-11.0)
[2021-07-02 19:02] LABS: AST(SGOT) 44 U/L (15-37); Alanine Aminotransfer ALT/SGPT 33 U/L (13-56); Albumin, Serum 3.3 g/dL (3.2-5.0); Alkaline Phosphatase 78 U/L (45-117); Anion Gap 6 (5-15); BUN 24 mg/dL (7-18); BUN/Creat Ratio 26.3 RATIO (10-20); Bilirubin, Direct < 0.05 mg/dL (0.00-0.30); Calcium,Total 9.1 mg/dL (8.5-10.1); Chloride 113 mmol/L (98-107); Creatinine, Serum 0.91 mg/dL (0.55-1.02); EST Glomerular Filtration Rate 62 mL/min (>60); Est Glom Filt Rate - Afr Amer 75 mL/min (>60); Estimated Creatinine Clearance 34.11 ml/min; Globulin 4.6 g/dL (2.2-4.2); Glucose 63 mg/dL (74-106); Lactic Acid 0.8 mmol/L (0.4-1.9); Protein, Total 7.9 g/dL (6.4-8.2); Sodium Level 144 mmol/L (136-145)
[2021-07-02] MEDS: dexAMETHasone 4 MG/ML Vial 6 MG IV (19:04)
[2021-07-02 19:19] LABS: Mucous, Urine 0 SEEN /hpf (<or=2+); Squamous Epithelial Cells - UA 0 SEEN /hpf (5-10)
[2021-07-02 19:27] LABS: Color, Urine Yellow (Yellow); Glucose, Dipstick Normal (Normal); Ketone-Dipstick Negative (Negative); Leukocyte Esterase-Dipstick 500 /ul (Negative); Nitrite-Dipstick Positive (Negative); Occult Blood-Urine 50 /ul (Negative); Protein-Dipstick 30 mg/dl (Negative); Specific Gravity, Urine 1.025 (1.002-1.030); Urine Bilirubin Dipstick Negative (Negative); Urine Clarity Cloudy (Clear); Urine Urobilinogen Normal (Normal)
--- NOTE | 2021-07-02 19:30 | RAD_ITS ---
INDICATION: cough EXAMINATION/TECHNIQUE: X-RAY - XR Chest 1 View COMPARISON: 07/23/2020. FINDINGS: The lungs are clear. Tortuous and calcified thoracic aorta. The heart is not enlarged. No pleural effusion or pneumothorax. No acute osseous abnormalities. RAD/Chest 1 View (Portable) IMPRESSION: No acute radiographic abnormalities. Electronically Signed: Oskar Osborne MD at 20:03 EST Tel , Service support ,
[2021-07-02 19:35] LABS: Bacteria 1+ /hpf (None Seen); White Blood Cells >100 SEEN /hpf (0-5)
[2021-07-02 19:36] LABS: Red Blood Cells-Urine 0-5 SEEN /hpf (0-5)
--- NOTE | 2021-07-02 20:30 | PCM.HP.STD ---
HPI - General HPI Narrative KAROLINE ZAPATA, is a 85 F who presents to the emergency room from assisted living due to generalized weakness. It was reported through nursing staff that the patient has a generalized decrease in appetite over the past few days. Patient does not have any shortness of breath at present time, denies fevers or chills. The patient has received both vaccines and her booster at the facility, however, despite that she has tested positive for COVID-19 virus today. Laboratory studies are also positive for urinary tract infection for which she is received a dose of Rocephin in the emergency room. The patient's daughter is an avid antivaccine/anti-Covid medication person and wants to be consulted prior to administration of any new medications for COVID-19. Patient will be admitted due to generalized weakness Case management will need to be consulted for discharge planning since the patient is positive for COVID-19. [facility] Medical History Cholecystectomy planned Chronic kidney disease (CKD) Dementia Diabetes DVT (deep venous thrombosis) GERD (gastroesophageal reflux disease) HTN (hypertension) Hyperlipidemia Home Medications glipizide 5 mg PO DAILY 08/16/19 [History Last Taken 08/16/19] exenatide microspheres 2 mg SQ TU 07/23/20 [History Last Taken Unknown] latanoprost 2.5 ml OP DAILY 07/23/20 [History Last Taken Unknown] lisinopril 5 mg PO DAILY 07/23/20 [History Last Taken Unknown] simvastatin 40 mg PO QHS 07/23/20 [History Last Taken Unknown] ascorbic acid (vitamin C) [Vitamin C] 500 mg PO DAILY 12/11/20 [History Last Taken Unknown] omeprazole 40 mg PO DAILY 12/11/20 [History Last Taken Unknown] Lantus Solostar U-100 Insulin 15 units SUBCUT BID 12/13/20 [History Last Taken Unknown] acetaminophen 1,000 mg PO Q6H PRN PRN #0 tab 12/18/20 [Rx Last Taken Unknown] apixaban [Eliquis] 5 mg PO BID 30 Days #60 tab 12/18/20 [Rx Last Taken Unknown] Allergy/AdvReac Type Severity Reaction Status Date / Time sulfamethoxazole Allergy Hives Verified 04/17/21 14:22 [From ] trimethoprim [From ] Allergy Hives Verified 04/17/21 14:22 adhesive tape AdvReac Rash Verified 04/17/21 14:22 Surgical History History of appendectomy History of cholecystectomy Social History household members: none Smoking Status: Never smoker ROS Constitutional Constitutional: Reports fatigue; Denies chills or fever(s) ENT HEENT: Denies abnormal hearing Cardiovascular Cardiovascular: Denies chest pain Respiratory/Chest Respiratory/Chest: Denies cough Gastrointestinal Gastrointestinal: Denies abdominal pain Genitourinary Genitourinary: Reports dysuria Musculoskeletal Musculoskeletal: Denies back pain Neurologic Neurologic: Denies abnormal speech Psychiatric Psychiatric: Denies anxiety Vital Signs Vital Signs Vital Signs: 07/02/21 17:37 07/02/21 17:48 07/02/21 18:42 Temperature 99.8 F H 99.8 F H 99.9 F H Temperature Source Oral Oral Temporal Pulse Rate 81 85 84 Respiratory Rate 18 16 20 H Respiratory Effort Short of Breath Labored Accessory Muscle Use Respiratory Pattern Tachypnea Blood Pressure 123/70 H 116/85 H 131/62 H Blood Pressure Mean 87 95 85 Pulse Ox 96 87 94 Oxygen Delivery Method Room Air Room Air Nasal Cannula Oxygen Flow Rate (L/min) 2 07/02/21 19:00 Temperature 97.8 F Temperature Source Temporal Pulse Rate 73 Respiratory Rate 22 H Respiratory Effort Respiratory Pattern Blood Pressure 102/64 Blood Pressure Mean 76 Pulse Ox 100 Oxygen Delivery Method Room Air Oxygen Flow Rate (L/min) Weight Weight: 204 lb 12.951 oz Body Mass Index (BMI) 38.7 Physical Exam Const alert and no apparent distress General Appearance: cooperative HEENT normocephalic and head/scalp atraumatic Eyes PERRL Neck supple Lymph Lymphatic: no lymphadenopathy noted Resp normal respiratory effort and clear to auscultation bilaterally Cardio regular rate, regular rhythm, S1 normal heart sound and S2 normal heart sound GI normal to inspection, nondistended, normoactive bowel sounds Extremity no clubbing, cyanosis or edema Skin Rashes: no rashes Neuro CN's II-XII intact bilaterally Psych affect normal Results Lab / Micro Data Result Diagrams: 07/02/21 18:05 07/02/21 18:05 Labs: Laboratory Results - last 24 hr 07/02/21 18:05: WBC 4.9, RBC 4.54, Hgb 11.8 L, Hct 38.7, MCV 85.2, MCH 26.0 L, MCHC 30.5 L, RDW Std Deviation 45.7 H, RDW Coeff of [place] 14.7 H, Plt Count 190, MPV 11.9, Immature Gran % (Auto) 0.200, Neut % (Auto) 46.1 L, Lymph % (Auto) 33.2, [place] % (Auto) 17.3 H, Eos % (Auto) 2.0, Baso % (Auto) 1.2 H, Absolute Neuts (auto) 2.3, Absolute Lymphs (auto) 1.63, Nucleated RBC % 0 07/02/21 18:05: Sodium 144, Potassium 4.0, Chloride 113 H, Carbon Dioxide 25.0, Anion Gap 6, BUN 24 H, Creatinine 0.91, Estim Creat Clear Calc 34.11, Est GFR (MDRD) Af Amer 75, Est GFR (MDRD) Non-Af 62, BUN/Creatinine Ratio 26.3 H, Glucose 63 L, Calcium 9.1, Total Bilirubin 0.30, Direct Bilirubin < 0.05, AST 44 H, ALT 33, Alkaline Phosphatase 78, Total Protein 7.9, Albumin 3.3, Globulin 4.6 H 07/02/21 18:05: Lactic Acid 0.8 07/02/21 19:13: Urine Color Yellow, Urine Clarity Cloudy, Urine pH 5.0, Ur Specific [place] 1.025, Urine Protein 30 H, Urine Glucose (UA) Normal, Urine Ketones Negative, Urine Occult Blood 50 H, Urine Nitrite Positive H, Urine Bilirubin Negative, Urine Urobilinogen Normal, Ur Leukocyte Esterase 500 H, Urine RBC 0-5 SEEN, Urine WBC >100 SEEN, Ur Squamous Epith Cells 0 SEEN, Urine Bacteria 1+, Urine Mucus 0 SEEN Radiology Impression Chest X-Ray 07/02/21 19:30 IMPRESSION: No acute radiographic abnormalities. 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 COVID-19 virus?admit patient to general medical floor, oxygen per routine protocol, notify daughter should any further intervention be necessary 2. Generalized weakness debility?consult physical therapy for pediatric physician assistant with ADLs 3. Hyperlipidemia?continue statin 4. Urinary tract infection?continue 1 g IV Rocephin daily. 5. GERD?continue PPI 6. Diabetes?continue home regimen 7. DVT prophylaxis?low molecular weight heparin Consult case management for discharge planning back to assisted living as soon as feasible Charges/Coding Visit Charges Inpatient E&M: 29291 Init Hosp L3
[2021-07-02 22:45] LABS: AST(SGOT) 45 U/L (15-37); Alanine Aminotransfer ALT/SGPT 33 U/L (13-56); Albumin, Serum 3.3 g/dL (3.2-5.0); Alkaline Phosphatase 74 U/L (45-117); Bilirubin, Direct < 0.05 mg/dL (0.00-0.30); CPK Total, Creatine Kinase 559 U/L (26-192); CRP 8.77 mg/L (0.0-3.0); Globulin 4.5 g/dL (2.2-4.2); LDH 255 U/L (84-246); Protein, Total 7.8 g/dL (6.4-8.2)
[2021-07-02 22:47] LABS: BNP,B-Type NATRIURETIC PEPTIDE 42.7 pg/mL (0-100)
[2021-07-02 22:55] LABS: Fibrinogen 456 mg/dl (203-444); Procalcitonin 0.09 ng/mL (0.00-0.09)
[2021-07-02] MEDS: Atorvastatin Calcium 20 MG Tablet PO (23:06)
[2021-07-02] MEDS: APIXABAN 5 MG TABLET PO (23:06)
[2021-07-03 02:12] VITALS: BP 145/53; PULSE 62; RESP 18; TEMP 36.5; O2SAT 95
[2021-07-03 02:21] LABS: Bedside Glucose 107 mg/dL (70-110)
[2021-07-03 06:16] LABS: Bedside Glucose 161 mg/dL (70-110)
[2021-07-03 08:01] LABS: Absolute Lymphocyte Count 0.77 X10^3/uL (0.83-4.51); Absolute Neutrophil Count 1.6 X10^3/uL (2.0-7.7); Basophil# 0.01 X10^3/uL; Basophil% 0.4 % (0-1); Hematocrit 34.7 % (37-47); Hemoglobin 11.3 g/dL (12.0-15.0); Lymphocyte # 0.77 X10^3/ul (0.83-4.51); Lymphocyte % 28.5 % (19-41); Mean Corp Hgb Conc 32.6 g/dL (32-36); Mean Corpuscular Hgb 26.2 pg (27.0-32.0); Mean Corpuscular Volume 80.5 fL (81-99); Mean Platelet Vol. 11.1 fl (6.2-12.0); Monocyte# 0.33 X10^3/uL; Monocyte% 12.2 % (0-10); NRBC Flagged by Analyzer 0 % (0-5); Neutrophil # 1.57 X10^3/uL (2.7-7.7); Neutrophil % 58.2 % (47-70); Platelet Count 185 K/mm3 (150-450); RBC Distribution Width CV 14.5 % (11.6-14.6); RBC Distribution Width SD 42.6 fl (35.1-43.9); Red Blood Count 4.31 M/mm3 (4.2-5.4); White Blood Count 2.7 K/mm3 (4.4-11.0)
[2021-07-03 08:34] LABS: Anion Gap 7 (5-15); BUN 23 mg/dL (7-18); BUN/Creat Ratio 28.4 RATIO (10-20); Calcium,Total 8.6 mg/dL (8.5-10.1); Chloride 112 mmol/L (98-107); Creatinine, Serum 0.81 mg/dL (0.55-1.02); EST Glomerular Filtration Rate 71 mL/min (>60); Est Glom Filt Rate - Afr Amer 86 mL/min (>60); Estimated Creatinine Clearance 38.32 ml/min; Glucose 175 mg/dL (74-106); Sodium Level 142 mmol/L (136-145)
--- NOTE | 2021-07-03 09:18 | CASEMGMT ---
Social Work Note Pt is listed as being from [facility]. BLAYNE spoke with multiple people, Lore Natasha. Natasha states that they can take pt back with pt being COVID+ but states pt was really weak yesterday so she is not sure if pt would need therapy at a SNF or not before returning to [facility]. SW informed Natasha that the only SNF accepting COVID+ is in [place] and last week they were tight on beds, not sure where pt could go to SNF at this time. SW informed Natasha that PT/OT is ordered. Natasha states to fax over PT/OT once they work with pt and they will decide then if they can accommodate pt or if pt needs SNF. SW to fax PT/OT to [place] [facility] when available to determine if they can accept pt back. SW to continue to follow. Tiffanie Bernstein PERFORATOR, REFUELER
[2021-07-03] MEDS: APIXABAN 5 MG TABLET PO ×2 (09:43→20:27)
[2021-07-03] MEDS: Ascorbic Acid 500 MG Tablet PO (09:43)
[2021-07-03] MEDS: Lisinopril 5 MG Tablet PO (09:43)
[2021-07-03] MEDS: glipiZIDE XL 5 MG Tablet PO (09:43)
[2021-07-03] MEDS: Pantoprazole Sodium 40 MG Tablet PO (09:43)
[2021-07-03 09:49] VITALS: BP 137/67; PULSE 68; RESP 18; TEMP 37; O2SAT 97
[2021-07-03] MEDS: Nystatin Powder 15gm Bottle 1 APPLIC TOPICAL ×2 (10:54→20:27)
[2021-07-03] MEDS: Ceftriaxone 1 GM/50 ML BAG IV (10:55)
[2021-07-03 11:36] LABS: Bedside Glucose 205 mg/dL (70-110)
--- NOTE | 2021-07-03 12:44 | CASEMGMT ---
Social Work Note BLAYNE attempted to meet with pt. Pt with dementia. SW in to speak with pt. Pt complaining of the beeping, the tv being on and the lights being on. BLAYNE asked pt if her daughter was still at [facility] and pt states he daughter has left. BLAYNE informed pt that this worker will call her daughter and pt gave this worker permission to call her daughter. BLAYNE placed a call to pt's daughter Kriss. BLAYNE introduced self and role at [facility]. Kriss confirms pt came from [facility]. BLAYNE informed Kriss that this worker spoke with Velia earlier today and was told that it just depends on how pt does with PT/OT to determine if [facility] can take pt back or not. BLAYNE informed Kriss that PT/OT hasn't charted their note yet for pt so this worker is not sure how well pt is moving. Velia is stating pt needs to be able to get up independently and bath independently for pt to be able to return. BLAYNE informed Kriss that [facility] has mentioned pt possibly going to SNF for rehab before pt returning to [facility]. BLAYNE informed Kriss that the only SNF in [facility] accepting COVID+ pt's is in [place] and it is called [facility]. Kriss agreeable to [facility] if pt needs SNF. BLAYNE placed a call to Marla at [facility] and left message regarding bed availability and if [facility] take's pt insurance. BLAYNE waiting for call back from Marla at [facility]. Plan: TBD pending PT/OT Tiffanie Bernstein MOCK UP MAKER, CLAM GRADER
--- NOTE | 2021-07-03 14:03 | PCM.PN.HOSP ---
Documented by User: Fausto RICKS 07/03/21 14:27 Subjective Subjective Patient is an 85-year-old female lying in bed, alert and oriented to self. Patient unable to provide much insight into current condition as she appears acute on chronically confused. Does not appear in acute distress. Objective Data Objective Data Vital Signs: Vital Signs Temp Pulse Resp BP Pulse Ox 98.6 F 68 10 L 137/67 H 97 07/03/21 09:49 07/03/21 09:49 07/03/21 09:49 07/03/21 09:49 07/03/21 09:49 Oxygen Flow Rate (L/min) 2 Oxygen Delivery Method Room Air Weight: 200 lb 6.403 oz Body Mass Index (BMI) 37.8 Intake & Output: Intake and Output for Last 24 Hours 07/01/21 07/02/21 07/03/21 23:59 23:59 23:59 Intake Total 600 / 600 Output Total 100 / 100 Balance 500 / 500 Lab / Micro Data Result Diagrams: 07/03/21 07:10 07/03/21 07:10 Labs: Laboratory Results - last 24 hr 07/02/21 18:05: WBC 4.9, RBC 4.54, Hgb 11.8 L, Hct 38.7, MCV 85.2, MCH 26.0 L, MCHC 30.5 L, RDW Std Deviation 45.7 H, RDW Coeff of [place] 14.7 H, Plt Count 190, MPV 11.9, Immature Gran % (Auto) 0.200, Neut % (Auto) 46.1 L, Lymph % (Auto) 33.2, [place] % (Auto) 17.3 H, Eos % (Auto) 2.0, Baso % (Auto) 1.2 H, Absolute Neuts (auto) 2.3, Absolute Lymphs (auto) 1.63, Nucleated RBC % 0 07/02/21 18:05: Sodium 144, Potassium 4.0, Chloride 113 H, Carbon Dioxide 25.0, Anion Gap 6, BUN 24 H, Creatinine 0.91, Estim Creat Clear Calc 34.11, Est GFR (MDRD) Af Amer 75, Est GFR (MDRD) Non-Af 62, BUN/Creatinine Ratio 26.3 H, Glucose 63 L, Calcium 9.1, Total Bilirubin 0.30, Direct Bilirubin < 0.05, AST 44 H, ALT 33, Alkaline Phosphatase 78, Total Protein 7.9, Albumin 3.3, Globulin 4.6 H 07/02/21 18:05: Lactic Acid 0.8 07/02/21 18:05: Fibrinogen 456 H, D-Dimer Quant (PE/DVT) 0.70 H* 07/02/21 18:05: Total Bilirubin 0.30, Direct Bilirubin < 0.05, AST 45 H, ALT 33, Alkaline Phosphatase 74, Lactate Dehydrogenase 255 H, Total Creatine Kinase 559 H, C-React Prot Ext Range 8.77 H, Total Protein 7.8, Albumin 3.3, Globulin 4.5 H 07/02/21 18:05: B-Natriuretic Peptide 42.7 07/02/21 18:05: Procalcitonin 0.09 07/02/21 19:13: Urine Color Yellow, Urine Clarity Cloudy, Urine pH 5.0, Ur Specific [place] 1.025, Urine Protein 30 H, Urine Glucose (UA) Normal, Urine Ketones Negative, Urine Occult Blood 50 H, Urine Nitrite Positive H, Urine Bilirubin Negative, Urine Urobilinogen Normal, Ur Leukocyte Esterase 500 H, Urine RBC 0-5 SEEN, Urine WBC >100 SEEN, Ur Squamous Epith Cells 0 SEEN, Urine Bacteria 1+, Urine Mucus 0 SEEN 07/02/21 22:56: POC Glucose 107 07/03/21 05:58: POC Glucose 161 H 07/03/21 07:10: Sodium 142, Potassium 4.0, Chloride 112 H, Carbon Dioxide 23.0, Anion Gap 7, BUN 23 H, Creatinine 0.81, Estim Creat Clear Calc 38.32, Est GFR (MDRD) Af Amer 86, Est GFR (MDRD) Non-Af 71, BUN/Creatinine Ratio 28.4 H, Glucose 175 H, Calcium 8.6 07/03/21 07:10: WBC 2.7 L, RBC 4.31, Hgb 11.3 L, Hct 34.7 L, MCV 80.5 L D, MCH 26.2 L, MCHC 32.6 D, RDW Std Deviation 42.6, RDW Coeff of [place] 14.5, Plt Count 185, MPV 11.1, Immature Gran % (Auto) 0.700, Neut % (Auto) 58.2, Lymph % (Auto) 28.5, [place] % (Auto) 12.2 H, Eos % (Auto) 0.0, Baso % (Auto) 0.4, Absolute Neuts (auto) 1.6 L, Absolute Lymphs (auto) 0.77 L, Nucleated RBC % 0 07/03/21 11:14: POC Glucose 205 H Radiography Diagnostic Testing: Radiology Impression Chest X-Ray 07/02/21 19:30 IMPRESSION: No acute radiographic abnormalities. Electronically Signed: Oskar Osborne MD at 20:03 EST Tel , Service support , Physical Exam Const alert Orientation / Consciousness: confused and disoriented HEENT head/scalp atraumatic and moist oral mucous membranes Head and Scalp: normocephalic Eyes PERRL, EOMs intact bilaterally and conjunctivae normal Neck no lymphadenopathy, supple and no JVD Resp normal respiratory effort, no retractions, no use of accessory muscles and clear to auscultation bilaterally Cardio regular rate, regular rhythm, no murmurs and no JVD GI normal to inspection, nondistended, normoactive bowel sounds, soft to palpation and non-tender Extremity normal to inspection, full ROM and no clubbing, cyanosis or edema Skin no rashes or lesions noted, no wounds, skin turgor normal and no jaundice Neuro CN's II-XII intact bilaterally Psych affect normal Assessment & Plan Assessment/Plan (1) Urinary tract infection: (2) Adult failure to thrive: (3) COVID-19: PLAN: Day 1 Discharge planning: Current plan is to discharge to SNF, case management/social work following. 1) adult failure to thrive Admitting physician reports that patient not able to complete home ADLs, per family. Patient already had assisted living center however more than likely needs jail care. PT/OT eval ordered, case management following. 2) acute encephalopathy secondary to acute cystitis Patient appears acutely confused. Vital signs stable and patient is afebrile. CBC does not demonstrate a leukocytosis. Urine and blood cultures pending. Continue Rocephin. 3) COVID-19 infection Does appear to be mild infection as patient is without respiratory distress, fever, chills or N/V/D. Patient does appear to be acutely confused but believe that is secondary to #2. Patient has been fully vaccinated for COVID-19 to include booster. Continue to monitor. 4) hyperlipidemia Continue statin. 5) GERD Continue PPI. 6) DM2 Continue home diabetic regimen. DVT prophylaxis - Lovenox Patient seen by Fausto Packer PA-C, under the supervision of Dr. Ham. Documented by User: Dr. Rosangela Ham MD 07/03/21 15:15 Objective Data Lab / Micro Data Result Diagrams: 07/03/21 07:10 07/03/21 07:10 Charges/Coding Addendum Addendum: Patient seen by Fausto Packer PA-C under my supervision Patient seen and examined. Patient was completely confused and did not know where she was or even her name. Unable to do review of systems on account of patient's confusion. She has remained hemodynamically stable and she is on room air. O/E: Const alert Orientation / Consciousness: confused and disoriented HEENT head/scalp atraumatic and moist oral mucous membranes Head and Scalp: normocephalic Eyes PERRL, EOMs intact bilaterally and conjunctivae normal Neck no lymphadenopathy, supple and no JVD Resp normal respiratory effort, no retractions, no use of accessory muscles and clear to auscultation bilaterally, on room air. Cardio regular rate, regular rhythm, no murmurs and no JVD GI normal to inspection, nondistended, normoactive bowel sounds, soft to palpation and non-tender Extremity normal to inspection, full ROM and no clubbing, cyanosis or edema Skin no rashes or lesions noted, no wounds, skin turgor normal and no jaundice Neuro CN's II-XII intact bilaterally Psych confused and agitated. Patient has been managed for UTI and COVID-19 infection. She is currently on room air. Patient has had both doses of her vaccine and has also had her booster. Patient also has adult failure to thrive, and acute metabolic encephalopathy thought to be due to UTI. On IV rocephin. PT/OT on board. Fall precautions. Patient is completely asymptomatic from Covid standpoint and is on room air. Urine cultures pending. Continue glipizide and Lantus 25 units twice daily for diabetes mellitus. Insulin sliding scale. Checks AC at bedtime. Rest as per Fausto Packer PA-C's note, which I have reviewed and endorsed. Visit Charges Inpatient E&M: 65603 Subs Hosp L2
--- NOTE | 2021-07-03 14:22 | CASEMGMT ---
Social Work Note SW faxed clinicals to [facility]. No PT/OT are available yet, so BLAYNE unable to send PT/OT notes at this time. BLAYNE also faxed initial referral to [facility]. SW to continue to follow. Tiffanie Bernstein DEMAND INSPECTOR, ROUTE RELIEF DRIVER
[2021-07-03 14:54] VITALS: BP 156/54; PULSE 84; RESP 18; TEMP 36.8; O2SAT 95
[2021-07-03 17:21] VITALS: O2SAT 90
[2021-07-03 17:56] LABS: Bedside Glucose 204 mg/dL (70-110)
[2021-07-03] MEDS: Atorvastatin Calcium 20 MG Tablet PO (20:27)
[2021-07-03 20:40] LABS: Bedside Glucose 230 mg/dL (70-110)
[2021-07-03 20:44] VITALS: BP 107/62; PULSE 85; RESP 16; TEMP 36.4; O2SAT 98
[2021-07-03 20:49] VITALS: RESP 16; O2SAT 98
--- NOTE | 2021-07-04 00:52 | NURSING ---
Patient combative with staff and uncooperative with care, at this time. A&Ox1, accusing staff of damaging her belongings and keeping her here against her will. Patient sitting in chair with alarm on at this time.
[2021-07-04 02:56] VITALS: BP 160/63; PULSE 85; RESP 18; TEMP 36.4; O2SAT 97
[2021-07-04 06:30] LABS: Bedside Glucose 149 mg/dL (70-110)
[2021-07-04 08:26] VITALS: O2SAT 92
--- NOTE | 2021-07-04 09:36 | NURSING ---
Velia called at this time to get COVID test results faxed to [facility]. Left message with Marcelina, who stated she would speak to the nurse to fax results over.
--- NOTE | 2021-07-04 09:51 | CASEMGMT ---
Addendum entered by Jacklyn Huerta 07/04/21 11:55: Velia reports PT notes not obtained, additional fax number given and PT eval faxed at this time. Original Note: SOCIAL WORK Discussed with PT/OT. Patient did well and reports could return to [facility]. Call to [facility], staff in meeting. PT/OT notes faxed. Estela Huerta, AMUSEMENT PARK ENTERTAINER, SANDWICH WRAPPER
[2021-07-04 11:00] VITALS: BP 108/66; PULSE 81; RESP 16; TEMP 36.6; O2SAT 99
[2021-07-04] MEDS: glipiZIDE XL 5 MG Tablet PO (11:09)
[2021-07-04] MEDS: Lisinopril 5 MG Tablet PO (11:09)
[2021-07-04] MEDS: Ascorbic Acid 500 MG Tablet PO (11:09)
[2021-07-04] MEDS: Pantoprazole Sodium 40 MG Tablet PO (11:09)
[2021-07-04] MEDS: Cefdinir 300 MG Capsule PO ×2 (11:09→20:33)
[2021-07-04] MEDS: APIXABAN 5 MG TABLET PO ×2 (11:09→20:34)
[2021-07-04] MEDS: Nystatin Powder 15gm Bottle 1 APPLIC TOPICAL ×2 (11:14→20:32)
[2021-07-04 11:45] LABS: Bedside Glucose 197 mg/dL (70-110)
--- NOTE | 2021-07-04 12:07 | CASEMGMT ---
SOCIAL WORK Call to [facility] to check on status of referral, left message for Marla. Awaiting call back. Estela Huerta, CHECK EMBOSSER, TRAVEL REGISTERED NURSE ICU
--- NOTE | 2021-07-04 12:20 | PCA ---
this attendance secretary called Velia talked to motor hotel manager yenny to get covid test results for this patient. Yenny had stateted that she told Vandana Wilcox the nurse multiple times to send us the results. She sent me directly to her extention. I got a voicemail and informed her that we need these results to help us in our care for the patient. left our fax number and phone number to contact us
--- NOTE | 2021-07-04 12:33 | PN.HOSP_ITS ---
Documented by User: Fausto RICKS 07/04/21 12:40 Subjective Subjective Patient is an 85-year-old female lying in bed, alert and oriented to self. Patient is acutely confused due to her UTI, does appear agitated when compared to yesterday. Cannot provide much insight into current condition. Objective Data Objective Data Vital Signs: Vital Signs Temp Pulse Resp BP Pulse Ox 97.9 F 81 16 108/66 99 07/04/21 11:00 07/04/21 11:00 07/04/21 11:00 07/04/21 11:00 07/04/21 11:00 Oxygen Flow Rate (L/min) 2 Oxygen Delivery Method Room Air Weight: 200 lb 6.403 oz Body Mass Index (BMI) 37.8 Intake & Output: Intake and Output for Last 24 Hours 07/02/21 07/03/21 07/04/21 23:59 23:59 23:59 Intake Total 1350 / 1470 240 / 240 Output Total 100 / 100 Balance 1250 / 1370 240 / 240 Lab / Micro Data Result Diagrams: 07/03/21 07:10 07/03/21 07:10 Labs: Laboratory Results - last 24 hr 07/03/21 16:44: POC Glucose 204 H 07/03/21 20:30: POC Glucose 230 H 07/04/21 06:22: POC Glucose 149 H 07/04/21 11:38: POC Glucose 197 H Micro: Microbiology 07/02/21 19:13 Urine Catheter - Catheter Urine Culture - Preliminary Presumptive E. coli Physical Exam Const alert General Appearance: uncooperative Orientation / Consciousness: confused and disoriented HEENT head/scalp atraumatic and moist oral mucous membranes Head and Scalp: normocephalic Eyes PERRL, EOMs intact bilaterally and conjunctivae normal Neck no lymphadenopathy, supple and no JVD Resp normal respiratory effort, no retractions and no use of accessory muscles Cardio regular rate, regular rhythm, no murmurs and no JVD GI normal to inspection, nondistended, normoactive bowel sounds, soft to palpation and non-tender Extremity normal to inspection, full ROM and no clubbing, cyanosis or edema Skin no rashes or lesions noted, no wounds and skin turgor normal Neuro Neuro Narrative: Cannot assess due to patient confusion. Psych Psych Narrative: Cannot assess due to patient confusion Assessment & Plan Assessment/Plan (1) COVID-19: (2) Adult failure to thrive: (3) Urinary tract infection: PLAN: Day 2 Discharge planning: Current plan is to discharge to SNF, case management/social work following. 1) adult failure to thrive Admitting physician reports that patient not able to complete home ADLs, per family. Patient already had assisted living center however more than likely needs [facility] care. PT/OT eval ordered, case management following. 2) acute encephalopathy secondary to acute cystitis Patient still confused, patient appears agitated when compared to yesterday as she made several attempts to hit this provider and was noncompliant with request. Nursing staff also reported to this provider that patient ripped out her IV line for the second time. Vital signs stable and patient is afebrile. CBC does not demonstrate a leukocytosis. Urine preliminarily grew E. coli species, sensitivities to follow. Review of records shows that prior E. coli species were sensitive to cephalosporins. Blood cultures pending. Will transition patient from IV Rocephin to oral cefdinir due to noncompliance with maintaining IV line. 3) COVID-19 infection Asymptomatic from a respiratory standpoint. Patient has been fully vaccinated for COVID-19 to include booster. Continue to monitor. 4) hyperlipidemia Continue statin. 5) GERD Continue PPI. 6) DM2 Continue home diabetic regimen. DVT prophylaxis - Lovenox Patient seen by Fausto Packer PA-C, under the supervision of Dr. Ham. Documented by User: Dr. Rosangela Ham MD 07/04/21 15:38 Objective Data Lab / Micro Data Result Diagrams: 07/03/21 07:10 07/03/21 07:10 Charges/Coding Addendum Addendum: Patient seen by Fausto Packer PA-C under my supervision Patient seen and examined. She still remains confused. She is on room air. O/E: Const alert Orientation / Consciousness: confused and disoriented HEENT head/scalp atraumatic and moist oral mucous membranes Head and Scalp: normocephalic Eyes PERRL, EOMs intact bilaterally and conjunctivae normal Neck no lymphadenopathy, supple and no JVD Resp normal respiratory effort, no retractions, no use of accessory muscles and clear to auscultation bilaterally, on room air. Cardio regular rate, regular rhythm, no murmurs and no JVD GI normal to inspection, nondistended, normoactive bowel sounds, soft to palpation and non-tender Extremity normal to inspection, full ROM and no clubbing, cyanosis or edema Skin no rashes or lesions noted, no wounds, skin turgor normal and no jaundice Neuro CN's II-XII intact bilaterally Psych confused We will switch her antibiotics to oral antibiotics today because she pulled out her IV. Urine culture growing E. Coli. She remains on room air. PT OT on board. Fall precautions. She is awaiting placement. Rest as per Fausto Packer PA-C's notes which I reviewed and endorsed. Visit Charges Inpatient E&M: 07120 Subs Hosp L2
--- NOTE | 2021-07-04 13:07 | CASEMGMT ---
Addendum entered by Jacklyn Huerta 07/04/21 13:23: Informed by nursing, plan for discharge tomorrow. Surya with [facility] updated. Daughter updated on plan for discharge tomorrow. Addendum entered by Jacklyn Huerta 07/04/21 13:19: Received call back from patient's daughter, updated on plan to return to [facility] at discharge. CM discussed home health. Daughter reports will transport patient back to [facility] at discharge. Nursing updated. Original Note: SOCIAL WORK Spoke with Velia who reports reviewed with DON. Able to accept patient back. Call to patient's daughter to update, no answer, left message. Estela Huerta, [employer]LE MONITOR, DYNAMOMETER TESTER
[2021-07-04 17:00] VITALS: BP 124/63; PULSE 77; RESP 16; TEMP 36.4; O2SAT 98
[2021-07-04 20:11] LABS: Bedside Glucose 160 mg/dL (70-110)
[2021-07-04 20:23] VITALS: BP 132/61; PULSE 77; RESP 18; TEMP 36.6; O2SAT 97
[2021-07-04] MEDS: Latanoprost 0.005% 1 Bottle 1 DRP EACH EYE (20:33)
[2021-07-04] MEDS: Atorvastatin Calcium 20 MG Tablet PO (20:34)
[2021-07-04 21:41] LABS: Bedside Glucose 205 mg/dL (70-110)
[2021-07-05 02:43] VITALS: BP 157/69; PULSE 95; RESP 18; TEMP 36.7; O2SAT 97
[2021-07-05] MEDS: Ascorbic Acid 500 MG Tablet PO (08:53)
[2021-07-05] MEDS: glipiZIDE XL 5 MG Tablet PO (08:53)
[2021-07-05] MEDS: APIXABAN 5 MG TABLET PO (08:53)
[2021-07-05] MEDS: Pantoprazole Sodium 40 MG Tablet PO (08:53)
[2021-07-05] MEDS: Lisinopril 5 MG Tablet PO (08:53)
[2021-07-05] MEDS: Cefdinir 300 MG Capsule PO (08:53)
[2021-07-05] MEDS: Nystatin Powder 15gm Bottle 1 APPLIC TOPICAL (08:54)
[2021-07-05 09:16] VITALS: BP 128/68; PULSE 79; RESP 16; TEMP 36.2; O2SAT 95
[2021-07-05 09:26] LABS: Bedside Glucose 103 mg/dL (70-110)
--- NOTE | 2021-07-05 09:43 | CASEMGMT ---
TC to pt dtr Kriss. Provided her with averbal list of [facility] providers including quality and resource use data and consistent with the patient?s preferred geographic region, medical needs, and insurance network. The patient?s dtr preferred provider is [facility] then [facility]. TC to [facility], they cannot accept pt for 7-10 days. TC to Angel at [facility], they can accept pt tomorrow. Spoke with pt dtr, she is fine with [facility]. Referral faxed at this time. She denies further questions.
--- NOTE | 2021-07-05 09:57 | PCM.DC ---
Discharge Instructions Diet Discharge Diet: Low fat / Low cholesterol and 1800 Calorie Control Diet Activity Discharge Activity: Return to Normal Activity Dressing / Incision Call your doctor if you observe: Fever of 101 or Higher, Shortness of breath, Dizziness, Fainting spells, Chest pain and Increased palpitations (irregular heartbeat) Follow Up Care Test Results: Test results from this visit will be discussed in further detail at your follow-up appointment, if applicable. Discharge Plan Admission Admit Date/Time: 07/02/21 20:37 Primary Reason for Your Visit: UTI, Covid Attending Provider: Rosangela Ham Primary Care Provider: Cecy Trivedi Discharge Orders/Prescriptions Prescriptions: New Lantus Solostar U-100 Insulin 100 unit/mL (3 mL) Insulin Pen 15 unit subcut BID Qty: 0 RF: 0 ascorbic acid (vitamin C) 500 mg Tablet 500 mg PO DAILY Qty: 0 RF: 0 atorvastatin 20 mg Tablet 20 mg PO QHS 30 Days Qty: 30 RF: 0 cephalexin 500 mg capsule 500 mg PO TID 6 Days Qty: 18 RF: 0 Continued glipizide 2.5 MG tablet extended release 24hr 5 mg PO DAILY RF: 0 latanoprost 2.5 ML drops 2.5 ml OP QHS RF: 0 lisinopril 10 MG tablet 5 mg PO DAILY RF: 0 exenatide microspheres 2 MG/0.65 ML pen injector 2 mg SQ TU RF: 0 omeprazole 40 mg Capsule,Delayed Release(Dr/Ec) 40 mg PO DAILY RF: 0 acetaminophen 500 mg Tablet 1,000 mg PO Q6H PRN PRN (Reason: Pain Score 1-10) Qty: 0 RF: 0 Eliquis 5 mg Tablet 5 mg PO BID 30 Days Qty: 60 RF: 0 Discontinued Lantus Solostar U-100 Insulin 100 unit/mL (3 mL) insulin pen 25 units subcut BID RF: 0 Referrals / Follow Up: Cecy Trivedi MD [Primary Care Provider] - Disposition Disposition (needs filled in before D/C Order can be placed): Home Health Service
--- NOTE | 2021-07-05 10:07 | DS.PCM_ITS ---
Documented by User: SMOOTH Suazo 07/05/21 10:13 Providers Date of Admission: 07/02/21 Primary Care Physician: Dr. Cecy Trivedi MD Reason For Visit: COVID-19, UTI Diagnosis Discharge Diagnosis (1) COVID-19: Status: Acute Code(s): U07.1 - COVID-19 (2) Adult failure to thrive: Status: Acute Code(s): R62.7 - Adult failure to thrive (3) Urinary tract infection: Status: Acute Code(s): N39.0 - Urinary tract infection, site not specified Medications at Discharge Home Medications glipizide 5 mg PO DAILY 08/16/19 exenatide microspheres 2 mg SQ TU 07/23/20 latanoprost 2.5 ml OP QHS 07/23/20 lisinopril 5 mg PO DAILY 07/23/20 omeprazole 40 mg PO DAILY 12/11/20 Eliquis 5 mg PO BID 30 Days #60 tab 12/18/20 acetaminophen 1,000 mg PO Q6H PRN PRN #0 tab 12/18/20 ascorbic acid (vitamin C) 500 mg PO DAILY #0 tab 07/05/21 atorvastatin 20 mg PO QHS 30 Days #30 tab 07/05/21 cephalexin 500 mg PO TID 6 Days #18 cap 07/05/21 insulin glargine [Lantus Solostar U-100 Insulin] 15 unit SUBCUT BID #0 ml 07/05/21 Hospital Course Operations None Procedures None Summary of Care Provided Minutes Spent on Discharge: 35 Hospital Course: Patient is an 85-year-old female who initially presented with encephalopathy. Patient was noted to have a urinary tract infection as well as tested positive for COVID-19. Patient is negative for respiratory symptoms or COVID-19, currently on room air. Patient will be discharged home on p.o. Keflex to complete antibiotic course for treatment of UTI. Patient will also be discharged back to [facility] living with home health care through [facility]. Physical Exam Const alert, oriented x3 and no apparent distress General Appearance: cooperative HEENT normocephalic and head/scalp atraumatic Eyes conjunctivae normal and no scleral icterus Neck supple Lymph Lymphatic: no lymphadenopathy noted Resp normal respiratory effort, normal air movement and clear to auscultation bilaterally Cardio regular rate, regular rhythm, S1 normal heart sound and S2 normal heart sound GI normal to inspection, nondistended, normoactive bowel sounds, soft to palpation and non-tender Extremity normal capillary refill and no clubbing, cyanosis or edema General Extremity: no tenderness to palpation of joints or extremities Skin skin turgor normal Rashes: no rashes Neuro oriented x3, moves all extremities, no focal motor deficits and no sensory deficits noted Psych affect normal Appearance: appropriate Weight / BMI Weight Weight: 200 lb 6.403 oz Body Mass Index (BMI) 37.8 ABG / Lab / Microbiology Data Result Diagrams: 07/03/21 07:10 07/03/21 07:10 Laboratory: Laboratory Results - last 24 hr 07/04/21 11:38: POC Glucose 197 H 07/04/21 17:46: POC Glucose 160 H 07/04/21 20:31: POC Glucose 205 H 07/05/21 08:52: POC Glucose 103 Microbiology: Microbiology 07/02/21 19:50 Blood Culture (Wb) - Anticubital Right Blood Culture - Preliminary No growth in 48 hours. 07/02/21 18:55 Blood Culture (Wb) - Right Forearm Blood Culture - Preliminary No growth in 48 hours. 07/02/21 19:13 Urine Catheter - Catheter Urine Culture - Preliminary Presumptive E. coli D/C Instructions Discharge Diet: Low fat / Low cholesterol and 1800 Calorie Control Diet Call your doctor if you observe: Fever of 101 or Higher, Shortness of breath, Dizziness, Fainting spells, Chest pain and Increased palpitations (irregular heartbeat) Meaningful Use Info Meaningful Use Diagnoses (Choose all that apply): None applicable Discharge Plan Admission Admit Date/Time: 07/02/21 20:37 Primary Reason for Your Visit: UTI, Covid Attending Provider: Rosangela Ham Primary Care Provider: Cecy Trivedi Discharge Orders/Prescriptions Prescriptions: New Lantus Solostar U-100 Insulin 100 unit/mL (3 mL) Insulin Pen 15 unit subcut BID Qty: 0 RF: 0 ascorbic acid (vitamin C) 500 mg Tablet 500 mg PO DAILY Qty: 0 RF: 0 atorvastatin 20 mg Tablet 20 mg PO QHS 30 Days Qty: 30 RF: 0 cephalexin 500 mg capsule 500 mg PO TID 6 Days Qty: 18 RF: 0 Continued glipizide 2.5 MG tablet extended release 24hr 5 mg PO DAILY RF: 0 latanoprost 2.5 ML drops 2.5 ml OP QHS RF: 0 lisinopril 10 MG tablet 5 mg PO DAILY RF: 0 exenatide microspheres 2 MG/0.65 ML pen injector 2 mg SQ TU RF: 0 omeprazole 40 mg Capsule,Delayed Release(Dr/Ec) 40 mg PO DAILY RF: 0 acetaminophen 500 mg Tablet 1,000 mg PO Q6H PRN PRN (Reason: Pain Score 1-10) Qty: 0 RF: 0 Eliquis 5 mg Tablet 5 mg PO BID 30 Days Qty: 60 RF: 0 Discontinued Lantus Solostar U-100 Insulin 100 unit/mL (3 mL) insulin pen 25 units subcut BID RF: 0 Referrals / Follow Up: Cecy Trivedi MD [Primary Care Provider] - Disposition Disposition (needs filled in before D/C Order can be placed): Home Health Service Documented by User: Dr. Rosangela Ham MD 07/05/21 14:28 Providers Date of Admission: 07/02/21 Reason For Visit: COVID-19, UTI Medications at Discharge Home Medications glipizide 5 mg PO DAILY 08/16/19 exenatide microspheres 2 mg SQ TU 07/23/20 latanoprost 2.5 ml OP QHS 07/23/20 lisinopril 5 mg PO DAILY 07/23/20 omeprazole 40 mg PO DAILY 12/11/20 Eliquis 5 mg PO BID 30 Days #60 tab 12/18/20 acetaminophen 1,000 mg PO Q6H PRN PRN #0 tab 12/18/20 ascorbic acid (vitamin C) 500 mg PO DAILY #0 tab 07/05/21 atorvastatin 20 mg PO QHS 30 Days #30 tab 07/05/21 cephalexin 500 mg PO TID 6 Days #18 cap 07/05/21 insulin glargine [Lantus Solostar U-100 Insulin] 15 unit SUBCUT BID #0 ml 07/05/21 ABG / Lab / Microbiology Data Result Diagrams: 07/03/21 07:10 07/03/21 07:10 Discharge Plan Admission Admit Date/Time: 07/02/21 20:37 Primary Reason for Your Visit: UTI, Covid Attending Provider: Rosangela Ham Primary Care Provider: Cecy Trivedi Discharge Orders/Prescriptions Prescriptions: New Lantus Solostar U-100 Insulin 100 unit/mL (3 mL) Insulin Pen 15 unit subcut BID Qty: 0 RF: 0 ascorbic acid (vitamin C) 500 mg Tablet 500 mg PO DAILY Qty: 0 RF: 0 atorvastatin 20 mg Tablet 20 mg PO QHS 30 Days Qty: 30 RF: 0 cephalexin 500 mg capsule 500 mg PO TID 6 Days Qty: 18 RF: 0 Continued glipizide 2.5 MG tablet extended release 24hr 5 mg PO DAILY RF: 0 latanoprost 2.5 ML drops 2.5 ml OP QHS RF: 0 lisinopril 10 MG tablet 5 mg PO DAILY RF: 0 exenatide microspheres 2 MG/0.65 ML pen injector 2 mg SQ TU RF: 0 omeprazole 40 mg Capsule,Delayed Release(Dr/Ec) 40 mg PO DAILY RF: 0 acetaminophen 500 mg Tablet 1,000 mg PO Q6H PRN PRN (Reason: Pain Score 1-10) Qty: 0 RF: 0 Eliquis 5 mg Tablet 5 mg PO BID 30 Days Qty: 60 RF: 0 Discontinued Lantus Solostar U-100 Insulin 100 unit/mL (3 mL) insulin pen 25 units subcut BID RF: 0 Referrals / Follow Up: Cecy Trivedi MD [Primary Care Provider] - Disposition Disposition (needs filled in before D/C Order can be placed): Home Health Service Charges/Coding Addendum Addendum: Patient seen by Jacklyn REBOLLAR under my supervision Patient is an 85-year-old female with a past medical history as outlined was admitted through the ED on account of generalized weakness. She was admitted from assisted living facility. She had been noted to have decreased intake and confusion. She had had a Covid vaccines in the postop which tested positive for the virus on the day of admission. Labs were significant for UTI and she was started on IV Rocephin. She was admitted and managed for acute metabolic encephalopathy due to UTI. She was also managed for symptomatic breakthrough COVID-19 infection. She remained on room air throughout admission. She remained stable discharged on p.o. Joi was discharged back to assisted living facility on 07/05/2021. She is follow-up with her primary care doctor in 1 to 2 weeks. Acute metabolic encephalopathy had improved at time of discharge. Patient seen and examined prior to discharge. She had no active complaints and felt well. Review of systems otherwise negative. Labs and vitals reviewed. Home medication reviewed and reconciled. O/E: Const alert Orientation / Consciousness: confused HEENT head/scalp atraumatic and moist oral mucous membranes Head and Scalp: normocephalic Eyes PERRL, EOMs intact bilaterally and conjunctivae normal Neck no lymphadenopathy, supple and no JVD Resp normal respiratory effort, no retractions, no use of accessory muscles and clear to auscultation bilaterally, on room air. Cardio regular rate, regular rhythm, no murmurs and no JVD GI normal to inspection, nondistended, normoactive bowel sounds, soft to palpation and non-tender Extremity normal to inspection, full ROM and no clubbing, cyanosis or edema Skin no rashes or lesions noted, no wounds, skin turgor normal and no jaundice Neuro CN's II-XII intact bilaterally Psych confused Plan is for discharge to assisted living facility today. Rest as per Jacklyn Garcia NP-C's notes which I reviewed and endorsed. Visit Charges Inpatient E&M: 71076 Disch Hosp
== END 2021-07-05 14:22 | disposition home health service (06) | DRG 689 ==
LOC: ED 19:59 → MS3 20:51
PROVIDERS: Admitting Provider Family Medicine; Emergency Provider Emergency Medicine; PCP Family Medicine; Visit Provider Student in an Organized Health Care Education/Training Program
DX: N30.00 Acute cystitis without hematuria (principal); G30.9 Alzheimer's disease, unspecified; F02.80 Dementia in other diseases classified elsewhere, unspecified severity, without behavioral disturbance, psychotic disturbance, mood disturbance, and anxiety; E11.22 Type 2 diabetes mellitus with diabetic chronic kidney disease; Z79.4 Long term (current) use of insulin; U07.1 COVID-19; G93.41 Metabolic encephalopathy; R62.7 Adult failure to thrive; B96.20 Unspecified Escherichia coli [E. coli] as the cause of diseases classified elsewhere; E66.9 Obesity, unspecified; E78.5 Hyperlipidemia, unspecified; K21.9 Gastro-esophageal reflux disease without esophagitis; I12.9 Hypertensive chronic kidney disease with stage 1 through stage 4 chronic kidney disease, or unspecified chronic kidney disease; N18.2 Chronic kidney disease, stage 2 (mild); G47.33 Obstructive sleep apnea (adult) (pediatric); Z79.899 Other long term (current) drug therapy; Z86.718 Personal history of other venous thrombosis and embolism; Z68.37 Body mass index [BMI] 37.0-37.9, adult
CPT/HCPCS: 36415; 71045; 80048; 80076; 81001; 82550; 82962; 83605; 83615; 83880; 84145; 85025; 85379; 85384; 86140; 87040; 87086; 87088; 87186; 96365; 96375; 97110; 97116; 97162; 97166; 97535; 99218; 99285; A4216; G0378

== ENCOUNTER 2021-07-14 01:55 | Emergency (ER) | payer MEDICARE, SELFPAY ==
[2021-07-14 01:55] VITALS: BP 142/92; PULSE 92; RESP 22; TEMP 36.8; O2SAT 97
[2021-07-14 01:58] VITALS: BP 142/92; TEMP 36.8; BMI 37.2
--- NOTE | 2021-07-14 02:28 | CT_ITS ---
STUDY: CT BRAIN WITHOUT CONTRAST REASON FOR EXAM: Female, 85 years old. head injury RADIATION DOSAGE (If Supplied By Facility): CTDIvol = ( 44.99 ) mGy, DLP = ( 796.11 ) mGycm TECHNIQUE: Transaxial CT imaging of the brain was performed without administration of intravenous contrast material. Individualized dose optimization techniques were used for this CT. COMPARISON: No relevant priors. FINDINGS: Right posterior and lateral scalp hematoma. Normal calvarium. There is mild cerebral atrophy with widening of the extra-axial spaces and ventricular dilatation. There are areas of decreased attenuation within the white matter tracts of the supratentorial brain, consistent with microvascular disease changes. Normal basal ganglia and thalami. Normal brainstem. There is mild cerebellar atrophy. There is no intracranial hemorrhage. There are no findings of an acute ischemic infarction. Normal visualized paranasal sinuses. CT/Brain/Head without Contrast IMPRESSION: Scalp hematoma. No evidence of acute intracranial pathology. Electronically Signed: Juan Stallworth DO at 3:19 EST Tel , Service support ,
--- NOTE | 2021-07-14 02:50 | RAD_ITS ---
STUDY: X-RAY - PELVIS REASON FOR EXAM: Female, 85 years old. fall TECHNIQUE: One view of the pelvis was obtained. COMPARISON: None. FINDINGS: There is a non-specific bowel gas pattern. Normal visualized soft tissue structures. Normal bilateral iliac wings, sacroiliac joints and visualized sacrum. Normal visualized bilateral superior and inferior pubic rami. Normal pubic symphysis. Normal ischial tuberosities. There are osteoarthritic changes of the right femoral head with marginal osteophyte formation. There is osteoarthritic spur formation of the right acetabular rim. There is mild articular joint space narrowing of the right hip. There are osteoarthritic changes of the left femoral head with marginal osteophyte formation. There is osteoarthritic spur formation of the left acetabular rim. There is mild articular joint space narrowing of the left hip. RAD/Pelvis 1 or 2 Views IMPRESSION: No acute findings Electronically Signed: Juan Stallworth DO at 3:20 EST Tel , Service support ,
--- NOTE | 2021-07-14 03:29 | EDS_ITS ---
HPI History of Present Illness Chief Complaint: Fall Narrative Narrative: Patient is an 85-year-old [facility] from the [facility]. She states that this morning/evening she was up walking when she lost her balance and fell striking her head on the doorway. She denies any loss of consciousness and states she was only on the ground for approximately 20 to 30 minutes before she was able to get back up with help. However based on the head trauma the nursing was concern for underlying traumatic brain injury and sent the patient in for evaluation. Upon arrival to the ER the patient states that she has a sore head but otherwise has no complaints. [facility] Medical History Cholecystectomy planned Chronic kidney disease (CKD) Dementia Diabetes DVT (deep venous thrombosis) GERD (gastroesophageal reflux disease) HTN (hypertension) Hyperlipidemia Home Medications glipizide 5 mg PO DAILY 08/16/19 [History Last Taken 07/02/21] exenatide microspheres 2 mg SQ TU 07/23/20 [History Last Taken 06/26/21] latanoprost 2.5 ml OP QHS 07/23/20 [History Last Taken 07/01/21] lisinopril 5 mg PO DAILY 07/23/20 [History Last Taken 07/02/21] omeprazole 40 mg PO DAILY 12/11/20 [History Last Taken 07/02/21] Eliquis 5 mg PO BID 30 Days #60 tab 12/18/20 [Rx Last Taken 07/02/21] acetaminophen 1,000 mg PO Q6H PRN PRN #0 tab 12/18/20 [Rx Last Taken Unknown] ascorbic acid (vitamin C) 500 mg PO DAILY #0 tab 07/05/21 [Rx Last Taken Unknown] atorvastatin 20 mg PO QHS 30 Days #30 tab 07/05/21 [Rx Last Taken Unknown] cephalexin 500 mg PO TID 6 Days #18 cap 07/05/21 [Rx Last Taken Unknown] insulin glargine [Lantus Solostar U-100 Insulin] 15 unit SUBCUT BID #0 ml 07/05/21 [Rx Last Taken Unknown] Allergy/AdvReac Type Severity Reaction Status Date / Time sulfamethoxazole Allergy Hives Verified 07/14/21 02:02 [From ] trimethoprim [From ] Allergy Hives Verified 07/14/21 02:02 adhesive tape AdvReac Rash Verified 07/14/21 02:02 Surgical History History of appendectomy History of cholecystectomy Social History household members: none Smoking Status: Never smoker ROS ROS ED Constitutional Constitutional ED: Denies chills or fever(s) ENT ENT ED: Denies sore throat Cardiovascular Cardiovascular: Denies chest pain Respiratory/Chest Respiratory/Chest: Denies cough or dyspnea Gastrointestinal Gastrointestinal: Denies abdominal pain, diarrhea, nausea or vomiting Genitourinary Genitourinary ED: Denies dysuria Musculoskeletal Musculoskeletal: Denies back pain, myalgias or neck pain Integumentary Reports Abrasions and rash Neurologic Neurologic: Reports headache(s) Hematologic/Lymphatic Hematologic/Lymphatic: Denies easy bleeding or easy bruising EXAM Physical Exam Const Vital Signs: 07/14/21 01:55 07/14/21 01:58 Temperature 98.2 F 98.2 F Temperature Source Temporal Temporal Pulse Rate 92 Respiratory Rate 22 H Blood Pressure 142/92 H 142/92 H Blood Pressure Mean 108 108 Pulse Ox 97 Oxygen Delivery Method Room Air Positive well nourished, well developed and obese General Appearance ED: well developed Nutritional Appearance: obese HEENT HEENT Narrative: Patient has a 2 x 3 hematoma along the right parietal portion of the scalp consistent with reported head trauma but no signs of depressed or basilar skull fracture Eyes PERRL and EOMs intact bilaterally Neck supple Neck Narrative: No bony deformity or step-off of the cervical spine no midline pain with palpation Chest Wall palpation of chest normal Resp normal respiratory effort and clear to auscultation bilaterally Cardio regular rate and regular rhythm GI normal to inspection, nondistended, normoactive bowel sounds, non-tender, non- distended and no masses Auscultation: normoactive bowel sounds Palpation: soft Extremity normal to inspection Extremity Narrative: Pelvis is stable there is no shortening or external rotation of either lower extremity. Patient is able to lift both legs and arms without pain. Neuro oriented x3 and CN's II-XII intact bilaterally Sensorium / Orientation: alert Psych mental status grossly normal Skin Skin Narrative: Patient has chronic soft tissue changes in the inguinal folds consistent with cutaneous candidiasis. MDM MDM MDM Narrative Medical decision making narrative: Patient presented to the ER after mechanical fall so I felt no need for cardiac or syncope work-up. I performed a head CT based on her report and signs of head injury as well as a pelvis x-ray because of the fall. Work-up revealed no acute traumatic findings and therefore patient is safe for discharge back to the intermediate Radiography Diagnostic Testing: Clinical Impression(s) from Imaging Studies Brain CT 07/14/21 02:28 IMPRESSION: Scalp hematoma. No evidence of acute intracranial pathology. Electronically Signed: Juan Stallworth DO at 3:19 EST Tel , Service support , Pelvis X-Ray 07/14/21 02:50 IMPRESSION: No acute findings Electronically Signed: Juan Stallworth DO at 3:20 EST Tel , Service support , Discharge Plan Triage Chief Complaint: Fall ED Provider: Griffin Rodríguez Dx/Rx/DC Orders Clinical Impression: Closed head injury, Hematoma of parietal scalp, Accidental fall Instructions: ED Head Injury (Adult), ED Hematoma Prescriptions: No Action glipizide 2.5 MG tablet extended release 24hr 5 mg PO DAILY RF: 0 latanoprost 2.5 ML drops 2.5 ml OP QHS RF: 0 lisinopril 10 MG tablet 5 mg PO DAILY RF: 0 exenatide microspheres 2 MG/0.65 ML pen injector 2 mg SQ TU RF: 0 omeprazole 40 mg Capsule,Delayed Release(Dr/Ec) 40 mg PO DAILY RF: 0 acetaminophen 500 mg Tablet 1,000 mg PO Q6H PRN PRN (Reason: Pain Score 1-10) Qty: 0 RF: 0 Eliquis 5 mg Tablet 5 mg PO BID 30 Days Qty: 60 RF: 0 Lantus Solostar U-100 Insulin 100 unit/mL (3 mL) Insulin Pen 15 unit subcut BID Qty: 0 RF: 0 ascorbic acid (vitamin C) 500 mg Tablet 500 mg PO DAILY Qty: 0 RF: 0 atorvastatin 20 mg Tablet 20 mg PO QHS 30 Days Qty: 30 RF: 0 cephalexin 500 mg capsule 500 mg PO TID 6 Days Qty: 18 RF: 0 Primary Care Provider: Cecy Trivedi Referrals: Cecy Trivedi MD [Primary Care Provider] - Disposition Disposition: Home, Self Care
[2021-07-14 03:36] VITALS: BP 106/68; PULSE 87; RESP 18; O2SAT 99
== END 2021-07-14 04:50 | disposition home or self-care (01) ==
PROVIDERS: Emergency Provider Emergency Medicine; PCP Family Medicine; Visit Provider Emergency Medicine
DX: S00.03XA Contusion of scalp, initial encounter (principal); F03.90 Unspecified dementia, unspecified severity, without behavioral disturbance, psychotic disturbance, mood disturbance, and anxiety; E11.22 Type 2 diabetes mellitus with diabetic chronic kidney disease; Z79.4 Long term (current) use of insulin; I12.9 Hypertensive chronic kidney disease with stage 1 through stage 4 chronic kidney disease, or unspecified chronic kidney disease; N18.9 Chronic kidney disease, unspecified; E78.5 Hyperlipidemia, unspecified; E66.9 Obesity, unspecified; Z68.37 Body mass index [BMI] 37.0-37.9, adult; W01.198A Fall on same level from slipping, tripping and stumbling with subsequent striking against other object, initial encounter; Y93.01 Activity, walking, marching and hiking; Y99.8 Other external cause status; Y92.198 Other place in other specified residential institution as the place of occurrence of the external cause; K21.9 Gastro-esophageal reflux disease without esophagitis; Z79.01 Long term (current) use of anticoagulants; Z79.84 Long term (current) use of oral hypoglycemic drugs; Z79.899 Other long term (current) drug therapy
CPT/HCPCS: 70450; 72170; 99284

== ENCOUNTER → 2021-07-17 | Outpatient (REF) | payer MEDICARE, SELFPAY ==
[2021-07-17 08:49] LABS: Hemoglobin 10.6 g/dL (12.0-15.0); Mean Corp Hgb Conc 32.1 g/dL (32-36); Mean Corpuscular Hgb 26.6 pg (27.0-32.0); Mean Corpuscular Volume 82.7 fL (81-99); Mean Platelet Vol. 11.6 fl (6.2-12.0); Platelet Count 262 K/mm3 (150-450); RBC Distribution Width CV 14.5 % (11.6-14.6); RBC Distribution Width SD 43.3 fl (35.1-43.9); Red Blood Count 3.99 M/mm3 (4.2-5.4); White Blood Count 7.4 K/mm3 (4.4-11.0)
[2021-07-17 09:01] LABS: ALB/GLOB Ratio 0.6 RATIO (0.9-2.4); AST(SGOT) 28 U/L (15-37); Alanine Aminotransfer ALT/SGPT 44 U/L (13-56); Albumin, Serum 2.4 g/dL (3.2-5.0); Alkaline Phosphatase 68 U/L (45-117); Anion Gap 8 (5-15); BUN 16 mg/dL (7-18); BUN/Creat Ratio 23.2 RATIO (10-20); Calcium,Total 8.7 mg/dL (8.5-10.1); Chloride 115 mmol/L (98-107); Creatinine, Serum 0.69 mg/dL (0.55-1.02); EST Glomerular Filtration Rate 86 mL/min (>60); Est Glom Filt Rate - Afr Amer 104 mL/min (>60); Globulin 4.3 g/dL (2.2-4.2); Glucose 119 mg/dL (74-106); Potassium 3.9 mmol/L (3.5-5.1); Protein, Total 6.7 g/dL (6.4-8.2); Sodium Level 148 mmol/L (136-145)
[2021-07-17 09:47] LABS: Hemoglobin A1c 7.7 % (3.8-5.6)
== END | disposition home or self-care (01) ==
PROVIDERS: PCP Family Medicine; Visit Provider Family Medicine
DX: E11.9 Type 2 diabetes mellitus without complications (principal); Z79.899 Other long term (current) drug therapy
CPT/HCPCS: 36415; 80053; 83036; 85027

== ENCOUNTER → 2021-08-10 | Outpatient (REF) | payer MEDICARE, SELFPAY ==
[2021-08-11 08:01] LABS: Mucous, Urine 0 SEEN /hpf (<or=2+); Red Blood Cells-Urine 0 SEEN /hpf (0-5); Squamous Epithelial Cells - UA 0 SEEN /hpf (5-10)
[2021-08-11 08:21] LABS: Color, Urine Yellow (Yellow); Glucose, Dipstick 1000 mg/dl (Normal); Ketone-Dipstick Negative (Negative); Leukocyte Esterase-Dipstick 500 /ul (Negative); Nitrite-Dipstick Positive (Negative); Occult Blood-Urine 150 /ul (Negative); Protein-Dipstick 100 mg/dl (Negative); Specific Gravity, Urine 1.015 (1.002-1.030); Urine Bilirubin Dipstick Negative (Negative); Urine Clarity Cloudy (Clear); Urine Urobilinogen Normal (Normal); Urine pH 6.5 (5.0 - 8.0)
[2021-08-11 08:30] LABS: White Blood Cells >100 SEEN /hpf (0-5)
[2021-08-11 08:32] LABS: Bacteria 2+ /hpf (None Seen); Yeast-Urine 2+ /hpf (None Seen)
== END | disposition home or self-care (01) ==
PROVIDERS: PCP Family Medicine; Visit Provider Family Medicine
DX: R41.0 Disorientation, unspecified (principal); Z87.440 Personal history of urinary (tract) infections
CPT/HCPCS: 81001; 87086; 87088; 87186

== ENCOUNTER 2021-08-27 10:24 | Emergency (ER) | payer MEDICARE, SELFPAY ==
[2021-08-27 10:28] VITALS: BP 143/79; PULSE 105; RESP 20; TEMP 36.7; O2SAT 94; BMI 38.4
--- NOTE | 2021-08-27 10:39 | CT_ITS ---
STUDY: CT BRAIN WITHOUT CONTRAST REASON FOR EXAM: Female, 85 years old. Head injury due to a fall. Alzheimer''s disease. RADIATION DOSAGE (If Supplied By Facility): CTDIvol = ( 47.06 ) mGy, DLP = ( 855.03 ) mGycm TECHNIQUE: Transaxial CT imaging of the brain was performed without administration of intravenous contrast material. Individualized dose optimization techniques were used for this CT. COMPARISON: Comparison is made with prior study dated 07/14/2021. FINDINGS: Scalp hematoma overlying the posterior right parietal bone. Normal calvarium. There is mild cerebral atrophy with widening of the extra-axial spaces and ventricular dilatation. There are areas of decreased attenuation within the white matter tracts of the supratentorial brain, consistent with microvascular disease changes. Tiny old lacunar in the insular cortex of the right temporal lobe. Normal brainstem. There is mild cerebellar atrophy. There is no intracranial hemorrhage. There are no findings of an acute ischemic infarction. Atherosclerotic calcification of the cavernous portions of the internal carotid arteries bilaterally. Normal visualized paranasal sinuses. CT/Brain/Head without Contrast IMPRESSION: Chronic involutional changes of the brain. Small scalp hematoma overlying the posterior right parietal bone. Electronically Signed: Mickey Malik MD at 11:10 EST ,
--- NOTE | 2021-08-27 10:41 | EDS_ITS ---
HPI History of Present Illness Chief Complaint: Fall Informant: patient, EMS and SNF Onset/Context/Timing Onset: Today Narrative Narrative: Patient sent in from local ECF after a fall. Patient states that she slipped on water and fell backwards striking her head. She complains of pain in her head and back. She denies loss of consciousness. Patient is currently on Eliquis. [facility] Medical History (Updated 08/27/21 @ 12:[address] Zenaida Funk MD) Chronic kidney disease (CKD) Dementia Diabetes DVT (deep venous thrombosis) GERD (gastroesophageal reflux disease) HTN (hypertension) Hyperlipidemia Home Medications glipizide 5 mg PO DAILY 08/16/19 [History Last Taken 07/02/21] exenatide microspheres 2 mg SQ TU 07/23/20 [History Last Taken 06/26/21] latanoprost 2.5 ml OP QHS 07/23/20 [History Last Taken 07/01/21] lisinopril 5 mg PO DAILY 07/23/20 [History Last Taken 07/02/21] omeprazole 40 mg PO DAILY 12/11/20 [History Last Taken 07/02/21] Eliquis 5 mg PO BID 30 Days #60 tab 12/18/20 [Rx Last Taken 07/02/21] acetaminophen 1,000 mg PO Q6H PRN PRN #0 tab 12/18/20 [Rx Last Taken Unknown] ascorbic acid (vitamin C) 500 mg PO DAILY #0 tab 07/05/21 [Rx Last Taken Unknown] atorvastatin 20 mg PO QHS 30 Days #30 tab 07/05/21 [Rx Last Taken Unknown] cephalexin 500 mg PO TID 6 Days #18 cap 07/05/21 [Rx Last Taken Unknown] insulin glargine [Lantus Solostar U-100 Insulin] 15 unit SUBCUT BID #0 ml 07/05/21 [Rx Last Taken Unknown] Allergy/AdvReac Type Severity Reaction Status Date / Time sulfamethoxazole Allergy Hives Verified 07/14/21 02:02 [From ] trimethoprim [From ] Allergy Hives Verified 07/14/21 02:02 adhesive tape AdvReac Rash Verified 07/14/21 02:02 Surgical History History of appendectomy History of cholecystectomy Social History household members: none Smoking Status: Never smoker ROS ROS ED ROS Narrative Limited review of systems secondary to patient's dementia. Constitutional Constitutional ED: Denies fever(s) Eyes Eyes: Denies change in vision Cardiovascular Cardiovascular: Denies chest pain Respiratory/Chest Respiratory/Chest: Denies dyspnea Gastrointestinal Gastrointestinal: Denies nausea or vomiting Musculoskeletal Musculoskeletal: Reports back pain Neurologic Neurologic: Reports headache(s) EXAM Physical Exam Const Vital Signs: 08/27/21 10:28 08/27/21 10:32 Temperature 98.1 F Temperature Source Temporal Pulse Rate 105 H Respiratory Rate 20 H Respiratory Effort Normal Non-Labored Blood Pressure 143/79 H Blood Pressure Mean 100 Pulse Ox 94 Oxygen Delivery Method Room Air Room Air Positive well nourished and well developed General Appearance ED: well developed HEENT HEENT Narrative: Scalp hematoma noted on the posterior parietal scalp. Eyes EOMs intact bilaterally Neck supple Chest Wall inspection of chest normal and palpation of chest normal Resp normal respiratory effort and clear to auscultation bilaterally Cardio regular rate and regular rhythm GI non-tender Palpation: soft Back/Spine Back/Spine Narrative: Mild tenderness location of the mid thoracic spine. No tenderness of the lumbar spine. Extremity normal to inspection Neuro Neuro Narrative: Moves all 4 extremities with good strength. Sensorium / Orientation: alert Skin no rashes or lesions noted MDM MDM MDM Narrative Medical decision making narrative: Patient sent for CT head. Thoracic spine x- rays obtained. Radiography Diagnostic Testing: Clinical Impression(s) from Imaging Studies Brain CT 08/27/21 10:39 IMPRESSION: Chronic involutional changes of the brain. Small scalp hematoma overlying the posterior right parietal bone. Electronically Signed: Mickey Malik MD at 11:10 EST , Thoracic Spine X-Ray 08/27/21 11:05 IMPRESSION: Multilevel disc space narrowing and spondylosis. Electronically Signed: Mickey Malik MD at 11:59 EST , Treatment and Re-Evaluation Comments:: CT head reveals scalp hematoma with chronic involutional changes. Th oracic spine x-ray per my interpretation reveals no acute abnormalities. Radiology interpretation is reviewed. [facility] Discharge Plan Triage Chief Complaint: Fall ED Provider: Zenaida Funk Dx/Rx/DC Orders Clinical Impression: Fall, Hematoma of scalp Instructions: ED Scalp Contusion, ED Fall with Uncertain Cause Prescriptions: No Action glipizide 2.5 MG tablet extended release 24hr 5 mg PO DAILY RF: 0 latanoprost 2.5 ML drops 2.5 ml OP QHS RF: 0 lisinopril 10 MG tablet 5 mg PO DAILY RF: 0 exenatide microspheres 2 MG/0.65 ML pen injector 2 mg SQ TU RF: 0 omeprazole 40 mg Capsule,Delayed Release(Dr/Ec) 40 mg PO DAILY RF: 0 acetaminophen 500 mg Tablet 1,000 mg PO Q6H PRN PRN (Reason: Pain Score 1-10) Qty: 0 RF: 0 Eliquis 5 mg Tablet 5 mg PO BID 30 Days Qty: 60 RF: 0 Lantus Solostar U-100 Insulin 100 unit/mL (3 mL) Insulin Pen 15 unit subcut BID Qty: 0 RF: 0 ascorbic acid (vitamin C) 500 mg Tablet 500 mg PO DAILY Qty: 0 RF: 0 atorvastatin 20 mg Tablet 20 mg PO QHS 30 Days Qty: 30 RF: 0 cephalexin 500 mg capsule 500 mg PO TID 6 Days Qty: 18 RF: 0 Primary Care Provider: Cecy Trivedi Referrals: Cecy Trivedi MD [Primary Care Provider] - 5-7 Days Disposition [facility] Discharge Location: [facility]
--- NOTE | 2021-08-27 11:05 | RAD_ITS ---
STUDY: X-RAY - THORACIC SPINE REASON FOR EXAM: Female, 85 years old. Fall, pain TECHNIQUE: 3 view(s) of the thoracic spine were obtained. COMPARISON: None. FINDINGS: Normal kyphosis of the thoracic spine. There is no substantial scoliosis. There is demineralization of the thoracic spine with endplate spondylosis. There is multilevel disc space narrowing of the thoracic spine. Atherosclerotic calcification of the aortic arch. RAD/Thoracic Spine 2 Views IMPRESSION: Multilevel disc space narrowing and spondylosis. Electronically Signed: Mickey Malik MD at 11:59 EST ,
--- NOTE | 2021-08-27 12:44 | ED.RN ---
[facility] ETA 30 MIN
[2021-08-27 12:50] VITALS: BP 149/62; PULSE 80; RESP 18
== END 2021-08-27 13:26 | disposition skilled nursing facility (03) ==
PROVIDERS: Emergency Provider Emergency Medicine; PCP Family Medicine; Visit Provider Emergency Medicine
DX: S00.03XA Contusion of scalp, initial encounter (principal); F03.90 Unspecified dementia, unspecified severity, without behavioral disturbance, psychotic disturbance, mood disturbance, and anxiety; E11.22 Type 2 diabetes mellitus with diabetic chronic kidney disease; Z79.4 Long term (current) use of insulin; I12.9 Hypertensive chronic kidney disease with stage 1 through stage 4 chronic kidney disease, or unspecified chronic kidney disease; E78.5 Hyperlipidemia, unspecified; N18.9 Chronic kidney disease, unspecified; W01.0XXA Fall on same level from slipping, tripping and stumbling without subsequent striking against object, initial encounter; K21.9 Gastro-esophageal reflux disease without esophagitis; Z79.899 Other long term (current) drug therapy; Z86.718 Personal history of other venous thrombosis and embolism; Z79.01 Long term (current) use of anticoagulants
CPT/HCPCS: 70450; 72070; 99284